=== PATIENT | female | born 1955 | race Caucasian/White ===

== ENCOUNTER 2016-10-10 18:17 | Inpatient (IN) | payer MEDICARE, MEDICAID ==
[2016-10-10] MEDS ORDERED: NS 0.9% 1000 ML* 1,000 ML IV ONE (19:02)
[2016-10-10] MEDS ORDERED: Pantoprazole IV* 40 MG IV ONE ×2 (19:02→21:00)
[2016-10-10 19:17] LABS: Hematocrit 18 % (35-47); Mean Corpuscular HGB Conc 31 g/dl (31-36); Mean Corpuscular Hemoglobin 20 pg (27-31); Mean Corpuscular Volume 65 fL (80-97); Mean Platelet Volume 9 um3 (7.4-10.4); Red Blood Count 2.79 10^6/ul (4.0-5.4); Red Cell Distribution Width 27 % (10.5-15); White Blood Count 5.2 10^3/ul (3.5-10.8)
[2016-10-10 19:25] LABS: Add Diff/Slide Review? Slide Review Added; Comments Flag Yes
[2016-10-10 19:26] LABS: Hemoglobin 5.6 g/dl (12.0-16.0)
[2016-10-10 19:27] LABS: ALT 11 U/L (7-52); AST 18 U/L (13-39); Albumin 3.5 g/dL (3.2-5.2); Alkaline Phosphatase 77 U/L (34-104); Anion Gap -5 mmol/L (2-11); BUN/Creatinine Ratio 21.6 (8-20); Blood Urea Nitrogen 19 mg/dL (6-24); C Reactive Protein 63.45 mg/L (< 5.00); CO2 Carbon Dioxide 27 mmol/L (22-32); Chloride 102 mmol/L (101-111); EGFR Non-African American 65.3 (>60); Globulin 2.6 g/dL (2-4); Glucose 254 mg/dL (70-100); Lipase 14 U/L (11.0-82.0); Potassium 4.4 mmol/L (3.5-5.0); Sodium 124 mmol/L (133-145); Total Protein 6.1 g/dL (6.4-8.9)
[2016-10-10 19:28] LABS: Troponin I 0.01 ng/mL (<0.04)
--- NOTE | 2016-10-10 19:37 | RAD ---
HISTORY: Abdominal pain COMPARISONS: January 28, 2009 VIEWS: Frontal views of the abdomen. FINDINGS: BOWEL: There is a nonobstructive bowel gas pattern. There is a very large amount of stool throughout the colon. CALCULI: There are no abnormal calculi. BONES AND SOFT TISSUES: There are no osseous abnormalities. OTHER FINDINGS: The lung bases are clear. There is no subphrenic gas. IMPRESSION: NONOBSTRUCTIVE BOWEL GAS PATTERN. VERY LARGE AMOUNT OF STOOL THROUGHOUT THE COLON.
[2016-10-10] MEDS ORDERED: Ondansetron INJ* 2 MG/ML VIAL IV PRN (19:50)
[2016-10-10] MEDS ORDERED: LORazepam INJ* 2 MG/ML 1 ML VIAL IV PRN (19:50)
[2016-10-10 19:58] LABS: Maturation Factor Retic 2.5
[2016-10-10 20:00] LABS: Hypochromasia 3+; Microcytosis 2+; Polychromasia 1+; Tear Drop Cells 1+
[2016-10-10] MEDS ORDERED: Pantoprazole IV* 40 MG IV SCH (20:00)
[2016-10-10] MEDS ORDERED: NS 0.9% 1000 ML* 1,000 ML IV SCH ×2 (20:00→20:30)
[2016-10-10 20:03] LABS: Comments Flag Yes; Corrected Retic Count 0.8 % (0.5-1.5); Immature Retic Fraction 0.51
[2016-10-10 20:14] LABS: Iron 29 ug/dL (50-212); Total Iron Binding Capacity 484 mcg/dL (250-450); Transferrin 346 mg/dL (203-362)
[2016-10-10] MEDS ORDERED: Albuterol 2.5 MG/3 ML NEB.SOL* (0.083%) INH PRN (20:18)
--- NOTE | 2016-10-10 20:20 | ED ---
Marina Mujica Claudia, scribed for Jacky Sosa MD on 10/10/16 at 1904 . Complex/Multi-Sys Presentation - HPI Summary HPI Summary: 61 year old female presents to the ED after receivingF some abnormal blood work at [facility] yesterday. Pt went to [facility] yesterday with c/c of weakness, fatigue, vomiting, nausea, fever, chills, dizziness, lightheadedness. Pt denies melena. Pt notes that they did some blood work and she got a call later that night from Dr. Wilkins whom stated she was "loosing blood" and was anemic. Pt notes that the Sx gradually began October. Dr. Wilkins recommended going to ED for blood transfusions. She notes that she was going to wait until she saw Dr. Ko but today she was unable to tolerate the Sx and called Dr. Wilkins whom recommended coming into the ED. Pt has been taking ibuprofen and naproxen more frequently for knee pain. - History Of Current Complaint Chief Complaint: EDBleedingDisorder Time Seen by Provider: 10/10/16 18:55 Hx Obtained From: Patient Onset/Duration: Gradual Onset - past 2 chiquis, Lasting Days - since 10/08/16 , Still Present Timing: Constant Associated Signs And Symptoms: Positive: Dizziness, Weakness, Nausea, Vomiting. Negative: Dysuria, Melena - Allergies/Home Medications Allergies/Adverse Reactions: Allergies Allergy/AdvReac Type Severity Reaction Status Date / Time Benzonatate [From Tessalon] Allergy Headache Verified 08/28/16 14:05 Cephalexin [From Keflex] Allergy VOMITING, Verified 08/28/16 14:05 DIARRHEA, HIVES, LIGHTHEADEDNESS Latex Allergy Rash Verified 08/28/16 14:05 Morphine Allergy VOMITING, Verified 08/28/16 14:05 LIGHTHEADEDNESS Penicillins [PCN] Allergy CHEST Verified 08/28/16 14:05 HEAVINESS, SLIGHT DIFF BREATHING, LIGHTHEADEDNESS, Codeine AdvReac See Comment Verified 08/28/16 14:06 ALL "MYCINS" Allergy CHEST Uncoded 08/28/16 14:05 HEAVINESS, SL. DIFF. BREATHING, LIGHTHEADEDNESS ALL CILLINS Allergy CHEST Uncoded 08/28/16 14:05 HEAVINESS, SL. DIFF. BREATHING, LIGHTHEADNESS MULTIPLE ANTIBIOPTIC Allergy CHEST Uncoded 08/28/16 14:05 REACTIONS HEAVINESS, SL. DIFF. BREATHING, LIGHTHEADEDNESS SULFA DRUGS Allergy VOMITING, Uncoded 08/28/16 14:05 DIARRHEA, HIVES, LIGHTHEADEDNESS PMH/Surg Hx/FS Hx/Imm Hx Previously Healthy: Yes Endocrine/Hematology History: Reports: Hx Diabetes - TYPE II- ON ORAL MEDICATION AND INSULIN Cardiovascular History: Reports: Hx Angina Denies: Hx Coronary Artery Disease, Hx Hypercholesterolemia, Hx Hypertension , Hx Myocardial Infarction, Hx Valvular Heart Disease Respiratory History: Denies: Hx Asthma, Hx Chronic Obstructive Pulmonary Disease (COPD) GI History: Reports: Hx Gastroesophageal Reflux Disease - ON MEDICATION FOR, Hx Hiatal Hernia, Hx Ulcer - reflux Sensory History: Reports: Hx Cataracts - BEGINNING STAGES, Hx Contacts or Glasses Denies: Hx Hearing Aid Opthamlomology History: Reports: Hx Cataracts - BEGINNING STAGES, Hx Contacts or Glasses - Surgical History Surgery Procedure, Year, and Place: NECK SURGERY- FOR HENIATED DISC[place] [place]. SURGERY FOR PROLASPED BLADDER AND RECTUM, TOTAL ABDOMINAL HYSTERECTOMY- LAPAROSCOPIC-JESSICA. TUBAL LIGATION Hx Anesthesia Reactions: Yes - NAUSEA Infectious Disease History: No Infectious Disease History: Reports: Hx of Known/Suspected MRSA Denies: History Other Infectious Disease, Traveled Outside the [place] in Last 30 Days - Family History Known Family History: Positive: Cardiac Disease Family History: [place] - Social History Occupation: Disabled Lives: Alone Alcohol Use: Rare Substance Use Type: Reports: None Smoking Status (MU): Former Smoker Type: Cigarettes Amount Used/How Often: 1 PPD X 25 +YEARS Have You Smoked in the Last Year: No Review of Systems Positive: Fever, Chills, Fatigue Eyes: Negative ENT: Negative Cardiovascular: Negative Respiratory: Negative Positive: Vomiting, Nausea Genitourinary: Negative Musculoskeletal: Negative Skin: Negative Neurological: Other - lightheaded/dizzy Psychological: Normal All Other Systems Reviewed And Are Negative: Yes Physical Exam - Summary Physical Exam Summary: VITAL SIGNS: Reviewed. GENERAL: Patient is a well developed and nourished female who is lying comfortable in the stretcher. Patient is not in any acute respiratory distress. HEAD AND FACE: Normocephalic and atraumatic. EYES: PERRLA, EOMI x 2, No injected conjunctiva. EARS: Hearing grossly intact. Ear canals and tympanic membranes are WNL. MOUTH: Oropharynx within normal limits. NECK: Supple, trachea is midline, no adenopathy, no JVD. CHEST: Symmetric, no tenderness at palpation LUNGS: Clear to auscultation bilaterally. No wheezing or crackles. CVS: RRR,, S1 and S2 present, no murmurs or gallops appreciated. ABDOMEN: Soft, epigastric tenderness. No signs of distention. Positive bowel sounds. No rebound no guarding, and no masses palpated. No abdominal bruit or pulsations. Rectal exam with normal sphincter tone and no gross blood. EXTREMITIES: FROM in all major joints, no edema, no cyanosis or clubbing. NEURO: Alert and oriented x 3. No acute neurological deficits. Speech is normal. SKIN: Dry and warm Triage Information Reviewed: Yes Vital Signs On Initial Exam: Initial Vitals Temp Pulse Resp BP Pulse Ox 99.1 F 86 16 131/42 98 10/10/16 18:24 10/10/16 18:24 10/10/16 18:24 10/10/16 18:24 10/10/16 18:24 Vital Signs Reviewed: Yes Diagnostics - Vital Signs Vital Signs Temp Pulse Resp BP Pulse Ox 10/10/16 18:24 99.1 F 86 16 131/42 98 - Laboratory Lab Results: Lab Results 10/10/16 10/10/16 10/10/16 Range/Units 19:00 19:00 19:00 WBC 5.2 (3.5-10.8) 10^3/ul RBC 2.79 L (4.0-5.4) 10^6/ul Hgb 5.6 L* (12.0-16.0) g/dl Hct 18 L (35-47) % MCV 65 L (80-97) fL MCH 20 L (27-31) pg MCHC 31 (31-36) g/dl RDW 27 H (10.5-15) % Plt Count 130 L (150-450) 10^3/ul MPV 9 (7.4-10.4) um3 Neut % (Auto) 76.3 (38-83) % Lymph % (Auto) 18.4 L (25-47) % [place] % (Auto) 3.0 (1-9) % Eos % (Auto) 0.9 (0-6) % Baso % (Auto) 1.4 (0-2) % Absolute Neuts (auto) 4.0 (1.5-7.7) 10^3/ul Absolute Lymphs (auto) 1.0 (1.0-4.8) 10^3/ul Absolute Monos (auto) 0.2 (0-0.8) 10^3/ul Absolute Eos (auto) 0 (0-0.6) 10^3/ul Absolute Basos (auto) 0.1 (0-0.2) 10^3/ul Absolute Nucleated RBC 0.04 10^3/ul Nucleated RBC % 0.8 Sodium 124 L (133-145) mmol/L Potassium 4.4 (3.5-5.0) mmol/L Chloride 102 (101-111) mmol/L Carbon Dioxide 27 (22-32) mmol/L Anion Gap -5 L (2-11) mmol/L BUN 19 (6-24) mg/dL Creatinine 0.88 (0.51-0.95) mg/dL Est GFR ( Amer) 84.0 (>60) Est GFR (Non-Af Amer) 65.3 (>60) BUN/Creatinine Ratio 21.6 H (8-20) Glucose 254 H (70-100) mg/dL Calcium 9.0 (8.6-10.3) mg/dL Total Bilirubin 0.40 (0.2-1.0) mg/dL AST 18 (13-39) U/L ALT 11 (7-52) U/L Alkaline Phosphatase 77 (34-104) U/L Troponin I 0.01 (<0.04) ng/mL C-Reactive Protein 63.45 H (< 5.00) mg/L Total Protein 6.1 L (6.4-8.9) g/dL Albumin 3.5 (3.2-5.2) g/dL Globulin 2.6 (2-4) g/dL Albumin/Globulin Ratio 1.3 (1-3) Lipase 14 (11.0-82.0) U/L Blood Type O Positive Antibody Screen Negative Crossmatch See Detail Result Diagrams: 10/10/16 19:00 10/10/16 19:00 Lab Statement: Any lab studies that have been ordered have been reviewed, and results considered in the medical decision making process. - Radiology ABDOMEN XRAY Xray Interpretation: No Acute Changes - NONOBSTRUCTIVE BOWEL GAS PATTERN. VERY LARGE AMOUNT OF STOOL THROUGHOUT THE COLON. Radiology Interpretation Completed By: Radiologist - EKG 19:08 Cardiac Rate: NL EKG Rhythm: Sinus Rhythm - 81 beats/min ST Segment: Normal - no ST elevation Complex Multi-Symp Course/Dx Assessment/Plan: 61 presents to ED after seeing by PCP due to decreased hemoglobin and hematocrit. The pt records for 1 week of weakness, dizziness, palpitations. She also reports taking more than usual ibuprofen and naproxen for knee pain. She denies any melena or rectal bleeding her last colonoscopy was 4 years ago. Test hemoglobin was 5.6 and hematocrit was 18. Sodium 124, glucose 254 Abd XR showed non obstructed bowel. However, very large amount of stool in the colon. The pt is hemodynamically stable with 131/42. However the pt was given IV fluids, protonics, and I ordered 2 units of packed RBC for transfusion. The pt continued to be hemodynamically stable. Pt has 2 IV accesses. The PE and findings were discussed with Dr. Nichols. Dr. Nichols accepts patient for admission to [facility] [place]. - Diagnoses Provider Diagnoses: GI bleed due to NSAIDs, Symptomatic anemia - Physician Notifications Discussed Care Of Patient With: Discussed care of patient with Dr. Nichols. Dr. Nichols accepts admission to [facility] [place]. 20:03 Time Discussed With Above Provider: 19:56 Discharge - Discharge Plan Condition: Stable Disposition: ADMITTED TO [facility] Referrals: Peyman Ko MD [Primary Care Provider] - The documentation as recorded by the Marina de la o Claudia accurately reflects the service I personally performed and the decisions made by , Jacky Sosa MD.
[2016-10-10] MEDS ORDERED: Dextrose 50% Syringe 50 ML* 25 GM/50 ML SYRINGE IV PUSH PRN (20:21)
[2016-10-10 20:35] LABS: Ferritin 15.3 ng/mL (11-307)
[2016-10-10 20:38] LABS: Folate > 20.00 ng/mL (>3.99)
[2016-10-10 20:39] LABS: Vitamin B12 420 pg/mL (180-914)
[2016-10-10 20:51] LABS: Urine Bacteria 1+ (Absent); Urine Bilirubin Negative (Negative); Urine Glucose Negative (Negative); Urine Nitrite Negative (Negative)
--- NOTE | 2016-10-10 20:59 | RAD ---
HISTORY: Fever COMPARISONS: September 12, 2015 VIEWS:1: Single frontal portable view of the chest at 8:45 PM FINDINGS: LINES AND TUBES: None. CARDIOMEDIASTINAL SILHOUETTE: The cardiomediastinal silhouette is normal for portable technique. PLEURA: The costophrenic angles are sharp. No pleural abnormalities are noted. LUNG PARENCHYMA: The lungs are clear. ABDOMEN: The upper abdomen is clear. There is no subphrenic gas. BONES AND SOFT TISSUES: No bone or soft tissue abnormalities are noted. IMPRESSION: NO ACTIVE CARDIOPULMONARY DISEASE.
[2016-10-10] MEDS ORDERED: Pantoprazole IV* 80 MG in NS 0.9% 250 ML* 250 ML IVPB SCH (21:00)
[2016-10-10] MEDS: Pantoprazole IV* 80 MG in NS 0.9% 250 ML* 250 ML IVPB SCH (22:40)
[2016-10-10] MEDS: Insulin GLARGINE(*) 1 UNITS UNIT SUBCUT SCH (22:41)
[2016-10-10] MEDS: Gabapentin CAP(*) 300 MG PO SCH (22:41)
[2016-10-10] MEDS: Acetaminophen TAB* 325 MG PO PRN (22:42)
--- NOTE | 2016-10-11 00:48 | HP ---
HISTORY AND PHYSICAL: DATE OF ADMISSION: 10/10/16 PRIMARY CARE PROVIDER: Peyman Ko MD ATTENDING PHYSICIAN WHILE IN THE HOSPITAL: Marcos Nichols MD * (report dictated by Lj Oh NP) CONSULTING COMPUTER TYPESETTER: Gulshan Crook MD CHIEF COMPLAINT: Abnormal blood work. HISTORY OF PRESENT ILLNESS: Mrs. Allen is a 61-year-old female patient. She has a history of neuropathy, osteomyelitis, diabetes, history of arthritis, GERD , and hiatal hernia. She comes in today stating that 3 days ago she was spiking fevers at home as high as 102, although this has not been documented here. She was feeling nauseous. She was vomiting. This happened on and Wednesday, she felt good. It happened again this morning. She had blood work obtained by her primary initially because she had not been feeling well. There had been no diarrhea. There has been episodes of vomiting and she states that she had been under the weather. No recent sick contacts. No URI symptoms. She underwent and had the blood work due to the fact that she was having these symptoms, was not feeling good and she came in to her primary. They kimberlee blood and they ultimately called her today stating that she had some abnormal lab signs, particularly her hemoglobin was profoundly low. She was told this yesterday and decided to come in today because she started feeling more tired and more weak. In her words, she was feeling lousy. She was noticing when she changed positions, she was feeling dizzy and lightheaded. Denied having any chest pain. She did admit to having some dyspnea on exertion. She denied having any syncope. She denied having any melena, but she is also complaining of this epigastric-type sharp pain. She states that her fever on got as high as 103. She was concerned she was going to wait to see her primary on Wednesday, but she knew that her primary will probably send her to the ER and that is why she decided to come into the ER tonight. She was evaluated by Dr. Sosa. Labs were repeated and it was noted that hemoglobin was 5. Hospitalist service was asked to evaluate on admission. PAST MEDICAL HISTORY: Significant for: 1. Neuropathy. 2. Diabetes. 3. Osteomyelitis. 4. GERD. 5. Hiatal hernia. PAST SURGICAL HISTORY: 1. She has had tubal ligation. 2. Cervical spine fusion. 3. She has had hand surgery. HOME MEDICATIONS: According to her recall include: 1. Nexium 40 mg daily. 2. B12 500 mcg p.o. daily. 3. Aspirin 81 mg daily. 4. Tylenol 500 mg p.o. b.i.d. as needed. 5. Glucophage 850 mg p.o. daily. 6. Levemir 42 units in the morning and 44 units at night. 7. Gabapentin 600 mg p.o. t.i.d. ALLERGIES: Her allergies to medication include BENZONATATE, KEFLEX, LATEX, MORPHINE, PENICILLIN, CODEINE, and SULFA. FAMILY HISTORY: Her mother had a history of coronary artery disease. Father's history has been noncontributory. SOCIAL HISTORY: She is a former smoker. She does not drink alcohol. She does have children. Surrogate decision maker is her friend, Odette. REVIEW OF SYSTEMS: There is a documented fever at home. She denied having any significant weight change. There is no double vision. She denies having any ear discharge. There is no rhinorrhea. There is no sore throat. No thyroid enlargement. She denies having any chest pain. There was no orthopnea. No dyspnea on exertion. There is epigastric discomfort. There was episode of nausea with vomiting. No dysuria. No frequency. She denied having any loss of consciousness. She did admit to having lightheaded with position change. She denied having any double vision. Review of 14 systems completed, all others negative. PHYSICAL EXAMINATION GENERAL: At this time, Ms. Allen is a 61-year-old female patient. She does not appear to be in any acute distress. She is awake and alert. She is oriented x3. VITAL SIGNS: Blood pressure 129/45, pulse 88, respirations 18, O2 sat 96%, and temperature 99.1. HEENT: Head is atraumatic and normocephalic. Eyes: EOMs are intact. Sclerae anicteric and not pale. NECK: Supple. Throat: Oral mucosa appears to be moist. No oropharyngeal erythema. LUNGS: Clear to auscultation bilaterally. No wheezes, rales, or rhonchi. HEART: Sounds S1, S2. Regular rate and rhythm. No murmurs, rubs, or gallops. ABDOMEN: Soft, it was flat. There was tenderness still elicited in the epigastric area. EXTREMITIES: Pulses are 2+ throughout. She is able to move all 4 extremities with 5/5 strength. NEUROLOGIC: The patient is awake, alert, and oriented x3. Tongue midline. Traffic Signal Supervisor Maintenance were equal. No gross focal deficits. SKIN: Grossly intact. DIAGNOSTIC STUDIES/LAB DATA: Labs today revealed WBC of 5.2, RBC of 2.79, hemoglobin was 5.6, hematocrit of 18, and platelet count of 130. Sodium was 124 , potassium 4.4, chloride of 102, bicarb 27, BUN 19, creatinine 0.88, glucose 254, and calcium 9.0. Iron was 29, TIBC of 484, iron sat 6, and ferritin is pending. She has a total bili of 0.4, AST 18, ALT 11, and alk phos 77. Troponin 0. CRP of 63. Lipase was 14. She had a Hemoccult which was negative. She had an abdominal x-ray today, which showed nonobstructive bowel gas pattern , very large amount of stool throughout the colon. She had an EKG obtained today as well, which showed a normal sinus rhythm, rate of 81, and no ST elevations or T wave inversions were noted. Old medical records reviewed. ASSESSMENT AND PLAN: Mrs. Allen is a 61-year-old female patient coming into the emergency department today with complaints of abnormal lab data. Initially , there is also complaints of fever and associated vomiting. This she had on and again this morning, but that she has exhibited neither of these in the ER. Upon evaluation, it was noted that her hemoglobin was 5.3. Hospitalist service was asked to evaluate in admission. She will be admitted under inpatient status for: 1. Anemia: Etiology is unclear. I do suspect though she does take naproxen on a daily basis. In addition to this also takes ibuprofen as needed and was on a baby aspirin. She has a hiatal hernia. She may have had a slow upper GI bleed, although she does have a negative Hemoccult at this point, but I do think that the GI input is important. Her iron studies are low. I think after scoping her, we could start her on iron. For the time being, I am going to give her 2 units of blood. We will go ahead and also check her B12 and folate. In addition to this, we may need to consider a colonoscopy if the upper endoscopy is negative and for the time being, we will put her on a PPI drip empirically if in case there is any gastritis or any small bleeding ulcers. I did touch base with Dr. Crook about this and he was in agreement. 2. Reports of fever: She has no white count here. I am going to go ahead and check her flu swab. Her abdomen is only tender in the epigastric area, but that she is nondistended and she is flat. Bowel sounds are present and she does not have diffuse tenderness, so I think at this point we will get a flu swab, get blood cultures, and get a UA. We will monitor for any fevers. It could be a viral illness. We will just continue to follow. 3. Neuropathy: Continue her gabapentin. 4. Diabetes: She will be on a lispro sliding scale and we will continue her Levemir in the form of Lantus at 40 units. 5. Gastroesophageal reflux disease: Continue PPI therapy. 6. Hiatal hernia: Again, she will be on PPI therapy. 7. DVT prophylaxis: SCDs in the setting of an acute bleed. 8. Fluid, electrolytes, and nutrition: Clear liquid diet and n.p.o. after midnight. TIME SPENT: Time spent on the admission was 60 minutes; greater than half the time was spent [id number] with the patient obtaining my history and physical, the other half time is spent going over the plan of care with the patient and implementing plan of care. I discussed the plan of care with my attending, Dr. Nichols. He is in agreement. LJ OH NP CC: Dr. Ko; Dr. Crook * [id number]/CPS #: [id number] [facility]ICAL CENTERBill
[2016-10-11] MEDS: traMADol TAB* 50 MG PO PRN ×2 (02:46→20:46)
[2016-10-11 05:47] LABS: Hematocrit 24 % (35-47); Hemoglobin 7.7 g/dl (12.0-16.0); Mean Corpuscular HGB Conc 32 g/dl (31-36); Mean Corpuscular Hemoglobin 23 pg (27-31); Mean Platelet Volume 9 um3 (7.4-10.4); Red Blood Count 3.41 10^6/ul (4.0-5.4); White Blood Count 4.6 10^3/ul (3.5-10.8)
[2016-10-11 06:00] LABS: Comments Flag Yes
[2016-10-11 06:01] LABS: Mean Corpuscular Volume 71 fL (80-97)
[2016-10-11 06:02] LABS: Red Cell Distribution Width 29 % (10.5-15)
[2016-10-11 06:03] LABS: BUN/Creatinine Ratio 16.9 (8-20); Calcium 8.6 mg/dL (8.6-10.3); EGFR Non-African American 76.2 (>60); Potassium 3.9 mmol/L (3.5-5.0)
[2016-10-11] MEDS: Gabapentin CAP(*) 300 MG PO SCH ×3 (08:13→20:44)
[2016-10-11] MEDS: Acetaminophen TAB* 325 MG PO PRN ×3 (08:13→19:53)
[2016-10-11] MEDS: Insulin LISPRO* 1 UNITS UNIT SUBCUT SCH ×3 (08:21→17:41)
[2016-10-11] MEDS: Pantoprazole IV* 80 MG in NS 0.9% 250 ML* 250 ML IVPB SCH (09:04)
--- NOTE | 2016-10-11 09:18 | PN ---
Subjective Date of Service: 10/11/16 Interval History: This is a 61 yo female with IDDM, peripheral neuropathy, GERD and a hiatal hernia who presented to the ER because she was told she had abnormal labs. Hgb was 5.5 g/dl at time of admission. Stool was heme negative. Patient reports only mild fatigue, but otherwise asymtomatic. She had been intermittently febrile at home without other focal symptoms which is what prompted the outpatient labs. Patient has been transfused 2U PRBCs overnight and is awaiting upper endoscopy. She reports some mild epigastric discomfort this am, but feels hungry. Denies diarrhea, n/v. Denies melena or hematachezia. No cough or SOB. Objective Active Medications: Acetaminophen (Tylenol Tab*) 650 mg PO Q6H PRN PRN Reason: FEVER/PAIN Last Admin: 10/11/16 08:13 Dose: 650 mg Albuterol (Ventolin 2.5 Mg/3 Ml Neb.Amisha*) 2.5 mg INH Q2H PRN PRN Reason: SOB/WHEEZING Dextrose (D50w Syringe 50 Ml*) 12.5 gm IV PUSH .FOR FS < 60 - SS PRN PRN Reason: FS < 60 Gabapentin (Neurontin Cap(*)) 600 mg PO TID [facility] Last Admin: 10/11/16 08:13 Dose: 600 mg Sodium Chloride (Ns 0.9% 1000 Ml*) 1,000 mls @ 125 mls/hr IV PER [facility] Sodium Chloride (Ns 0.9% 1000 Ml*) 1,000 mls @ 100 mls/hr IV PER [facility] Last Admin: 10/11/16 06:16 Dose: 100 mls/hr Pantoprazole Sodium 80 mg/ (Sodium Chloride) 250 mls @ 25 mls/hr IVPB Q10H [facility] Last Admin: 10/11/16 09:04 Dose: 25 mls/hr Insulin Glargine (Lantus(*)) 40 units SUBCUT Q24H [facility] Last Admin: 10/10/16 22:41 Dose: 40 units Insulin Human Lispro (Humalog*) 0 units SUBCUT AC BRITNI PRN Reason: Protocol Last Admin: 10/11/16 08:21 Dose: 2 units Lorazepam (Ativan Inj*) 0.5 mg IV BEDTIME PRN PRN Reason: SLEEP Last Admin: 10/11/16 00:53 Dose: 0.5 mg Ondansetron HCl (Zofran Inj*) 4 mg IV Q6H PRN PRN Reason: NAUSEA Tramadol HCl (Ultram*) 50 mg PO Q6H PRN PRN Reason: PAIN Last Admin: 10/11/16 02:46 Dose: 50 mg Vital Signs: Temp Pulse Resp BP Pulse Ox 98.6 F 75 16 128/49 98 10/11/16 07:37 10/11/16 07:37 10/11/16 08:13 10/11/16 07:37 10/11/16 04:25 Oxygen Devices in Use Now: None Appearance: Well appearing in NAD Neck: NL Appearance and Movements; NL JVP Respiratory: Symmetrical Chest Expansion and Respiratory Effort, Clear to Auscultation Cardiovascular: NL Sounds; No Murmurs; No JVD, RRR Abdominal: - - BS present, some epigastric TTP Extremities: No Edema Skin: No Rash or Ulcers Neurological: Alert and Oriented x 3 Result Diagrams: 10/11/16 05:20 10/11/16 05:20 Additional Lab and Data: . Microbiology and Other Data: Microbiology 10/10/16 21:05 Influenza Types A,B Antigen (KAM) - Final Nasal Specimen received for Influenza A/B Molecular testing Diagnostic Imaging: CXR - NAD XR abd - lg amount of stool, no obstruction Assess/Plan/Problems-Billing Assessment: This is a 61 yo female with a h/o IDDM, peripheral neuropathy, GERD and hiatal hernia who presented with anemia and complaints of intermittent fever. She was admitted with suspected GI bleed. - Patient Problems (1) GI bleed Comment: Stool is heme negative She is iron deficient, suspect slow GI bleed She received 2U PRBCs with appropriate response in hemoglobin Hemodynamically stable Pending upper endoscopy and GI consult (2) Febrile illness Comment: Patient has been afebrile overnight Cultures pending UA +LE and WBCs, but she is asymptomatic, will await culture results to treat or will start abx empirically if she is febrile again CXR neg and influenza neg No other acute pathology noted Possibly a viral illness (3) Thrombocytopenia Comment: Appears acute Possibly due to acute illness Will continue to monitor (4) Hyponatremia Comment: Resolved with IVF (5) IDDM (insulin dependent diabetes mellitus) Comment: She received half of her usual insulin gargine with NPO status this am Will resume typical insulin doses this evening if her diet is advanced (6) Peripheral neuropathy Status and Disposition: Patient requires continued inpatient care. Anticipate discharge in 1-2. Pending endoscopy
[2016-10-11] MEDS ORDERED: NS 0.9% 1000 ML* 1,000 ML IV SCH (10:15)
[2016-10-11 11:18] LABS: Comments Flag Yes; Hematocrit 25 % (35-47)
[2016-10-11] MEDS ORDERED: Midazolam* 1 MG/ML 10 ML VIAL (10 MG) ONE (11:48)
[2016-10-11] MEDS ORDERED: Meperidine SYRINGE* 50 MG/ML ONE (11:48)
[2016-10-11 17:13] LABS: Hematocrit 24 % (35-47); Hemoglobin 7.5 g/dl (12.0-16.0)
[2016-10-11 17:19] LABS: Comments Flag Yes
[2016-10-11] MEDS: Insulin GLARGINE(*) 1 UNITS UNIT SUBCUT SCH (20:46)
--- NOTE | 2016-10-11 20:59 | CONS ---
CONSULTATION REPORT: DATE OF CONSULT: 10/11/16 REQUESTING PHYSICIAN: Lj Oh NP INDICATION: Upper GI bleed. NARRATIVE: Mr. Allen is a pleasant 61-year-old female with a history of diabetes, neuropathy, osteomyelitis, GERD, and hiatal hernia who presents with fevers and was sent to the emergency room by her PCP. The patient had blood work through her PCPs office and was noted to be anemic and was referred to the emergency room for further evaluation. The patient does take naproxen, ibuprofen, and aspirin; all on a daily basis. She does have epigastric tenderness. No vomiting, but some nausea. She does have darker stools. She has never had GI bleeding in the past; however, she did have an EGD a year ago, which revealed gastritis. She did receive 2 units of blood overnight and her hemoglobin has come up. PAST MEDICAL HISTORY: Please see the HPI. PAST SURGICAL HISTORY: Tubal ligation, spine surgery, and hand surgery. MEDICATIONS: Include: 1. Nexium. 2. Aspirin. 3. Tylenol. 4. Glucophage. 5. Levemir. 6. Gabapentin. ALLERGIES: PENICILLIN, MORPHINE, CODEINE, SULFA, and KEFLEX. FAMILY HISTORY: Significant for coronary artery disease. She denies tobacco. She quit many years ago. REVIEW OF SYSTEMS: Twelve systems were reviewed, other than that mentioned in the HPI were unremarkable. PHYSICAL EXAM: General: A well-appearing female; in no apparent distress; lying flat in bed; alert, oriented, pleasant, and fluent. Vital signs: Temperature is 98.6, blood pressure is 128/49, pulse is 75, and respiratory rate of 16. HEENT: Mucous membranes are moist without lesions, ulcers, or exudate. Head is normocephalic, atraumatic. Neck: Supple. Trachea is midline. Lungs: Clear to auscultation bilaterally. No wheezes, rales, or rhonchi. Heart: Regular rate and rhythm. Abdomen: Positive bowel sounds soft. Tender in the epigastrium, nontender elsewhere. No rebound, no guarding , and no masses were appreciated. No hepatosplenomegaly. Skin: Warm and dry. DIAGNOSTIC STUDIES/LAB DATA: Labs of note, hemoglobin went from 5.6 to 7.7 with 2 units, white count is 4.6, and platelets of 121. Sodium 137, BUN fell from 19 to 13, and creatinine is 0.77. ASSESSMENT AND PLAN: This is a pleasant 61-year-old female with anemia who has a history of heavy nonsteroidal use. Likely, she has an upper GI bleed. Likely , she has peptic ulcer disease from her nonsteroidal anti-inflammatories. She is on a PPI. She has 2 large-bore IVs. Her NSAIDs have been stopped. She will continue with a PPI drip and I will make arrangements for an EGD later today. If negative, she will need to follow up with [facility] and have her outpatient [facility] doctor perform a colonoscopy. CC: Dr. Ko* [id number]/[facility] #: [id number] AURELIA
[2016-10-12] MEDS: Acetaminophen TAB* 325 MG PO PRN (05:32)
[2016-10-12 05:49] LABS: Hematocrit 24 % (35-47); Hemoglobin 7.7 g/dl (12.0-16.0); Mean Corpuscular HGB Conc 32 g/dl (31-36); Mean Corpuscular Hemoglobin 23 pg (27-31); Mean Platelet Volume 9 um3 (7.4-10.4); Red Blood Count 3.42 10^6/ul (4.0-5.4)
[2016-10-12 05:55] LABS: Comments Flag Yes
[2016-10-12 05:56] LABS: Mean Corpuscular Volume 70 fL (80-97); Red Cell Distribution Width 28 % (10.5-15)
[2016-10-12 05:57] LABS: Add Diff/Slide Review? Slide Review Added
[2016-10-12 06:23] LABS: Macrocytosis 1+
[2016-10-12 06:24] LABS: Hypochromasia 1+; Microcytosis 1+; Polychromasia 1+; Spherocytes 1+; Target Cells 1+
[2016-10-12 07:54] VITALS: BP 128/43
[2016-10-12] MEDS: Gabapentin CAP(*) 300 MG PO SCH (08:12)
[2016-10-12] MEDS: Insulin LISPRO* 1 UNITS UNIT SUBCUT SCH (08:13)
[2016-10-12] MEDS ORDERED: Pantoprazole IV* 40 MG IV SCH (09:00)
--- NOTE | 2016-10-12 10:52 | PRO ---
DATE OF PROCEDURE: 10/11/16 - ROOM #408 PROCEDURE: EGD. INDICATIONS: Hemorrhage of rectum and anus, iron deficiency anemia, upper GI bleed. REFERRING PHYSICIAN: Dr. Ko. MEDICATIONS GIVEN: 25 mg IV Demerol, 7 mg IV Versed. DESCRIPTION OF PROCEDURE: After the EGD procedure including the risks, benefits , and alternatives not limited to perforation, surgery, and/or were explained to the patient, written consent was then obtained. IV medication was given and a bite-block was placed between the teeth. An Olympus gastroscope was then inserted into the patient's mouth, advanced down the esophagus, into the stomach, into the distal duodenum. In the esophagus, at the GE junction, she did have a patulous GE junction consistent with a hiatal hernia. The scope was advanced through the GE junction. No erosive esophagitis was seen. The scope was advanced through the GE junction into the body of the stomach. Retroflex view was unremarkable. 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 No ulcers, no bleeding were seen. Biopsies were obtained for H. pylori. The scope was advanced through a widely patent pylorus, into the duodenal bulb, into the distal duodenum, both of which were unremarkable except for potential changes consistent with celiac disease, four biopsies were obtained. The scope was then withdrawn from the patient. She tolerated the procedure well and was returned to the hospital room in stable condition. IMPRESSION: 1. Complete upper endoscopy into the distal duodenum with biopsies. 2. Gastritis, nonbleeding, status post biopsy. 3. Changes potentially consistent with celiac disease, status post biopsy. 4. Gastric polyp, which her [place] coach professional athletes can address. 5. No obvious source for her anemia was seen. If the biopsies are unremarkable , I recommend that she have a repeat colonoscopy through her [place] coach professional athletes. If that is unremarkable, then a small bowel capsule endoscopy. CC: Dr. Ko* [id number]/[facility] #: [id number] [facility]
--- NOTE | 2016-10-13 02:59 | DS ---
DISCHARGE SUMMARY: DATE OF ADMISSION: 10/10/16 DATE OF DISCHARGE: 10/12/16 PRIMARY CARE PROVIDER: Dr. Ko. DISCHARGING PROVIDER: CHRISTINE Singleton. SUPERVISING PHYSICIAN: Yuni Kulkarni DO. * (dictated by CHRISTINE Singleton) PRIMARY DISCHARGE DIAGNOSES: 1. Iron deficiency anemia - suspected GI bleed versus celiac disease. EGD negative for evidence of acute bleeding, biopsies pending from small bowel. 2. Febrile illness - suspected to be viral in origin - cultures negative including urine and blood, chest x-ray negative for acute pathology. Influenza testing negative. 3. Hyponatremia - resolved. SECONDARY DISCHARGE DIAGNOSES: 1. Insulin dependent diabetes. 2. Peripheral neuropathy. HOSPITAL IMAGIN. Abdominal x-ray, 10/10/16, shows a nonobstructive bowel gas pattern and a large amount of stool throughout the colon. 2. Chest x-ray, 10/10/16, shows no acute cardiopulmonary disease. 3. EKG shows a normal sinus rhythm without ischemic changes. HOSPITAL COURSE: This is a 61-year-old female with insulin-dependent diabetes and peripheral neuropathy who was prompted to proceed to the emergency department by her primary care provider due to profound anemia discovered on outpatient labs. The patient had been sick with intermittent fever for a couple of days prior to her admission and primary care had ordered her labs. She was noted to be profoundly anemic and was asked to come to the emergency department for evaluation. The patient described some mild fatigue and weakness but no profound symptoms. Hemoglobin at the time of admission was 5.6 g/dL. The patient's stool was noted to be heme negative. She received 2 units of packed red blood cells and hemoglobin improved appropriately to 7.7 g/dL. The patient was hyponatremic at the time of admission with a sodium of 124 mL/L, which improved after rehydration with normal saline. The patient underwent workup for her febrile illness. Urinalysis was positive for leukocyte esterase and bacteria but culture was negative. Blood cultures were also negative as well as influenza testing. The patient remained afebrile throughout her hospital stay without any other focal findings. I suspected that this is a viral illness that has nearly resolved. The patient underwent EGD by second cook and baker, Dr. Crook, who stated that there was evidence of gastritis but no active bleeding or oozing. No large ulcerations or evidence of recent bleeding. He stated that the duodenum had an atrophied appearance and biopsies were taken with the suspicion of a celiac disease. Hemoglobin was monitored closely throughout her hospital stay, which remained stable and she was discharged with a hemoglobin of 7.7 g/dL. She had some feelings of mild fatigue and weakness but again remained afebrile and she had some mild epigastric discomfort but no other acute symptoms. DISPOSITION AND DISCHARGE PLAN: The patient is being discharged to home where she lives alone but has support from her grandson. She is instructed to discontinue any NSAID use and continue her home Nexium. Her duodenal biopsies are pending at the time of discharge. A celiac disease may be responsible for her iron deficiency anemia. If biopsies are negative for presence of celiac, then a colonoscopy would be the next step in terms of diagnostic workup for her anemia. The patient is associated with the [facility] and has had prior endoscopies with a second cook and baker there. The patient is instructed to follow up with her primary care provider later this week to review the results of biopsy and again if negative, arrangements for colonoscopy should be made. I also recommended that she repeat a CBC in approximately 2 to 3 days to evaluate the trajectory of her anemia. I suspect that this is a slow process based on how relatively few symptoms she has had as a result of it. CHRISTINE SINGLETON CC: Dr. Ko* [id number]/[facility] #: [id number] [facility]
== END 2016-10-12 10:35 | disposition home or self-care (01) | DRG 812 ==
LOC: ED 18:17 → MED 20:13
PROVIDERS: ADMIT Hospitalist; ATTEND Hospitalist
PROC: 30233N1 Transfusion of Nonautologous Red Blood Cells into Peripheral Vein, Percutaneous Approach (ICD-10-PCS; 2016-10-10)
PROC: 0DB68ZX Excision of Stomach, Via Natural or Artificial Opening Endoscopic, Diagnostic (ICD-10-PCS; principal; 2016-10-11)
DX: D50.9 Iron deficiency anemia, unspecified (principal); E11.42 Type 2 diabetes mellitus with diabetic polyneuropathy; D69.6 Thrombocytopenia, unspecified; E87.1 Hypo-osmolality and hyponatremia; K86.81 Exocrine pancreatic insufficiency; K92.2 Gastrointestinal hemorrhage, unspecified; B34.9 Viral infection, unspecified; K90.0 Celiac disease; K29.70 Gastritis, unspecified, without bleeding; K31.7 Polyp of stomach and duodenum; K21.9 Gastro-esophageal reflux disease without esophagitis; K44.9 Diaphragmatic hernia without obstruction or gangrene; Z79.82 Long term (current) use of aspirin; Z79.4 Long term (current) use of insulin; Z79.899 Other long term (current) drug therapy; Z88.6 Allergy status to analgesic agent; Z88.0 Allergy status to penicillin; Z88.8 Allergy status to other drugs, medicaments and biological substances; Z91.040 Latex allergy status; Z82.49 Family history of ischemic heart disease and other diseases of the circulatory system; Z87.891 Personal history of nicotine dependence
CPT/HCPCS: 36415; 71010; 74020; 80048; 80053; 81003; 81015; 82272; 82607; 82728; 82746; 82947; 83036; 83540; 83550; 83690; 83930; 83935; 84300; 84466; 84484; 85014; 85018; 85025; 85045; 86140; 86710; 86850; 86900; 86901; 86922; 87040; 87077; 87086; 87502; 87641; 88305; 93005; A9270-GY; J2060; J2175; J2250; P9016

== ENCOUNTER 2016-11-12 14:28 | Observation (INO) | payer MEDICARE, MEDICAID ==
[2016-11-12 14:42] LABS: White Blood Count 1.1 10^3/ul (3.5-10.8)
[2016-11-12 14:52] LABS: Hematocrit 17 % (35-47); Mean Corpuscular HGB Conc 33 g/dl (31-36); Mean Corpuscular Hemoglobin 23 pg (27-31); Mean Corpuscular Volume 70 fL (80-97); Mean Platelet Volume 7 um3 (7.4-10.4); Red Cell Distribution Width 27 % (10.5-15)
[2016-11-12 14:53] LABS: Comments Flag Yes
[2016-11-12 14:57] LABS: Add Diff/Slide Review? Slide Review Added; Hemoglobin 5.5 g/dl (12.0-16.0)
[2016-11-12 15:01] LABS: Albumin 3.5 g/dL (3.2-5.2); BUN/Creatinine Ratio 17.4 (8-20); Calcium 8.5 mg/dL (8.6-10.3); EGFR African American 86.3 (>60); EGFR Non-African American 67.1 (>60); Potassium 3.9 mmol/L (3.5-5.0); Total Bilirubin 0.3 mg/dL (0.2-1.0); Total Protein 6.5 g/dL (6.4-8.9)
[2016-11-12 15:07] LABS: Microcytosis 2+
[2016-11-12 15:08] LABS: Add Path Review? YES; Polychromasia 1+
[2016-11-12 15:43] LABS: Ferritin 90.5 ng/mL (11-307)
[2016-11-12] MEDS ORDERED: Dextrose 50% Syringe 50 ML* 25 GM/50 ML SYRINGE IV PUSH PRN (15:56)
[2016-11-12] MEDS ORDERED: Acetaminophen TAB* 325 MG PO SCH (16:04)
[2016-11-12] MEDS ORDERED: Acetaminophen TAB* 325 MG PO PRN (16:04)
[2016-11-12] MEDS ORDERED: diPHENhydraMINE PO* 25 MG PO SCH (16:04)
[2016-11-12] MEDS: Insulin LISPRO* 1 UNITS UNIT SUBCUT SCH ×2 (18:01→21:50)
[2016-11-12] MEDS: Nystatin SUSPENSION* 100000 UNITS/ML 5 ML UDC PO SCH ×2 (18:02→20:07)
[2016-11-12] MEDS ORDERED: Gabapentin CAP(*) 300 MG PO SCH (21:00)
[2016-11-12] MEDS: traMADol TAB* 50 MG PO PRN (22:07)
[2016-11-13] MEDS: traMADol TAB* 50 MG PO PRN ×2 (05:50→14:39)
[2016-11-13] MEDS: Omeprazole CAP* 20 MG PO SCH ×2 (05:51)
[2016-11-13 07:01] LABS: Hematocrit 22 % (35-47); Hemoglobin 7.4 g/dl (12.0-16.0); Mean Corpuscular HGB Conc 33 g/dl (31-36); Mean Corpuscular Hemoglobin 25 pg (27-31); Mean Corpuscular Volume 74 fL (80-97); Red Blood Count 2.98 10^6/ul (4.0-5.4); Red Cell Distribution Width 25 % (10.5-15); White Blood Count 1.4 10^3/ul (3.5-10.8)
[2016-11-13 07:12] LABS: Albumin 3.4 g/dL (3.2-5.2); BUN/Creatinine Ratio 15.7 (8-20); Calcium 9.1 mg/dL (8.6-10.3); EGFR African American 109.4 (>60); EGFR Non-African American 85.1 (>60); Globulin 3.1 g/dL (2-4); Potassium 4.2 mmol/L (3.5-5.0); Total Bilirubin 0.8 mg/dL (0.2-1.0); Total Protein 6.5 g/dL (6.4-8.9)
[2016-11-13 07:48] LABS: Add Diff/Slide Review? Slide Review Added; Comments Flag Yes
[2016-11-13] MEDS ORDERED: Insulin GLARGINE(*) 1 UNITS UNIT SUBCUT SCH (08:00)
[2016-11-13 08:13] LABS: Mean Platelet Volume 6 um3 (7.4-10.4)
[2016-11-13] MEDS ORDERED: Gabapentin CAP(*) 300 MG ONE (08:16)
[2016-11-13] MEDS: Nystatin SUSPENSION* 100000 UNITS/ML 5 ML UDC PO SCH ×2 (08:18→13:29)
[2016-11-13] MEDS: Gabapentin CAP(*) 300 MG PO SCH ×2 (08:18→13:29)
[2016-11-13] MEDS ORDERED: metFORMIN* 850 MG TAB PO SCH (08:30)
[2016-11-13] MEDS ORDERED: Cyanocobalamin TAB* 500 MCG PO SCH (09:00)
[2016-11-13] MEDS ORDERED: Multivitamins/Minerals TAB PO SCH (09:00)
[2016-11-13] MEDS ORDERED: Ferrous Sulfate TAB* 325 MG PO SCH (09:00)
[2016-11-13] MEDS: Insulin LISPRO* 1 UNITS UNIT SUBCUT SCH ×2 (09:14→12:39)
[2016-11-13] MEDS ORDERED: diPHENhydraMINE PO* 25 MG PO ONE (09:25)
[2016-11-13] MEDS ORDERED: Acetaminophen TAB* 325 MG PO ONE (09:25)
[2016-11-13] MEDS ORDERED: Lidocaine 2% PF * 5 ML VIAL ONE (09:30)
[2016-11-13] MEDS ORDERED: Lidocaine 2% MPF* 2 ML VIAL INJ ONE (10:00)
--- NOTE | 2016-11-13 11:10 | PROCNOTE ---
Hematology/Oncology Procedure Hematology/Oncology Procedure Note: Bone Marrow Biopsy: Informed consent obtained. Time out performed per protocol. Anesthesia 2% lidocaine, approx. 8 mLs administered with good effect. Bone marrow biopsy performed to left posterior superior iliac crest. Aspirate attempted x2 without success. No obvious complications. Minimal blood loss. Pt. tolerated well.
[2016-11-13 13:32] LABS: Kappa Free Light Chain 3.29 mg/dL; Kappa/Lambda Free Light Chain 1.21
[2016-11-13 14:17] LABS: Albumin 2.8 g/dL (3.4-4.7); Total Protein(PEP) 6.2 g/dL (6.3 - 7.9)
[2016-11-13 15:26] VITALS: BP 142/56
--- NOTE | 2016-11-13 20:56 | DS ---
DISCHARGE SUMMARY: DATE OF ADMISSION: 11/12/16 for observation. DATE OF DISCHARGE: 11/13/16 DISCHARGE DIAGNOSES: 1. Pancytopenia: Workup pending, status post 3 units packed red blood cells. 2. Diabetes, type 2: Discharged with increase in metformin, continue long- acting insulin. 3. Gastroesophageal reflux disease: Continue PPI. 4. Hypertension: No meds currently, continue to follow. DISCHARGE MEDICATIONS: 1. Nystatin suspension 5000 units p.o. four times a day. 2. Tramadol 50 mg p.o. q.6 hours p.r.n. pain, MDD 4 tabs. 3. Levemir FlexPen 38 units subcu a.m. 4. Gabapentin 600 mg p.o. t.i.d. 5. Vitamin B12 1000 mcg p.o. q. day. 6. Nexium 40 mg p.o. q. day. 7. Ferrous sulfate 325 mg p.o. q. day. 8. Multivitamin 2 tabs p.o. q. day. 9. Metformin 1000 mg p.o. b.i.d. HOSPITAL COURSE: Please see admission note for full H and P. However, briefly , Ms. Allen presented to our office yesterday morning for workup of her anemia and recent abnormal MRI of bilateral thighs with question of bone marrow displacement. On presentation, she complained of not feeling well with excessive fatigue and 30- pound weight loss. Ultimately, Ms. Allen was found to have pancytopenia on her CBC that a.m. and decision was made for admission to the hospital for observation. She received 2 units of blood overnight and had a bone marrow biopsy this a.m. Ms. Allen is feeling reasonably well at this time, she continues to have chills and night sweats which have been ongoing for nearly [id number]-half months. She is in no acute distress and has no fevers. As such, she will be discharged following another unit of blood today. We will plan for followup as an outpatient in the office on November 16, for lab work and potential transfusion as needed as well as follow up on results of bone marrow on November [address] Gaston in the a.m. Plan of care was reviewed at length with Ms. Allen, including neutropenic and bleeding precautions. She has been instructed to call our on- call service should she develop any bleeding or fevers. She has received instructions in regard to the care of her bone marrow biopsy site. Ms. Allen understands current workup in place regarding concern for primary bone marrow process and denies further questions at this time. TIME SPENT: Greater than 40 minutes was spent with greater than 50% face-to- face counseling. ARTEM KRAMER, RAEANN [id number]/[facility] #: [id number] AURELIA
[2016-11-20 18:46] LABS: BM Result Summary Insufficient
== END 2016-11-13 18:30 | disposition home or self-care (01) ==
LOC: CHOA 14:28 → MED 15:46 → INTOOBSV 15:46
PROVIDERS: ADMIT Internal Medicine Hematology & Oncology; ATTEND Internal Medicine Hematology & Oncology
DX: D61.818 Other pancytopenia (principal); D50.9 Iron deficiency anemia, unspecified; E11.8 Type 2 diabetes mellitus with unspecified complications; Z79.84 Long term (current) use of oral hypoglycemic drugs; K21.9 Gastro-esophageal reflux disease without esophagitis; I10 Essential (primary) hypertension; Z79.899 Other long term (current) drug therapy; Z88.0 Allergy status to penicillin; Z88.2 Allergy status to sulfonamides; Z88.5 Allergy status to narcotic agent; Z88.1 Allergy status to other antibiotic agents; Z88.8 Allergy status to other drugs, medicaments and biological substances; Z87.891 Personal history of nicotine dependence
CPT/HCPCS: 1036F; 36415; 36430; 38220; 38221; 80053; 81479; 82607; 82728; 83540; 83550; 83883; 84155; 84165; 85025; 85060; 85097; 86705; 86706; 86803; 86850; 86900; 86901; 86922; 87340; 88184; 88185; 88187; 88188; 88237; 88305; 88311; 88313; 99214; 99220; 99239; A9270-GY; G0378; G0463; G8427; P9040

== ENCOUNTER 2016-12-19 17:45 | Inpatient (IN) | payer MEDICARE, MEDICAID ==
[2016-12-19] MEDS: NS 0.9% 1000 ML* 2,000 ML IV ONE (18:34)
[2016-12-19 18:49] LABS: Hematocrit 22 % (35-47); Hemoglobin 7.4 g/dl (12.0-16.0); Mean Corpuscular HGB Conc 34 g/dl (31-36); Mean Corpuscular Hemoglobin 27 pg (27-31); Mean Corpuscular Volume 79 fL (80-97); Mean Platelet Volume 8 um3 (7.4-10.4); Red Blood Count 2.77 10^6/ul (4.0-5.4); Red Cell Distribution Width 19 % (10.5-15)
[2016-12-19 18:50] LABS: Comments Flag Yes
[2016-12-19 18:51] LABS: Add Diff/Slide Review? Manual Diff Added
[2016-12-19 18:58] LABS: Albumin 3.5 g/dL (3.2-5.2); BUN/Creatinine Ratio 27.6 (8-20); Calcium 8.9 mg/dL (8.6-10.3); EGFR African American 99.5 (>60); EGFR Non-African American 77.4 (>60); Globulin 3.2 g/dL (2-4); Potassium 4.1 mmol/L (3.5-5.0); Total Bilirubin 0.5 mg/dL (0.2-1.0); Total Protein 6.7 g/dL (6.4-8.9)
[2016-12-19 19:00] LABS: Troponin I 0.01 ng/mL (<0.04)
[2016-12-19 19:03] LABS: Magnesium 0.8 mg/dL (1.9-2.7)
[2016-12-19] MEDS ORDERED: Magnesium Sulfate 2 GM IV* 2 GM/50 ML BAG IVPB ONE ×2 (19:04→20:17)
[2016-12-19 19:35] LABS: Eosinophils % 1 % (0-6); Immature Granulocytes 11 % (0-9); Metamyelocytes % 5 % (0-2); Microcytosis 1+; Myelocytes % 3 % (0-1); Neutrophil % 32 % (38-83); Polychromasia 1+
[2016-12-19 19:36] LABS: White Blood Count 1.1 10^3/ul (3.5-10.8)
[2016-12-19 19:42] LABS: TSH (Thyroid Stimulating Horm) 0.66 mcIU/mL (0.34-5.60)
[2016-12-19] MEDS ORDERED: Gabapentin CAP(*) 300 MG PO ONE (19:42)
--- NOTE | 2016-12-19 19:52 | ED ---
Altaf Mujica Billy, scribed for Foster Hernandez MD on 12/19/16 at 1813 . Dizziness - HPI Summary HPI Summary: Patient is a 61 year-old female coming to [facility] presenting with dizziness and lightheadedness since yesterday afternoon. She also reports an unsteady gait, general weakness, pallor, chills, and headache. She also reports bilateral lower extremity pain, severity 5/10. Denies any fever, abdominal pain, chest pain, or shortness of breath. She states that she often has similar symptoms when she is due for a blood transfusion. Her last transfusion was 5 days ago, when she received 1 unit. Patient has a history of anemia. - History Of Current Complaint Chief Complaint: EDWeakness Stated Complaint: LIGHT HEADED Time Seen by Provider: 12/19/16 18:08 Hx Obtained From: Patient Onset/Duration: Gradually Timing: Constant Severity Initially: Moderate Severity Currently: Moderate Character: Lightheaded, Dizzy Aggravating Factor(s): Nothing Alleviating Factor(s): Nothing Associated Signs And Symptoms: Positive: Nausea, Unsteady Gait, Chills, Other: - weakness, pale, unsteady gait. Negative: Fever - Allergies/Home Medications Allergies/Adverse Reactions: Allergies Allergy/AdvReac Type Severity Reaction Status Date / Time Cephalexin [From Keflex] Allergy VOMITING, Verified 12/19/16 17:48 DIARRHEA, HIVES, LIGHTHEADEDNESS Diazepam [From Valium] Allergy Difficulty Verified 12/19/16 17:48 Breathing Latex Allergy Rash Verified 12/19/16 17:48 Penicillins [PCN] Allergy CHEST Verified 12/19/16 17:48 HEAVINESS, SLIGHT DIFF BREATHING, LIGHTHEADEDNESS, Benzonatate [From Tessalon] AdvReac Headache Verified 12/19/16 17:48 Codeine AdvReac See Comment Verified 12/19/16 17:48 Morphine AdvReac VOMITING, Verified 12/19/16 17:48 LIGHTHEADEDNESS ALL "MYCINS" Allergy CHEST Uncoded 12/19/16 17:48 HEAVINESS, SL. DIFF. BREATHING, LIGHTHEADEDNESS ALL CILLINS Allergy CHEST Uncoded 12/19/16 17:48 HEAVINESS, SL. DIFF. BREATHING, LIGHTHEADNESS MULTIPLE ANTIBIOPTIC Allergy CHEST Uncoded 12/19/16 17:48 REACTIONS HEAVINESS, SL. DIFF. BREATHING, LIGHTHEADEDNESS SULFA DRUGS Allergy VOMITING, Uncoded 12/19/16 17:48 DIARRHEA, HIVES, LIGHTHEADEDNESS PMH/Surg Hx/FS Hx/Imm Hx Endocrine/Hematology History: Reports: Hx Diabetes - TYPE II- ON ORAL MEDICATION AND INSULIN Cardiovascular History: Reports: Hx Angina Denies: Hx Coronary Artery Disease, Hx Hypercholesterolemia, Hx Hypertension , Hx Myocardial Infarction, Hx Pacemaker/ICD, Hx Valvular Heart Disease Respiratory History: Denies: Hx Asthma, Hx Chronic Obstructive Pulmonary Disease (COPD) GI History: Reports: Hx Gastroesophageal Reflux Disease, Hx Gastrointestinal Bleed, Hx Hiatal Hernia, Hx Ulcer - reflux History: Denies: Hx Renal Disease Sensory History: Reports: Hx Cataracts - BEGINNING STAGES, Hx Contacts or Glasses Denies: Hx Hearing Aid Opthamlomology History: Reports: Hx Cataracts - BEGINNING STAGES, Hx Contacts or Glasses Psychiatric History: Denies: Hx Panic Disorder - Surgical History Surgery Procedure, Year, and Place: NECK SURGERY- FOR HENIATED DISC-[facility] [place]. SURGERY FOR PROLASPED BLADDER AND RECTUM, TOTAL ABDOMINAL HYSTERECTOMY- LAPAROSCOPIC-JESSICA. TUBAL LIGATION. LEFT HAND LUMPS REMOVED 2014 Hx Anesthesia Reactions: Yes - NAUSEA Infectious Disease History: Yes Infectious Disease History: Reports: Hx of Known/Suspected MRSA Denies: History Other Infectious Disease, Traveled Outside the [place] in Last 30 Days - Family History Known Family History: Positive: Cardiac Disease Family History: cancer - Social History Alcohol Use: None Substance Use Type: Reports: None Smoking Status (MU): Former Smoker Type: Cigarettes Amount Used/How Often: 1 PPD X 25 +YEARS Have You Smoked in the Last Year: No Review of Systems Positive: Chills. Negative: Fever Negative: Chest Pain Negative: Shortness Of Breath Positive: Nausea. Negative: Abdominal Pain Negative: dysuria, frequency, urgency Positive: Myalgia Positive: Other - pale Neurological: Other - dizziness, lightheadedness, unsteady gait Positive: Headache, Weakness All Other Systems Reviewed And Are Negative: Yes Physical Exam - Summary Physical Exam Summary: The patient is well-nourished in no acute distress and in no acute pain. The skin is warm and dry. Patient is pale. Decreased skin turgor. HEENT: The head is normocephalic and atraumatic. The pupils are equal and reactive. The conjunctivae are pale, clear, and without drainage. Nares are patent and without drainage. Mouth reveals dry mucous membranes and the throat is without erythema and exudate. The external ears are intact. The ear canals are patent and without drainage. The tympanic membranes are intact. Neck is supple with full range of motion and non-tender. There are no carotid bruits. There is no neck vein distension. Respiratory: Chest is non-tender. Lungs are clear to auscultation and breath sounds are symmetrical and equal. Cardiovascular: Heart is regular rate and rhythm. There is a murmur appreciated in the second left intercostal space. There is no peripheral edema and pulses are symmetrical and equal. Abdomen: The abdomen is soft, obese, and non-tender. There are normal bowel sounds heard in all four quadrants and there is no organomegaly palpated. Musculoskeletal: There is no back pain noted. Extremities are non-tender with full range of motion. 3 seconds capillary refill. There is no peripheral edema or calf tenderness elicited. Neurological: Patient is alert and oriented to person, place and time. The patient has symmetrical motor strength in all four extremities. Cranial nerves are grossly intact. Deep tendon reflexes are symmetrical and equal in all four extremities. Psychiatric: The patient has an appropriate affect and does not exhibit any anxiety or depression. Triage Information Reviewed: Yes Vital Signs On Initial Exam: Initial Vitals Temp Pulse Resp BP Pulse Ox 97.3 F 95 18 123/37 100 12/19/16 17:48 12/19/16 17:48 12/19/16 17:48 12/19/16 17:48 12/19/16 17:48 Vital Signs Reviewed: Yes - Oracio Coma Scale Coma Scale Total: 15 Diagnostics - Vital Signs Vital Signs Temp Pulse Resp BP Pulse Ox 12/19/16 18:11 91 12/19/16 17:48 97.3 F 95 18 123/37 100 - Laboratory Lab Results: Lab Results 12/19/16 12/19/16 12/19/16 Range/Units 18:31 18:31 18:31 WBC 1.1 L (3.5-10.8) 10^3/ul RBC 2.77 L (4.0-5.4) 10^6/ul Hgb 7.4 L (12.0-16.0) g/dl Hct 22 L (35-47) % MCV 79 L (80-97) fL MCH 27 (27-31) pg MCHC 34 (31-36) g/dl RDW 19 H (10.5-15) % Plt Count 22 L (150-450) 10^3/ul MPV 8 (7.4-10.4) um3 Immature Gran % (Auto) 11 H (0-9) % Absolute Neuts (auto) 0.5 L* (1.5-7.7) 10^3/ul Absolute Lymphs (auto) 0.6 L (1.0-4.8) 10^3/ul Absolute Monos (auto) 0.07 (0-0.8) 10^3/ul Absolute Eos (auto) 0.01 (0-0.6) 10^3/ul Absolute Basos (auto) 0 (0-0.2) 10^3/ul Absolute Nucleated RBC 0.09 10^3/ul Neutrophils % 32 L (38-83) % Band Neutrophils % 3 (0-8) % Lymphocytes % 50 H (25-47) % Monocytes % 6 (0-13) % Eosinophils % 1 (0-6) % Metamyelocytes % 5 H (0-2) % Myelocytes % 3 H (0-1) % Nucleated RBCs/100 WBC 8 H (0-0) Normal RBC Morphology Not Reportable Polychromasia 1+ Microcytosis 1+ INR (Anticoag Therapy) (0.89-1.11) Sodium 132 L (133-145) mmol/L Potassium 4.1 (3.5-5.0) mmol/L Chloride 93 L (101-111) mmol/L Carbon Dioxide 28 (22-32) mmol/L Anion Gap 11 (2-11) mmol/L BUN 21 (6-24) mg/dL Creatinine 0.76 (0.51-0.95) mg/dL Est GFR ( Amer) 99.5 (>60) Est GFR (Non-Af Amer) 77.4 (>60) BUN/Creatinine Ratio 27.6 H (8-20) Glucose 170 H (70-100) mg/dL Lactic Acid 0.9 (0.5-2.0) mmol/L Calcium 8.9 (8.6-10.3) mg/dL Magnesium 0.8 L* (1.9-2.7) mg/dL Total Bilirubin 0.50 (0.2-1.0) mg/dL AST 14 (13-39) U/L ALT 5 L (7-52) U/L Alkaline Phosphatase 80 (34-104) U/L Troponin I 0.01 (<0.04) ng/mL Total Protein 6.7 (6.4-8.9) g/dL Albumin 3.5 (3.2-5.2) g/dL Globulin 3.2 (2-4) g/dL Albumin/Globulin Ratio 1.1 (1-3) TSH 0.66 (0.34-5.60) mcIU/mL Blood Type Antibody Screen 12/19/16 12/19/16 Range/Units 18:31 18:31 WBC (3.5-10.8) 10^3/ul RBC (4.0-5.4) 10^6/ul Hgb (12.0-16.0) g/dl Hct (35-47) % MCV (80-97) fL MCH (27-31) pg MCHC (31-36) g/dl RDW (10.5-15) % Plt Count (150-450) 10^3/ul MPV (7.4-10.4) um3 Immature Gran % (Auto) (0-9) % Absolute Neuts (auto) (1.5-7.7) 10^3/ul Absolute Lymphs (auto) (1.0-4.8) 10^3/ul Absolute Monos (auto) (0-0.8) 10^3/ul Absolute Eos (auto) (0-0.6) 10^3/ul Absolute Basos (auto) (0-0.2) 10^3/ul Absolute Nucleated RBC 10^3/ul Neutrophils % (38-83) % Band Neutrophils % (0-8) % Lymphocytes % (25-47) % Monocytes % (0-13) % Eosinophils % (0-6) % Metamyelocytes % (0-2) % Myelocytes % (0-1) % Nucleated RBCs/100 WBC (0-0) Normal RBC Morphology Polychromasia Microcytosis INR (Anticoag Therapy) 0.99 (0.89-1.11) Sodium (133-145) mmol/L Potassium (3.5-5.0) mmol/L Chloride (101-111) mmol/L Carbon Dioxide (22-32) mmol/L Anion Gap (2-11) mmol/L BUN (6-24) mg/dL Creatinine (0.51-0.95) mg/dL Est GFR ( Amer) (>60) Est GFR (Non-Af Amer) (>60) BUN/Creatinine Ratio (8-20) Glucose (70-100) mg/dL Lactic Acid (0.5-2.0) mmol/L Calcium (8.6-10.3) mg/dL Magnesium (1.9-2.7) mg/dL Total Bilirubin (0.2-1.0) mg/dL AST (13-39) U/L ALT (7-52) U/L Alkaline Phosphatase (34-104) U/L Troponin I (<0.04) ng/mL Total Protein (6.4-8.9) g/dL Albumin (3.2-5.2) g/dL Globulin (2-4) g/dL Albumin/Globulin Ratio (1-3) TSH (0.34-5.60) mcIU/mL Blood Type O Positive Antibody Screen Negative Result Diagrams: 12/19/16 18:31 12/19/16 18:31 Lab Statement: Any lab studies that have been ordered have been reviewed, and results considered in the medical decision making process. - EKG 1759 EKG Interpretation: NSR 88 bpm, normal axis, normal ST segment Dizzy Course/Dx - Course Assessment/Plan: 61 year-old female coming to [facility] presenting with dizziness and weakness today. She states that these symptoms often occur when she is due for a blood transfusion. In the ED course she was given IV fluids for hydration and magnesium sulfate for hypomagnesemia. Patient care discussed with Dr. Morales , who accepted the patient for admission. - Diagnoses Differential Diagnosis/HQI/PQRI: Hypovolemia, Metabolic Abnormality Provider Diagnoses: Pancytopenia, Hypomagnesemia, weakness - Provider Notifications Discussed Care Of Patient with: Dr. Morales (hospitalist) @ 1930: accepts admission. Discharge - Discharge Plan Condition: Stable Disposition: ADMITTED TO [facility] Referrals: Peyman Ko MD [Primary Care Provider] - The documentation as recorded by the Altaf de la o Billy accurately reflects the service I personally performed and the decisions made by me, Foster Hernandez MD.
[2016-12-19] MEDS ORDERED: Dextrose 50% Syringe 50 ML* 25 GM/50 ML SYRINGE IV PUSH PRN (20:20)
[2016-12-19 20:34] LABS: Urine Bilirubin Negative (Negative); Urine Glucose Negative (Negative); Urine Nitrite Negative (Negative)
[2016-12-19] MEDS: HYDROcodone/ACET. 7.5/325 LIQ* 15 ML UDC PO PRN (22:33)
[2016-12-19 23:01] LABS: Phosphorus 4.7 mg/dL (2.5-5.0)
--- NOTE | 2016-12-19 23:46 | HP ---
HOSPITAL MEDICINE HISTORY AND PHYSICAL: DATE OF ADMISSION: 12/19/16 PRIMARY CARE PHYSICIAN: Dr. Ko. ATTENDING PHYSICIAN: Dr. Seven Morales *(dictation provided by Tami Barraza NP). CHIEF COMPLAINT: Weakness and unsteady gait. HISTORY OF PRESENT ILLNESS: Ms. Allen is a 61-year-old female with a past medical history of recent diagnosis of myelofibrosis with pancytopenia requiring weekly blood transfusions as well as neuropathy, type 2 diabetes, which is insulin dependent and GERD, who presents today to the hospital with concern for weakness and unsteady gait. Ms. Allen states that she had been getting 2 units of blood on a weekly basis, but this week on Wednesday, she received 1 unit only. The patient states that usually she feels better after the blood transfusion, but did not feel any improvement after that 1 transfusion on Wednesday. Throughout the week, she has continued to feel weak. As of today, she felt lightheaded. She had an unsteady gait. Her neighbor and friend noticed that she was very pale. She has had no fevers, but she has had ongoing chills and night sweats, which are unchanged. She has had poor oral intake with no appetite, which is unchanged. She denies any chest pain, shortness of breath, cough, nausea or abdominal pain. She has been constipated since starting narcotics for pain related to her myelofibrosis. In the emergency room, Ms. Allen is afebrile. Her vitals are stable. She has persistent pancytopenia. Her hemoglobin was 6.7 on 12/14/16. Today, it is 7.4 , which is reflective of the blood transfusion. This is consistent with where she has been in recent weeks. PAST MEDICAL HISTORY: 1. Myelofibrosis with pancytopenia. 2. Hiatal hernia. 3. GERD. 4. Type 2 diabetes, insulin dependent. 5. Neuropathy. 6. History of tubal ligation. 7. Cervical spine fusion. 8. History of a hand surgery. MEDICATIONS: 1. Esomeprazole 40 mg p.o. daily. 2. Hydrocodone/acetaminophen 7.5/325 one as directed as needed for pain. 3. Lactobacillus 1 cap p.o. daily. 4. Multivitamin with mineral 2 chews p.o. daily. 5. Metformin 1000 mg p.o. b.i.d. 6. Cyanocobalamin 1000 mcg p.o. daily. 7. Ferrous sulfate 325 mg p.o. daily. 8. Gabapentin 600 mg p.o. t.i.d. 9. Levemir insulin 38 units subcutaneously q.a.m. ALLERGIES: To CEPHALEXIN, DIAZEPAM, LATEX, PENICILLIN, BENZONATATE, CODEINE, MORPHINE, all "MYCINS," all "CILLINS," and SULFA. FAMILY HISTORY: Her mother had a history of CABG. SOCIAL HISTORY: The patient is a former smoker. She quit almost a decade ago. She has no report of alcohol or drug use. She has children, but lives alone. She states that her healthcare proxy is her friend, Daisy Ortez. REVIEW OF SYSTEMS: The 14-point review of systems was completed with her and all those not mentioned above were negative. PHYSICAL EXAMINATION GENERAL: Ms. Allen is lying in the bed. She is in no acute distress. She is calm and cooperative with my examination. VITAL SIGNS: Temperature 97.3, heart rate 92, respiratory rate 17, O2 saturation 96% on room air, blood pressure 127/44. HEENT: Extraocular movements are intact. LUNGS: Clear to auscultation bilaterally with no accessory muscle use and good aeration. HEART: S1, S2. No murmurs, rubs or gallops. ABDOMEN: Soft and nontender with bowel sounds positive x4. EXTREMITIES: No cyanosis or edema. SKIN: The patient has numerous circular scars on her back, but she attributes to history of a rash about a couple of months ago. The patient's skin is also very pale and her conjunctivae are pale. NEUROLOGIC: She is alert and oriented x3. She moves all extremities equally. There is no facial asymmetry or focal weakness. DIAGNOSTIC STUDIES/LAB DATA: WBC 1.1, hemoglobin 7.4, hematocrit 22, platelet count 22. Metamyelocytes are 5, myelocytes are 3, bands 3, ANC 0.5, INR 0.99. Sodium 132, potassium 4.1, chloride 93, serum bicarbonate 28, BUN 21, creatinine 0.76, glucose 170. Phosphorus is pending. Magnesium is 0.8, troponin is 0.01, TSH is 0.66. EKG shows sinus rhythm with no evidence of ischemia. ASSESSMENT AND PLAN: Ms. Allen is a 61-year-old female, who presented to the hospital on 12/19/16. She has a history of myelofibrosis with pancytopenia and has now symptoms of ongoing weakness and gait instability. Our plans are for outpatient hospital for the followin. Weakness with gait instability: Ms. Allen is quite pale and did not feel the same benefit this week from her 1 unit of blood as she has in the past from 2 units. I suspect that she will need an additional unit of blood tonight and I am hopeful that that will help her symptoms. I do not see any other reason for her weakness today. She has no evidence of infection. She has no fever. 2. Type 2 diabetes: Plan to continue the patient's long acting insulin and she will have lispro sliding scale with meals. 3. Gastroesophageal reflux disease: Continue omeprazole and substitute for esomeprazole. 4. Neuropathy: Continue gabapentin. 5. Hypomagnesemia: Magnesium replacement is under way. 6. DVT prophylaxis with SCDs only in this patient with a platelet count of 22. 7. Code status is full code. 8. Disposition to medical floor. TIME SPENT: Approximately 60 minutes were spent in the admission of this patient, more than half the time spent with her at the bedside reviewing the events leading up to and during this hospitalization, performing the physical examination, and reviewing the plan of care. TAMI BARRAZA NP CC: Dr. Ko* [id number]/CPS #: [id number] AURELIA
[2016-12-20] MEDS: HYDROcodone/ACET. 7.5/325 LIQ* 15 ML UDC PO PRN ×5 (03:02→21:29)
[2016-12-20] MEDS: Omeprazole CAP* 20 MG PO SCH (06:01)
[2016-12-20 06:25] LABS: Hematocrit 26 % (35-47); Hemoglobin 8.9 g/dl (12.0-16.0); Mean Corpuscular HGB Conc 35 g/dl (31-36); Mean Corpuscular Hemoglobin 28 pg (27-31); Mean Corpuscular Volume 80 fL (80-97); Mean Platelet Volume 8 um3 (7.4-10.4); Red Blood Count 3.23 10^6/ul (4.0-5.4); Red Cell Distribution Width 19 % (10.5-15)
[2016-12-20 06:29] LABS: Add Diff/Slide Review? Slide Review Added; Comments Flag Yes; White Blood Count 2.4 10^3/ul (3.5-10.8)
[2016-12-20 06:35] LABS: BUN/Creatinine Ratio 18.3 (8-20); Calcium 9.3 mg/dL (8.6-10.3); EGFR African American 107.6 (>60); EGFR Non-African American 83.7 (>60); Magnesium 1.6 mg/dL (1.9-2.7); Potassium 4.5 mmol/L (3.5-5.0)
[2016-12-20] MEDS: Gabapentin CAP(*) 300 MG PO SCH ×3 (08:29→19:49)
[2016-12-20] MEDS: Cyanocobalamin TAB* 500 MCG PO SCH (08:29)
[2016-12-20] MEDS: Insulin GLARGINE(*) 1 UNITS UNIT SUBCUT SCH (08:30)
[2016-12-20] MEDS: Insulin LISPRO* 1 UNITS UNIT SUBCUT SCH ×3 (08:31→17:16)
[2016-12-20] MEDS: Ferrous Sulfate TAB* 325 MG PO SCH (08:34)
[2016-12-20] MEDS ORDERED: Insulin Detemir (NF) 100 UNIT/ML 10 ML VIAL SUBCUT SCH (09:00)
[2016-12-20] MEDS ORDERED: Magnesium Sulfate 2 GM IV* 2 GM/50 ML BAG IVPB ONE (10:55)
--- NOTE | 2016-12-20 10:56 | PN ---
Subjective Date of Service: 12/20/16 Interval History: Patient seen and examined at the bedside. She reports no improvement in her weakness and leg pain after receiving the transfusion. She still feels weak and feels that if she went home, she would be at risk to fall. Denies fever/chills, CP, SOB, abd pain. Reports some nausea but denies v/d. Family History: Unchanged from Admission Social History: Unchanged from Admission Past Medical History: Unchanged from Admission Objective Active Medications: Hydrocodone Bitart/Acetaminophen (Nortab 7.5/325 Liq*) 10 ml PO Q4H PRN PRN Reason: PAIN Last Admin: 12/20/16 08:27 Dose: 10 ml Cyanocobalamin (Vitamin B12 Tab*) 1,000 mcg PO DAILY [facility] Last Admin: 12/20/16 08:29 Dose: 1,000 mcg Dextrose (D50w Syringe 50 Ml*) 12.5 gm IV PUSH .FOR FS < 60 - SS PRN PRN Reason: FS < 60 Ferrous Sulfate (Ferrous Sulfate Tab*) 325 mg PO DAILY [facility] Last Admin: 12/20/16 08:34 Dose: 325 mg Gabapentin (Neurontin Cap(*)) 600 mg PO TID [facility] Last Admin: 12/20/16 08:29 Dose: 600 mg Magnesium Sulfate (Magnesium Sulfate 2 Gm Iv*) 2 gm in 50 mls @ 50 mls/hr IVPB ONCE ONE Stop: 12/20/16 11:54 Sodium Chloride (Ns 0.9% 1000 Ml*) 1,000 mls @ 100 mls/hr IV PER RATE [facility] Insulin Glargine (Lantus(*)) 38 units SUBCUT QAM [facility] Last Admin: 12/20/16 08:30 Dose: 38 units Insulin Human Lispro (Humalog*) 0 units SUBCUT AC [facility] PRN Reason: Protocol Last Admin: 12/20/16 08:31 Dose: 6 units Omeprazole (Prilosec Cap*) 20 mg PO DAILY@0600 [facility] Last Admin: 12/20/16 06:01 Dose: 20 mg Vital Signs 12/19/16 12/19/16 12/19/16 19:36 20:00 20:25 Temperature Pulse Rate 89 92 Respiratory 17 Rate Blood Pressure 127/44 131/52 (mmHg) O2 Sat by Pulse 98 96 Oximetry 12/19/16 12/19/1617 20:30 21:28 22:33 Temperature 98.7 F Pulse Rate 93 Respiratory 16 16 Rate Blood Pressure 144/61 138/52 (mmHg) O2 Sat by Pulse 100 Oximetry 12/19/16 12/20/16 12/20/16 23:23 00:33 02:02 Temperature 98.7 F Pulse Rate 93 Respiratory 16 16 16 Rate Blood Pressure 138/52 (mmHg) O2 Sat by Pulse 100 Oximetry 12/20/16 12/20/16 12/20/16 02:09 02:33 03:02 Temperature 97.4 F Pulse Rate 98 Respiratory 16 16 16 Rate Blood Pressure 151/68 (mmHg) O2 Sat by Pulse 92 Oximetry 12/20/16 12/20/16 12/20/16 03:46 04:33 05:02 Temperature 98.6 F Pulse Rate 95 Respiratory 16 16 16 Rate Blood Pressure 142/58 (mmHg) O2 Sat by Pulse 92 Oximetry 12/20/16 12/20/16 08:27 08:29 Temperature Pulse Rate Respiratory 16 14 Rate Blood Pressure (mmHg) O2 Sat by Pulse Oximetry Oxygen Devices in Use Now: None Appearance: Female patient, lying in bed, in NAD Eyes: PERRLA Ears/Nose/Mouth/Throat: Clear Oropharnyx, Mucous Membranes Moist Neck: NL Appearance and Movements; NL JVP Respiratory: Symmetrical Chest Expansion and Respiratory Effort, Clear to Auscultation Cardiovascular: NL Sounds; No Murmurs; No JVD, RRR Abdominal: NL Sounds; No Tenderness; No Distention Extremities: No Edema Skin: No Rash or Ulcers Neurological: Alert and Oriented x 3, NL Muscle Strength and Tone Lines/Tubes/Other Access: Clean, Dry and Intact Peripheral IV Nutrition: Taking PO's Result Diagrams: 12/20/16 06:11 12/20/16 06:11 Additional Lab and Data: Lab Results 12/19/16 12/19/16 12/19/16 Range/Units 18:31 18:31 18:31 WBC 1.1 L (3.5-10.8) 10^3/ul RBC 2.77 L (4.0-5.4) 10^6/ul Hgb 7.4 L (12.0-16.0) g/dl Hct 22 L (35-47) % MCV 79 L (80-97) fL MCH 27 (27-31) pg MCHC 34 (31-36) g/dl RDW 19 H (10.5-15) % Plt Count 22 L (150-450) 10^3/ul MPV 8 (7.4-10.4) um3 Immature Gran % (Auto) 11 H (0-9) % Absolute Neuts (auto) 0.5 L* (1.5-7.7) 10^3/ul Absolute Lymphs (auto) 0.6 L (1.0-4.8) 10^3/ul Absolute Monos (auto) 0.07 (0-0.8) 10^3/ul Absolute Eos (auto) 0.01 (0-0.6) 10^3/ul Absolute Basos (auto) 0 (0-0.2) 10^3/ul Absolute Nucleated RBC 0.09 10^3/ul Neutrophils % 32 L (38-83) % Band Neutrophils % 3 (0-8) % Lymphocytes % 50 H (25-47) % Monocytes % 6 (0-13) % Eosinophils % 1 (0-6) % Metamyelocytes % 5 H (0-2) % Myelocytes % 3 H (0-1) % Nucleated RBCs/100 WBC 8 H (0-0) Normal RBC Morphology Not Reportable Polychromasia 1+ Microcytosis 1+ INR (Anticoag Therapy) (0.89-1.11) Sodium 132 L (133-145) mmol/L Potassium 4.1 (3.5-5.0) mmol/L Chloride 93 L (101-111) mmol/L Carbon Dioxide 28 (22-32) mmol/L Anion Gap 11 (2-11) mmol/L BUN 21 (6-24) mg/dL Creatinine 0.76 (0.51-0.95) mg/dL Est GFR ( Amer) 99.5 (>60) Est GFR (Non-Af Amer) 77.4 (>60) BUN/Creatinine Ratio 27.6 H (8-20) Glucose 170 H (70-100) mg/dL Lactic Acid 0.9 (0.5-2.0) mmol/L Calcium 8.9 (8.6-10.3) mg/dL Magnesium 0.8 L* (1.9-2.7) mg/dL Total Bilirubin 0.50 (0.2-1.0) mg/dL AST 14 (13-39) U/L ALT 5 L (7-52) U/L Alkaline Phosphatase 80 (34-104) U/L Troponin I 0.01 (<0.04) ng/mL Total Protein 6.7 (6.4-8.9) g/dL Albumin 3.5 (3.2-5.2) g/dL Globulin 3.2 (2-4) g/dL Albumin/Globulin Ratio 1.1 (1-3) TSH 0.66 (0.34-5.60) mcIU/mL Blood Type Antibody Screen 12/19/16 12/19/16 Range/Units 18:31 18:31 WBC (3.5-10.8) 10^3/ul RBC (4.0-5.4) 10^6/ul Hgb (12.0-16.0) g/dl Hct (35-47) % MCV (80-97) fL MCH (27-31) pg MCHC (31-36) g/dl RDW (10.5-15) % Plt Count (150-450) 10^3/ul MPV (7.4-10.4) um3 Immature Gran % (Auto) (0-9) % Absolute Neuts (auto) (1.5-7.7) 10^3/ul Absolute Lymphs (auto) (1.0-4.8) 10^3/ul Absolute Monos (auto) (0-0.8) 10^3/ul Absolute Eos (auto) (0-0.6) 10^3/ul Absolute Basos (auto) (0-0.2) 10^3/ul Absolute Nucleated RBC 10^3/ul Neutrophils % (38-83) % Band Neutrophils % (0-8) % Lymphocytes % (25-47) % Monocytes % (0-13) % Eosinophils % (0-6) % Metamyelocytes % (0-2) % Myelocytes % (0-1) % Nucleated RBCs/100 WBC (0-0) Normal RBC Morphology Polychromasia Microcytosis INR (Anticoag Therapy) 0.99 (0.89-1.11) Sodium (133-145) mmol/L Potassium (3.5-5.0) mmol/L Chloride (101-111) mmol/L Carbon Dioxide (22-32) mmol/L Anion Gap (2-11) mmol/L BUN (6-24) mg/dL Creatinine (0.51-0.95) mg/dL Est GFR ( Amer) (>60) Est GFR (Non-Af Amer) (>60) BUN/Creatinine Ratio (8-20) Glucose (70-100) mg/dL Lactic Acid (0.5-2.0) mmol/L Calcium (8.6-10.3) mg/dL Magnesium (1.9-2.7) mg/dL Total Bilirubin (0.2-1.0) mg/dL AST (13-39) U/L ALT (7-52) U/L Alkaline Phosphatase (34-104) U/L Troponin I (<0.04) ng/mL Total Protein (6.4-8.9) g/dL Albumin (3.2-5.2) g/dL Globulin (2-4) g/dL Albumin/Globulin Ratio (1-3) TSH (0.34-5.60) mcIU/mL Blood Type O Positive Antibody Screen Negative Microbiology and Other Data: Microbiology 12/20/16 02:30 Nasal Screen MRSA (PCR)(KAM) - Final Nasal Mrsa Positive Assess/Plan/Problems-Billing Assessment: Ms. Allen is a 61 yo female with a PMH of myelofibrosis with pancytopenia, GERD , DM, neuropathy, and hiatal hernia who presented to the ED with concern for weakness, lightheadedness, and gait instability in the presence of panctyopenia. - Patient Problems (1) Weakness Code(s): R53.1 - WEAKNESS Comment: With reported gait instability. Thought initially to be secondary to pancytopenia, received PRBC transfusion overnight Reports little improvement in symptoms and still feels unsteady PT/OT consult May be secondary to viral illness, check flu swab, continue IVF (2) Pancytopenia Code(s): D61.818 - OTHER PANCYTOPENIA Comment: Pt has myelofibrosis and is due for workup in [place]. Will attempt to discharge patient in AM if improved in order to make appt tomorrow. Continue neutropenic precautions. HH stable and better than baseline over past few months. WBC and platelet count consistent with previous labs in past few weeks. (3) Hypomagnesemia Code(s): E83.42 - HYPOMAGNESEMIA Comment: Improved with magnesium repletion. Give another 2 gm Mg+ today. (4) GERD (gastroesophageal reflux disease) Code(s): K21.9 - GASTRO-ESOPHAGEAL REFLUX DISEASE WITHOUT ESOPHAGITIS Comment : Continue omeprazole. (5) IDDM (insulin dependent diabetes mellitus) Code(s): E11.9 - TYPE 2 DIABETES MELLITUS WITHOUT COMPLICATIONS; Z79.4 - CUSTODIAL (CURRENT) USE OF INSULIN Comment: BG 200s-300s Continue Lispro SS and home Lantus dose. Will add carb counting coverage. (6) Peripheral neuropathy Code(s): G62.9 - POLYNEUROPATHY, UNSPECIFIED Comment: Continue gabapentin. (7) DVT prophylaxis Code(s): NGK2258 - Comment: SCDs in the presence of thrombocytopenia Status and Disposition: OBV to inpatient admission. D/c to home when medically stable.
[2016-12-20] MEDS ORDERED: traMADol TAB* 50 MG PO PRN (12:07)
[2016-12-20] MEDS: Ondansetron INJ* 2 MG/ML VIAL IV PRN (12:15)
[2016-12-20] MEDS: NS 0.9% 1000 ML* 1,000 ML IV SCH ×2 (12:26→23:59)
[2016-12-20] MEDS ORDERED: Insulin LISPRO* 1 UNITS UNIT SUBCUT SCH (16:30)
[2016-12-20] MEDS: metFORMIN* 1,000 MG TAB PO SCH (17:16)
[2016-12-21] MEDS: NS 0.9% 1000 ML* 1,000 ML IV SCH (03:04)
[2016-12-21] MEDS: HYDROcodone/ACET. 7.5/325 LIQ* 15 ML UDC PO PRN ×3 (04:41→15:10)
[2016-12-21] MEDS: Omeprazole CAP* 20 MG PO SCH (04:42)
[2016-12-21 06:28] LABS: Hematocrit 25 % (35-47); Hemoglobin 8.5 g/dl (12.0-16.0); Mean Corpuscular HGB Conc 34 g/dl (31-36); Mean Corpuscular Hemoglobin 28 pg (27-31); Mean Corpuscular Volume 80 fL (80-97); Mean Platelet Volume 6 um3 (7.4-10.4); Red Blood Count 3.09 10^6/ul (4.0-5.4); Red Cell Distribution Width 20 % (10.5-15)
[2016-12-21 06:29] LABS: Comments Flag Yes
[2016-12-21 06:30] LABS: Add Diff/Slide Review? Slide Review Added; White Blood Count 1.9 10^3/ul (3.5-10.8)
[2016-12-21 06:50] LABS: BUN/Creatinine Ratio 17.9 (8-20); EGFR African American 115.1 (>60); EGFR Non-African American 89.5 (>60); Magnesium 1.2 mg/dL (1.9-2.7); Potassium 4.5 mmol/L (3.5-5.0)
[2016-12-21] MEDS ORDERED: Magnesium Sulf 4 GM/100 ML IV* 4,000 MG/100 ML BAG IVPB ONE (07:30)
--- NOTE | 2016-12-21 08:10 | PN ---
Subjective Date of Service: 12/21/16 Interval History: Patient seen and examined at bedside. She reports feeling better this morning and states she got up to walk with PT and did well. She still reports leg pain, which is chronic, but denies any fever/chills, flu/cold like symptoms, chest pain, SOB, abd pain, n/v. She feels as if she could go home today. I did offer to discharge the patient early this morning so she could make her 1230 appointment at [facility]; however, the patient states she has no ride and will not be able to make it. Patient encouraged to make this appointment; I did call [place] to cancel the appointment and they will call her to reschedule. Family History: Unchanged from Admission Social History: Unchanged from Admission Past Medical History: Unchanged from Admission Objective Active Medications: Hydrocodone Bitart/Acetaminophen (Nortab 7.5/325 Liq*) 10 ml PO Q4H PRN PRN Reason: PAIN Last Admin: 12/21/16 04:41 Dose: 10 ml Cyanocobalamin (Vitamin B12 Tab*) 1,000 mcg PO DAILY [facility] Last Admin: 12/20/16 08:29 Dose: 1,000 mcg Dextrose (D50w Syringe 50 Ml*) 12.5 gm IV PUSH .FOR FS < 60 - SS PRN PRN Reason: FS < 60 Ferrous Sulfate (Ferrous Sulfate Tab*) 325 mg PO DAILY [facility] Last Admin: 12/20/16 08:34 Dose: 325 mg Gabapentin (Neurontin Cap(*)) 600 mg PO TID [facility] Last Admin: 12/20/16 19:49 Dose: 600 mg Sodium Chloride (Ns 0.9% 1000 Ml*) 1,000 mls @ 100 mls/hr IV PER RATE [facility] Last Admin: 12/21/16 03:04 Dose: 100 mls/hr Magnesium Sulfate (Magnesium Sulf 4 Gm/100 Ml Iv*) 4,000 mg in 100 mls @ 33.333 mls/hr IVPB ONCE ONE Stop: 12/21/16 10:29 Insulin Glargine (Lantus(*)) 38 units SUBCUT QAM [facility] Last Admin: 12/20/16 08:30 Dose: 38 units Insulin Human Lispro (Humalog*) 0 units SUBCUT AC [facility] PRN Reason: Protocol Last Admin: 12/20/16 17:16 Dose: 8 units Metformin HCl (Glucophage*) 1,000 mg PO BID WITH MEALS [facility] Last Admin: 12/20/16 17:16 Dose: 1,000 mg Omeprazole (Prilosec Cap*) 20 mg PO DAILY@0600 [facility] Last Admin: 12/21/16 04:42 Dose: Not Given Ondansetron HCl (Zofran Inj*) 4 mg IV Q6H PRN PRN Reason: NAUSEA Last Admin: 12/20/16 12:15 Dose: 4 mg Tramadol HCl (Ultram*) 50 mg PO Q6H PRN PRN Reason: PAIN Vital Signs 12/20/16 12/20/16 12/20/16 16:17 16:25 17:12 Temperature 97.4 F Pulse Rate 87 Respiratory 14 14 Rate Blood Pressure (mmHg) O2 Sat by Pulse 95 Oximetry 12/20/16 12/20/16 12/20/16 19:49 20:00 20:09 Temperature 98.2 F Pulse Rate 84 Respiratory 16 18 20 Rate Blood Pressure 130/50 140/56 (mmHg) O2 Sat by Pulse 96 Oximetry 12/20/16 12/20/16 12/20/16 21:21 21:29 21:49 Temperature Pulse Rate 82 Respiratory 18 16 Rate Blood Pressure 145/61 (mmHg) O2 Sat by Pulse 97 Oximetry 12/20/16 12/20/16 12/21/16 23:25 23:49 04:28 Temperature 98.6 F 98.1 F Pulse Rate 85 78 Respiratory 16 16 16 Rate Blood Pressure 131/58 138/62 (mmHg) O2 Sat by Pulse 97 96 Oximetry 12/21/16 12/21/16 04:41 06:34 Temperature Pulse Rate Respiratory 18 18 Rate Blood Pressure (mmHg) O2 Sat by Pulse Oximetry Oxygen Devices in Use Now: None Appearance: Female patient, lying in bed, in NAD Eyes: PERRLA Ears/Nose/Mouth/Throat: Clear Oropharnyx, Mucous Membranes Moist Neck: NL Appearance and Movements; NL JVP Respiratory: Symmetrical Chest Expansion and Respiratory Effort, Clear to Auscultation Cardiovascular: NL Sounds; No Murmurs; No JVD, RRR Abdominal: NL Sounds; No Tenderness; No Distention Extremities: No Edema Skin: No Rash or Ulcers Neurological: Alert and Oriented x 3 Lines/Tubes/Other Access: Clean, Dry and Intact Peripheral IV Nutrition: Taking PO's Result Diagrams: 12/21/16 06:07 12/21/16 06:07 Additional Lab and Data: Lab Results 12/19/16 12/19/16 12/19/16 Range/Units 18:31 18:31 18:31 WBC 1.1 L (3.5-10.8) 10^3/ul RBC 2.77 L (4.0-5.4) 10^6/ul Hgb 7.4 L (12.0-16.0) g/dl Hct 22 L (35-47) % MCV 79 L (80-97) fL MCH 27 (27-31) pg MCHC 34 (31-36) g/dl RDW 19 H (10.5-15) % Plt Count 22 L (150-450) 10^3/ul MPV 8 (7.4-10.4) um3 Immature Gran % (Auto) 11 H (0-9) % Absolute Neuts (auto) 0.5 L* (1.5-7.7) 10^3/ul Absolute Lymphs (auto) 0.6 L (1.0-4.8) 10^3/ul Absolute Monos (auto) 0.07 (0-0.8) 10^3/ul Absolute Eos (auto) 0.01 (0-0.6) 10^3/ul Absolute Basos (auto) 0 (0-0.2) 10^3/ul Absolute Nucleated RBC 0.09 10^3/ul Neutrophils % 32 L (38-83) % Band Neutrophils % 3 (0-8) % Lymphocytes % 50 H (25-47) % Monocytes % 6 (0-13) % Eosinophils % 1 (0-6) % Metamyelocytes % 5 H (0-2) % Myelocytes % 3 H (0-1) % Nucleated RBCs/100 WBC 8 H (0-0) Normal RBC Morphology Not Reportable Polychromasia 1+ Microcytosis 1+ INR (Anticoag Therapy) (0.89-1.11) Sodium 132 L (133-145) mmol/L Potassium 4.1 (3.5-5.0) mmol/L Chloride 93 L (101-111) mmol/L Carbon Dioxide 28 (22-32) mmol/L Anion Gap 11 (2-11) mmol/L BUN 21 (6-24) mg/dL Creatinine 0.76 (0.51-0.95) mg/dL Est GFR ( Amer) 99.5 (>60) Est GFR (Non-Af Amer) 77.4 (>60) BUN/Creatinine Ratio 27.6 H (8-20) Glucose 170 H (70-100) mg/dL Lactic Acid 0.9 (0.5-2.0) mmol/L Calcium 8.9 (8.6-10.3) mg/dL Magnesium 0.8 L* (1.9-2.7) mg/dL Total Bilirubin 0.50 (0.2-1.0) mg/dL AST 14 (13-39) U/L ALT 5 L (7-52) U/L Alkaline Phosphatase 80 (34-104) U/L Troponin I 0.01 (<0.04) ng/mL Total Protein 6.7 (6.4-8.9) g/dL Albumin 3.5 (3.2-5.2) g/dL Globulin 3.2 (2-4) g/dL Albumin/Globulin Ratio 1.1 (1-3) TSH 0.66 (0.34-5.60) mcIU/mL Blood Type Antibody Screen 12/19/16 12/19/16 Range/Units 18:31 18:31 WBC (3.5-10.8) 10^3/ul RBC (4.0-5.4) 10^6/ul Hgb (12.0-16.0) g/dl Hct (35-47) % MCV (80-97) fL MCH (27-31) pg MCHC (31-36) g/dl RDW (10.5-15) % Plt Count (150-450) 10^3/ul MPV (7.4-10.4) um3 Immature Gran % (Auto) (0-9) % Absolute Neuts (auto) (1.5-7.7) 10^3/ul Absolute Lymphs (auto) (1.0-4.8) 10^3/ul Absolute Monos (auto) (0-0.8) 10^3/ul Absolute Eos (auto) (0-0.6) 10^3/ul Absolute Basos (auto) (0-0.2) 10^3/ul Absolute Nucleated RBC 10^3/ul Neutrophils % (38-83) % Band Neutrophils % (0-8) % Lymphocytes % (25-47) % Monocytes % (0-13) % Eosinophils % (0-6) % Metamyelocytes % (0-2) % Myelocytes % (0-1) % Nucleated RBCs/100 WBC (0-0) Normal RBC Morphology Polychromasia Microcytosis INR (Anticoag Therapy) 0.99 (0.89-1.11) Sodium (133-145) mmol/L Potassium (3.5-5.0) mmol/L Chloride (101-111) mmol/L Carbon Dioxide (22-32) mmol/L Anion Gap (2-11) mmol/L BUN (6-24) mg/dL Creatinine (0.51-0.95) mg/dL Est GFR ( Amer) (>60) Est GFR (Non-Af Amer) (>60) BUN/Creatinine Ratio (8-20) Glucose (70-100) mg/dL Lactic Acid (0.5-2.0) mmol/L Calcium (8.6-10.3) mg/dL Magnesium (1.9-2.7) mg/dL Total Bilirubin (0.2-1.0) mg/dL AST (13-39) U/L ALT (7-52) U/L Alkaline Phosphatase (34-104) U/L Troponin I (<0.04) ng/mL Total Protein (6.4-8.9) g/dL Albumin (3.2-5.2) g/dL Globulin (2-4) g/dL Albumin/Globulin Ratio (1-3) TSH (0.34-5.60) mcIU/mL Blood Type O Positive Antibody Screen Negative Microbiology and Other Data: Microbiology 12/20/16 02:30 Nasal Screen MRSA (PCR)([facility]) - Final Nasal Mrsa Positive Assess/Plan/Problems-Billing Assessment: Ms. Allen is a 61 yo female with a PMH of myelofibrosis with pancytopenia, GERD , DM, neuropathy, and hiatal hernia who presented to the ED with concern for weakness, lightheadedness, and gait instability in the presence of panctyopenia. - Patient Problems (1) Weakness Code(s): R53.1 - WEAKNESS Comment: Improved today, reportedly did well with PT. Thought initially to be secondary to pancytopenia and hypomagnesemia, received PRBC transfusion and electrolyte replacement PT/OT consult Flu swab negative Continue supportive care. (2) Pancytopenia Code(s): D61.818 - OTHER PANCYTOPENIA Comment: Pt has myelofibrosis and is due for workup in [place]. Patient unable to make appointment today; appt cancelled and [facility] will call pt to reschedule. Continue neutropenic precautions. HH stable and better than baseline over past few months. WBC and platelet count consistent with previous labs in past few weeks. (3) Hypomagnesemia Code(s): E83.42 - HYPOMAGNESEMIA Comment: Mg 1.2 today, will replete. Start PO magnesium oxide. (4) GERD (gastroesophageal reflux disease) Code(s): K21.9 - GASTRO-ESOPHAGEAL REFLUX DISEASE WITHOUT ESOPHAGITIS Comment : Continue omeprazole. (5) IDDM (insulin dependent diabetes mellitus) Code(s): E11.9 - TYPE 2 DIABETES MELLITUS WITHOUT COMPLICATIONS; Z79.4 - DETENTION (CURRENT) USE OF INSULIN Comment: BG 200s-300s Continue Lispro SS and home Lantus dose. Restart metformin. clinical unit educator consult and [facility] referral upon discharge. (6) Peripheral neuropathy Code(s): G62.9 - POLYNEUROPATHY, UNSPECIFIED Comment: Continue gabapentin. (7) DVT prophylaxis Code(s): AAA7620 - Comment: SCDs in the presence of thrombocytopenia Status and Disposition: OBV to inpatient admission. D/c to home when medically stable.
[2016-12-21] MEDS: Insulin LISPRO* 1 UNITS UNIT SUBCUT SCH ×2 (08:44→12:48)
[2016-12-21] MEDS: Insulin GLARGINE(*) 1 UNITS UNIT SUBCUT SCH (08:45)
[2016-12-21] MEDS: Cyanocobalamin TAB* 500 MCG PO SCH (08:45)
[2016-12-21] MEDS: metFORMIN* 1,000 MG TAB PO SCH (08:46)
[2016-12-21] MEDS: Ferrous Sulfate TAB* 325 MG PO SCH (08:46)
[2016-12-21] MEDS: Gabapentin CAP(*) 300 MG PO SCH ×2 (08:46→12:44)
[2016-12-21 11:29] VITALS: BP 146/66
[2016-12-21] MEDS: Ondansetron INJ* 2 MG/ML VIAL IV PRN (12:49)
--- NOTE | 2016-12-24 09:55 | DS ---
DISCHARGE SUMMARY: DATE OF ADMISSION: 12/19/16 DATE OF DISCHARGE: 12/21/16 PROVIDER: John Martinez NP PRIMARY CARE PROVIDER: Dr. Ko. ATTENDING PHYSICIAN: Dr. Yaa Moran *(as dictated by John Martinez NP). PRIMARY DISCHARGE DIAGNOSES: 1. Weakness, likely secondary to anemia and hypomagnesemia. 2. Pancytopenia. SECONDARY DISCHARGE DIAGNOSES: 1. Myelofibrosis. 2. Pancytopenia. 3. Hiatal hernia. 4. Gastroesophageal reflux disease. 5. Type 2 diabetes, insulin dependent. 6. Neuropathy. 7. Cervical spine fusion. MEDICATIONS AT DISCHARGE: 1. Multivitamin two chews daily. 2. Gabapentin 600 mg t.i.d. 3. Ferrous sulfate 325 mg daily. 4. Esomeprazole 40 mg daily. 5. Vitamin B12 1000 mcg daily. 6. Metformin 1000 mg b.i.d. 7. Probiotic one capsule daily. 8. Levemir FlexPen 38 units q.a.m. 9. Tornado 7.5/325 one tab q.4h. p.r.n. 10. Zofran 4 mg q.6h. p.r.n. 11. Magnesium oxide 40 mg daily - this is a new medication. 12. Zofran 4 mg q.6h. p.r.n. - this is a new medication. HOSPITAL COURSE OF STAY: For full details, please refer to the H and P provided by Tami Barraza NP to the medical record. In summary, Ms. Allen is a 61-year-old female who presented to the emergency room with concern for weakness and unsteady gait. She reports that she has been getting 2 units of blood on a weekly basis, but the past Wednesday prior to admission she only received 1 unit. She reported little improvement after receiving her blood transfusion and has continued to feel weak and unsteady. She denies any fevers , but reports ongoing chills and night sweats. On admission, her hemoglobin was noted to be 6.7 on December 14, and on the when she was admitted it was 7.4 which appears consistent with previous weeks. The patient was admitted and transfused 1 unit of blood with the hope that would help her symptoms of weakness and lightheadedness. However, the following day, the patient reported that she still felt unsafe and that her gait was too unsteady to return home by herself. She states that she lives alone and is afraid of falling. We did order a physical therapy consult and continued to support her with IV fluids. The following day, the patient said she felt better and was able to walk with physical therapy. Of note, she did have an appointment at [place] with Dr. Valdivia for a bone marrow biopsy and consult. I did offer to have the patient discharged on both Wednesday and early Wednesday morning in order to get her to her treatment. However, she stated that she would be unable to make it because she did not have a ride. I was unable to find a ride to get her to her appointment on time. Per her request, we did call and cancel the appointment, and [facility] will call the patient to reschedule. In regards to her weakness, it appears to be secondary to her pancytopenia and low magnesium. I did start her on p.o. magnesium and she was given instructions to follow up this week as previously scheduled at [facility] for her lab draws. There may have been a viral component to the patient's illness. However , she did not have any nausea, vomiting beyond what she reports as her usual issues with nausea and she has been tolerating p.o. intake. Her flu swab was also negative. In terms of her diabetes, her A1C was noted to be 7.8 and her blood sugars were elevated here, and I referred the patient to the [facility] for staff educator consult and they will contact her after discharge to schedule this. Upon discharge, the patient was hemodynamically stable, afebrile. Her labs appear to be within her baseline and she is due for followup at [facility] later this week. CONCERNS AT DISCHARGE: Ms. Allen will be discharged to home on 12/21/16 with planned followup with her PCP on 12/22/16. Home Health Services have been set up for the patient in order to get the patient connected with home health aide for help with ADLs. CONDITION AT DISCHARGE: She will be discharged to home on 12/21/[address] Page on 12/25/16. The patient will receive a phone call from [facility] to reschedule Dr. Valdivia. She is to follow up with [facility] as previously scheduled. DIET: Consistent-carbohydrate diet. ACTIVITY: As tolerated. CONDITION: Stable. DISPOSITION: To home with home health services. TIME SPENT: Time spent on this discharge was approximately 45 minutes. Again, this is only a brief summary of the patient's hospital course of stay. For full details, please refer to the full medical record. If you have any further questions or need further assistance, please fee free to contact me at [phone]. JOHN MARTINEZ NP CC: Dr. Ko.* [id number]/[facility] #: [id number] AURELIA
== END 2016-12-21 16:45 | disposition home or self-care (01) | DRG 809 ==
LOC: ED 17:45 → MED 19:32 → OBSVTOIN 12-20 15:42
PROVIDERS: ADMIT Internal Medicine; ATTEND Internal Medicine
PROC: 30233N1 Transfusion of Nonautologous Red Blood Cells into Peripheral Vein, Percutaneous Approach (ICD-10-PCS; principal; 2016-12-19)
DX: D61.818 Other pancytopenia (principal); D75.81 Myelofibrosis; E11.42 Type 2 diabetes mellitus with diabetic polyneuropathy; E83.42 Hypomagnesemia; K21.9 Gastro-esophageal reflux disease without esophagitis; R26.81 Unsteadiness on feet; Z88.1 Allergy status to other antibiotic agents; Z88.5 Allergy status to narcotic agent; Z88.2 Allergy status to sulfonamides; Z91.040 Latex allergy status; Z87.891 Personal history of nicotine dependence; Z79.4 Long term (current) use of insulin
CPT/HCPCS: 36415; 80048; 80053; 81003; 83036; 83605; 83735; 84100; 84443; 84484; 85025; 85610; 86850; 86900; 86901; 86922; 87502; 87641; 93005; A9270-GY; J2405; J3475; P9016

== ENCOUNTER 2017-01-03 09:13 | Observation (INO) | payer MEDICARE, MEDICAID ==
[2017-01-03] MEDS ORDERED: HYDROmorphone* 1 MG/ML 1 ML SYR IV ONE ×2 (09:40→10:50)
[2017-01-03] MEDS ORDERED: Ondansetron INJ* 2 MG/ML VIAL IV ONE ×2 (09:40→10:50)
[2017-01-03 09:57] LABS: Hematocrit 24 % (35-47); Hemoglobin 8.2 g/dl (12.0-16.0); Mean Corpuscular HGB Conc 33 g/dl (31-36); Mean Corpuscular Hemoglobin 28 pg (27-31); Mean Corpuscular Volume 83 fL (80-97); Mean Platelet Volume 8 um3 (7.4-10.4); Red Blood Count 2.96 10^6/ul (4.0-5.4); Red Cell Distribution Width 19 % (10.5-15); White Blood Count 2.1 10^3/ul (3.5-10.8)
[2017-01-03 09:58] LABS: Add Diff/Slide Review? Slide Review Added; Comments Flag Yes
[2017-01-03 10:07] LABS: Albumin 3.5 g/dL (3.2-5.2); BUN/Creatinine Ratio 20.3 (8-20); C Reactive Protein 105.72 mg/L (< 5.00); Calcium 9.3 mg/dL (8.6-10.3); EGFR African American 121.3 (>60); EGFR Non-African American 94.3 (>60); Globulin 3.5 g/dL (2-4); Magnesium 1.1 mg/dL (1.9-2.7); Potassium 4.5 mmol/L (3.5-5.0); Total Bilirubin 0.8 mg/dL (0.2-1.0)
[2017-01-03 10:34] LABS: Immature Granulocytes 17 % (0-9); Metamyelocytes % 1 % (0-2); Myelocytes % 5 % (0-1); Neutrophil % 46 % (38-83); Promyelocytes % 2 %; Reactive Lymph % 1 % (0-6)
[2017-01-03 10:35] LABS: Hypochromasia 1+; Polychromasia 1+; Tear Drop Cells 1+
[2017-01-03] MEDS ORDERED: NS 0.9% 1000 ML* 1,000 ML IV ONE (11:20)
[2017-01-03] MEDS: PROCHLORPERAZINE INJ 5 MG/ML 2 ML VIAL IV PRN (12:59)
[2017-01-03] MEDS ORDERED: HYDROcodone/ACETAMIN 5-325 MG* 1 TAB PO ONE (13:49)
[2017-01-03] MEDS ORDERED: oxyCODONE SR TAB(*) 10 MG TAB.SR PO ONE (14:56)
[2017-01-03] MEDS ORDERED: Magnesium Sulf 4 GM/100 ML IV* 4,000 MG/100 ML BAG IVPB ONE (14:58)
[2017-01-03] MEDS ORDERED: Dextrose 50% Syringe 50 ML* 25 GM/50 ML SYRINGE IV PUSH PRN (14:59)
[2017-01-03] MEDS: NS 0.9% 1000 ML* 1,000 ML IV SCH (15:47)
[2017-01-03] MEDS ORDERED: Calcium Carbonate CHEW TAB* 500 MG (TUMS) PO PRN (17:22)
[2017-01-03] MEDS ORDERED: Calcium Carbonate CHEW TAB* 500 MG (TUMS) ONE (17:29)
[2017-01-03] MEDS: Insulin LISPRO* 1 UNITS UNIT SUBCUT SCH (17:30)
[2017-01-03] MEDS ORDERED: Insulin GLARGINE(*) 1 UNITS UNIT SUBCUT SCH (21:00)
[2017-01-03] MEDS: Al Hydrox/Mg Hydrox/Simet LIQ* 30 ML UDC PO PRN (21:26)
[2017-01-03] MEDS: Insulin GLARGINE(*) 1 UNITS UNIT SUBCUT SCH (21:27)
[2017-01-03] MEDS: oxyCODONE SR TAB(*) 10 MG TAB.SR PO SCH (21:27)
[2017-01-03] MEDS: Gabapentin CAP(*) 300 MG PO SCH (22:30)
[2017-01-03] MEDS: Ondansetron INJ* 2 MG/ML VIAL IV PRN (23:20)
[2017-01-03] MEDS: Heparin VIAL(*) 5000 UNITS/ML VIAL (FIVE THOUSAND) SUBCUT SCH (23:20)
[2017-01-04] MEDS: PROCHLORPERAZINE INJ 5 MG/ML 2 ML VIAL IV PRN (00:38)
--- NOTE | 2017-01-04 01:44 | HP ---
HOSPITAL MEDICINE HISTORY AND PHYSICAL: DATE OF ADMISSION: 01/03/17 ONCOLOGIST: Dr. Gaston. ATTENDING PHYSICIAN: Dr. Gonzalez Souza* (dictation provided by Tami Barraza NP ) CHIEF COMPLAINT: Uncontrolled pain and nausea. HISTORY OF PRESENT ILLNESS: Ms. Allen is a 61-year-old female with past medical history of myelofibrosis and diabetes, which is insulin dependent, who presents today to the hospital with concern for uncontrolled pain and nausea. Ms. Allen has had ongoing issues with pain since before her diagnosis of myelofibrosis. She states that the pain has become much worse at home and that it is unrelenting. She has been taking her home hydrocodone, but states that it is not helping. She has also had significant nausea. She had been on ondansetron at home. She states that she had had the medication refilled, but cannot locate where she put it now. She reports being very weak and lightheaded and not being able to tolerate oral intake. She denies fevers, chills, cough, chest pain, abdominal pain. Ms. Allen has a diagnosis of myelofibrosis since November of this year. She has recently followed up with providers at the [facility] regarding her diagnosis and had another bone marrow biopsy last week, and she is waiting to hear back from the [facility] regarding further diagnostics and treatment. In the emergency room, Ms. Allen had multiple doses of pain medications, but despite this, she still remained quite uncomfortable and also with intermittent nausea. PAST MEDICAL HISTORY: 1. Myelofibrosis. 2. Type 2 diabetes, insulin dependent. 3. Pancytopenia. 4. Hiatal hernia. 5. GERD. 6. Neuropathy. 7. Cervical spine fusion. MEDICATIONS: Medications outpatient are: 1. Esomeprazole 40 mg p.o. daily. 2. Hydrocodone/acetaminophen 7.5/325 mg liquid p.o. q. 4 hours p.r.n. 3. Lactobacillus 1 cap p.o. daily. 4. Multivitamin with mineral 2 chews p.o. daily. 5. Ondansetron 4 mg p.o. q. 6 hours p.r.n. 6. Metformin 1000 mg p.o. b.i.d. 7. Cyanocobalamin 1000 mcg p.o. daily. 8. Ferrous sulfate 325 mg p.o. daily. 9. Gabapentin 600 mg p.o. t.i.d. 10. Levemir insulin 38 units subcutaneously q.a.m. 11. Magnesium oxide 400 mg p.o. daily. ALLERGIES: CEPHALEXIN, DIAZEPAM, LATEX, PENICILLIN, BENZONATATE, CODEINE, MORPHINE which causes vomiting and lightheadedness; and SULFA DRUGS. FAMILY HISTORY: She reports that her mother had a history of CABG. SOCIAL HISTORY: No prior alcohol, tobacco, or drug use. For now she states that her friend, Daisy Ortez, would be her healthcare proxy. REVIEW OF SYSTEMS: A 14-point review of systems was completed with Ms. Allen and all those not mentioned above were negative. PHYSICAL EXAMINATION GENERAL: Ms. Allen is lying in the bed. She is a pale female in no acute distress. VITAL SIGNS: Temperature 98.7, heart rate 98, respiratory rate 20, O2 saturation 96% on room air, blood pressure 131/51. HEENT: Extraocular movements are intact. LUNGS: Clear to auscultation bilaterally with no accessory muscle use and good aeration. HEART: S1, S2. No murmurs, rubs, or gallops. ABDOMEN: Soft and nontender with bowel sounds positive x4. EXTREMITIES: No cyanosis or edema. SKIN: Intact. NEUROLOGIC: She is alert and oriented x3. She moves all extremities equally. There is no facial asymmetry or focal weakness. DIAGNOSTIC STUDIES/LAB DATA: WBC 2.1, hemoglobin 8.2, hematocrit 24, platelet count 33. Sodium 130, potassium 4.5, chloride 93, serum bicarbonate 22, BUN 13 , creatinine 0.64, glucose 330, magnesium 1.1, CRP 105.72. ASSESSMENT AND PLAN: Ms. Allen is a 61-year-old female with past medical history of myelofibrosis, being followed by Oncology as well as insulin- dependent diabetes, who presents to the hospital today with uncontrolled pain and nausea. Our plans are for observation in the hospital for the following. 1. Uncontrolled pain. Ms. Allen is only on hydrocodone at home and I think she would benefit from a long acting agent. She states that she tried fentanyl up to 50 mcg via patch, but that it did not work and she is no longer using that. I suggested to her that we try oxycodone SR, which we will start now and titrate up as needed. She also had oxycodone IR available as needed. She denies any change to the character of her pain. She just states it is more severe than usual. 2. Nausea. Plan to continue Zofran p.r.n. The patient states that has worked well for her in the past. 3. Diabetes insulin dependent. Plan to continue her home dose of Levemir. We will switch to Lantus as Levemir is not formulary. The patient will have blood glucoses q.a.c. and a lispro sliding scale in addition for any elevated blood glucose levels. 4. Gastroesophageal reflux disease. The patient will have omeprazole and substitute for esomeprazole. 5. Myelofibrosis, the patient is following with Oncology and with the team at [facility] regarding her pancytopenia and myelofibrosis. Oncology has been updated. The patient is being admitted to the hospital today. 6. DVT prophylaxis with heparin subcu. 7. Disposition to medical floor. 8. Code status is full code. TIME SPENT: Approximately 60 minutes was spent on the admission of this patient , more than half the time spent with the patient at the bedside reviewing the events leading up to this hospitalization, performing the physical examination, and reviewing the plan of care. TAMI BARRAZA NP CC: Dr. Gaston* [id number]/[facility] #: [id number] AURELIA
[2017-01-04] MEDS ORDERED: HYDROmorphone* 1 MG/ML 1 ML SYR ONE (02:17)
[2017-01-04] MEDS ORDERED: HYDROmorphone* 1 MG/ML 1 ML SYR IV ONE (03:00)
[2017-01-04] MEDS: oxyCODONE TAB* 5 MG TAB PO PRN ×3 (03:54→12:14)
[2017-01-04] MEDS: NS 0.9% 1000 ML* 1,000 ML IV SCH ×2 (03:55→11:33)
[2017-01-04] MEDS: Heparin VIAL(*) 5000 UNITS/ML VIAL (FIVE THOUSAND) SUBCUT SCH ×2 (06:07→14:45)
[2017-01-04] MEDS ORDERED: Omeprazole CAP* 20 MG PO SCH (07:30)
[2017-01-04] MEDS ORDERED: Insulin Detemir (NF) 100 UNIT/ML 10 ML VIAL SUBCUT SCH (09:00)
[2017-01-04] MEDS ORDERED: Ferrous Sulfate TAB* 325 MG PO SCH (09:00)
[2017-01-04] MEDS ORDERED: Cyanocobalamin TAB* 500 MCG PO SCH (09:00)
[2017-01-04] MEDS ORDERED: Magnesium Oxide TAB* 400 MG PO SCH (09:00)
[2017-01-04] MEDS: oxyCODONE SR TAB(*) 10 MG TAB.SR PO SCH ×2 (09:03→11:15)
[2017-01-04] MEDS: Insulin GLARGINE(*) 1 UNITS UNIT SUBCUT SCH (09:09)
[2017-01-04] MEDS: Insulin LISPRO* 1 UNITS UNIT SUBCUT SCH ×3 (09:10→17:13)
[2017-01-04] MEDS: Gabapentin CAP(*) 300 MG PO SCH ×2 (09:12→14:43)
[2017-01-04] MEDS ORDERED: Magnesium Sulf 4 GM/100 ML IV* 4,000 MG/100 ML BAG IVPB ONE (11:10)
[2017-01-04] MEDS: Al Hydrox/Mg Hydrox/Simet LIQ* 30 ML UDC PO PRN (11:38)
[2017-01-04] MEDS ORDERED: diPHENhydraMINE PO* 25 MG PO ONE (12:00)
[2017-01-04] MEDS ORDERED: Acetaminophen TAB* 325 MG PO ONE (12:00)
[2017-01-04 12:31] VITALS: BP 124/45
[2017-01-04] MEDS: Ondansetron INJ* 2 MG/ML VIAL IV PRN (14:23)
--- NOTE | 2017-01-05 09:06 | DS ---
DISCHARGE SUMMARY: DATE OF ADMISSION: 01/03/17 DATE OF DISCHARGE: 01/04/17 PRINCIPAL DIAGNOSIS: Uncontrolled pain with nausea. OTHER DIAGNOSIS: Include history of severe myelofibrosis, awaiting an AML transplant with Dr. Valdivia in [place]. DISCHARGE MEDICATIONS: Will include all of her previously prescribed home medications. Two changes will include discontinuation of Vicodin as her home pain medication and the addition of OxyContin 10 mg p.o. q. 12 hours and oxycodone 5 mg p.o. q. 6 hours p.r.n. breakthrough pain, and one last change in her discharge medications from her previous home is the addition of Prilosec 20 mg p.o. daily, all of which were sent to her home pharmacy for filling. Briefly, her medications include the aforementioned: 1. Omeprazole and two oxycodone. 2. Maalox Plus as needed at home. 3. Calcium carbonate 500 mg every 4 hours as needed. 4. Cyanocobalamin 1000 mcg p.o. daily. 5. Iron 325 mg daily. 6. Magnesium oxide 400 mg p.o. daily. 7. Zofran 4 mg p.r.n. 8. Compazine 10 mg p.o. q. 6 hours p.r.n. nausea. 9. Lactobacillus one cap daily. 10. Multivitamin, two chewed daily. HOSPITAL COURSE: Briefly, the patient was admitted to the hospital with pain and continued nausea. She had just recently seen Dr. Valdivia in [place] approximately 4 days ago for which she was experiencing similar type pain and similar type nausea. Briefly, she was given IV magnesium sulfate during her hospital stay to replete her hypomagnesemia and started on oxycodone and OxyContin for her pain. She had tolerated them well. She incidentally did get one unit of packed red blood cells with premeds and tolerated that well and was ready for discharge thereafter. CHRISTINE TATE [id number]/[facility] #: [id number] MTDD
== END 2017-01-04 18:50 | disposition home or self-care (01) ==
LOC: ED 09:13 → MED 14:21
PROVIDERS: ADMIT Internal Medicine; ATTEND Internal Medicine Hematology & Oncology
DX: R52 Pain, unspecified (principal); R11.0 Nausea; D75.81 Myelofibrosis; E11.9 Type 2 diabetes mellitus without complications; Z79.4 Long term (current) use of insulin; D61.818 Other pancytopenia; K44.9 Diaphragmatic hernia without obstruction or gangrene; K21.9 Gastro-esophageal reflux disease without esophagitis; G62.9 Polyneuropathy, unspecified; Z79.899 Other long term (current) drug therapy; Z88.1 Allergy status to other antibiotic agents; Z88.5 Allergy status to narcotic agent; Z88.8 Allergy status to other drugs, medicaments and biological substances
CPT/HCPCS: 36415; 80053; 83605; 83735; 85025; 86140; 86850; 86900; 86901; 86922; 94760; 96361; 96365; 96366; 96372; 96375; 96376; 99238; 99284; A9270-GY; G0378; J0780; J1170; J1644; J2405; P9040

== ENCOUNTER 2017-01-10 20:42 | Emergency (ER) | payer MEDICARE, MEDICAID ==
[2017-01-11 00:01] LABS: Comments Flag Yes; Hematocrit 23 % (35-47); Hemoglobin 7.8 g/dl (12.0-16.0); Mean Corpuscular HGB Conc 34 g/dl (31-36); Mean Corpuscular Hemoglobin 28 pg (27-31); Mean Corpuscular Volume 82 fL (80-97); Mean Platelet Volume 8 um3 (7.4-10.4); Red Cell Distribution Width 17 % (10.5-15)
[2017-01-11 00:02] LABS: White Blood Count 1.8 10^3/ul (3.5-10.8)
[2017-01-11 00:03] LABS: Add Diff/Slide Review? Slide Review Added
[2017-01-11 00:10] LABS: Albumin 3.3 g/dL (3.2-5.2); BUN/Creatinine Ratio 23.5 (8-20); C Reactive Protein 143.62 mg/L (< 5.00); Calcium 9.3 mg/dL (8.6-10.3); EGFR African American 113.1 (>60); Globulin 3.2 g/dL (2-4); Potassium 4.3 mmol/L (3.5-5.0); Total Bilirubin 0.8 mg/dL (0.2-1.0); Total Protein 6.5 g/dL (6.4-8.9)
[2017-01-11 00:27] LABS: Macrocytosis 1+; Microcytosis 2+; Polychromasia 1+; Tear Drop Cells 1+; Toxic Granulation 1+
[2017-01-11] MEDS ORDERED: NS 0.9% 1000 ML* 1,000 ML IV ONE (01:19)
[2017-01-11] MEDS ORDERED: oxyCODONE SR TAB(*) 40 MG TAB.SR PO ONE (01:32)
[2017-01-11 01:33] LABS: Urine Bacteria Absent (Absent); Urine Bilirubin Negative (Negative); Urine Glucose 3+(>=500 mg/dL) (Negative); Urine Nitrite Negative (Negative)
[2017-01-11 01:49] LABS: Magnesium 1.2 mg/dL (1.9-2.7)
[2017-01-11] MEDS ORDERED: Iodixanol* (CONTRAST) 320 MG/ML 100 ML SDV IV ONE (02:43)
[2017-01-11] MEDS ORDERED: Ciprofloxacin TAB* 750 MG PO ONE (06:20)
[2017-01-11] MEDS ORDERED: Ciprofloxacin 400MG IVPREMIX(* 400 MG/200 ML BAG IVPB ONE ×2 (06:23→06:39)
[2017-01-11] MEDS ORDERED: Magnesium Sulf 4 GM/100 ML IV* 4,000 MG/100 ML BAG IVPB ONE (07:18)
[2017-01-11] MEDS ORDERED: diPHENhydraMINE IV* 50 MG/ML 1 ml VIAL (BENADRYL) IV ONE (07:42)
--- NOTE | 2017-01-11 08:14 | RAD ---
CLINICAL HISTORY: Decreased bowel movements, abdominal pain COMPARISON: October 31, 2011 TECHNIQUE: Multiple contiguous axial CT scans were obtained of the abdomen and pelvis after the administration of intravenous contrast. Coronal and sagittal multiplanar reformations are submitted for review. Oral contrast was administered. Delayed images were obtained through the abdomen and pelvis. FINDINGS: LUNG BASES: The lung bases are clear. LIVER: The liver is normal in shape, size, contour, and attenuation. BILE DUCTS: There is no intrahepatic or extrahepatic biliary dilatation. GALLBLADDER: The gallbladder is normal, without pericholecystic inflammatory change. PANCREAS: The pancreas is normal, without mass or ductal dilatation. SPLEEN: The spleen is mildly enlarged measuring up to 14 cm in long axis. UPPER GI TRACT: Evaluation of the gastrointestinal tract is limited by incomplete gastric distention. There is a small paraesophageal hiatal hernia. SMALL BOWEL AND MESENTERY: The small bowel is normal in contour, course, and caliber. There is no obstruction or dilatation. COLON: There is large amount of stool within the colon. There is a rectocele. ADRENALS: Normal bilaterally. KIDNEYS: The kidneys are normal in shape, size, contour, and axis. There is no hydronephrosis or nephrolithiasis. BLADDER: The bladder is smooth in contour. A cystocele is noted. PELVIC ORGANS: The pelvic organs are not visualized. There is pelvic floor weakness with a cystocele and rectocele. AORTA: The aorta is normal. IVC: Unremarkable LYMPH NODES: There is no lymphadenopathy by size criteria. ABDOMINAL WALL: There is a small fat-containing left inguinal hernia. BONES AND SOFT TISSUES: Degenerative changes are noted OTHER: None IMPRESSION: 1. MILD SPLENOMEGALY. 2. 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
[2017-01-11 12:34] VITALS: BP 130/34
--- NOTE | 2017-01-11 19:47 | ED ---
Altaf Mujica Billy, scribed for Champ Lee MD on 01/11/17 at 0115 . Complex/Multi-Sys Presentation - HPI Summary HPI Summary: Patient is a 61 year-old female coming to [facility] for evaluation of nausea, vomiting, constipation, and generalized weakness for the last several days. She also reports feeling lightheaded and diaphoretic. Nothing makes her symptoms better or worse. Denies CP or SOB. She was admitted with similar symptoms last week. - History Of Current Complaint Chief Complaint: EDNauseaVomitDiarrh Time Seen by Provider: 01/10/17 23:02 Hx Obtained From: Patient Onset/Duration: Gradual Onset, Lasting Days, Still Present Timing: Constant Severity Currently: Moderate Severity Initially: Moderate Aggravating Factor(s): none Alleviating Factor(s): none Associated Signs And Symptoms: Positive: Weakness, Nausea, Vomiting, Diaphoresis , Other - constipation, lightheaded - Allergies/Home Medications Allergies/Adverse Reactions: Allergies Allergy/AdvReac Type Severity Reaction Status Date / Time Cephalexin [From Keflex] Allergy VOMITING, Verified 01/07/17 12:00 DIARRHEA, HIVES, LIGHTHEADEDNESS Diazepam [From Valium] Allergy Difficulty Verified 01/07/17 12:00 Breathing Latex Allergy Rash Verified 01/07/17 12:00 Penicillins [PCN] Allergy CHEST Verified 01/07/17 12:00 HEAVINESS, SLIGHT DIFF BREATHING, LIGHTHEADEDNESS, Benzonatate [From Tessalon] AdvReac Headache Verified 01/07/17 12:00 Codeine AdvReac See Comment Verified 01/07/17 12:00 Morphine AdvReac VOMITING, Verified 01/07/17 12:00 LIGHTHEADEDNESS ALL "MYCINS" Allergy CHEST Uncoded 01/07/17 12:00 HEAVINESS, SL. DIFF. BREATHING, LIGHTHEADEDNESS ALL CILLINS Allergy CHEST Uncoded 01/07/17 12:00 HEAVINESS, SL. DIFF. BREATHING, LIGHTHEADNESS MULTIPLE ANTIBIOPTIC Allergy CHEST Uncoded 01/07/17 12:00 REACTIONS HEAVINESS, SL. DIFF. BREATHING, LIGHTHEADEDNESS SULFA DRUGS Allergy VOMITING, Uncoded 01/07/17 12:00 DIARRHEA, HIVES, LIGHTHEADEDNESS PMH/Surg Hx/FS Hx/Imm Hx Endocrine/Hematology History: Reports: Hx Diabetes Cardiovascular History: Reports: Hx Angina Denies: Hx Coronary Artery Disease, Hx Hypercholesterolemia, Hx Hypertension , Hx Myocardial Infarction, Hx Pacemaker/ICD, Hx Valvular Heart Disease Respiratory History: Denies: Hx Asthma, Hx Chronic Obstructive Pulmonary Disease (COPD) GI History: Reports: Hx Gastroesophageal Reflux Disease, Hx Gastrointestinal Bleed, Hx Hiatal Hernia, Hx Ulcer - reflux History: Denies: Hx Renal Disease Musculoskeletal History: Reports: Other Musculoskeletal History - meylofibrosis Sensory History: Reports: Hx Cataracts - BEGINNING STAGES, Hx Contacts or Glasses Denies: Hx Hearing Aid Opthamlomology History: Reports: Hx Cataracts - BEGINNING STAGES, Hx Contacts or Glasses Psychiatric History: Reports: Other Psychiatric Issues/Disorders - claustrophobia Denies: Hx Panic Disorder - Cancer History Cancer Type, Location 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 SURGERY FOR PROLASPED BLADDER AND RECTUM, TOTAL ABDOMINAL HYSTERECTOMY- LAPAROSCOPIC-[facility]. TUBAL LIGATION. LEFT HAND LUMPS REMOVED 2014 Hx Anesthesia Reactions: Yes - NAUSEA Infectious Disease History: No Infectious Disease History: Reports: Hx of Known/Suspected MRSA - 12/20/16, nares Denies: History Other Infectious Disease, Traveled Outside the [place] in Last 30 Days - Family History Known Family History: Positive: Cardiac Disease Family History: cancer - Social History Alcohol Use: None Alcohol Amount: quit 2008 Substance Use Type: Reports: None Smoking Status (MU): Former Smoker Type: Cigarettes Amount Used/How Often: 1 PPD X 25 +YEARS Have You Smoked in the Last Year: No Review of Systems Positive: Skin Diaphoresis. Negative: Fever, Chills Negative: Erythema Negative: Sore Throat Positive: Chest Pain Negative: Shortness Of Breath, Cough Positive: Vomiting, Nausea Negative: Myalgia, Edema Negative: Rash Neurological: Other - lightheaded Positive: Weakness All Other Systems Reviewed And Are Negative: Yes Physical Exam - Summary Physical Exam Summary: Constitutional: Well-developed, Well-nourished, Alert. (-) Distressed Skin: Warm, Dry HENT: Normocephalic; Atraumatic Eyes: Conjunctiva normal Neck: Musculoskeletal ROM normal neck. (-) JVD, (-) Stridor, (-) Tracheal deviation Cardio: Rhythm regular, rate normal, Heart sounds normal; Intact distal pulses; The pedal pulses are 2+ and symmetric. Radial pulses are 2+ and symmetric. (-) Murmur Pulmonary/Chest wall: Effort normal. (-) Respiratory distress, (-) Wheezes, (-) Rales Abd: Soft. Mild diffuse abdominal tenderness. (-) Distension, (-) Guarding, (- ) Rebound Musculoskeletal: (-) Edema Lymph: (-) Cervical adenopathy Neuro: Alert, Oriented x3 Psych: Mood and affect Normal Triage Information Reviewed: Yes Vital Signs On Initial Exam: Initial Vitals Temp Pulse Resp BP Pulse Ox 97.9 F 91 20 126/53 100 01/10/17 20:45 01/10/17 20:45 01/10/17 20:45 01/10/17 20:45 01/10/17 20:45 Vital Signs Reviewed: Yes - [place] Coma Scale Coma Scale Total: 15 Diagnostics - Vital Signs Vital Signs Temp Pulse Resp BP Pulse Ox 01/10/17 23:34 85 95 01/10/17 23:27 98.9 F 86 17 122/46 96 01/10/17 22:14 98.7 F 85 16 134/46 99 01/10/17 20:45 97.9 F 91 20 126/53 100 - Laboratory Lab Results: Lab Results 01/10/17 01/10/17 01/10/17 Range/Units 23:42 23:42 23:42 WBC 1.8 L (3.5-10.8) 10^3/ul RBC 2.80 L (4.0-5.4) 10^6/ul Hgb 7.8 L (12.0-16.0) g/dl Hct 23 L (35-47) % MCV 82 (80-97) fL MCH 28 (27-31) pg MCHC 34 (31-36) g/dl RDW 17 H (10.5-15) % Plt Count 33 L (150-450) 10^3/ul MPV 8 (7.4-10.4) um3 Neut % (Auto) 47.8 (38-83) % Lymph % (Auto) 27.7 (25-47) % [place] % (Auto) 22.8 H (1-9) % Eos % (Auto) 1.0 (0-6) % Baso % (Auto) 0.7 (0-2) % Absolute Neuts (auto) 0.9 L* (1.5-7.7) 10^3/ul Absolute Lymphs (auto) 0.5 L (1.0-4.8) 10^3/ul Absolute Monos (auto) 0.4 (0-0.8) 10^3/ul Absolute Eos (auto) 0 (0-0.6) 10^3/ul Absolute Basos (auto) 0 (0-0.2) 10^3/ul Absolute Nucleated RBC 0.12 10^3/ul Nucleated RBC % 6.7 Toxic Granulation 1+ Normal RBC Morphology Not Reportable Polychromasia 1+ Microcytosis 2+ Macrocytosis 1+ Tear Drop Cells 1+ Elliptocytes 1+ Sodium 125 L (133-145) mmol/L Potassium 4.3 (3.5-5.0) mmol/L Chloride 87 L (101-111) mmol/L Carbon Dioxide 30 (22-32) mmol/L Anion Gap 8 (2-11) mmol/L BUN 16 (6-24) mg/dL Creatinine 0.68 (0.51-0.95) mg/dL Est GFR ( Amer) 113.1 (>60) Est GFR (Non-Af Amer) 88.0 (>60) BUN/Creatinine Ratio 23.5 H (8-20) Glucose 377 H (70-100) mg/dL Lactic Acid 0.8 (0.5-2.0) mmol/L Calcium 9.3 (8.6-10.3) mg/dL Total Bilirubin 0.80 (0.2-1.0) mg/dL AST 8 L (13-39) U/L ALT 4 L (7-52) U/L Alkaline Phosphatase 81 (34-104) U/L C-Reactive Protein 143.62 H (< 5.00) mg/L Total Protein 6.5 (6.4-8.9) g/dL Albumin 3.3 (3.2-5.2) g/dL Globulin 3.2 (2-4) g/dL Albumin/Globulin Ratio 1.0 (1-3) Lipase 15 (11.0-82.0) U/L Result Diagrams: 01/10/17 23:42 01/10/17 23:42 Lab Statement: Any lab studies that have been ordered have been reviewed, and results considered in the medical decision making process. - CT abd/pel w ct CT Interpretation: No Acute Changes CT Interpretation Completed By: Radiologist - See EMR for radiologist's report. Re-Evaluation - Re-Evaluation First Eval Re-Evaluation Time: 06:39 Comment: She feels incredibly dizzy with ambulation. Complex Multi-Symp Course/Dx Assessment/Plan: 61 year-old female coming to the ED for evaluation of nausea, vomiting, constipation, dizziness, diaphoresis, and weakness. She also requested us to check her magnesium levels. CT abd/pel was reviewed, as read by radiologist. In the ED course, pt was given ciprofloxacin, oxycotin for pain, and IV fluids for hydration. Patient care discussed with Dr. Gaston who accepted patient for admission. - Diagnoses Provider Diagnoses: Neutropenia, UTI (urinary tract infection) - Physician Notifications Discussed Care Of Patient With: Dr. Gaston (heme-onc) @ 0630: add magnesium; if patient receives magnesium in the ED, she does not need to follow up as outpatient. Neutropenia is not a new finding for this patient, and discharge is still possible at this time. Dr. Gaston @ 0640: accepts admission. Discharge - Discharge Plan Condition: Stable Disposition: ADMITTED TO [facility] Referrals: Peyman Ko MD [Primary Care Provider] - The documentation as recorded by the Altaf de la o Billy accurately reflects the service I personally performed and the decisions made by me, Champ Lee MD.
--- NOTE | 2017-01-12 22:56 | CONSULT ---
Consult Consult: Alejandro was turned over to me at change of shift. Dr. Gaston came hand saw her and the patient did not want to stay in the hospital. She was given antibiotics and IV magnesium here and D/C's in stable condition with a diagnosis of UTI and hypomagnesemia
== END 2017-01-11 12:29 | disposition short-term general hospital (02) ==
LOC: ED 20:42
DX: R11.2 Nausea with vomiting, unspecified (principal); K59.00 Constipation, unspecified; D70.9 Neutropenia, unspecified; R53.1 Weakness; R61 Generalized hyperhidrosis; R42 Dizziness and giddiness; Z87.891 Personal history of nicotine dependence; N39.0 Urinary tract infection, site not specified
CPT/HCPCS: 36415; 74177; 80053; 81003; 81015; 83605; 83690; 83735; 85025; 86140; 87086; 96374; 99284; A9270-GY; J0744; J1200; Q9967

== ENCOUNTER 2017-01-13 11:44 | Observation (INO) | payer MEDICARE, MEDICAID ==
[2017-01-13 12:44] LABS: Hematocrit 20 % (35-47); Hemoglobin 6.9 g/dl (12.0-16.0); Mean Corpuscular HGB Conc 34 g/dl (31-36); Mean Corpuscular Hemoglobin 28 pg (27-31); Mean Corpuscular Volume 82 fL (80-97); Mean Platelet Volume 8 um3 (7.4-10.4); Red Blood Count 2.46 10^6/ul (4.0-5.4); Red Cell Distribution Width 18 % (10.5-15)
[2017-01-13 12:45] LABS: Add Diff/Slide Review? Slide Review Added; Comments Flag Yes; White Blood Count 2.1 10^3/ul (3.5-10.8)
[2017-01-13 12:55] LABS: Albumin 3.1 g/dL (3.2-5.2); C Reactive Protein 159.39 mg/L (< 5.00); Calcium 8.8 mg/dL (8.6-10.3); EGFR African American 105.9 (>60); EGFR Non-African American 82.3 (>60); Magnesium 1.1 mg/dL (1.9-2.7); Phosphorus 4.1 mg/dL (2.5-5.0); Potassium 4.4 mmol/L (3.5-5.0); Total Bilirubin 0.7 mg/dL (0.2-1.0); Total Protein 6.1 g/dL (6.4-8.9)
[2017-01-13] MEDS: NS 0.9% 1000 ML* 2,000 ML IV ONE ×2 (13:01→13:25)
[2017-01-13 13:36] LABS: Venous Bicarbonate HCO3 25.3 mmol/L (24-28)
[2017-01-13] MEDS ORDERED: Ondansetron INJ* 2 MG/ML VIAL IV ONE (14:11)
--- NOTE | 2017-01-13 14:17 | RAD ---
Indication: Weakness, near syncope. Comparison: January 11, [address] October 10, 2016 chest radiograph. Technique: Upright AP 1355 hours Report: Clear lungs and pleural spaces. Mild cardiomegaly. Unremarkable central pulmonary vasculature and mediastinal contours. IMPRESSION: Unchanged mild cardiomegaly. No evidence for acute intrathoracic disease.
[2017-01-13] MEDS ORDERED: Insulin REGULAR(*) 1 UNITS UNIT IV PUSH ONE (14:19)
[2017-01-13] MEDS ORDERED: NS 0.9% 1000 ML* 1,000 ML IV ONE (14:20)
[2017-01-13] MEDS ORDERED: Magnesium Sulfate 2 GM IV* 2 GM/50 ML BAG IVPB ONE ×2 (14:23→15:25)
[2017-01-13 14:57] LABS: Hematocrit 18 % (35-47)
[2017-01-13 15:01] LABS: Comments Flag Yes
[2017-01-13 15:05] LABS: Hemoglobin 6.2 g/dl (12.0-16.0)
[2017-01-13] MEDS ORDERED: Insulin GLARGINE(*) 1 UNITS UNIT SUBCUT ONE (15:16)
[2017-01-13] MEDS ORDERED: Ondansetron TAB* 4 MG PO PRN (15:17)
[2017-01-13] MEDS ORDERED: Dextrose 50% Syringe 50 ML* 25 GM/50 ML SYRINGE IV PUSH PRN (15:20)
[2017-01-13] MEDS ORDERED: Polyethylene Glycol 3350* 17 GM PACKET PO PRN (15:39)
[2017-01-13] MEDS ORDERED: Insulin LISPRO* 1 UNITS UNIT SUBCUT SCH (16:30)
[2017-01-13] MEDS: Gabapentin CAP(*) 300 MG PO SCH ×2 (16:39→20:37)
[2017-01-13] MEDS: oxyCODONE TAB* 5 MG TAB PO PRN ×2 (18:37→23:48)
--- NOTE | 2017-01-13 19:06 | ED ---
Ximena Mujica Matthew, scribed for Jacky Sosa MD on 01/13/17 at 1331 . HPI Diabetic - HPI Summary HPI Summary: A 61 y/o female presents to the ED from Dr. Gaston's office for elevated BG and low sodium. The patient was having routine blood work while at Dr. Gaston' s office. Associated symptoms include bilateral leg pain, thirst, decreased appetite, and increased urinary frequency. The patient denies chest pain, cough , fever, and chills. She states she has mild SOB with exertion. She does no smoke or drink. - History Of Current Complaint Chief Complaint: EDDiabeticProb Time Seen by Provider: 01/13/17 12:04 Hx Obtained From: Patient Onset/Duration: Still Present Timing: Constant Severity Initially: Moderate Severity Currently: Moderate Character: Alert Aggravating: Nothing - Allergies/Home Medications Allergies/Adverse Reactions: Allergies Allergy/AdvReac Type Severity Reaction Status Date / Time Cephalexin [From Keflex] Allergy VOMITING, Verified 01/07/17 12:00 DIARRHEA, HIVES, LIGHTHEADEDNESS Diazepam [From Valium] Allergy Difficulty Verified 01/07/17 12:00 Breathing Latex Allergy Rash Verified 01/07/17 12:00 Penicillins [PCN] Allergy CHEST Verified 01/07/17 12:00 HEAVINESS, SLIGHT DIFF BREATHING, LIGHTHEADEDNESS, Benzonatate [From Tessalon] AdvReac Headache Verified 01/07/17 12:00 Codeine AdvReac See Comment Verified 01/07/17 12:00 Morphine AdvReac VOMITING, Verified 01/07/17 12:00 LIGHTHEADEDNESS ALL "MYCINS" Allergy CHEST Uncoded 01/07/17 12:00 HEAVINESS, SL. DIFF. BREATHING, LIGHTHEADEDNESS ALL CILLINS Allergy CHEST Uncoded 01/07/17 12:00 HEAVINESS, SL. DIFF. BREATHING, LIGHTHEADNESS MULTIPLE ANTIBIOPTIC Allergy CHEST Uncoded 01/07/17 12:00 REACTIONS HEAVINESS, SL. DIFF. BREATHING, LIGHTHEADEDNESS SULFA DRUGS Allergy VOMITING, Uncoded 01/07/17 12:00 DIARRHEA, HIVES, LIGHTHEADEDNESS PMH/Surg Hx/FS Hx/Imm Hx Endocrine/Hematology History: Reports: Hx Diabetes Cardiovascular History: Reports: Hx Angina Denies: Hx Coronary Artery Disease, Hx Hypercholesterolemia, Hx Hypertension , Hx Myocardial Infarction, Hx Pacemaker/ICD, Hx Valvular Heart Disease Respiratory History: Denies: Hx Asthma, Hx Chronic Obstructive Pulmonary Disease (COPD) GI History: Reports: Hx Gastroesophageal Reflux Disease, Hx Gastrointestinal Bleed, Hx Hiatal Hernia, Hx Ulcer - reflux History: Denies: Hx Renal Disease Musculoskeletal History: Reports: Other Musculoskeletal History - meylofibrosis Sensory History: Reports: Hx Cataracts - BEGINNING STAGES, Hx Contacts or Glasses Denies: Hx Hearing Aid Opthamlomology History: Reports: Hx Cataracts - BEGINNING STAGES, Hx Contacts or Glasses Psychiatric History: Reports: Other Psychiatric Issues/Disorders - claustrophobia Denies: Hx Panic Disorder - Cancer History Cancer Type, Location 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 SURGERY FOR PROLASPED BLADDER AND RECTUM, TOTAL ABDOMINAL HYSTERECTOMY- LAPAROSCOPIC-[facility]. TUBAL LIGATION. 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, nares Denies: History Other Infectious Disease, Traveled Outside the [place] in Last 30 Days - Family History Known Family History: Positive: Cardiac Disease Family History: cancer - Social History Alcohol Use: None Alcohol Amount: quit 2008 Substance Use Type: Reports: None Smoking Status (MU): Former Smoker Type: Cigarettes Amount Used/How Often: 1 PPD X 25 +YEARS Have You Smoked in the Last Year: No Review of Systems Constitutional: Other - elevated BG levels, low sodium; decreased appetite; increase in thirst Negative: Fever, Chills Eyes: Negative ENT: Negative Cardiovascular: Negative Negative: Chest Pain Respiratory: Negative Negative: Cough Gastrointestinal: Negative Positive: frequency - increased Positive: Myalgia - bilateral leg pain Skin: Negative Neurological: Negative Psychological: Normal All Other Systems Reviewed And Are Negative: Yes Physical Exam - Summary Physical Exam Summary: VITAL SIGNS: Reviewed. GENERAL: Patient is a well developed and nourished female who is lying comfortable in the stretcher. Patient is not in any acute respiratory distress. HEAD AND FACE: No signs of trauma. No ecchymosis, hematomas or skull depressions. No sinus tenderness. EYES: PERRLA, EOMI x 2, No injected conjunctiva, no nystagmus. EARS: Hearing grossly intact. Ear canals and tympanic membranes are within normal limits. MOUTH: Oropharynx within normal limits. NECK: Supple, trachea is midline, no adenopathy, no JVD, no carotid bruit, no c- spine tenderness, neck with full ROM. CHEST: Symmetric, no tenderness at palpation LUNGS: Clear to auscultation bilaterally. No wheezing or crackles. CVS: Regular rate and rhythm, S1 and S2 present, no murmurs or gallops appreciated. ABDOMEN: Soft, non-tender. No signs of distention. No rebound no guarding, and no masses palpated. Bowel sounds are normal. EXTREMITIES: FROM in all major joints, no edema, no cyanosis or clubbing. NEURO: Alert and oriented x 3. No acute neurological deficits. Speech is normal and follows commands. SKIN: Dry and warm Triage Information Reviewed: Yes Vital Signs On Initial Exam: Initial Vitals Temp Pulse Resp BP Pulse Ox 98.5 F 84 18 135/55 98 01/13/17 12:04 01/13/17 12:04 01/13/17 12:04 01/13/17 12:04 01/13/17 12:04 Vital Signs Reviewed: Yes - Gem Coma Scale Coma Scale Total: 15 Diagnostics - Vital Signs Vital Signs Temp Pulse Resp BP Pulse Ox 01/13/17 12:13 85 20 98 01/13/17 12:12 135/55 01/13/17 12:04 98.5 F 84 18 135/55 98 - Laboratory Lab Results: Lab Results 01/13/17 01/13/17 01/13/17 Range/Units 12:20 12:20 12:20 WBC 2.1 L (3.5-10.8) 10^3/ul RBC 2.46 L (4.0-5.4) 10^6/ul Hgb 6.9 L (12.0-16.0) g/dl Hct 20 L (35-47) % MCV 82 (80-97) fL MCH 28 (27-31) pg MCHC 34 (31-36) g/dl RDW 18 H (10.5-15) % Plt Count 36 L (150-450) 10^3/ul MPV 8 (7.4-10.4) um3 Neut % (Auto) 58.5 (38-83) % Lymph % (Auto) 20.6 L (25-47) % [place] % (Auto) 19.1 H (1-9) % Eos % (Auto) 0.9 (0-6) % Baso % (Auto) 0.9 (0-2) % Absolute Neuts (auto) 1.3 L (1.5-7.7) 10^3/ul Absolute Lymphs (auto) 0.4 L (1.0-4.8) 10^3/ul Absolute Monos (auto) 0.4 (0-0.8) 10^3/ul Absolute Eos (auto) 0 (0-0.6) 10^3/ul Absolute Basos (auto) 0 (0-0.2) 10^3/ul Absolute Nucleated RBC 0.06 10^3/ul Nucleated RBC % 3.0 VBG pH (7.33-7.43) VBG pCO2 (41-51) mmHg VBG pO2 (35-45) mmHg VBG HCO3 (24-28) mmol/L VBG O2 Saturation (70-80) % VBG Base Excess (0-4) Sodium 118 L* (133-145) mmol/L Potassium 4.4 (3.5-5.0) mmol/L Chloride 83 L (101-111) mmol/L Carbon Dioxide 22 (22-32) mmol/L Anion Gap 13 H (2-11) mmol/L BUN 18 (6-24) mg/dL Creatinine 0.72 (0.51-0.95) mg/dL Est GFR ( Amer) 105.9 (>60) Est GFR (Non-Af Amer) 82.3 (>60) BUN/Creatinine Ratio 25.0 H (8-20) Glucose 556 H* (70-100) mg/dL Lactic Acid 0.9 (0.5-2.0) mmol/L Calcium 8.8 (8.6-10.3) mg/dL Phosphorus 4.1 (2.5-5.0) mg/dL Magnesium 1.1 L (1.9-2.7) mg/dL Total Bilirubin 0.70 (0.2-1.0) mg/dL AST 7 L (13-39) U/L ALT 4 L (7-52) U/L Alkaline Phosphatase 77 (34-104) U/L Total Creatine Kinase 11 (10-223) U/L C-Reactive Protein 159.39 H (< 5.00) mg/L Total Protein 6.1 L (6.4-8.9) g/dL Albumin 3.1 L (3.2-5.2) g/dL Globulin 3.0 (2-4) g/dL Albumin/Globulin Ratio 1.0 (1-3) Lipase 19 (11.0-82.0) U/L 01/13/17 Range/Units 13:22 WBC (3.5-10.8) 10^3/ul RBC (4.0-5.4) 10^6/ul Hgb (12.0-16.0) g/dl Hct (35-47) % MCV (80-97) fL MCH (27-31) pg MCHC (31-36) g/dl RDW (10.5-15) % Plt Count (150-450) 10^3/ul MPV (7.4-10.4) um3 Neut % (Auto) (38-83) % Lymph % (Auto) (25-47) % [place] % (Auto) (1-9) % Eos % (Auto) (0-6) % Baso % (Auto) (0-2) % Absolute Neuts (auto) (1.5-7.7) 10^3/ul Absolute Lymphs (auto) (1.0-4.8) 10^3/ul Absolute Monos (auto) (0-0.8) 10^3/ul Absolute Eos (auto) (0-0.6) 10^3/ul Absolute Basos (auto) (0-0.2) 10^3/ul Absolute Nucleated RBC 10^3/ul Nucleated RBC % VBG pH 7.38 (7.33-7.43) VBG pCO2 45 (41-51) mmHg VBG pO2 29 L (35-45) mmHg VBG HCO3 25.3 (24-28) mmol/L VBG O2 Saturation 52.6 L (70-80) % VBG Base Excess 1.3 (0-4) Sodium (133-145) mmol/L Potassium (3.5-5.0) mmol/L Chloride (101-111) mmol/L Carbon Dioxide (22-32) mmol/L Anion Gap (2-11) mmol/L BUN (6-24) mg/dL Creatinine (0.51-0.95) mg/dL Est GFR ( Amer) (>60) Est GFR (Non-Af Amer) (>60) BUN/Creatinine Ratio (8-20) Glucose (70-100) mg/dL Lactic Acid (0.5-2.0) mmol/L Calcium (8.6-10.3) mg/dL Phosphorus (2.5-5.0) mg/dL Magnesium (1.9-2.7) mg/dL Total Bilirubin (0.2-1.0) mg/dL AST (13-39) U/L ALT (7-52) U/L Alkaline Phosphatase (34-104) U/L Total Creatine Kinase (10-223) U/L C-Reactive Protein (< 5.00) mg/L Total Protein (6.4-8.9) g/dL Albumin (3.2-5.2) g/dL Globulin (2-4) g/dL Albumin/Globulin Ratio (1-3) Lipase (11.0-82.0) U/L Result Diagrams: 01/13/17 14:45 01/13/17 12:20 Lab Statement: Any lab studies that have been ordered have been reviewed, and results considered in the medical decision making process. - Radiology CXR Xray Interpretation: No Acute Changes - IMPRESSION: Unchanged mild cardiomegaly. No evidence for acute intrathoracic disease. Radiology Interpretation Completed By: Radiologist - EKG 12:52 Cardiac Rate: NL - 83 bpm EKG Rhythm: Sinus Rhythm EKG Interpretation: No ST elevation Diabetic Course/Dx - Course Assessment/Plan: A 61 y/o female presents to the ED from Dr. Gaston's office for elevated BG and low sodium. The patient was having routine blood work while at Dr. Gaston's office. Associated symptoms include bilateral leg pain, thirst , decreased appetite, and increased urinary frequency. The patient denies chest pain, cough, fever, and chills. She states she has mild SOB with exertion. She does no smoke or drink. Test results shows WBC of 2.1, RBC of 2.46, Hgb of 6.9, Hct of 20, pH of 7.3, sodium of 1.8, CO2 of 22, anion gap of 13, glucose 556, and c-reactive protein of 159. CXR shows unchanged mild cardiomegaly and no evidence of acute intrathoracic disease. EKG shows NSR with no ST elevations. In the ED course the patient was hydrated with 3L of IV fluids and given insulin. The patient is feeling better. Discussed the H&H results with the patient and asked her if she has any Hx of recital bleeding or black stools. The patient responded that she does not have any signs of rectal bleeding. She does not remember when she had the last Colonoscopy. At this point, I discussed the case with Dr. Souza who will admit the patient into his services. I offered the patient a rectal exam, but they decline since they believe the patients low H&H is from her myelofibrosis. Therefore she is not producing any blood. Dr. Souza will consult with hematology to see if the patients will benefit from a transfusion. At this point, the patient is hemodynamically stable and A&Ox3. The blood transfusion will be dependent on Dr. Souza and Hematology consult. - Diagnoses Differential Dx: Diabetic Ketoacidosis, Hyperglycemia, Hyperosmolar State Provider Diagnoses: HYPERGLYCEMIA, Hyponatremia, Symptomatic anemia - Physician Notifications Discussed Care of Patient With: Dr. Souza (Hospitalist) at 14:31 -- Notified of patient's history and will admit the patient into his services. Discharge - Discharge Plan Condition: Stable Disposition: ADMITTED TO [facility] The documentation as recorded by the Ximena de la o Matthew accurately reflects the service I personally performed and the decisions made by me, Jacky Sosa MD.
[2017-01-13 19:40] LABS: Hematocrit 19 % (35-47); Hemoglobin 6.6 g/dl (12.0-16.0)
[2017-01-13 19:41] LABS: Comments Flag Yes
[2017-01-13] MEDS: Omeprazole CAP* 20 MG PO SCH ×2 (20:36→23:25)
[2017-01-13] MEDS: Magnesium Oxide TAB* 400 MG PO SCH (20:38)
--- NOTE | 2017-01-13 20:51 | HP ---
HOSPITAL MEDICINE HISTORY AND PHYSICAL: DATE OF ADMISSION: 01/13/17 PRIMARY CARE PHYSICIAN: Dr. Ko. ATTENDING PHYSICIAN: Dr. Marcos Souza *(dictation provided by Tami Barraza NP). CHIEF COMPLAINT: Lightheadedness and gait instability. HISTORY OF PRESENT ILLNESS: Ms. Joyce Allen is a 61-year-old female with the past medical history of myelofibrosis and insulin-dependent type 2 diabetes, who presents today to the hospital reporting feeling unwell for several days, culminating in problems with nausea, chronic pain, lightheadedness, and gait instability. Ms. Allen states that she has not been doing well over the past few days. She has not gotten out of the bed essentially at all. She reports not taking her medications including her high doses of long-acting insulin. She reports eating very little. She noted today that she was "stumbling around " and feeling very poorly and decided to come again to the emergency room for evaluation. She denies any fevers or chills. She has no chest pain or shortness of breath. She has had nausea. She has had a small amount of loose stools, although overall she has been constipated. She reports ongoing chronic pain and noncompliance with the long-acting pain medication OxyContin as she has felt like it had not been helping her. She denies any dark tarry stools. In the emergency room, Ms. Allen was found to be hyperglycemic with a glucose of 556. Related to this, she has low sodium at 118, though when it is corrected for the hyperglycemia, it is actually 125. She does have a small anion gap at 13 with this hyperglycemia. She also has a higher CRP than we have seen in the past at 159.39. Her white blood cell count is 2.1 and her hemoglobin is 6.9; repeat check shows it is 6.2 but I am suspicious that this is related to her IV fluid administration in the emergency department. Her hemoglobin earlier in the day was 7.5 at 11 o' clock. Her white blood cell count and platelet count are low but within previous ranges. PAST MEDICAL HISTORY: 1. Myelofibrosis. 2. Insulin-dependent type 2 diabetes. 3. GERD. 4. Hiatal hernia. 5. Neuropathy. 6. History of cervical spine fusion. OUTPATIENT MEDICATIONS: 1. Esomeprazole 40 mg p.o. daily. 2. Hydrocodone/acetaminophen 7.5/325 one p.o. q.4 hours p.r.n. 3. Levemir insulin 32 units in the a.m. and between 46 and 64 units at p.m. 4. Lactobacillus 1 capsule p.o. daily. 5. Multivitamin with mineral 2 chewable p.o. daily. 6. Metformin 1000 mg p.o. b.i.d. 7. Oxycodone SR 10 mg p.o. b.i.d. 8. Cyanocobalamin 1000 mcg p.o. daily. 9. Ferrous sulfate 325 mg p.o. daily. 10. Gabapentin 600 mg p.o. t.i.d. 11. Magnesium oxide 400 mg p.o. daily. 12. Ondansetron 4 mg p.o. q.6 hours p.r.n. 13. Oxycodone 5 mg p.o. q.6 hours p.r.n. ALLERGIES: CEPHALEXIN, DIAZEPAM, LATEX, PENICILLINS, BENZONATATE, CODEINE, MORPHINE which is reported to cause vomiting and lightheadedness, SULFA DRUGS. FAMILY HISTORY: She reports the mother had a history of a CABG. SOCIAL HISTORY: No report of alcohol, tobacco, or drug use. She lives alone. She states at this point that her friend, Daisy Ortez, is her healthcare proxy. REVIEW OF SYSTEMS: A 14-point review of systems was completed with Ms. Allen and all those not mentioned above were negative. PHYSICAL EXAMINATION GENERAL: Ms. Allen is lying in the bed. She is in no acute distress. VITAL SIGNS: Temperature 98.5, heart rate 85, respiratory rate 14, O2 saturation is 100% on room air, blood pressure 134/57. HEART: S1 and S2. No murmur, rub, or gallop. Regular. LUNGS: Clear to auscultation bilaterally with no accessory muscle use and good aeration. ABDOMEN: Soft, nontender with bowel sounds positive x4. EXTREMITIES: No cyanosis or edema. SKIN: Intact. NEUROLOGIC: She is alert and oriented x3. She moves all extremities equally. There is no facial asymmetry or focal weakness. Extraocular movements are intact. LABORATORY DATA/DIAGNOSTIC STUDIES: WBC 2.1, hemoglobin 6.9, hematocrit 20, and platelet count 36. VBG shows pH of 7.38, pCO2 of 45, pO2 of 29, bicarb 25.3. Sodium 118, potassium 4.4, chloride 83, serum bicarbonate 22, anion gap 13 , BUN 18, creatinine 0.72, glucose 556, magnesium 1.1, CRP 159.39, lactic acid 0.9. Chest x-ray shows unchanged mild cardiomegaly. No evidence for acute intrathoracic disease. ASSESSMENT: Ms. Joyce Allen is a 61-year-old female with past medical history of insulin-dependent diabetes and myelofibrosis with pancytopenia who presents today to the hospital with concern for chronic pain, uncontrolled nausea, and lightheadedness. In the emergency room, she has been found to be hyperglycemic with an associated hyponatremia. She does report noncompliance with her medications. PLAN: Our plan is as follows for observation in the hospital. 1. Hyperglycemia. I think this is strictly secondary to her missing doses of Lantus secondary to feeling unwell with the likely component of depression given her recent diagnosis of myelofibrosis. Plans are to resume her home Lantus, to check blood glucoses q.a.c. with Lispro sliding scale. At this point , she is not in diabetic ketoacidosis or hyperosmolar hyperglycemic state based on her VBG and very mild anion gap. 2. Myelofibrosis. The patient continues to have pancytopenia. Her hemoglobin has fallen in the emergency room, but I think this is secondary to 3 L of IV fluid being administered. She has no report of dark tarry stools. Plan to recheck her labs at 1800. She will have no further IV fluids based on the absence of tachycardia, hypotension, or lactic acidosis. If her Hgb remains less than 7 at a repeat check at 1800, will transfuse one unit of PRBCs. 3. Chronic pain. Patient admits to not being compliant with the long acting oxycodone as she felt it did not help. I would like to continue to try to obtain better pain control by increasing her long acting oxycodone and will trial a 20mg oxycontin tonight. I will not write for additional long acting agent tomorrow, but will await a review of how she tolerated the increased amount tonight. 4. Hypomagnesemia. Despite replacement with multiple grams of magnesium each week, the patient's magnesium has remained essentially unchanged. I have reviewed this with Dr. Gaston today and the etiology for this is not clear. Plan to replete another 4 g today and to recheck in the a.m. 5. Gastroesophageal reflux disease. The patient will have omeprazole and substitute for esomeprazole. 6. Neuropathy. Continue gabapentin. 7. DVT prophylaxis. SCDs in the setting of significant thrombocytopenia. 8. Disposition to the medical floor. The patient has been showing evidence of failure to care for herself at home independently without greater support. I have reviewed this at length with Ms. Allen and based on her numerous hospitalizations and presentations to the emergency room, now presenting with hyperglycemia in the setting of not taking her medications at home, that she would benefit from extra services. I have discussed this at length with social workers, bilingual case manager, and support from the [facility] including director social and Vonda Linton from the nurse navigator group, who all will be working to try to arrange a safer discharge with the patient with additional services as available and as accepted by Ms. Allen, who has in the past refused help. 9. Code status is full code. TIME SPENT: Approximately 75 minutes was spent on admission of this patient; more than half time spent with the patient at the bedside reviewing the events leading up to this hospitalization, performing the physical examination, and reviewing the plan of care. TAMI BARRAZA NP CC: Dr. Gaston; Dr. Ko* [id number]/CPS #: [id number] [facility]
[2017-01-13] MEDS ORDERED: Insulin GLARGINE(*) 1 UNITS UNIT SUBCUT SCH (21:00)
[2017-01-13] MEDS ORDERED: Senna TAB PO SCH (21:00)
[2017-01-13] MEDS ORDERED: oxyCODONE SR TAB(*) 20 MG TAB.SR PO ONE (21:00)
[2017-01-13] MEDS: Insulin LISPRO* 1 UNITS UNIT SUBCUT SCH (21:47)
[2017-01-14 04:41] LABS: Urine Bacteria Absent (Absent); Urine Bilirubin Negative (Negative); Urine Glucose 3+(>=500 mg/dL) (Negative); Urine Nitrite Negative (Negative)
[2017-01-14 06:17] LABS: Hematocrit 22 % (35-47); Hemoglobin 7.4 g/dl (12.0-16.0); Mean Corpuscular HGB Conc 34 g/dl (31-36); Mean Corpuscular Hemoglobin 29 pg (27-31); Mean Corpuscular Volume 83 fL (80-97); Mean Platelet Volume 9 um3 (7.4-10.4); Red Blood Count 2.61 10^6/ul (4.0-5.4); Red Cell Distribution Width 17 % (10.5-15)
[2017-01-14 06:19] LABS: Add Diff/Slide Review? Manual Diff Added; Comments Flag Yes
[2017-01-14 06:32] LABS: Calcium 9.3 mg/dL (8.6-10.3); EGFR African American 135.9 (>60); EGFR Non-African American 105.7 (>60); Magnesium 1.5 mg/dL (1.9-2.7); Potassium 3.7 mmol/L (3.5-5.0)
[2017-01-14 06:54] LABS: Eosinophils % 1 % (0-6); Immature Granulocytes 9 % (0-9); Metamyelocytes % 2 % (0-2); Myelocytes % 4 % (0-1); Neutrophil % 28 % (38-83)
[2017-01-14 06:56] LABS: Add Path Review? YES; Basophilic Stippling 1+; Polychromasia 1+; Tear Drop Cells 1+
[2017-01-14 07:05] LABS: White Blood Count 2.2 10^3/ul (3.5-10.8)
[2017-01-14] MEDS ORDERED: Dextrose 50% Syringe 50 ML* 25 GM/50 ML SYRINGE IV PUSH PRN (07:40)
--- NOTE | 2017-01-14 07:53 | DCNOTE ---
Subjective Date of Service: 01/14/17 Interval History: Feels a little shaky/wobbly. She has seen Alexandrea, clinical unit educator at [place] in the past, has an appt in February. She hasn't checked her FS glucose for the last 2 days at home, skipped many doses of Levimir. Objective Active Medications: Cyanocobalamin (Vitamin B12 Tab*) 1,000 mcg PO DAILY [facility] Dextrose (D50w Syringe 50 Ml*) 12.5 gm IV PUSH .FOR FS < 60 - SS PRN PRN Reason: FS < 60 Dextrose (D50w Syringe 50 Ml*) 12.5 gm IV PUSH .FOR FS < 60 - SS PRN PRN Reason: FS < 60 Docusate Sodium (Colace Cap*) 100 mg PO DAILY [facility] Ferrous Sulfate (Ferrous Sulfate Tab*) 325 mg PO DAILY [facility] Gabapentin (Neurontin Cap(*)) 600 mg PO TID [facility] Last Admin: 01/13/17 20:37 Dose: 600 mg Insulin Glargine (Lantus(*)) 30 units SUBCUT 0800 [facility] Insulin Human Lispro (Humalog*) 0 units SUBCUT ACHS [facility] PRN Reason: Protocol Last Admin: 01/13/17 21:47 Dose: 5 units Insulin Human Lispro (Humalog*) 8 units SUBCUT AC [facility] Magnesium Oxide (Magox 400 Tab*) 800 mg PO BID [facility] Last Admin: 01/13/17 20:38 Dose: 800 mg Omeprazole (Prilosec Cap*) 20 mg PO BID [facility] Last Admin: 01/13/17 23:25 Dose: 20 mg Ondansetron HCl (Zofran Tab*) 4 mg PO Q6H PRN PRN Reason: NAUSEA Oxycodone HCl (Roxycodone Tab*) 5 mg PO Q6H PRN PRN Reason: breakthrough pain Last Admin: 01/13/17 23:48 Dose: 5 mg Polyethylene Glycol/Electrolytes (Miralax*) 17 gm PO DAILY PRN PRN Reason: CONSTIPATION Senna (Senokot Tab*) 1 tab PO BEDTIME [facility] Last Admin: 01/13/17 20:38 Dose: 1 tab Vital Signs 01/13/17 01/13/17 01/13/17 16:00 16:55 17:35 Temperature 98.8 F 98.3 F Pulse Rate 89 87 88 Respiratory 21 16 18 Rate Blood Pressure 138/56 137/45 (mmHg) O2 Sat by Pulse 94 99 Oximetry 01/13/17 01/13/17 01/13/17 18:37 20:36 20:37 Temperature Pulse Rate Respiratory 16 17 17 Rate Blood Pressure (mmHg) O2 Sat by Pulse Oximetry 01/13/17 01/13/17 01/13/17 21:31 21:55 22:36 Temperature 98.6 F 98.6 F Pulse Rate 92 86 Respiratory 16 17 16 Rate Blood Pressure 127/46 125/55 (mmHg) O2 Sat by Pulse 89 99 Oximetry 01/13/17 01/13/17 01/14/17 22:37 23:48 00:34 Temperature 97.8 F Pulse Rate 79 Respiratory 16 17 16 Rate Blood Pressure 126/51 (mmHg) O2 Sat by Pulse 100 Oximetry 01/14/17 01/14/17 01:48 04:30 Temperature 97.5 F Pulse Rate 80 Respiratory 15 17 Rate Blood Pressure 138/51 (mmHg) O2 Sat by Pulse 96 Oximetry Oxygen Devices in Use Now: None Appearance: Alert, supine in bed. In fair spirits. Looks comfortable. Eyes: No Scleral Icterus Neck: NL Appearance and Movements; NL JVP, No Thyroid Enlargement, Masses Respiratory: Symmetrical Chest Expansion and Respiratory Effort, Clear to Auscultation, Clear to Percussion Cardiovascular: NL Sounds; No Murmurs; No JVD, RRR, No Edema, - Extremities: No Edema, No Clubbing, Cyanosis, - Skin: No Rash or Ulcers, No Nodules or Sclerosis, - Neurological: Alert and Oriented x 3, NL Sensation Result Diagrams: 01/14/17 05:24 01/14/17 05:24 Additional Lab and Data: Lab Results 01/13/17 01/13/17 01/13/17 Range/Units 12:20 12:20 12:20 WBC 2.1 L (3.5-10.8) 10^3/ul RBC 2.46 L (4.0-5.4) 10^6/ul Hgb 6.9 L (12.0-16.0) g/dl Hct 20 L (35-47) % MCV 82 (80-97) fL MCH 28 (27-31) pg MCHC 34 (31-36) g/dl RDW 18 H (10.5-15) % Plt Count 36 L (150-450) 10^3/ul MPV 8 (7.4-10.4) um3 Neut % (Auto) 58.5 (38-83) % Lymph % (Auto) 20.6 L (25-47) % Pine % (Auto) 19.1 H (1-9) % Eos % (Auto) 0.9 (0-6) % Baso % (Auto) 0.9 (0-2) % Absolute Neuts (auto) 1.3 L (1.5-7.7) 10^3/ul Absolute Lymphs (auto) 0.4 L (1.0-4.8) 10^3/ul Absolute Monos (auto) 0.4 (0-0.8) 10^3/ul Absolute Eos (auto) 0 (0-0.6) 10^3/ul Absolute Basos (auto) 0 (0-0.2) 10^3/ul Absolute Nucleated RBC 0.06 10^3/ul Nucleated RBC % 3.0 VBG pH (7.33-7.43) VBG pCO2 (41-51) mmHg VBG pO2 (35-45) mmHg VBG HCO3 (24-28) mmol/L VBG O2 Saturation (70-80) % VBG Base Excess (0-4) Sodium 118 L* (133-145) mmol/L Potassium 4.4 (3.5-5.0) mmol/L Chloride 83 L (101-111) mmol/L Carbon Dioxide 22 (22-32) mmol/L Anion Gap 13 H (2-11) mmol/L BUN 18 (6-24) mg/dL Creatinine 0.72 (0.51-0.95) mg/dL Est GFR ( Amer) 105.9 (>60) Est GFR (Non-Af Amer) 82.3 (>60) BUN/Creatinine Ratio 25.0 H (8-20) Glucose 556 H* (70-100) mg/dL Lactic Acid 0.9 (0.5-2.0) mmol/L Calcium 8.8 (8.6-10.3) mg/dL Phosphorus 4.1 (2.5-5.0) mg/dL Magnesium 1.1 L (1.9-2.7) mg/dL Total Bilirubin 0.70 (0.2-1.0) mg/dL AST 7 L (13-39) U/L ALT 4 L (7-52) U/L Alkaline Phosphatase 77 (34-104) U/L Total Creatine Kinase 11 (10-223) U/L C-Reactive Protein 159.39 H (< 5.00) mg/L Total Protein 6.1 L (6.4-8.9) g/dL Albumin 3.1 L (3.2-5.2) g/dL Globulin 3.0 (2-4) g/dL Albumin/Globulin Ratio 1.0 (1-3) Lipase 19 (11.0-82.0) U/L 01/13/17 Range/Units 13:22 WBC (3.5-10.8) 10^3/ul RBC (4.0-5.4) 10^6/ul Hgb (12.0-16.0) g/dl Hct (35-47) % MCV (80-97) fL MCH (27-31) pg MCHC (31-36) g/dl RDW (10.5-15) % Plt Count (150-450) 10^3/ul MPV (7.4-10.4) um3 Neut % (Auto) (38-83) % Lymph % (Auto) (25-47) % Pine % (Auto) (1-9) % Eos % (Auto) (0-6) % Baso % (Auto) (0-2) % Absolute Neuts (auto) (1.5-7.7) 10^3/ul Absolute Lymphs (auto) (1.0-4.8) 10^3/ul Absolute Monos (auto) (0-0.8) 10^3/ul Absolute Eos (auto) (0-0.6) 10^3/ul Absolute Basos (auto) (0-0.2) 10^3/ul Absolute Nucleated RBC 10^3/ul Nucleated RBC % VBG pH 7.38 (7.33-7.43) VBG pCO2 45 (41-51) mmHg VBG pO2 29 L (35-45) mmHg VBG HCO3 25.3 (24-28) mmol/L VBG O2 Saturation 52.6 L (70-80) % VBG Base Excess 1.3 (0-4) Sodium (133-145) mmol/L Potassium (3.5-5.0) mmol/L Chloride (101-111) mmol/L Carbon Dioxide (22-32) mmol/L Anion Gap (2-11) mmol/L BUN (6-24) mg/dL Creatinine (0.51-0.95) mg/dL Est GFR ( Amer) (>60) Est GFR (Non-Af Amer) (>60) BUN/Creatinine Ratio (8-20) Glucose (70-100) mg/dL Lactic Acid (0.5-2.0) mmol/L Calcium (8.6-10.3) mg/dL Phosphorus (2.5-5.0) mg/dL Magnesium (1.9-2.7) mg/dL Total Bilirubin (0.2-1.0) mg/dL AST (13-39) U/L ALT (7-52) U/L Alkaline Phosphatase (34-104) U/L Total Creatine Kinase (10-223) U/L C-Reactive Protein (< 5.00) mg/L Total Protein (6.4-8.9) g/dL Albumin (3.2-5.2) g/dL Globulin (2-4) g/dL Albumin/Globulin Ratio (1-3) Lipase (11.0-82.0) U/L Assess/Plan/Problems-Billing Assessment: - Patient Problems (1) IDDM (insulin dependent diabetes mellitus) Current Visit: No Status: Chronic Code(s): E11.9 - TYPE 2 DIABETES MELLITUS WITHOUT COMPLICATIONS; Z79.4 - ALF (CURRENT) USE OF INSULIN SNOMED Code( s): 56794747 Comment: Patient agrees to ac short-acting and once a day long acting insulin. Restart metformin 5 PM 01/14. Fup with her family educator upon discharge. (2) MF (myelofibrosis) Current Visit: No Status: Acute Code(s): D75.81 - MYELOFIBROSIS SNOMED Code(s): 05225521 Comment: C/O night sweats. Sees a card grader in [place]. Pt advised to discuss this with the card grader. (3) Hyponatremia Current Visit: No Status: Acute Code(s): E87.1 - HYPO-OSMOLALITY AND HYPONATREMIA SNOMED Code(s): 08459664 Comment: After correction of hyperglycemia, her hyponatremia is mild (131 on 01/14). (4) Weakness Current Visit: No Status: Acute Code(s): R53.1 - WEAKNESS SNOMED Code(s): 75586899 Comment: PT states patient is at her baseline. (5) Hypomagnesemia Current Visit: No Status: Acute Code(s): E83.42 - HYPOMAGNESEMIA SNOMED Code(s): 415933395 Comment: Chronic. Continue PO magnesium oxide. Status and Disposition: Discharge now. Fup Dr. Ko.
[2017-01-14 07:57] VITALS: BP 134/49
[2017-01-14] MEDS: Insulin LISPRO* 1 UNITS UNIT SUBCUT SCH ×2 (07:58→12:58)
[2017-01-14] MEDS ORDERED: Insulin GLARGINE(*) 1 UNITS UNIT SUBCUT SCH ×2 (08:00)
[2017-01-14] MEDS ORDERED: Magnesium Oxide TAB* 400 MG PO SCH (09:00)
[2017-01-14] MEDS ORDERED: Docusate CAP* 100 MG PO SCH (09:00)
[2017-01-14] MEDS ORDERED: Ferrous Sulfate TAB* 325 MG PO SCH (09:00)
[2017-01-14] MEDS ORDERED: Cyanocobalamin TAB* 500 MCG PO SCH (09:00)
[2017-01-14] MEDS: Omeprazole CAP* 20 MG PO SCH (09:49)
[2017-01-14] MEDS: Gabapentin CAP(*) 300 MG PO SCH ×2 (09:49→12:59)
[2017-01-14] MEDS: Magnesium Oxide TAB* 400 MG PO SCH (09:55)
[2017-01-14] MEDS ORDERED: Insulin LISPRO* 1 UNITS UNIT SUBCUT SCH (11:30)
[2017-01-14] MEDS: oxyCODONE TAB* 5 MG TAB PO PRN (13:04)
[2017-01-14] MEDS ORDERED: metFORMIN* 1,000 MG TAB PO SCH (17:00)
--- NOTE | 2017-01-15 08:45 | DS ---
DISCHARGE SUMMARY: DATE OF ADMISSION: DATE OF DISCHARGE: 01/14/17. HISTORY: This 61-year-old woman reports lightheadedness, nausea, chronic pain, gait instability. She was referred by Dr. Gaston when routine lab results showed diabetes under poor control with minimally elevated anion gap. Her sodium also was 118, but this in the face of a glucose of 556. The patient was given several doses of subcutaneous insulin. She did well in the hospital. In fact, her blood sugar fell to 58 the following morning, but it was up to 250 before lunch. She was discharged after lunch the second hospital day. I spoke to the patient at length about her need to take care of her diabetes much more carefully. I have prescribed short-acting insulin to go with her long -acting insulin. She will take Levemir 36 units every day in the morning, and Humalog 8 units with each meal. She will check her blood sugar at least three times a day. She will continue on metformin as before. I note she was seen by the physical therapist. She felt she was at her baseline. We will give her visiting nurse services at home. FINAL DIAGNOSES: 1. Diabetes out of control. 2. Myelofibrosis. 3. Gastroesophageal reflux disease. 4. History of neuropathy. DISCHARGE MEDICATIONS: 1. Magnesium oxide 800 mg b.i.d. 2. Polyethylene glycol 17 g daily. 3. Lispro by KwikPen 8 units a.c. 4. Vitamin B12 1000 mcg daily. 5. Esomeprazole 40 mg daily. 6. Metformin 1000 mg b.i.d. 7. Lactobacillus one daily. 8. Ondansetron 4 mg every 6 hours p.r.n. 9. Oxycodone SR 10 mg b.i.d. 10. Oxycodone 5 mg every 6 hours p.r.n. 11. Multivitamin with minerals two daily. 12. Ferrous sulfate 325 mg daily. 13. Gabapentin 600 mg t.i.d. CC: Dr. Ko, Dr. Gaston* [id number]/[facility] #: [id number] [facility]
== END 2017-01-14 16:30 | disposition home or self-care (01) ==
LOC: ED 11:44 → MED 15:03
PROVIDERS: ADMIT Internal Medicine; ATTEND Internal Medicine
DX: E11.9 Type 2 diabetes mellitus without complications (principal); Z79.4 Long term (current) use of insulin; Z79.84 Long term (current) use of oral hypoglycemic drugs; D75.81 Myelofibrosis; K21.9 Gastro-esophageal reflux disease without esophagitis; G89.29 Other chronic pain; E83.42 Hypomagnesemia; G62.9 Polyneuropathy, unspecified; I51.7 Cardiomegaly; Z79.899 Other long term (current) drug therapy; Z88.1 Allergy status to other antibiotic agents; Z88.0 Allergy status to penicillin; Z88.5 Allergy status to narcotic agent; Z88.2 Allergy status to sulfonamides; Z88.8 Allergy status to other drugs, medicaments and biological substances; Z87.891 Personal history of nicotine dependence
CPT/HCPCS: 36415; 71010; 80048; 80053; 81003; 81015; 82550; 82803; 83605; 83690; 83735; 84100; 84300; 85014; 85018; 85025; 85060; 86140; 86850; 86900; 86901; 86922; 87040; 87086; 93005; 96361; 96365; 96375; 99284; A9270-GY; G0378; G8978-GP-CI; G8979-GP-CI; G8980-GP-CI; J2405; P9040

== ENCOUNTER 2017-01-29 12:25 | Inpatient (IN) | payer MEDICARE, MEDICAID ==
[2017-01-29] MEDS ORDERED: Ondansetron INJ* 2 MG/ML VIAL IV ONE (13:48)
[2017-01-29] MEDS ORDERED: HYDROmorphone* 1 MG/ML 1 ML SYR IV ONE (13:48)
[2017-01-29 14:58] LABS: Hematocrit 21 % (35-47); Hemoglobin 7.3 g/dl (12.0-16.0); Mean Corpuscular HGB Conc 34 g/dl (31-36); Mean Corpuscular Hemoglobin 28 pg (27-31); Mean Corpuscular Volume 82 fL (80-97); Mean Platelet Volume 8 um3 (7.4-10.4); Red Blood Count 2.58 10^6/ul (4.0-5.4); Red Cell Distribution Width 17 % (10.5-15)
[2017-01-29 15:05] LABS: Comments Flag Yes
[2017-01-29 15:07] LABS: Add Diff/Slide Review? Slide Review Added
[2017-01-29 15:14] LABS: Albumin 3.1 g/dL (3.2-5.2); BUN/Creatinine Ratio 24.1 (8-20); C Reactive Protein 225.98 mg/L (< 5.00); EGFR African American 135.9 (>60); EGFR Non-African American 105.7 (>60); Potassium 4.1 mmol/L (3.5-5.0); Total Bilirubin 0.7 mg/dL (0.2-1.0); Total Protein 6.1 g/dL (6.4-8.9)
[2017-01-29 15:42] LABS: Eosinophils % 2 % (0-6); Immature Granulocytes 24 % (0-9); Metamyelocytes % 3 % (0-2); Myelocytes % 3 % (0-1); Neutrophil % 38 % (38-83); Promyelocytes % 1 %
[2017-01-29 15:43] LABS: Hypochromasia 2+; Microcytosis 1+; Polychromasia 1+; Tear Drop Cells 2+
[2017-01-29 15:54] LABS: White Blood Count 2.1 10^3/ul (3.5-10.8)
[2017-01-29 17:13] LABS: Magnesium 1.2 mg/dL (1.9-2.7)
--- NOTE | 2017-01-29 17:16 | ADMNOTE ---
Review of Systems - Measurements Intake and Output: Intake and Output Last 24 Hours 01/27/17 01/28/17 01/29/17 01/30/17 06:59 06:59 06:59 06:59 Weight 145 lb Other: Date of Last Bowel 01/26 Movement Objective Vital Signs 01/29/17 01/29/17 01/29/17 12:32 12:39 12:40 Temperature 98.6 F Pulse Rate 81 80 Respiratory 20 Rate Blood Pressure 142/58 140/57 (mmHg) O2 Sat by Pulse 95 91 Oximetry 01/29/17 01/29/17 01/29/17 13:00 13:30 14:00 Temperature Pulse Rate 80 80 82 Respiratory Rate Blood Pressure 137/55 141/67 124/41 (mmHg) O2 Sat by Pulse 93 94 92 Oximetry 01/29/17 14:45 Temperature Pulse Rate Respiratory 18 Rate Blood Pressure (mmHg) O2 Sat by Pulse Oximetry Result Diagrams: 01/29/17 14:40 01/29/17 14:40 Assess/Plan/Problems-Billing Assessment:
[2017-01-29] MEDS ORDERED: HYDROmorphone* 1 MG/ML 1 ML SYR IV SLOW PU PRN (17:41)
[2017-01-29] MEDS ORDERED: HYDROcodone/ACETAMIN 5-325 MG* 1 TAB PO PRN (17:41)
[2017-01-29] MEDS ORDERED: Dextrose 50% Syringe 50 ML* 25 GM/50 ML SYRINGE IV PUSH PRN (17:49)
--- NOTE | 2017-01-29 18:51 | RAD ---
INDICATION: Nausea, vomiting, diarrhea evaluate for severe constipation. COMPARISON: Comparison is made with a prior x-ray abdominal series from October 10, 2016. TECHNIQUE: Supine and decubitus views of the abdomen were obtained. FINDINGS: The small bowel and colon appear nondistended. There is a moderate to large amount of retained stool which is less prominent than on the prior study. No free intraperitoneal air is seen. No abnormal calcifications are seen. IMPRESSION: MODERATE TO LARGE AMOUNT OF RETAINED STOOL.
[2017-01-29] MEDS: Ondansetron INJ* 2 MG/ML VIAL IV PRN (19:52)
[2017-01-29] MEDS: Gabapentin CAP(*) 300 MG PO SCH (20:10)
[2017-01-29] MEDS: Magnesium Oxide TAB* 400 MG PO SCH (20:14)
[2017-01-29] MEDS: oxyCODONE SR TAB(*) 10 MG TAB.SR PO SCH (20:15)
[2017-01-29] MEDS ORDERED: Insulin GLARGINE(*) 1 UNITS UNIT SUBCUT ONE (20:26)
[2017-01-29] MEDS ORDERED: Sodium Phosphate ADULT ENEMA* 118 ml bottle PR ONE (20:27)
--- NOTE | 2017-01-29 21:20 | ED ---
Mendoza Mujica Aidan, scribed for Lobito Zepeda MD on 01/29/17 at 1431 . Complex/Multi-Sys Presentation - HPI Summary HPI Summary: 61 y/o female presents to the ED with a complaint of acute, constant, moderate constipation for the past 3 days, moderate episodes of vomiting for the past 2 days, a moderate fever that began yesterday, and diffuse chills and body aches that began yesterday. She claims that her bowls are pressing against her rectum. Prune juice, stool softeners, and laxatives have not alleviated her constipation. Other associated symptoms include feeling unsteady on her feet and nausea. Hx of pre-leukemia; she had a biopsy done 1 month ago. Hx of diabetes. - History Of Current Complaint Chief Complaint: EDNauseaVomitDiarrh Time Seen by Provider: 01/29/17 13:25 Hx Obtained From: Patient Onset/Duration: Sudden Onset, Lasting Days, Still Present Timing: Constant Severity Currently: Moderate Severity Initially: Moderate Location: Pain At: - diffuse body aches, some rectal pain Character: Pressure - at rectum Aggravating Factor(s): unknown Alleviating Factor(s): unknown, however, laxatives did not alleviate constipation Associated Signs And Symptoms: Positive: Nausea, Vomiting, Fever, Other - constipation, feeling unsteady on feet, chills, diffuse body aches, rectal pressure. Negative: Diarrhea - Allergies/Home Medications Allergies/Adverse Reactions: Allergies Allergy/AdvReac Type Severity Reaction Status Date / Time Cephalexin [From Keflex] Allergy VOMITING, Verified 01/21/17 13:47 DIARRHEA, HIVES, LIGHTHEADEDNESS Diazepam [From Valium] Allergy Difficulty Verified 01/21/17 13:47 Breathing Latex Allergy Rash Verified 01/21/17 13:47 Penicillins [PCN] Allergy CHEST Verified 01/21/17 13:47 HEAVINESS, SLIGHT DIFF BREATHING, LIGHTHEADEDNESS, Benzonatate [From Tessalon] AdvReac Headache Verified 01/21/17 13:47 Codeine AdvReac See Comment Verified 01/21/17 13:47 Morphine AdvReac VOMITING, Verified 01/21/17 13:47 LIGHTHEADEDNESS ALL "MYCINS" Allergy CHEST Uncoded 01/21/17 13:47 HEAVINESS, SL. DIFF. BREATHING, LIGHTHEADEDNESS ALL CILLINS Allergy CHEST Uncoded 01/21/17 13:47 HEAVINESS, SL. DIFF. BREATHING, LIGHTHEADNESS MULTIPLE ANTIBIOPTIC Allergy CHEST Uncoded 01/21/17 13:47 REACTIONS HEAVINESS, SL. DIFF. BREATHING, LIGHTHEADEDNESS SULFA DRUGS Allergy VOMITING, Uncoded 01/21/17 13:47 DIARRHEA, HIVES, LIGHTHEADEDNESS Home Medications: Home Medications Insulin Lispro [Humalog Kwikpen] 8 unit SUBCUT AC 01/29/17 [History Confirmed ] PMH/Surg Hx/FS Hx/Imm Hx Endocrine/Hematology History: Reports: Hx Diabetes Cardiovascular History: Reports: Hx Angina Denies: Hx Coronary Artery Disease, Hx Hypercholesterolemia, Hx Hypertension , Hx Myocardial Infarction, Hx Pacemaker/ICD, Hx Valvular Heart Disease Respiratory History: Denies: Hx Asthma, Hx Chronic Obstructive Pulmonary Disease (COPD) GI History: Reports: Hx Gastroesophageal Reflux Disease, Hx Gastrointestinal Bleed, Hx Hiatal Hernia, Hx Ulcer - reflux History: Reports: Hx Kidney Stones - teenager Denies: Hx Renal Disease Musculoskeletal History: Reports: Other Musculoskeletal History - meylofibrosis Sensory History: Reports: Hx Cataracts - BEGINNING STAGES, Hx Contacts or Glasses Denies: Hx Hearing Aid Opthamlomology History: Reports: Hx Cataracts - BEGINNING STAGES, Hx Contacts or Glasses Psychiatric History: Reports: Hx Anxiety, Hx Depression, Other Psychiatric Issues/Disorders - claustrophobia Denies: Hx Panic Disorder - Cancer History Cancer Type, Location and Year: meylofibrosis - Surgical History Surgery Procedure, Year, and Place: NECK SURGERY- FOR HENIATED DISC-[facility] – [place]. SURGERY FOR PROLASPED BLADDER AND RECTUM, TOTAL ABDOMINAL HYSTERECTOMY- LAPAROSCOPIC-[facility]. TUBAL LIGATION. 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naman Denies: History Other Infectious Disease, Traveled Outside the [place] in Last 30 Days - Family History Known Family History: Positive: Cardiac Disease Family History: cancer - Social History Occupation: Disabled Lives: Alone Alcohol Use: None Alcohol Amount: quit 2008 Substance Use Type: Reports: None Smoking Status (MU): Former Smoker Type: Cigarettes Amount Used/How Often: 1 PPD X 25 +YEARS Have You Smoked in the Last Year: No Review of Systems Constitutional: Other - feeling unsteady on her feet Positive: Fever, Chills. Negative: Fatigue, Skin Diaphoresis Eyes: Negative ENT: Negative Cardiovascular: Negative Respiratory: Negative Positive: Vomiting, Nausea, Other - constipation. Negative: Abdominal Pain, Diarrhea Genitourinary: Negative Positive: Arthralgia - diffuse body aches. Negative: Myalgia, Decreased ROM, Edema Skin: Negative Neurological: Negative Psychological: Normal All Other Systems Reviewed And Are Negative: Yes Physical Exam Triage Information Reviewed: Yes Vital Signs On Initial Exam: Initial Vitals Temp Pulse Resp BP Pulse Ox 98.6 F 81 20 142/58 95 01/29/17 12:32 01/29/17 12:32 01/29/17 12:32 01/29/17 12:32 01/29/17 12:32 Vital Signs Reviewed: Yes Appearance: Positive: No Pain Distress. Negative: Well-Appearing Skin: Positive: Warm, Skin Color Reflects Adequate Perfusion, Dry Head/Face: Positive: Normal Head/Face Inspection Eyes: Positive: Normal ENT: Positive: Normal ENT inspection Neck: Positive: Supple, Nontender Respiratory/Lung Sounds: Positive: Clear to Auscultation, Breath Sounds Present Cardiovascular: Positive: RRR Abdomen Description: Positive: Nontender, Soft Bowel Sounds: Positive: Present, Other - rectal examhard stool felt at tip of finger Musculoskeletal: Positive: Normal Neurological: Positive: Normal Psychiatric: Positive: Affect/Mood Appropriate Diagnostics - Vital Signs Vital Signs Temp Pulse Resp BP Pulse Ox 01/29/17 12:40 80 91 01/29/17 12:39 140/57 01/29/17 12:32 98.6 F 81 20 142/58 95 - Laboratory Lab Results: Lab Results 01/29/17 01/29/17 Range/Units 14:40 14:40 WBC 2.1 L (3.5-10.8) 10^3/ul RBC 2.58 L (4.0-5.4) 10^6/ul Hgb 7.3 L (12.0-16.0) g/dl Hct 21 L (35-47) % MCV 82 (80-97) fL MCH 28 (27-31) pg MCHC 34 (31-36) g/dl RDW 17 H (10.5-15) % Plt Count 36 L (150-450) 10^3/ul MPV 8 (7.4-10.4) um3 Immature Gran % (Auto) 24 H (0-9) % Neut % (Auto) 60.9 (38-83) % Lymph % (Auto) 19.3 L (25-47) % Nuckolls % (Auto) 18.0 H (1-9) % Eos % (Auto) 0.9 (0-6) % Baso % (Auto) 0.9 (0-2) % Absolute Neuts (auto) 1.3 L (1.5-7.7) 10^3/ul Absolute Lymphs (auto) 0.4 L (1.0-4.8) 10^3/ul Absolute Monos (auto) 0.4 (0-0.8) 10^3/ul Absolute Eos (auto) 0 (0-0.6) 10^3/ul Absolute Basos (auto) 0 (0-0.2) 10^3/ul Absolute Nucleated RBC 0.09 10^3/ul Neutrophils % 38 (38-83) % Band Neutrophils % 17 H (0-8) % Lymphocytes % 26 (25-47) % Monocytes % 10 (0-13) % Eosinophils % 2 (0-6) % Metamyelocytes % 3 H (0-2) % Myelocytes % 3 H (0-1) % Promyelocytes % 1 % Nucleated RBC % Not Reportable Nucleated RBCs/100 WBC 4 H (0-0) Normal RBC Morphology Not Reportable Polychromasia 1+ Hypochromasia 2+ Microcytosis 1+ Tear Drop Cells 2+ Sodium 124 L (133-145) mmol/L Potassium 4.1 (3.5-5.0) mmol/L Chloride 89 L (101-111) mmol/L Carbon Dioxide 29 (22-32) mmol/L Anion Gap 6 (2-11) mmol/L BUN 14 (6-24) mg/dL Creatinine 0.58 (0.51-0.95) mg/dL Est GFR ( Amer) 135.9 (>60) Est GFR (Non-Af Amer) 105.7 (>60) BUN/Creatinine Ratio 24.1 H (8-20) Glucose 357 H (70-100) mg/dL Calcium 9.0 (8.6-10.3) mg/dL Magnesium 1.2 L (1.9-2.7) mg/dL Total Bilirubin 0.70 (0.2-1.0) mg/dL AST 9 L (13-39) U/L ALT 5 L (7-52) U/L Alkaline Phosphatase 77 (34-104) U/L C-Reactive Protein 225.98 H (< 5.00) mg/L Total Protein 6.1 L (6.4-8.9) g/dL Albumin 3.1 L (3.2-5.2) g/dL Globulin 3.0 (2-4) g/dL Albumin/Globulin Ratio 1.0 (1-3) Result Diagrams: 01/29/17 14:40 01/29/17 14:40 Lab Statement: Any lab studies that have been ordered have been reviewed, and results considered in the medical decision making process. Complex Multi-Symp Course/Dx Course Of Treatment: 61 y/o female presents with constipation that has not been alleviated with laxatives. On rectal examination, hard stool was felt at the tip of the finger. She also complains of nausea, episodes of vomiting, fever, chills, and diffuse body aches. - Diagnoses Provider Diagnoses: Vomiting, Constipation Discharge - Discharge Plan Condition: Stable Disposition: ADMITTED TO [facility] The documentation as recorded by the Mendoza de la o Aidan accurately reflects the service I personally performed and the decisions made by , Lobito Zepeda MD.
--- NOTE | 2017-01-29 21:31 | HP ---
HOSPITAL MEDICINE HISTORY AND PHYSICAL: DATE OF ADMISSION: 01/29/17 PRIMARY CARE PHYSICIAN: Dr. Ko. ATTENDING PHYSICIAN: Dr. Marcos Souza* (dictation provided by Tami Barraza NP). CHIEF COMPLAINT: Nausea, vomiting, diarrhea. HISTORY OF PRESENT ILLNESS: Ms. Allen is a 61-year-old female with a past medical history of myelofibrosis with pancytopenia as well as type 2 diabetes which is insulin dependent who presents to the hospital today with concern for nausea, vomiting, and diarrhea. Ms. Allen has had multiple admissions to the hospital this year with this being about her 7th admission. The patient was recently diagnosed with myelofibrosis and has been following with the Oncology team as well as the team at [facility] regarding ongoing diagnostic workup and treatment. Ms. Allen has ongoing issues with severe pain both in her legs and more generalized. She also has issues with profound nausea, vomiting, and at times diarrhea. She has become dehydrated and weak. She started to feel more acutely unwell yesterday at about 5:30 a.m. when she developed diarrhea. She has had diarrhea throughout the day. She has also had some nausea and vomiting. She has not been checking her blood sugar. She does have VNS services, but she asked them not to come today because she was " feeling too unwell to open the door." She denies any fevers. She has had no chills. She has had poor oral intake. She has no chest pain or shortness of breath. Her abdomen is diffusely tender. She is concerned that she has constipation because she feels that "it's right there, but I just can't go." In the emergency room, Ms. Allen lab values were unchanged from previous reflecting her ongoing pancytopenia and myelofibrosis. Her chemistry showed a sodium of 124, glucose is elevated at 357. Her CRP is elevated to 225.98. PAST MEDICAL HISTORY: 1. Myelofibrosis. 2. Pancytopenia. 3. Insulin-dependent type 2 diabetes. 4. GERD. 5. Hiatal hernia. 6. Neuropathy. 7. History of cervical spine fusion. MEDICATIONS: 1. Esomeprazole 40 mg p.o. daily. 2. Levemir insulin 32 units subcutaneously q.a.m. 3. Lispro insulin 8 units subcutaneous with meals p.r.n. 4. Lactobacillus 1 cap p.o. daily. 5. Multivitamin with mineral 2 chewables p.o. daily. 6. Ondansetron 4 mg p.o. q.6 hours p.r.n. 7. Metformin 1000 mg p.o. b.i.d. 8. Cyanocobalamin 1000 mcg p.o. daily. 9. Ferrous sulfate 325 mg p.o. daily. 10. Gabapentin 600 mg p.o. t.i.d. 11. Magnesium oxide 800 mg p.o. b.i.d. 12. Polyethylene glycol 17 g p.o. daily. 13. Oxycodone SR 10 mg p.o. b.i.d. 14. Oxycodone 5 mg p.o. q.6 hours p.r.n. ALLERGIES: To CEPHALEXIN, DIAZEPAM, LATEX, PENICILLIN, BENZONATATE, CODEINE, MORPHINE, SULFA DRUGS. FAMILY HISTORY: She reports her mother had a history of a CABG. SOCIAL HISTORY: No report of alcohol, tobacco, or drug use. The patient lives alone. She states that her son, Junior, would be the healthcare proxy. REVIEW OF SYSTEMS: A 14-point review of systems was completed with Ms. Allen and all those not mentioned above were negative. PHYSICAL EXAMINATION GENERAL: Ms. Allen is sitting in the bed. She is in no acute distress. VITAL SIGNS: Temperature 98.6, heart rate 82, respiratory rate 18, O2 saturation 92% on room air, blood pressure 124/41. LUNGS: Clear to auscultation bilaterally with no accessory muscle use and good aeration. HEART: S1, S2. No murmur, rub, or gallop and regular. ABDOMEN: Diffusely tender, but soft. Bowel sounds are positive. EXTREMITIES: No cyanosis or edema. NEUROLOGIC: She is alert. She is oriented x3. She moves all extremities equally. There is no facial asymmetry or focal weakness. Extraocular movements are intact. SKIN: Intact. LABORATORY DATA AND DIAGNOSTIC STUDIES: Sodium 124, potassium 4.1, chloride 89 , serum bicarbonate 29, BUN 14, creatinine 0.58, glucose 357, magnesium 1.2, which is consistent with previous. C-reactive protein is 225.98, which is actually the highest we have seen for her. WBC 2.1, hemoglobin 7.3, hematocrit 21, platelet count 36, band neutrophils 17 which is again was highest seen for her. ASSESSMENT: Ms. Allen is a 61-year-old female with a past medical history of myelofibrosis, pancytopenia who presents today to the hospital with concern for nausea, vomiting, but primarily diarrhea. Our plans are for observation in the hospital for the followin. Nausea, vomiting, diarrhea: I suspect perhaps the patient has gastroenteritis based on her elevated CRP and bandemia. She is certainly at high risk for infection given her pancytopenia. She herself is concerned that she is constipated. Plan to check an abdominal x-ray to evaluate for constipation. The patient will have Zofran p.r.n. She will have IV fluids and will be monitoring closely for any development of fever. 2. Myelofibrosis: The patient's counts appear to be at baseline. The patient is following up in [place] next . 3. Type 2 diabetes: The patient is quite hyperglycemic today. She states she has did not take her long-acting insulin because she has not been eating or feeling well. Plan to resume her long-acting insulin and provide lispro sliding scale with meals and a consistent carbohydrate diet. 4. Chronic pain: Continue home medications and add Dilaudid p.r.n. 5. DVT prophylaxis with SCDs only in the setting of pancytopenia. 6. Code status is full code. TIME SPENT: Approximately 60 minutes were spent on the admission of this patient, more than half time spent with the patient at the bedside performing the physical examination and reviewing my plan of care. TAMI BARRAZA NP CC: Dr. Ko * [id number]/[facility] #: [id number] AURELIA
[2017-01-29] MEDS: HYDROmorphone* 1 MG/ML 1 ML SYR IV SLOW PU PRN (22:31)
[2017-01-30] MEDS: HYDROmorphone* 1 MG/ML 1 ML SYR IV SLOW PU PRN ×4 (03:31→18:19)
[2017-01-30] MEDS ORDERED: Magnesium Sulfate 2 GM IV* 2 GM/50 ML BAG IVPB ONE (07:52)
[2017-01-30] MEDS ORDERED: Insulin GLARGINE(*) 1 UNITS UNIT SUBCUT SCH (09:00)
[2017-01-30] MEDS: Docusate CAP* 100 MG PO PRN (09:19)
[2017-01-30] MEDS: Gabapentin CAP(*) 300 MG PO SCH ×3 (09:19→20:29)
[2017-01-30] MEDS: oxyCODONE SR TAB(*) 10 MG TAB.SR PO SCH ×2 (09:20→21:49)
[2017-01-30] MEDS: Magnesium Oxide TAB* 400 MG PO SCH ×2 (09:20→20:30)
[2017-01-30] MEDS: Cyanocobalamin TAB* 500 MCG PO SCH (09:20)
[2017-01-30] MEDS: Insulin GLARGINE(*) 1 UNITS UNIT SUBCUT SCH (09:21)
[2017-01-30] MEDS: Ferrous Sulfate TAB* 325 MG PO SCH (09:21)
[2017-01-30] MEDS: Insulin LISPRO* 1 UNITS UNIT SUBCUT SCH ×3 (09:23→17:17)
[2017-01-30] MEDS: Polyethylene Glycol 3350* 17 GM PACKET PO SCH (09:34)
[2017-01-30 09:38] LABS: Urine Bacteria Absent (Absent); Urine Bilirubin Negative (Negative); Urine Glucose 3+(>=500 mg/dL) (Negative); Urine Nitrite Negative (Negative)
--- NOTE | 2017-01-30 10:01 | PN ---
Subjective Date of Service: 01/30/17 Interval History: Pt c/o b/l lower LE's pain and nausea. constipation resolved. Lost 40 lbs of weight in 6 months. Objective Active Medications: Cyanocobalamin (Vitamin B12 Tab*) 1,000 mcg PO DAILY [facility] Last Admin: 01/30/17 09:20 Dose: 1,000 mcg Dextrose (D50w Syringe 50 Ml*) 12.5 gm IV PUSH .FOR FS < 60 - SS PRN PRN Reason: FS < 60 Docusate Sodium (Colace Cap*) 100 mg PO BID PRN PRN Reason: CONSTIPATION Last Admin: 01/30/17 09:19 Dose: 100 mg Ferrous Sulfate (Ferrous Sulfate Tab*) 325 mg PO DAILY [facility] Last Admin: 01/30/17 09:21 Dose: 325 mg Gabapentin (Neurontin Cap(*)) 600 mg PO TID [facility] Last Admin: 01/30/17 09:19 Dose: 600 mg Hydromorphone HCl (Dilaudid Iv*) 1 mg IV SLOW PU Q4H PRN PRN Reason: PAIN Last Admin: 01/30/17 07:24 Dose: 1 mg Lactated Ringer's (Lactated Ringers 1000 Ml Bag*) 1,000 mls @ 150 mls/hr IV PER RATE [facility] Last Admin: 01/30/17 03:01 Dose: 150 mls/hr Insulin Glargine (Lantus(*)) 40 units SUBCUT 0900 [facility] Last Admin: 01/30/17 09:21 Dose: 40 units Insulin Human Lispro (Humalog*) 0 units SUBCUT AC [facility] PRN Reason: Protocol Last Admin: 01/30/17 09:23 Dose: 8 units Magnesium Oxide (Magox 400 Tab*) 800 mg PO BID [facility] Last Admin: 01/30/17 09:20 Dose: 800 mg Ondansetron HCl (Zofran Inj*) 4 mg IV Q6H PRN PRN Reason: NAUSEA Last Admin: 01/29/17 19:52 Dose: 4 mg Oxycodone HCl (Oxycontin(*)) 10 mg PO BID [facility] Last Admin: 01/30/17 09:20 Dose: 10 mg Oxycodone HCl (Roxycodone Tab*) 5 mg PO Q6H PRN PRN Reason: breakthrough pain Polyethylene Glycol/Electrolytes (Miralax*) 17 gm PO DAILY [facility] Last Admin: 01/30/17 09:34 Dose: 17 gm Vital Signs 01/29/17 01/29/17 01/29/17 17:05 17:30 18:00 Temperature Pulse Rate 88 81 85 Respiratory Rate Blood Pressure 123/39 125/46 (mmHg) O2 Sat by Pulse 91 95 85 Oximetry 01/29/17 01/29/17 01/29/17 19:30 20:10 20:15 Temperature 97.6 F Pulse Rate 83 Respiratory 16 16 16 Rate Blood Pressure 132/45 (mmHg) O2 Sat by Pulse 95 Oximetry 01/29/17 01/29/17 01/29/17 22:15 22:31 23:31 Temperature Pulse Rate Respiratory 18 18 16 Rate Blood Pressure (mmHg) O2 Sat by Pulse Oximetry 01/30/17 01/30/17 01/30/17 00:02 03:31 03:47 Temperature 98.6 F 98.1 F Pulse Rate 84 82 Respiratory 16 16 20 Rate Blood Pressure 120/54 133/52 (mmHg) O2 Sat by Pulse 94 93 Oximetry 01/30/17 01/30/17 01/30/17 04:31 07:16 07:24 Temperature Pulse Rate Respiratory 16 16 16 Rate Blood Pressure (mmHg) O2 Sat by Pulse Oximetry 01/30/17 01/30/17 09:19 09:20 Temperature Pulse Rate Respiratory 18 18 Rate Blood Pressure (mmHg) O2 Sat by Pulse Oximetry Oxygen Devices in Use Now: None Appearance: 61 yo F in nAD, aAOx3 Eyes: No Scleral Icterus, PERRLA Ears/Nose/Mouth/Throat: NL Teeth, Lips, Gums, Mucous Membranes Moist Neck: NL Appearance and Movements; NL JVP, Trachea Midline Respiratory: Symmetrical Chest Expansion and Respiratory Effort, Clear to Auscultation Cardiovascular: NL Sounds; No Murmurs; No JVD, RRR Abdominal: - - mild diffuse tenderness, no rebound, no guarding, BS+ Lymphatic: No Cervical Adenopathy Extremities: No Edema, No Clubbing, Cyanosis Skin: No Rash or Ulcers, No Nodules or Sclerosis Neurological: Alert and Oriented x 3, NL Muscle Strength and Tone Result Diagrams: 01/29/17 14:40 01/30/17 10:56 Additional Lab and Data: Lab Results 01/29/17 01/29/17 Range/Units 14:40 14:40 WBC 2.1 L (3.5-10.8) 10^3/ul RBC 2.58 L (4.0-5.4) 10^6/ul Hgb 7.3 L (12.0-16.0) g/dl Hct 21 L (35-47) % MCV 82 (80-97) fL MCH 28 (27-31) pg MCHC 34 (31-36) g/dl RDW 17 H (10.5-15) % Plt Count 36 L (150-450) 10^3/ul MPV 8 (7.4-10.4) um3 Immature Gran % (Auto) 24 H (0-9) % Neut % (Auto) 60.9 (38-83) % Lymph % (Auto) 19.3 L (25-47) % [place] % (Auto) 18.0 H (1-9) % Eos % (Auto) 0.9 (0-6) % Baso % (Auto) 0.9 (0-2) % Absolute Neuts (auto) 1.3 L (1.5-7.7) 10^3/ul Absolute Lymphs (auto) 0.4 L (1.0-4.8) 10^3/ul Absolute Monos (auto) 0.4 (0-0.8) 10^3/ul Absolute Eos (auto) 0 (0-0.6) 10^3/ul Absolute Basos (auto) 0 (0-0.2) 10^3/ul Absolute Nucleated RBC 0.09 10^3/ul Neutrophils % 38 (38-83) % Band Neutrophils % 17 H (0-8) % Lymphocytes % 26 (25-47) % Monocytes % 10 (0-13) % Eosinophils % 2 (0-6) % Metamyelocytes % 3 H (0-2) % Myelocytes % 3 H (0-1) % Promyelocytes % 1 % Nucleated RBC % Not Reportable Nucleated RBCs/100 WBC 4 H (0-0) Normal RBC Morphology Not Reportable Polychromasia 1+ Hypochromasia 2+ Microcytosis 1+ Tear Drop Cells 2+ Sodium 124 L (133-145) mmol/L Potassium 4.1 (3.5-5.0) mmol/L Chloride 89 L (101-111) mmol/L Carbon Dioxide 29 (22-32) mmol/L Anion Gap 6 (2-11) mmol/L BUN 14 (6-24) mg/dL Creatinine 0.58 (0.51-0.95) mg/dL Est GFR ( Amer) 135.9 (>60) Est GFR (Non-Af Amer) 105.7 (>60) BUN/Creatinine Ratio 24.1 H (8-20) Glucose 357 H (70-100) mg/dL Calcium 9.0 (8.6-10.3) mg/dL Magnesium 1.2 L (1.9-2.7) mg/dL Total Bilirubin 0.70 (0.2-1.0) mg/dL AST 9 L (13-39) U/L ALT 5 L (7-52) U/L Alkaline Phosphatase 77 (34-104) U/L C-Reactive Protein 225.98 H (< 5.00) mg/L Total Protein 6.1 L (6.4-8.9) g/dL Albumin 3.1 L (3.2-5.2) g/dL Globulin 3.0 (2-4) g/dL Albumin/Globulin Ratio 1.0 (1-3) Microbiology and Other Data: Microbiology 01/29/17 20:15 Nasal Screen MRSA (PCR)(KAM) - Final Nasal Mrsa Positive Assess/Plan/Problems-Billing Assessment: Ms. Allen is a 61 yo female with a PMH of myelofibrosis with pancytopenia, GERD, DM, neuropathy, and hiatal hernia who presented to the ED with concern for leg pain, nausea and abd pain. - Patient Problems (1) Abdominal pain Comment: still present with N/V Constipation resolved after enemas in ED Will get CT abd pelvis cont Laxatives Start Carafate and scopolamine patch (2) Hyponatremia Comment: may be due to a combination hyperglycemia, and dehydration cont IVF (3) Pancytopenia Comment: Pt has myelofibrosis , workup in [place], plan for bone marrow transplant WBC and platelet count consistent with previous labs in past few weeks. (4) IDDM (insulin dependent diabetes mellitus) Comment: uncontrolled. Increase Lantus to 40 U today Cont ISS (5) Hypomagnesemia Comment: Chronic. Severe Continue PO magnesium oxide. will tx with IV. Cont Telem (6) DVT prophylaxis Comment: SCDs in the presence of thrombocytopenia Status and Disposition: OBV will be changed to inpatient. Pt still needs IVF and continues to have symptoms
[2017-01-30 11:16] LABS: Calcium 8.8 mg/dL (8.6-10.3); EGFR African American 125.9 (>60); EGFR Non-African American 97.9 (>60); Magnesium 1.8 mg/dL (1.9-2.7); Potassium 3.8 mmol/L (3.5-5.0)
[2017-01-30] MEDS ORDERED: Iodixanol* (CONTRAST) 320 MG/ML 100 ML SDV IV ONE (11:49)
--- NOTE | 2017-01-30 12:37 | RAD ---
INDICATION: Gastroenteritis. Post hysterectomy and surgery for prolapsed bladder and rectum. COMPARISON: January 11, 2017 CT. October 31, 2011 CT. TECHNIQUE: Multidetector CT images were obtained from the lung bases to the ischial tuberosities with 80 mL Visipaque 320 IV and oral contrast. Multiplanar reformation. REPORT: Minimal bibasilar subsegmental atelectasis. Unremarkable liver, gallbladder, pancreas. Mildly enlarged 13.9 cm cephalocaudal spleen. Small hiatal hernia. Unchanged large diverticulum without inflammatory change at the second portion of the duodenum. Negative for CT abnormality of the small bowel. The appendix is not definitively visualized. Negative for RIGHT lower quadrant inflammatory change. Moderate stool throughout the colon. Circumferential mural thickening at the mid to distal rectum and anus with perienteric inflammatory change at the ischial rectal and ischial anal fossa. No loculated abscess collection evident. Suggestion of rectal and vaginal prolapse without change. Trace free fluid at the pelvis. Negative for free air or significant hernias. Normal adrenal glands. Unremarkable kidneys with symmetric nephrograms and pyelograms. Unremarkable ureters and urinary bladder. Negative for lymphadenopathy. Mild atherosclerotic plaque without aneurysm of the abdominal aorta. Physiologic distention of the IVC. New compared with the 2012 CT there are multiple small sclerotic foci in the axial skeleton most prominent at the pelvis reference axial images 56-65. Reactive endplate sclerosis at L5-S1 secondary to degenerative spondylosis. RIGHT anterior abdominal wall dermal and subcutaneous edema without loculated fluid collection. IMPRESSION: 1. Nonspecific circumferential mural thickening of the distal rectum through anus with surrounding perienteric inflammatory change without loculated abscess collection or visualized fistula. 2. Suggestion of rectal and vaginal prolapse without change. 3. Small sclerotic foci within the axial skeleton new compared with the 2012 exam are indeterminate. Early osteoblastic metastasis or not excluded. Consider bone scan for further assessment.
[2017-01-30] MEDS: Ondansetron INJ* 2 MG/ML VIAL IV PRN (12:46)
[2017-01-30] MEDS: Sucralfate TAB* 1 GM PO SCH ×2 (13:03→20:29)
[2017-01-30] MEDS: Scopolamine 1.5 mg* PATCH TRANSDERM SCH (14:30)
[2017-01-31] MEDS: HYDROmorphone* 1 MG/ML 1 ML SYR IV SLOW PU PRN ×4 (01:15→20:10)
[2017-01-31 08:11] LABS: BUN/Creatinine Ratio 13.6 (8-20); Calcium 8.6 mg/dL (8.6-10.3); EGFR African American 133.3 (>60); EGFR Non-African American 103.6 (>60); Magnesium 1.3 mg/dL (1.9-2.7); Phosphorus 3.4 mg/dL (2.5-5.0)
[2017-01-31] MEDS: Ferrous Sulfate TAB* 325 MG PO SCH (08:12)
[2017-01-31] MEDS: Gabapentin CAP(*) 300 MG PO SCH ×3 (08:13→20:10)
[2017-01-31] MEDS: oxyCODONE SR TAB(*) 10 MG TAB.SR PO SCH ×2 (08:14→20:11)
[2017-01-31] MEDS: Cyanocobalamin TAB* 500 MCG PO SCH (08:15)
[2017-01-31] MEDS: Magnesium Oxide TAB* 400 MG PO SCH ×4 (08:15→20:11)
[2017-01-31] MEDS: Sucralfate TAB* 1 GM PO SCH ×3 (08:15→20:11)
[2017-01-31] MEDS: Polyethylene Glycol 3350* 17 GM PACKET PO SCH (08:16)
[2017-01-31] MEDS: Insulin LISPRO* 1 UNITS UNIT SUBCUT SCH ×3 (08:16→17:34)
[2017-01-31] MEDS: Insulin GLARGINE(*) 1 UNITS UNIT SUBCUT SCH (08:16)
[2017-01-31 08:23] LABS: Hematocrit 20 % (35-47); Hemoglobin 6.6 g/dl (12.0-16.0); Mean Corpuscular HGB Conc 34 g/dl (31-36); Mean Corpuscular Hemoglobin 28 pg (27-31); Mean Corpuscular Volume 83 fL (80-97); Mean Platelet Volume 8 um3 (7.4-10.4); Red Blood Count 2.37 10^6/ul (4.0-5.4); Red Cell Distribution Width 17 % (10.5-15); White Blood Count 2.3 10^3/ul (3.5-10.8)
[2017-01-31 08:27] LABS: Add Diff/Slide Review? Manual Diff Added; Comments Flag Yes
[2017-01-31 09:33] LABS: Immature Granulocytes 14 % (0-9); Metamyelocytes % 3 % (0-2); Myelocytes % 3 % (0-1); Neutrophil % 39 % (38-83)
[2017-01-31 09:34] LABS: Hypochromasia 2+; Polychromasia 1+
[2017-01-31 09:35] LABS: Tear Drop Cells 2+
[2017-01-31 09:36] LABS: Add Path Review? YES
--- NOTE | 2017-01-31 15:17 | PN ---
Subjective Date of Service: 01/31/17 Interval History: Pt feels that scopolamine patch may have helped a little bit, but still doesn't feel that much better. still c/l b/l leg pain and nausea. Ate her breakfast and did not vomit. Objective Active Medications: Cyanocobalamin (Vitamin B12 Tab*) 1,000 mcg PO DAILY [facility] Last Admin: 01/31/17 08:15 Dose: 1,000 mcg Dextrose (D50w Syringe 50 Ml*) 12.5 gm IV PUSH .FOR FS < 60 - SS PRN PRN Reason: FS < 60 Docusate Sodium (Colace Cap*) 100 mg PO BID PRN PRN Reason: CONSTIPATION Last Admin: 01/30/17 09:19 Dose: 100 mg Ferrous Sulfate (Ferrous Sulfate Tab*) 325 mg PO DAILY [facility] Last Admin: 01/31/17 08:12 Dose: 325 mg Gabapentin (Neurontin Cap(*)) 600 mg PO TID [facility] Last Admin: 01/31/17 13:15 Dose: 600 mg Hydromorphone HCl (Dilaudid Iv*) 1 mg IV SLOW PU Q4H PRN PRN Reason: PAIN Last Admin: 01/31/17 13:15 Dose: 1 mg Insulin Glargine (Lantus(*)) 40 units SUBCUT 0900 [facility] Last Admin: 01/31/17 08:16 Dose: 40 units Insulin Human Lispro (Humalog*) 0 units SUBCUT AC [facility] PRN Reason: Protocol Last Admin: 01/31/17 12:16 Dose: 2 units Magnesium Oxide (Magox 400 Tab*) 800 mg PO TID [facility] Last Admin: 01/31/17 13:16 Dose: 800 mg Ondansetron HCl (Zofran Inj*) 4 mg IV Q6H PRN PRN Reason: NAUSEA Last Admin: 01/30/17 12:46 Dose: 4 mg Oxycodone HCl (Oxycontin(*)) 10 mg PO BID [facility] Last Admin: 01/31/17 08:14 Dose: 10 mg Oxycodone HCl (Roxycodone Tab*) 5 mg PO Q6H PRN PRN Reason: breakthrough pain Polyethylene Glycol/Electrolytes (Miralax*) 17 gm PO DAILY [facility] Last Admin: 01/31/17 08:16 Dose: 17 gm Scopolamine (Transderm-Scop 1.5 Mg Patch*) 1 patch TRANSDERM Q72H [facility] Last Admin: 01/30/17 14:30 Dose: 1 patch Sucralfate (Carafate*) 1 gm PO TID [facility] Last Admin: 01/31/17 12:15 Dose: 1 gm Vital Signs 01/30/17 01/30/17 01/30/17 16:00 18:19 19:19 Temperature 98.6 F Pulse Rate 79 Respiratory 17 16 16 Rate Blood Pressure 126/56 (mmHg) O2 Sat by Pulse 98 Oximetry 01/30/17 01/30/17 01/30/17 20:00 20:29 21:49 Temperature Pulse Rate Respiratory 16 16 17 Rate Blood Pressure (mmHg) O2 Sat by Pulse Oximetry 01/30/17 01/30/17 01/30/17 22:29 23:48 23:49 Temperature 97.6 F Pulse Rate 75 Respiratory 16 16 16 Rate Blood Pressure 123/51 (mmHg) O2 Sat by Pulse 92 Oximetry 01/31/17 01/31/17 01/31/17 01:15 02:15 07:04 Temperature Pulse Rate Respiratory 17 17 16 Rate Blood Pressure (mmHg) O2 Sat by Pulse Oximetry 01/31/17 01/31/17 01/31/17 07:05 07:33 08:13 Temperature 99.1 F Pulse Rate 80 Respiratory 16 16 Rate Blood Pressure 110/45 (mmHg) O2 Sat by Pulse 80 Oximetry 01/31/17 01/31/17 01/31/17 08:14 09:30 10:30 Temperature Pulse Rate Respiratory 16 16 16 Rate Blood Pressure (mmHg) O2 Sat by Pulse Oximetry 01/31/17 13:15 Temperature Pulse Rate Respiratory 16 Rate Blood Pressure (mmHg) O2 Sat by Pulse Oximetry Oxygen Devices in Use Now: None Appearance: 61 yo F in nAd, aAOx3 Eyes: No Scleral Icterus, PERRLA Ears/Nose/Mouth/Throat: NL Teeth, Lips, Gums, Mucous Membranes Moist Neck: NL Appearance and Movements; NL JVP, Trachea Midline Respiratory: Symmetrical Chest Expansion and Respiratory Effort, Clear to Auscultation Cardiovascular: NL Sounds; No Murmurs; No JVD, RRR Abdominal: - - mild diffuse abd tenderness, no rebound, no guarding Lymphatic: No Cervical Adenopathy Extremities: No Edema, No Clubbing, Cyanosis Skin: No Rash or Ulcers, No Nodules or Sclerosis Neurological: Alert and Oriented x 3, NL Muscle Strength and Tone Result Diagrams: 01/31/17 07:43 01/31/17 07:43 Additional Lab and Data: Lab Results 01/29/17 01/29/17 Range/Units 14:40 14:40 WBC 2.1 L (3.5-10.8) 10^3/ul RBC 2.58 L (4.0-5.4) 10^6/ul Hgb 7.3 L (12.0-16.0) g/dl Hct 21 L (35-47) % MCV 82 (80-97) fL MCH 28 (27-31) pg MCHC 34 (31-36) g/dl RDW 17 H (10.5-15) % Plt Count 36 L (150-450) 10^3/ul MPV 8 (7.4-10.4) um3 Immature Gran % (Auto) 24 H (0-9) % Neut % (Auto) 60.9 (38-83) % Lymph % (Auto) 19.3 L (25-47) % [place] % (Auto) 18.0 H (1-9) % Eos % (Auto) 0.9 (0-6) % Baso % (Auto) 0.9 (0-2) % Absolute Neuts (auto) 1.3 L (1.5-7.7) 10^3/ul Absolute Lymphs (auto) 0.4 L (1.0-4.8) 10^3/ul Absolute Monos (auto) 0.4 (0-0.8) 10^3/ul Absolute Eos (auto) 0 (0-0.6) 10^3/ul Absolute Basos (auto) 0 (0-0.2) 10^3/ul Absolute Nucleated RBC 0.09 10^3/ul Neutrophils % 38 (38-83) % Band Neutrophils % 17 H (0-8) % Lymphocytes % 26 (25-47) % Monocytes % 10 (0-13) % Eosinophils % 2 (0-6) % Metamyelocytes % 3 H (0-2) % Myelocytes % 3 H (0-1) % Promyelocytes % 1 % Nucleated RBC % Not Reportable Nucleated RBCs/100 WBC 4 H (0-0) Normal RBC Morphology Not Reportable Polychromasia 1+ Hypochromasia 2+ Microcytosis 1+ Tear Drop Cells 2+ Sodium 124 L (133-145) mmol/L Potassium 4.1 (3.5-5.0) mmol/L Chloride 89 L (101-111) mmol/L Carbon Dioxide 29 (22-32) mmol/L Anion Gap 6 (2-11) mmol/L BUN 14 (6-24) mg/dL Creatinine 0.58 (0.51-0.95) mg/dL Est GFR ( Amer) 135.9 (>60) Est GFR (Non-Af Amer) 105.7 (>60) BUN/Creatinine Ratio 24.1 H (8-20) Glucose 357 H (70-100) mg/dL Calcium 9.0 (8.6-10.3) mg/dL Magnesium 1.2 L (1.9-2.7) mg/dL Total Bilirubin 0.70 (0.2-1.0) mg/dL AST 9 L (13-39) U/L ALT 5 L (7-52) U/L Alkaline Phosphatase 77 (34-104) U/L C-Reactive Protein 225.98 H (< 5.00) mg/L Total Protein 6.1 L (6.4-8.9) g/dL Albumin 3.1 L (3.2-5.2) g/dL Globulin 3.0 (2-4) g/dL Albumin/Globulin Ratio 1.0 (1-3) Microbiology and Other Data: Microbiology 01/29/17 20:15 Nasal Screen MRSA (PCR)([facility]) - Final Nasal Mrsa Positive Assess/Plan/Problems-Billing Assessment: Ms. Allen is a 61 yo female with a PMH of myelofibrosis with pancytopenia, GERD, DM, neuropathy, and hiatal hernia who presented to the ED with concern for leg pain, nausea and abd pain. - Patient Problems (1) Abdominal pain Comment: still present with nausea, not vomitting. able to tolerate PO diet. Constipation resolved after enemas in ED CT abd pelvis: thickening of distal rectum amd rectal prolapse cont Laxatives Start Carafate and scopolamine patch (2) Hyponatremia Comment: may be due to a combination hyperglycemia, and dehydration resolving. Stop IVF. Tolerating PO (3) Pancytopenia Comment: Pt has myelofibrosis , workup in [place], plan for bone marrow transplant WBC and platelet count consistent with previous labs in past few weeks. appreciate Dr. Delgado's consult (4) IDDM (insulin dependent diabetes mellitus) Comment: Cont increased Lantus to 40 U Cont ISS (5) Hypomagnesemia Comment: Chronic. Severe Continue PO magnesium oxide. will tx with IV. Cont Telem (6) DVT prophylaxis Comment: SCDs in the presence of thrombocytopenia Status and Disposition: inpatient.
[2017-01-31] MEDS: Ondansetron INJ* 2 MG/ML VIAL IV PRN (20:10)
[2017-01-31] MEDS: oxyCODONE TAB* 5 MG TAB PO PRN (22:27)
[2017-02-01] MEDS: HYDROmorphone* 1 MG/ML 1 ML SYR IV SLOW PU PRN ×4 (00:34→21:20)
[2017-02-01] MEDS: Omeprazole CAP* 20 MG PO SCH (05:41)
[2017-02-01 06:35] LABS: Add Diff/Slide Review? Slide Review Added; Comments Flag Yes; Hematocrit 24 % (35-47); Hemoglobin 8.2 g/dl (12.0-16.0); Mean Corpuscular HGB Conc 34 g/dl (31-36); Mean Corpuscular Hemoglobin 28 pg (27-31); Mean Corpuscular Volume 82 fL (80-97); Mean Platelet Volume 8 um3 (7.4-10.4); Red Blood Count 2.98 10^6/ul (4.0-5.4); Red Cell Distribution Width 17 % (10.5-15)
[2017-02-01 06:55] LABS: White Blood Count 2.5 10^3/ul (3.5-10.8)
[2017-02-01 07:14] LABS: BUN/Creatinine Ratio 16.2 (8-20); EGFR African American 102.6 (>60); EGFR Non-African American 79.8 (>60); Magnesium 1.5 mg/dL (1.9-2.7); Potassium 4.5 mmol/L (3.5-5.0)
[2017-02-01] MEDS: Insulin LISPRO* 1 UNITS UNIT SUBCUT SCH ×3 (08:20→17:22)
[2017-02-01] MEDS: Polyethylene Glycol 3350* 17 GM PACKET PO SCH (08:20)
[2017-02-01] MEDS: Insulin GLARGINE(*) 1 UNITS UNIT SUBCUT SCH (08:21)
[2017-02-01] MEDS: Gabapentin CAP(*) 300 MG PO SCH ×3 (08:22→21:18)
[2017-02-01] MEDS: Cyanocobalamin TAB* 500 MCG PO SCH (08:22)
[2017-02-01] MEDS: oxyCODONE SR TAB(*) 10 MG TAB.SR PO SCH ×2 (08:23→21:19)
[2017-02-01] MEDS: Magnesium Oxide TAB* 400 MG PO SCH ×3 (08:23→21:19)
[2017-02-01] MEDS: Ferrous Sulfate TAB* 325 MG PO SCH (08:23)
[2017-02-01] MEDS ORDERED: Magnesium Sulf 4 GM/100 ML IV* 4,000 MG/100 ML BAG IVPB ONE (09:00)
[2017-02-01] MEDS: oxyCODONE TAB* 5 MG TAB PO PRN (09:29)
--- NOTE | 2017-02-01 10:21 | PN ---
Progress Note - Progress Note SOAP: Subjective: []Still not feeling well. Dual complaints of diffuse pain, 8/10 and above baseline. Dizziness, weak and nausea. She is eating well over the last day. Cannot stand up or walk without being dizzy. No fevers. Balance issues came up suddenly prior to admission. Cyanocobalamin (Vitamin B12 Tab*) 1,000 mcg PO DAILY [facility] Last Admin: 02/01/17 08:22 Dose: 1,000 mcg Dextrose (D50w Syringe 50 Ml*) 12.5 gm IV PUSH .FOR FS < 60 - SS PRN PRN Reason: FS < 60 Docusate Sodium (Colace Cap*) 100 mg PO BID PRN PRN Reason: CONSTIPATION Last Admin: 01/30/17 09:19 Dose: 100 mg Gabapentin (Neurontin Cap(*)) 600 mg PO TID [facility] Last Admin: 02/01/17 08:22 Dose: 600 mg Hydromorphone HCl (Dilaudid Iv*) 1 mg IV SLOW PU Q4H PRN PRN Reason: PAIN Last Admin: 02/01/17 06:40 Dose: 1 mg Magnesium Sulfate (Magnesium Sulf 4 Gm/100 Ml Iv*) 4,000 mg in 100 mls @ 33.333 mls/hr IVPB ONCE ONE Stop: 02/01/17 11:59 Last Admin: 02/01/17 09:31 Dose: 33.333 mls/hr Insulin Glargine (Lantus(*)) 40 units SUBCUT 0900 [facility] Last Admin: 02/01/17 08:21 Dose: 40 units Insulin Human Lispro (Humalog*) 0 units SUBCUT AC [facility] PRN Reason: Protocol Last Admin: 02/01/17 08:20 Dose: 4 units Magnesium Oxide (Magox 400 Tab*) 800 mg PO TID [facility] Last Admin: 02/01/17 08:23 Dose: 800 mg Omeprazole (Prilosec Cap*) 20 mg PO DAILY@0600 [facility] Last Admin: 02/01/17 05:41 Dose: 20 mg Ondansetron HCl (Zofran Inj*) 4 mg IV Q6H PRN PRN Reason: NAUSEA Last Admin: 01/31/17 20:10 Dose: 4 mg Oxycodone HCl (Oxycontin(*)) 10 mg PO BID [facility] Last Admin: 02/01/17 08:23 Dose: 10 mg Oxycodone HCl (Roxycodone Tab*) 5 mg PO Q6H PRN PRN Reason: breakthrough pain Last Admin: 02/01/17 09:29 Dose: 5 mg Polyethylene Glycol/Electrolytes (Miralax*) 17 gm PO DAILY [facility] Last Admin: 02/01/17 08:20 Dose: 17 gm Scopolamine (Transderm-Scop 1.5 Mg Patch*) 1 patch TRANSDERM Q72H [facility] Last Admin: 01/30/17 14:30 Dose: 1 patch Sucralfate (Carafate*) 1 gm PO TID [facility] Last Admin: 01/31/17 20:11 Dose: 1 gm Objective: [] Vital Signs Temp Pulse Resp BP Pulse Ox 98.6 F 83 18 125/57 90 02/01/17 07:43 02/01/17 07:43 02/01/17 09:29 02/01/17 07:43 02/01/17 07:43 HEENT- Mucosa moist, pale. CTA RRR S1S2 +BS, palpable spleen Ext - No edema Neuro- poor balance, + Romberg, strength 3-4/5 throughout. Assessment: [] 61 year old mylofibrosis. Pain and poor balance. Plan: []1. Balance and nausea. Check MRI brain, question of CVA or bleed. Continue Scopolamine and Zofran. PT 2. Pancytopenia. Counts stable today, will follow 3. Pain. Will continue IV pain medication today, transition to oral tomorrow. 4. Will be on oncology service
[2017-02-01] MEDS: Sucralfate TAB* 1 GM PO SCH ×3 (10:50→21:19)
[2017-02-01] MEDS: Ondansetron INJ* 2 MG/ML VIAL IV PRN (10:56)
--- NOTE | 2017-02-01 15:04 | RAD ---
HISTORY: Imbalance, nausea, myelofibrosis COMPARISONS: MRI of the cervical spine dated March 28, 2009 TECHNIQUE: The following sequences were obtained of the head: Sagittal T1-weighted images, axial T2-weighted images, axial FLAIR images, axial susceptibility weighted images, axial T1-weighted images. Additionally, axial diffusion-weighted images were obtained with calculated apparent diffusion coefficients. FINDINGS: HEMORRHAGE/INFARCT: There is no hemorrhage or acute infarct. MASSES/SHIFT: There is no mass or shift. EXTRA-AXIAL SPACES/MENINGES: There are no extra-axial fluid collections. SULCI AND VENTRICLES: The sulci and ventricles are normal in size and position for the patient's stated age. CEREBRUM: There are multiple scattered small foci of elevated T2/FLAIR signal within the periventricular and subcortical white matter. BRAINSTEM: There are no focal parenchymal abnormalities. CEREBELLUM: There are no focal parenchymal abnormalities. The cerebellar tonsils are normal in size and position. SELLA: The sella is normal. PINEAL: The pineal region is clear. CP ANGLE/TEMPORAL BONES: The labyrinthine structures are grossly normal. VESSELS: Normal flow-voids are noted within the visualized vertebral vasculature. DIFFUSION ABNORMALITIES: There are no diffusion abnormalities. PARANASAL SINUSES/MASTOIDS: The paranasal sinuses are clear. ORBITS: The orbits are unremarkable. BONES AND SOFT TISSUE: There is diffuse marrow low T1 and low T2 signal with extension of the clivus OTHER: None IMPRESSION: 1. THERE ARE MULTIPLE FOCI OF ELEVATED T2/FLAIR SIGNAL WITHIN THE PERIVENTRICULAR AND SUBCORTICAL WHITE MATTER. WHILE THESE FINDINGS ARE NONSPECIFIC, THEY CAN BE SEEN IN ASSOCIATION WITH MIGRAINE HEADACHE, THE SEQUELA OF PREVIOUS INFECTION OR INFLAMMATION, AND CHRONIC SMALL VESSEL ISCHEMIA. DEMYELINATING DISEASE IS ALSO WITHIN THE DIFFERENTIAL, BUT IS CONSIDERED LESS LIKELY IN THE ABSENCE OF THE APPROPRIATE CLINICAL PRESENTATION. 2. THERE IS REPLACEMENT OF THE NORMAL FATTY MARROW SIGNAL WITH EXTENSION THE CLIVUS, CONSISTENT WITH THE HISTORY OF MYELOFIBROSIS. 3. THERE IS NO RESTRICTED DIFFUSION TO SUGGEST ACUTE INFARCT.
[2017-02-02] MEDS: HYDROmorphone* 1 MG/ML 1 ML SYR IV SLOW PU PRN ×2 (02:48→21:27)
[2017-02-02] MEDS: Omeprazole CAP* 20 MG PO SCH (05:04)
[2017-02-02] MEDS: Ondansetron INJ* 2 MG/ML VIAL IV PRN ×2 (05:08→11:11)
[2017-02-02 05:43] LABS: Hematocrit 28 % (35-47); Hemoglobin 9.2 g/dl (12.0-16.0); Mean Corpuscular HGB Conc 33 g/dl (31-36); Mean Corpuscular Hemoglobin 28 pg (27-31); Mean Corpuscular Volume 83 fL (80-97); Mean Platelet Volume 8 um3 (7.4-10.4); Red Blood Count 3.33 10^6/ul (4.0-5.4); Red Cell Distribution Width 17 % (10.5-15)
[2017-02-02 05:44] LABS: Add Diff/Slide Review? Manual Diff Added; Comments Flag Yes; White Blood Count 2.7 10^3/ul (3.5-10.8)
[2017-02-02 05:58] LABS: Albumin 3.1 g/dL (3.2-5.2); BUN/Creatinine Ratio 16.2 (8-20); Calcium 9.3 mg/dL (8.6-10.3); EGFR African American 113.1 (>60); Globulin 3.1 g/dL (2-4); Magnesium 1.6 mg/dL (1.9-2.7); Potassium 4.4 mmol/L (3.5-5.0); Total Bilirubin 0.6 mg/dL (0.2-1.0); Total Protein 6.2 g/dL (6.4-8.9)
[2017-02-02 06:10] LABS: Eosinophils % 1 % (0-6); Hypochromasia 1+; Immature Granulocytes 14 % (0-9); Metamyelocytes % 2 % (0-2); Myelocytes % 3 % (0-1); Neutrophil % 36 % (38-83); Reactive Lymph % 2 % (0-6)
[2017-02-02 06:11] LABS: Add Path Review? YES; Polychromasia 1+; Tear Drop Cells 1+
[2017-02-02] MEDS: Insulin GLARGINE(*) 1 UNITS UNIT SUBCUT SCH (08:34)
[2017-02-02] MEDS: Insulin LISPRO* 1 UNITS UNIT SUBCUT SCH ×3 (08:34→17:29)
[2017-02-02] MEDS: Gabapentin CAP(*) 300 MG PO SCH ×3 (08:36→21:12)
[2017-02-02] MEDS: Cyanocobalamin TAB* 500 MCG PO SCH (08:36)
[2017-02-02] MEDS: Magnesium Oxide TAB* 400 MG PO SCH ×3 (08:36→21:12)
[2017-02-02] MEDS: Sucralfate TAB* 1 GM PO SCH ×3 (08:37→21:27)
[2017-02-02] MEDS: oxyCODONE SR TAB(*) 10 MG TAB.SR PO SCH ×2 (08:37→21:13)
[2017-02-02] MEDS: Polyethylene Glycol 3350* 17 GM PACKET PO SCH (08:37)
[2017-02-02] MEDS ORDERED: Magnesium Sulf 4 GM/100 ML IV* 4,000 MG/100 ML BAG IVPB ONE (10:00)
[2017-02-02] MEDS: oxyCODONE TAB* 5 MG TAB PO PRN (10:52)
[2017-02-02] MEDS: NS 0.9% 1000 ML* 1,000 ML IV SCH (10:53)
--- NOTE | 2017-02-02 10:53 | RAD ---
Indication: Fever. 2 views of the chest are reviewed including the previous exam dated January 13, 2017. There is cardiomegaly noted. Increased density in the right lung base and left lung base is noted consistent with bibasilar pneumonia. No pneumothorax is noted. IMPRESSION: Cardiomegaly with bibasilar airspace disease and atelectasis or pneumonia.
[2017-02-02] MEDS: Acetaminophen TAB* 325 MG PO PRN ×2 (13:13→21:12)
[2017-02-02] MEDS: Scopolamine 1.5 mg* PATCH TRANSDERM SCH (15:52)
[2017-02-03] MEDS: NS 0.9% 1000 ML* 1,000 ML IV SCH ×2 (04:20→21:51)
[2017-02-03] MEDS: Ondansetron INJ* 2 MG/ML VIAL IV PRN ×2 (04:21→12:23)
[2017-02-03] MEDS: HYDROmorphone* 1 MG/ML 1 ML SYR IV SLOW PU PRN ×4 (04:21→21:51)
[2017-02-03] MEDS: Sucralfate TAB* 1 GM PO SCH ×3 (04:25→20:14)
[2017-02-03] MEDS: Omeprazole CAP* 20 MG PO SCH ×2 (04:28→16:30)
[2017-02-03] MEDS: Insulin LISPRO* 1 UNITS UNIT SUBCUT SCH ×4 (08:09→16:52)
[2017-02-03] MEDS: Gabapentin CAP(*) 300 MG PO SCH ×3 (08:27→20:12)
[2017-02-03] MEDS: Magnesium Oxide TAB* 400 MG PO SCH ×3 (08:28→20:13)
[2017-02-03] MEDS: Cyanocobalamin TAB* 500 MCG PO SCH (08:28)
[2017-02-03] MEDS: oxyCODONE SR TAB(*) 10 MG TAB.SR PO SCH ×2 (08:28→20:13)
[2017-02-03] MEDS: Insulin GLARGINE(*) 1 UNITS UNIT SUBCUT SCH (08:29)
[2017-02-03] MEDS: Polyethylene Glycol 3350* 17 GM PACKET PO SCH (08:30)
[2017-02-03] MEDS: oxyCODONE TAB* 5 MG TAB PO PRN (10:42)
[2017-02-03] MEDS: Acetaminophen TAB* 325 MG PO PRN (12:23)
[2017-02-04] MEDS: HYDROmorphone* 1 MG/ML 1 ML SYR IV SLOW PU PRN ×4 (02:17→23:29)
[2017-02-04] MEDS: Acetaminophen TAB* 325 MG PO PRN ×2 (04:55→20:16)
[2017-02-04] MEDS: Omeprazole CAP* 20 MG PO SCH (04:58)
[2017-02-04] MEDS: Sucralfate TAB* 1 GM PO SCH ×3 (04:58→20:26)
[2017-02-04 05:09] LABS: Add Diff/Slide Review? Manual Diff Added; Comments Flag Yes; Hematocrit 24 % (35-47); Hemoglobin 7.9 g/dl (12.0-16.0); Mean Corpuscular HGB Conc 33 g/dl (31-36); Mean Corpuscular Hemoglobin 28 pg (27-31); Mean Corpuscular Volume 83 fL (80-97); Mean Platelet Volume 8 um3 (7.4-10.4); Red Blood Count 2.87 10^6/ul (4.0-5.4); Red Cell Distribution Width 17 % (10.5-15); White Blood Count 2.7 10^3/ul (3.5-10.8)
[2017-02-04 05:22] LABS: BUN/Creatinine Ratio 11.7 (8-20); Calcium 8.7 mg/dL (8.6-10.3); EGFR African American 130.7 (>60); EGFR Non-African American 101.6 (>60); Immature Granulocytes 34 % (0-9); Magnesium 1.6 mg/dL (1.9-2.7); Metamyelocytes % 2 % (0-2); Myelocytes % 2 % (0-1); Neutrophil % 27 % (38-83); Potassium 3.9 mmol/L (3.5-5.0); Reactive Lymph % 5 % (0-6)
[2017-02-04 05:23] LABS: Add Path Review? YES; Hypochromasia 1+; Macrocytosis 1+; Microcytosis 1+
[2017-02-04] MEDS: Insulin LISPRO* 1 UNITS UNIT SUBCUT SCH ×3 (08:05→17:56)
[2017-02-04] MEDS: Gabapentin CAP(*) 300 MG PO SCH ×3 (08:14→20:16)
[2017-02-04] MEDS: oxyCODONE SR TAB(*) 10 MG TAB.SR PO SCH (08:16)
[2017-02-04] MEDS: Cyanocobalamin TAB* 500 MCG PO SCH (08:16)
[2017-02-04] MEDS: Magnesium Oxide TAB* 400 MG PO SCH (08:16)
[2017-02-04] MEDS: Polyethylene Glycol 3350* 17 GM PACKET PO SCH (08:17)
[2017-02-04] MEDS: Insulin GLARGINE(*) 1 UNITS UNIT SUBCUT SCH (08:17)
[2017-02-04] MEDS ORDERED: Magnesium Sulf 4 GM/100 ML IV* 4,000 MG/100 ML BAG IVPB ONE (08:43)
--- NOTE | 2017-02-04 08:50 | PN ---
Progress Note - Progress Note SOAP: Subjective: overall feeling much better today. abd pain better. last BM wednesday. did receive an enema in ER Wednesday night. no cough. Objective: Vital Signs Temp Pulse Resp BP Pulse Ox 97.9 F 70 24 114/39 96 02/04/17 07:42 02/04/17 07:42 02/04/17 08:16 02/04/17 07:42 02/04/17 07:42 sitting up in nad perr eomi op dry cta bl s1 s2 nl soft nt +bs no le edema A+O x 3, nonfocal neurological exam Laboratory Results - last 24 hr 02/03/17 02/03/17 02/04/17 11:33 16:32 04:49 WBC 2.7 L RBC 2.87 L Hgb 7.9 L Hct 24 L MCV 83 MCH 28 MCHC 33 RDW 17 H Plt Count 30 L MPV 8 Immature Gran % (Auto) 34 H Absolute Neuts (auto) 1.5 Absolute Lymphs (auto) 0.8 L Absolute Monos (auto) 0.4 Absolute Eos (auto) 0 Absolute Basos (auto) 0 Absolute Nucleated RBC 0.09 Neutrophils % 27 L Band Neutrophils % 30 H Lymphocytes % 30 Reactive Lymphs % 5 Monocytes % 4 Metamyelocytes % 2 Myelocytes % 2 H Nucleated RBCs/100 WBC 4 H Normal RBC Morphology Not Reportable Hypochromasia 1+ Microcytosis 1+ Macrocytosis 1+ Sodium Potassium Chloride Carbon Dioxide Anion Gap BUN Creatinine Est GFR ( Amer) Est GFR (Non-Af Amer) BUN/Creatinine Ratio Glucose POC Glucose (mg/dL) 179 H 119 H Calcium Magnesium 02/04/17 02/04/17 04:49 07:45 WBC RBC Hgb Hct MCV MCH MCHC RDW Plt Count MPV Immature Gran % (Auto) Absolute Neuts (auto) Absolute Lymphs (auto) Absolute Monos (auto) Absolute Eos (auto) Absolute Basos (auto) Absolute Nucleated RBC Neutrophils % Band Neutrophils % Lymphocytes % Reactive Lymphs % Monocytes % Metamyelocytes % Myelocytes % Nucleated RBCs/100 WBC Normal RBC Morphology Hypochromasia Microcytosis Macrocytosis Sodium 131 L Potassium 3.9 Chloride 97 L Carbon Dioxide 30 Anion Gap 4 BUN 7 Creatinine 0.60 Est GFR ( Amer) 130.7 Est GFR (Non-Af Amer) 101.6 BUN/Creatinine Ratio 11.7 Glucose 116 H POC Glucose (mg/dL) 104 Calcium 8.7 Magnesium 1.6 L Acetaminophen (Tylenol Tab*) 650 mg PO Q6H PRN PRN Reason: PAIN/FEVER Last Admin: 02/04/17 04:55 Dose: 650 mg Cyanocobalamin (Vitamin B12 Tab*) 1,000 mcg PO DAILY [facility] Last Admin: 02/04/17 08:16 Dose: 1,000 mcg Dextrose (D50w Syringe 50 Ml*) 12.5 gm IV PUSH .FOR FS < 60 - SS PRN PRN Reason: FS < 60 Docusate Sodium (Colace Cap*) 100 mg PO BID PRN PRN Reason: CONSTIPATION Last Admin: 01/30/17 09:19 Dose: 100 mg Gabapentin (Neurontin Cap(*)) 600 mg PO TID [facility] Last Admin: 02/04/17 08:14 Dose: 600 mg Hydromorphone HCl (Dilaudid Iv*) 1 mg IV SLOW PU Q4H PRN PRN Reason: PAIN Last Admin: 02/04/17 02:17 Dose: 1 mg Meropenem 2 gm/ Sodium (Chloride) 140 mls @ 280 mls/hr IVPB Q12H [facility] Last Admin: 02/03/17 21:51 Dose: 280 mls/hr Sodium Chloride (Ns 0.9% 1000 Ml*) 1,000 mls @ 75 mls/hr IV PER RATE [facility] Last Admin: 02/03/17 21:51 Dose: 75 mls/hr Magnesium Sulfate (Magnesium Sulf 4 Gm/100 Ml Iv*) 4,000 mg in 100 mls @ 33.333 mls/hr IVPB ONCE ONE Stop: 02/04/17 11:42 Insulin Glargine (Lantus(*)) 40 units SUBCUT 0900 [facility] Last Admin: 02/04/17 08:17 Dose: 40 units Insulin Human Lispro (Humalog*) 0 units SUBCUT AC [facility] PRN Reason: Protocol Last Admin: 02/04/17 08:05 Dose: Not Given Magnesium Citrate (Citrate Of Magnesia*) 30 ml PO BID [facility] Omeprazole (Prilosec Cap*) 20 mg PO DAILY@0600 [facility] Last Admin: 02/04/17 04:58 Dose: 20 mg Ondansetron HCl (Zofran Inj*) 4 mg IV Q6H PRN PRN Reason: NAUSEA Last Admin: 02/03/17 12:23 Dose: 4 mg Oxycodone HCl (Oxycontin(*)) 10 mg PO BID [facility] Last Admin: 02/04/17 08:16 Dose: 10 mg Oxycodone HCl (Roxycodone Tab*) 5 mg PO Q6H PRN PRN Reason: breakthrough pain Last Admin: 02/03/17 10:42 Dose: 5 mg Polyethylene Glycol/Electrolytes (Miralax*) 17 gm PO DAILY [facility] Last Admin: 02/04/17 08:17 Dose: 17 gm Scopolamine (Transderm-Scop 1.5 Mg Patch*) 1 patch TRANSDERM Q72H [facility] Last Admin: 02/02/17 15:52 Dose: 1 patch Sucralfate (Carafate*) 1 gm PO 0600,1100,2100 [facility] Last Admin: 02/04/17 04:58 Dose: 1 gm Assessment: 61 yo F w end stage myelofibrosis awaiting alloSCT admitted with weakness and abdominal pain and found to have pneumonia. Clinically is markedly improving on antibiotics. Dr. Delgado did discuss with Dr. Valdivia transplant options. There are no matches in the pool and so the plan will be to move forward with her son as her donor. We will try to mobilize getting her there as an outpatient next week to start planning for transplant. Plan: PNA: continue meropenam for now, will likely discharge on PO levaquin tomorrow (PCN, Sulfa and cephalosporin allergies) pancytopenia: myelofibrosis related, stable today with immunosuppression and thrombocytopenia encouraged to avoid enemas hypomagnesemia: unclear why wasting so much will try switching to mag citrate and will continue IV repletion pain: bony pain related to myelofibrosis increase oxycontin to 20 mg bid full code
[2017-02-04] MEDS: Magnesium CITRATE* 300 ML BTL PO SCH ×2 (10:03→20:26)
[2017-02-04] MEDS: oxyCODONE SR TAB(*) 20 MG TAB.SR PO SCH ×2 (10:10→20:52)
[2017-02-04] MEDS: oxyCODONE TAB* 5 MG TAB PO PRN ×2 (10:14→16:09)
[2017-02-04] MEDS: NS 0.9% 1000 ML* 1,000 ML IV SCH (17:56)
[2017-02-04] MEDS: Ondansetron INJ* 2 MG/ML VIAL IV PRN (17:56)
[2017-02-04] MEDS: Docusate CAP* 100 MG PO PRN (20:26)
[2017-02-05] MEDS: Sucralfate TAB* 1 GM PO SCH ×2 (05:50→11:32)
[2017-02-05] MEDS: Omeprazole CAP* 20 MG PO SCH (05:50)
[2017-02-05] MEDS: HYDROmorphone* 1 MG/ML 1 ML SYR IV SLOW PU PRN (05:53)
[2017-02-05] MEDS: Insulin LISPRO* 1 UNITS UNIT SUBCUT SCH ×2 (07:48→12:49)
[2017-02-05] MEDS ORDERED: Ondansetron ODT TAB* 4 MG SL PRN (09:47)
[2017-02-05] MEDS ORDERED: oxyCODONE TAB* 5 MG TAB PO PRN (09:47)
[2017-02-05] MEDS: Cyanocobalamin TAB* 500 MCG PO SCH (10:04)
[2017-02-05] MEDS: Insulin GLARGINE(*) 1 UNITS UNIT SUBCUT SCH (10:04)
[2017-02-05] MEDS: Magnesium CITRATE* 300 ML BTL PO SCH (10:05)
[2017-02-05] MEDS: Polyethylene Glycol 3350* 17 GM PACKET PO SCH (10:05)
[2017-02-05] MEDS: oxyCODONE SR TAB(*) 20 MG TAB.SR PO SCH (10:05)
[2017-02-05] MEDS: Gabapentin CAP(*) 300 MG PO SCH ×2 (10:08→13:41)
[2017-02-05 10:27] LABS: Hematocrit 25 % (35-47); Hemoglobin 8.1 g/dl (12.0-16.0); Mean Corpuscular HGB Conc 33 g/dl (31-36); Mean Corpuscular Hemoglobin 27 pg (27-31); Mean Corpuscular Volume 83 fL (80-97); Mean Platelet Volume 7 um3 (7.4-10.4); Red Cell Distribution Width 17 % (10.5-15); White Blood Count 2.3 10^3/ul (3.5-10.8)
[2017-02-05 10:32] LABS: Add Diff/Slide Review? Manual Diff Added; Comments Flag Yes
[2017-02-05 10:43] LABS: BUN/Creatinine Ratio 13.6 (8-20); Calcium 8.6 mg/dL (8.6-10.3); EGFR African American 133.3 (>60); EGFR Non-African American 103.6 (>60); Magnesium 1.7 mg/dL (1.9-2.7)
[2017-02-05] MEDS ORDERED: Magnesium CITRATE* 300 ML BTL PO ONE (11:28)
[2017-02-05 11:47] LABS: Add Path Review? YES; Eosinophils % 5 % (0-6); Immature Granulocytes 13 % (0-9); Metamyelocytes % 4 % (0-2); Microcytosis 1+; Myelocytes % 2 % (0-1); Neutrophil % 48 % (38-83); Promyelocytes % 2 %
[2017-02-05 12:13] VITALS: BP 126/53
[2017-02-05] MEDS: Acetaminophen TAB* 325 MG PO PRN (12:48)
--- NOTE | 2017-02-05 14:26 | DS ---
CC: Dr. Valdivia and Dr. Ko. DISCHARGE SUMMARY: DATE OF ADMISSION: 01/29/17 DATE OF DISCHARGE: 02/05/17 DISCHARGE DIAGNOSES: 1. Bibasilar pneumonia: Improving on antibiotics. We will plan for discontinue on p.o. Levaquin. 2. Myelofibrosis: Transplant workup in [place] with Dr. Valdivia in progress, plan for followup next week. 3. Type 2 diabetes: Continue insulin. 4. Pancytopenia: Stable related to myelofibrosis. 5. Gastroesophageal reflux disease: Continue proton pump inhibitor and Carafate. 6. Hypomagnesemia: Unclear if related to absorption, preparations changed. DISCHARGE MEDICATIONS: 1. Acetaminophen 650 mg p.o. q.6 hours p.r.n. fever, contact our office prior to using for fever. 2. Colace 100 mg p.o. b.i.d. 3. Levaquin 750 mg p.o. daily x10 days. 4. Magnesium citrate 30 mL p.o. b.i.d. 5. Scopolamine 1.5 mg patch transdermally q. 72 hours. 6. Carafate 1 g p.o. t.i.d. 7. Oxycodone SR tabs 40 mg p.o. b.i.d. *increase dose.* 8. Vitamin B12 1000 mcg p.o. daily. 9. Nexium 40 mg p.o. daily. 10. Metformin 1000 mg p.o. b.i.d. 11. Lactobacillus one cap daily. 12. Ondansetron 4 mg p.o. q.6 hours p.r.n. nausea. 13. Multivitamins daily. 14. Ferrous sulphate 325 mg p.o. daily. 15. Gabapentin 600 mg p.o. t.i.d. 16. Lispro 8 units subcu a.c. 17. Levemir FlexTouch 40 units subcu daily *increase dose.* 18. MiraLAX 17 g p.o. daily p.r.n. constipation. 19. Oxycodone 5 to 10 mg p.o. q.4 hours p.r.n. pain. HOSPITAL COURSE: Please see admission note for full H and P. However, briefly Ms. Allen is well k nown to our service due to her unfortunate diagnosis of myelofibrosis with current workup for bone m arrow transplant in progress with Dr. Valdivia of [place]. She has been hospitalized multiple gracie es over the last year and followed by our office closely for electrolyte abnormalities. Ms. Allen presented to the ER on 01/29, with concern for dehydration and complaints of nausea, vomiting, and d iarrhea progressive over the day. At that time, she was also concerned about significant con stipation and she received an enema in the ER. She was admitted for observation and evaluation of h er abdominal symptoms. The following day while her constipation resolved, she continued to have naus ea and vomiting, and a CT of the abdomen and pelvis was obtained, ultimately nondiagnostic. [place] mine patch was started with some relief provided. On 02/01/17, she developed some balance changes a nd with continued nausea, question of [employer] dysfunction led to an MRI of the brain, which was ultimate ly negative. On the morning of 02/02, she developed confusion and vital sign changes concerning for sepsis, and a chest x-ray revealed bibasilar pneumonia. Cultures thus far negative. She was start ed on meropenem and has since improved dramatically with no further temperatures. Yesterday on 01/18, Ms. Allen was feeling remarkably better; however, plan was made to continue meropenem for a t otal of 3 days and then discharge home. Today, Ms. Allen continues to feel well stating good under standing of plan for discharge home with oral antibiotics; however, her son did discuss concerns reg arding confusion in the evening. On review of the chart, Ms. Allen did have a temperature of 100 l ast night; however, without associated hypotension and at the same time she received Dilaudid. Ther efore concern at this point is for narcotic-induced confusion, with differential also including age- related changes and hospital-induced delirium. This was discussed with the family and the patient at length, decision was made that she was stable for discharge home with close monitoring. Her sons will be staying with her overnight. Ms. Allen will be discharged on p.o. Levaquin for another 10 days, and will follow up in our office for labs and hydration on Wednesday, 02/08. She will see Dr. Krysta brown in [place] on 02/12 at 2 p.m. for continued bone marrow transplant workup. Extensive review of the plan of care took place with the patient and her sons who state good understanding. TIME SPENT: Greater than 40 minutes spent with greater than 50% [id number] counseling. ARTEM KRAMER, RAEANN [id number]/CPS #: [id number]
== END 2017-02-05 14:45 | disposition home or self-care (01) | DRG 391 ==
LOC: ED 12:25 → MEDTELE 17:04 → OBSVTOIN 01-30 09:52 → MED 02-04 14:41
PROVIDERS: ADMIT Internal Medicine; ATTEND Internal Medicine Hematology & Oncology
PROC: 30233N1 Transfusion of Nonautologous Red Blood Cells into Peripheral Vein, Percutaneous Approach (ICD-10-PCS; principal; 2017-01-31)
DX: R11.2 Nausea with vomiting, unspecified (principal); J69.0 Pneumonitis due to inhalation of food and vomit; D75.81 Myelofibrosis; D61.818 Other pancytopenia; E87.1 Hypo-osmolality and hyponatremia; E11.65 Type 2 diabetes mellitus with hyperglycemia; K21.9 Gastro-esophageal reflux disease without esophagitis; E83.42 Hypomagnesemia; E11.40 Type 2 diabetes mellitus with diabetic neuropathy, unspecified; K59.00 Constipation, unspecified; E86.0 Dehydration; K44.9 Diaphragmatic hernia without obstruction or gangrene; Z79.84 Long term (current) use of oral hypoglycemic drugs; Z79.4 Long term (current) use of insulin; Z79.891 Long term (current) use of opiate analgesic; Z79.899 Other long term (current) drug therapy; Z88.5 Allergy status to narcotic agent; Z88.0 Allergy status to penicillin; Z88.8 Allergy status to other drugs, medicaments and biological substances; Z91.040 Latex allergy status; Z82.49 Family history of ischemic heart disease and other diseases of the circulatory system; Z88.2 Allergy status to sulfonamides
CPT/HCPCS: 36415; 70551; 71020; 74020; 74177; 80048; 80053; 81003; 81015; 83605; 83735; 84100; 85025; 85060; 86140; 86850; 86900; 86901; 86922; 87040; 87077; 87086; 87150; 87186; 87205; 87641; 96365; 96366; 99232; A9270-GY; G0378; J1170; J2405; J3475; P9016; P9040; Q9967

== ENCOUNTER → 2017-02-09 11:38 | Emergency (ER) | payer MEDICARE, MEDICAID ==
[~2017-02-09 11:38] MED LIST: Iodixanol* (CONTRAST) 320 MG/ML 100 ML SDV IV ONE; Magnesium Sulfate 2 GM IV* 2 GM/50 ML BAG IVPB ONE; NS 0.9% 1000 ML* 1,000 ML IV SCH
[2017-02-09 12:15] LABS: Hematocrit 24 % (35-47); Mean Corpuscular HGB Conc 33 g/dl (31-36); Mean Corpuscular Hemoglobin 28 pg (27-31); Mean Corpuscular Volume 83 fL (80-97); Mean Platelet Volume 8 um3 (7.4-10.4); Red Blood Count 2.93 10^6/ul (4.0-5.4); Red Cell Distribution Width 17 % (10.5-15); White Blood Count 2.5 10^3/ul (3.5-10.8)
[2017-02-09 12:18] LABS: Add Diff/Slide Review? Slide Review Added; Comments Flag Yes
[2017-02-09 12:31] LABS: C Reactive Protein 83.63 mg/L (< 5.00); EGFR African American 119.2 (>60); EGFR Non-African American 92.7 (>60); Magnesium 1.5 mg/dL (1.9-2.7); Potassium 4.5 mmol/L (3.5-5.0); Total Bilirubin 0.6 mg/dL (0.2-1.0)
--- NOTE | 2017-02-09 12:32 | RAD ---
HISTORY: Chest pain COMPARISONS: February 02, 2017 VIEWS:1: Single frontal portable view of the chest at 12:00 PM FINDINGS: LINES AND TUBES: None. CARDIOMEDIASTINAL SILHOUETTE: The cardiomediastinal silhouette is normal for portable technique. PLEURA: The costophrenic angles are sharp. No pleural abnormalities are noted. LUNG PARENCHYMA: The lungs are clear. ABDOMEN: The upper abdomen is clear. There is no subphrenic gas. BONES AND SOFT TISSUES: No bone or soft tissue abnormalities are noted. IMPRESSION: NO ACTIVE CARDIOPULMONARY DISEASE.
[2017-02-09 12:33] LABS: Troponin I 0.01 ng/mL (<0.04)
[2017-02-09 13:12] LABS: TSH (Thyroid Stimulating Horm) 0.56 mcIU/mL (0.34-5.60)
[2017-02-09 13:52] LABS: Eosinophils % 1 % (0-6); Immature Granulocytes 17 % (0-9); Metamyelocytes % 6 % (0-2); Microcytosis 2+; Neutrophil % 52 % (38-83); Reactive Lymph % 1 % (0-6); Tear Drop Cells 1+
--- NOTE | 2017-02-09 16:55 | RAD ---
INDICATION: Positive d-dimer. Shortness of breath. Diabetic. COMPARISON: December 05, 2009 TECHNIQUE: Multidetector CT images were obtained from the lung apices to the upper abdomen with 67 mL Visipaque 320 IV contrast. Pulmonary angiogram protocol. Multiplanar reformation including with maximum intensity projection. REPORT: Mild dependent atelectasis at the lung bases. No suspicious focal pulmonary lesions. Negative for pleural effusions. Unchanged enlargement of the LEFT thyroid lobe measuring up to 3.9 cm AP by 3.1 cm transverse with caudal extension to the superior mediastinum and associated mild rightward deviation of the trachea. Negative for thoracic lymphadenopathy. Cardiomegaly. Negative for pericardial effusion. Normal diameter thoracic aorta. Negative for aortic dissection. No filling defects are identified from the main to the subsegmental pulmonary arteries to indicate presence of a pulmonary embolism. Images through the upper abdomen are remarkable for splenomegaly with the spleen measuring up to 14.8 cm AP by 6.6 cm transverse compared with 8.6 x 5.3 cm on the 2010 exam. Negative for suspicious thoracic osseous lesions. IMPRESSION: 1. Negative for pulmonary embolism. 2. Cardiomegaly. 3. Mild bibasilar dependent subsegmental atelectasis. 4. 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 5. Splenomegaly new compared with the 2010 exam.
[2017-02-09 17:01] LABS: Urine Bacteria Absent (Absent); Urine Bilirubin Negative (Negative); Urine Glucose 2+(150 mg/dL) (Negative); Urine Nitrite Negative (Negative)
[2017-02-09 17:26] VITALS: BP 129/32
--- NOTE | 2017-02-09 17:51 | ED ---
Filippo Mujica Auryana, scribed for Xavier Mayberry MD on 02/09/17 at 1622 . HPI Cardiac - HPI Summary HPI Summary: 61 year old female presents with chest tightness and SOB starting at about 09: 30 this morning. She reports some improvement with chest tightness but states that she is still mildly SOB. She also has lightheadedness and nausea. Reported BP was 159/70. Patient was recently discharged from [facility] 02/05/17 Dx: bacterial PNA and given levaquin (reports that she has chest tightness with ABX). Son reports that she has an episode of tremors related to sugar levels on Wednesday. PMHx is significant for myelofibrosis (pre-leukemia)-upcoming appointment with bone marrow specialist. - History of Current Complaint Chief Complaint: EDChestPainROMI Stated Complaint: CHEST PAIN Time Seen by Provider: 02/09/17 15:51 Hx Obtained From: Patient Onset/Duration: Started Hours Ago - this morning at 09:30, Still Present Time of Onset: 09:30 Timing: Constant - reports chest tightness improved - still has SOB Initial Severity: Mild Current Severity: Mild Chest Pain Location: Diffuse Chest Pain Radiates: No Character: Tightness Aggravating Factor(s): Medications - ABX - aggravate/cause chest tightness Associated Signs and Symptoms: Positive: Chest Pain - chest tightness, Shortness of Breath, Lightheadedness, Nausea - Additional Pertinent History Primary Care Physician: [id number] - Allergy/Home Medications Allergies/Adverse Reactions: Allergies Allergy/AdvReac Type Severity Reaction Status Date / Time Cephalexin [From Keflex] Allergy VOMITING, Verified 02/09/17 11:48 DIARRHEA, HIVES, LIGHTHEADEDNESS Diazepam [From Valium] Allergy Difficulty Verified 02/09/17 11:48 Breathing Hydromorphone [From Dilaudid] Allergy Altered Verified 02/09/17 11:48 Mental Status Latex Allergy Rash Verified 02/09/17 11:48 Penicillins [PCN] Allergy CHEST Verified 02/09/17 11:48 HEAVINESS, SLIGHT DIFF BREATHING, LIGHTHEADEDNESS, Benzonatate [From Tessalon] AdvReac Headache Verified 02/09/17 11:48 Codeine AdvReac See Comment Verified 02/09/17 11:48 Morphine AdvReac VOMITING, Verified 02/09/17 11:48 LIGHTHEADEDNESS ALL "MYCINS" Allergy CHEST Uncoded 02/09/17 11:48 HEAVINESS, SL. DIFF. BREATHING, LIGHTHEADEDNESS ALL CILLINS Allergy CHEST Uncoded 02/09/17 11:48 HEAVINESS, SL. DIFF. BREATHING, LIGHTHEADNESS MULTIPLE ANTIBIOPTIC Allergy CHEST Uncoded 02/09/17 11:48 REACTIONS HEAVINESS, SL. DIFF. BREATHING, LIGHTHEADEDNESS SULFA DRUGS Allergy VOMITING, Uncoded 02/09/17 11:48 DIARRHEA, HIVES, LIGHTHEADEDNESS PMH/Surg Hx/FS Hx/Imm Hx Endocrine/Hematology History: Reports: Hx Diabetes Cardiovascular History: Reports: Hx Angina Denies: Hx Coronary Artery Disease, Hx Hypercholesterolemia, Hx Hypertension , Hx Myocardial Infarction, Hx Pacemaker/ICD, Hx Valvular Heart Disease Respiratory History: Denies: Hx Asthma, Hx Chronic Obstructive Pulmonary Disease (COPD) GI History: Reports: Hx Gastroesophageal Reflux Disease, Hx Gastrointestinal Bleed, Hx Hiatal Hernia, Hx Ulcer - reflux History: Reports: Hx Kidney Stones - teenager Denies: Hx Renal Disease Musculoskeletal History: Reports: Other Musculoskeletal History - meylofibrosis Sensory History: Reports: Hx Cataracts - BEGINNING STAGES, Hx Contacts or Glasses Denies: Hx Hearing Aid Opthamlomology History: Reports: Hx Cataracts - BEGINNING STAGES, Hx Contacts or Glasses Psychiatric History: Reports: Hx Anxiety, Hx Depression, Hx Panic Disorder, Other Psychiatric Issues/Disorders - claustrophobia - Cancer History Cancer Type, Location and Year: meylofibrosis Hx Chemotherapy: No - Surgical History Surgery Procedure, Year, and Place: NECK SURGERY- FOR HENIATED DISC-[facility]. SURGERY FOR PROLASPED BLADDER AND RECTUM, TOTAL ABDOMINAL HYSTERECTOMY- LAPAROSCOPIC-[facility]. TUBAL LIGATION. LEFT HAND LUMPS REMOVED 2014. dental work Hx Anesthesia Reactions: Yes - NAUSEA - Immunization History Date of Tetanus Vaccine: none Date of Influenza Vaccine: none Infectious Disease History: Yes Infectious Disease History: Reports: Hx of Known/Suspected MRSA - 12/20/16, nares Denies: History Other Infectious Disease, Traveled Outside the [place] in Last 30 Days - Family History Known Family History: Positive: None, Cardiac Disease Family History: cancer - Social History Occupation: Disabled Lives: Alone Alcohol Use: None Alcohol Amount: quit 2008 Substance Use Type: Reports: None Smoking Status (MU): Former Smoker Type: Cigarettes Amount Used/How Often: 1 PPD X 25 +YEARS Have You Smoked in the Last Year: No Review of Systems Positive: Other - lightheadedness. Negative: Fever Eyes: Negative ENT: Negative Positive: Other - chest tightness Positive: Shortness Of Breath Positive: Nausea Genitourinary: Negative Musculoskeletal: Negative Skin: Negative Neurological: Negative Psychological: Normal All Other Systems Reviewed And Are Negative: Yes Physical Exam Triage Information Reviewed: Yes Vital Signs On Initial Exam: Initial Vitals Temp Pulse Resp BP Pulse Ox 96.3 F 75 14 137/41 100 02/09/17 11:43 02/09/17 11:43 02/09/17 11:43 02/09/17 11:43 02/09/17 11:43 Vital Signs Reviewed: Yes Appearance: Positive: No Pain Distress, Ill-Appearing - mildly Skin: Positive: Warm, Skin Color Reflects Adequate Perfusion, Dry Head/Face: Positive: Normal Head/Face Inspection Eyes: Positive: EOMI, JACKELYN ENT: Positive: Hearing grossly normal, TMs normal, Other - dry oral mucosa Neck: Positive: Supple, Nontender Respiratory/Lung Sounds: Positive: Clear to Auscultation, Breath Sounds Present Cardiovascular: Positive: RRR Abdomen Description: Positive: Nontender, Soft Bowel Sounds: Positive: Present Musculoskeletal: Positive: Normal, Strength/ROM Intact Neurological: Positive: Normal, Sensory/Motor Intact, Alert, Oriented to Person Place, Time Psychiatric: Positive: Affect/Mood Appropriate - Oracio Coma Scale Coma Scale Total: 15 Diagnostics - Vital Signs Vital Signs Temp Pulse Resp BP Pulse Ox 02/09/17 15:31 75 15 142/54 100 02/09/17 15:00 74 16 122/47 99 02/09/17 14:30 77 12 139/59 100 02/09/17 14:00 75 14 126/59 97 02/09/17 13:30 76 15 125/53 97 02/09/17 13:00 71 15 132/39 99 02/09/17 12:30 75 15 125/39 99 02/09/17 12:00 75 14 135/46 98 02/09/17 11:52 74 19 100 02/09/17 11:50 136/90 02/09/17 11:45 96.7 F 75 16 137/41 100 02/09/17 11:43 96.3 F 75 14 137/41 100 - Laboratory Lab Results: Lab Results 02/09/17 02/09/17 02/09/17 Range/Units 12:00 12:00 12:00 WBC 2.5 L (3.5-10.8) 10^3/ul RBC 2.93 L (4.0-5.4) 10^6/ul Hgb 8.0 L (12.0-16.0) g/dl Hct 24 L (35-47) % MCV 83 (80-97) fL MCH 28 (27-31) pg MCHC 33 (31-36) g/dl RDW 17 H (10.5-15) % Plt Count 42 L D (150-450) 10^3/ul MPV 8 (7.4-10.4) um3 Immature Gran % (Auto) 17 H (0-9) % Neut % (Auto) 64.3 (38-83) % Lymph % (Auto) 21.0 L (25-47) % [place] % (Auto) 13.2 H (1-9) % Eos % (Auto) 0.7 (0-6) % Baso % (Auto) 0.8 (0-2) % Absolute Neuts (auto) 1.6 (1.5-7.7) 10^3/ul Absolute Lymphs (auto) 0.5 L (1.0-4.8) 10^3/ul Absolute Monos (auto) 0.3 (0-0.8) 10^3/ul Absolute Eos (auto) 0 (0-0.6) 10^3/ul Absolute Basos (auto) 0 (0-0.2) 10^3/ul Absolute Nucleated RBC 0.10 10^3/ul Neutrophils % 52 (38-83) % Band Neutrophils % 11 H (0-8) % Lymphocytes % 19 L (25-47) % Reactive Lymphs % 1 (0-6) % Monocytes % 10 (0-13) % Eosinophils % 1 (0-6) % Metamyelocytes % 6 H (0-2) % Nucleated RBC % 3.9 Nucleated RBCs/100 WBC 3 H (0-0) Normal RBC Morphology Not Reportable Microcytosis 2+ Tear Drop Cells 1+ INR (Anticoag Therapy) 0.95 (0.89-1.11) APTT 30.5 (26.0-36.3) seconds D-Dimer, Quantitative 353 H (Less Than 230) ng/mL Sodium 128 L (133-145) mmol/L Potassium 4.5 (3.5-5.0) mmol/L Chloride 93 L (101-111) mmol/L Carbon Dioxide 28 (22-32) mmol/L Anion Gap 7 (2-11) mmol/L BUN 13 (6-24) mg/dL Creatinine 0.65 (0.51-0.95) mg/dL Est GFR ( Amer) 119.2 (>60) Est GFR (Non-Af Amer) 92.7 (>60) BUN/Creatinine Ratio 20.0 (8-20) Glucose 278 H (70-100) mg/dL Lactic Acid (0.5-2.0) mmol/L Calcium 9.0 (8.6-10.3) mg/dL Magnesium 1.5 L (1.9-2.7) mg/dL Total Bilirubin 0.60 (0.2-1.0) mg/dL AST 9 L (13-39) U/L ALT 4 L (7-52) U/L Alkaline Phosphatase 79 (34-104) U/L Total Creatine Kinase 10 (10-223) U/L CK-MB (CK-2) 1.1 (0.6-6.3) ng/mL Troponin I 0.01 (<0.04) ng/mL C-Reactive Protein 83.63 H (< 5.00) mg/L B-Natriuretic Peptide ( - 100) pg/mL Total Protein 6.0 L (6.4-8.9) g/dL Albumin 3.0 L (3.2-5.2) g/dL Globulin 3.0 (2-4) g/dL Albumin/Globulin Ratio 1.0 (1-3) Lipase 14 (11.0-82.0) U/L TSH 0.56 (0.34-5.60) mcIU/mL 02/09/17 02/09/17 Range/Units 12:00 12:00 WBC (3.5-10.8) 10^3/ul RBC (4.0-5.4) 10^6/ul Hgb (12.0-16.0) g/dl Hct (35-47) % MCV (80-97) fL MCH (27-31) pg MCHC (31-36) g/dl RDW (10.5-15) % Plt Count (150-450) 10^3/ul MPV (7.4-10.4) um3 Immature Gran % (Auto) (0-9) % Neut % (Auto) (38-83) % Lymph % (Auto) (25-47) % [place] % (Auto) (1-9) % Eos % (Auto) (0-6) % Baso % (Auto) (0-2) % Absolute Neuts (auto) (1.5-7.7) 10^3/ul Absolute Lymphs (auto) (1.0-4.8) 10^3/ul Absolute Monos (auto) (0-0.8) 10^3/ul Absolute Eos (auto) (0-0.6) 10^3/ul Absolute Basos (auto) (0-0.2) 10^3/ul Absolute Nucleated RBC 10^3/ul Neutrophils % (38-83) % Band Neutrophils % (0-8) % Lymphocytes % (25-47) % Reactive Lymphs % (0-6) % Monocytes % (0-13) % Eosinophils % (0-6) % Metamyelocytes % (0-2) % Nucleated RBC % Nucleated RBCs/100 WBC (0-0) Normal RBC Morphology Microcytosis Tear Drop Cells INR (Anticoag Therapy) (0.89-1.11) APTT (26.0-36.3) seconds D-Dimer, Quantitative (Less Than 230) ng/mL Sodium (133-145) mmol/L Potassium (3.5-5.0) mmol/L Chloride (101-111) mmol/L Carbon Dioxide (22-32) mmol/L Anion Gap (2-11) mmol/L BUN (6-24) mg/dL Creatinine (0.51-0.95) mg/dL Est GFR ( Amer) (>60) Est GFR (Non-Af Amer) (>60) BUN/Creatinine Ratio (8-20) Glucose (70-100) mg/dL Lactic Acid 0.6 (0.5-2.0) mmol/L Calcium (8.6-10.3) mg/dL Magnesium (1.9-2.7) mg/dL Total Bilirubin (0.2-1.0) mg/dL AST (13-39) U/L ALT (7-52) U/L Alkaline Phosphatase (34-104) U/L Total Creatine Kinase (10-223) U/L CK-MB (CK-2) (0.6-6.3) ng/mL Troponin I (<0.04) ng/mL C-Reactive Protein (< 5.00) mg/L B-Natriuretic Peptide 206 H ( - 100) pg/mL Total Protein (6.4-8.9) g/dL Albumin (3.2-5.2) g/dL Globulin (2-4) g/dL Albumin/Globulin Ratio (1-3) Lipase (11.0-82.0) U/L TSH (0.34-5.60) mcIU/mL Result Diagrams: 02/09/17 12:00 02/09/17 12:00 Lab Statement: Any lab studies that have been ordered have been reviewed, and results considered in the medical decision making process. - Radiology CXR Xray Interpretation: No Acute Changes Radiology Interpretation Completed By: Radiologist - CT CTA CHEST CT Interpretation: Positive (See Comments) - IMPRESSION: 1. Negative for pulmonary embolism. 2. Cardiomegaly. 3. Mild bibasilar dependent subsegmental atelectasis. 4. 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 5. Splenomegaly new compared with the [address] Interpretation Completed By: Radiologist - EKG 11:40 Ectopy: None EKG Interpretation: nsr @74bpm;flipped T -V2,V3; no ectopy EKG Comparison: No Significant Change - from 01/13/17 Re-Evaluation - Re-Evaluation First Eval Re-Evaluation Time: 17:07 - DISCUSS LABS, IMAGING, AND DR. DELGADO'S RECOMMENDATIONS Disposition - Course Course Of Treatment: NO CRITICAL CARE TIME Assessment/Plan: WELL IN ED. DISCUSSED RESULTS WITH PATIENT/FAMILY/DR DELGADO. DISCHARGE HOME STABLE. - Diagnoses Provider Diagnoses: Chest pain, Dyspnea - Physician Notifications Discussed Care Of Patient With: Dr. Delgado Time Discussed With Above Provider: 16:54 - RECOMMENDS REPEAT TROPININ - IF NEGATIVE, DISCHARGE HOME Discharge - Discharge Plan Condition: Stable Disposition: HOME Patient Education Materials: Dyspnea (ED), Chest Pain (ED) Referrals: Peyman Ko MD [Primary Care Provider] - Additional Instructions: FOLLOW UP WITH YOUR DOCTOR. RETURN TO THE EMERGENCY DEPARTMENT FOR ANY WORSENING OF YOUR CONDITION; CHEST PAIN, SHORTNESS OF BREATH, YOU FEEL ILL OR QUESTIONS OR CONCERNS. The documentation as recorded by the Filippo de la o Auryana accurately reflects the service I personally performed and the decisions made by me, Xavier Mayberry MD.
== END | disposition home or self-care (01) ==
LOC: ED 11:38
DX: R07.9 Chest pain, unspecified (principal); R06.00 Dyspnea, unspecified; R06.02 Shortness of breath; R11.0 Nausea; R42 Dizziness and giddiness; Z87.891 Personal history of nicotine dependence
CPT/HCPCS: 36415; 71010; 71275; 80053; 81003; 81015; 82550; 82553; 83605; 83690; 83735; 83880; 84443; 84484; 85025; 85379; 85610; 85730; 86140; 93005; 99284; Q9967

== ENCOUNTER 2017-02-22 12:00 | Inpatient (IN) | payer MEDICARE, MEDICAID ==
[2017-02-22] MEDS ORDERED: Polyethylene Glycol 3350* 17 GM PACKET PO PRN (16:26)
[2017-02-22] MEDS ORDERED: Scopolamine 1.5 mg* PATCH TRANSDERM SCH (17:00)
[2017-02-22] MEDS ORDERED: Magnesium Sulf 4 GM/100 ML IV* 4,000 MG/100 ML BAG IVPB ONE (18:00)
[2017-02-22] MEDS: Insulin LISPRO* 1 UNITS UNIT SUBCUT SCH ×2 (18:17→23:11)
[2017-02-22] MEDS: oxyCODONE TAB* 5 MG TAB PO SCH ×2 (18:17→23:10)
[2017-02-22] MEDS: Acetaminophen TAB* 325 MG PO PRN (18:42)
[2017-02-22] MEDS ORDERED: Insulin GLARGINE(*) 1 UNITS UNIT SUBCUT SCH (21:00)
[2017-02-22] MEDS: metFORMIN* 1,000 MG TAB PO SCH (23:07)
[2017-02-22] MEDS: Gabapentin CAP(*) 300 MG PO SCH (23:08)
[2017-02-22] MEDS: Docusate CAP* 100 MG PO SCH (23:09)
[2017-02-22] MEDS: oxyCODONE SR TAB(*) 40 MG TAB.SR PO SCH (23:09)
[2017-02-22] MEDS: Magnesium CITRATE* 300 ML BTL PO SCH (23:13)
[2017-02-22] MEDS: NS 0.9% 1000 ML* 1,000 ML IV SCH (23:15)
[2017-02-23] MEDS ORDERED: Calcium Carbonate CHEW TAB* 500 MG (TUMS) ONE (03:10)
[2017-02-23] MEDS: oxyCODONE TAB* 5 MG TAB PO SCH ×6 (03:19→23:00)
[2017-02-23] MEDS ORDERED: Calcium Carbonate CHEW TAB* 500 MG (TUMS) PO PRN (03:21)
[2017-02-23 06:31] LABS: Hematocrit 20 % (35-47); Mean Corpuscular HGB Conc 34 g/dl (31-36); Mean Corpuscular Hemoglobin 28 pg (27-31); Mean Corpuscular Volume 83 fL (80-97); Mean Platelet Volume 7 um3 (7.4-10.4); Red Blood Count 2.46 10^6/ul (4.0-5.4); Red Cell Distribution Width 17 % (10.5-15)
[2017-02-23 06:32] LABS: Comments Flag Yes; White Blood Count 1.6 10^3/ul (3.5-10.8)
[2017-02-23 06:33] LABS: Add Diff/Slide Review? Slide Review Added; Hemoglobin 6.8 g/dl (12.0-16.0)
[2017-02-23 06:41] LABS: Albumin 2.7 g/dL (3.2-5.2); BUN/Creatinine Ratio 14.5 (8-20); Calcium 8.6 mg/dL (8.6-10.3); EGFR African American 125.9 (>60); EGFR Non-African American 97.9 (>60); Globulin 2.7 g/dL (2-4); Magnesium 2.2 mg/dL (1.9-2.7); Potassium 4.4 mmol/L (3.5-5.0); Total Bilirubin 0.4 mg/dL (0.2-1.0); Total Protein 5.4 g/dL (6.4-8.9)
[2017-02-23] MEDS ORDERED: Dextrose 50% Syringe 50 ML* 25 GM/50 ML SYRINGE IV PUSH PRN (08:39)
[2017-02-23] MEDS: Omeprazole CAP* 20 MG PO SCH (09:05)
[2017-02-23] MEDS: metFORMIN* 1,000 MG TAB PO SCH ×2 (09:06→23:10)
[2017-02-23] MEDS: Cyanocobalamin TAB* 500 MCG PO SCH (09:06)
[2017-02-23] MEDS: Multivitamins/Minerals TAB PO SCH (09:06)
[2017-02-23] MEDS: Docusate CAP* 100 MG PO SCH ×2 (09:06→22:21)
[2017-02-23] MEDS: Ferrous Sulfate TAB* 325 MG PO SCH (09:06)
[2017-02-23] MEDS: oxyCODONE SR TAB(*) 40 MG TAB.SR PO SCH ×2 (09:06→23:00)
[2017-02-23] MEDS: Gabapentin CAP(*) 300 MG PO SCH ×3 (09:07→22:21)
[2017-02-23] MEDS: Insulin LISPRO* 1 UNITS UNIT SUBCUT SCH ×8 (09:07→23:11)
[2017-02-23] MEDS: Magnesium CITRATE* 300 ML BTL PO SCH ×2 (09:16→22:21)
[2017-02-23] MEDS: Insulin GLARGINE(*) 1 UNITS UNIT SUBCUT SCH ×2 (09:17→23:12)
[2017-02-23] MEDS: Ondansetron TAB* 4 MG PO PRN (11:01)
[2017-02-23] MEDS: Acetaminophen TAB* 325 MG PO PRN ×2 (11:58→18:14)
[2017-02-23 12:04] LABS: TSH (Thyroid Stimulating Horm) 1.27 mcIU/mL (0.34-5.60)
[2017-02-23 12:09] LABS: Free T3 3.3 pg/mL (2.5-3.9); Free T4 1.38 ng/dL (0.61-1.12)
[2017-02-23 12:13] LABS: Total T3 0.87 ng/mL (0.87-1.78)
[2017-02-23 12:35] LABS: Urine Creatinine 45.6 mg/dL
[2017-02-23 12:37] LABS: UR Microalbumin (mg/L) 24.7 mg/L; Urine Microalbumin/Creatinine 54.1 ug/mg (<31)
[2017-02-23] MEDS: NS 0.9% 1000 ML* 1,000 ML IV SCH (18:11)
--- NOTE | 2017-02-23 18:28 | CONS ---
CC: Dr. Peyman Ko; Dr. Nicko Ayala; Anabella Brink NP CONSULTATION REPORT: DATE OF CONSULT: REASON FOR CONSULTATION: Type 2 diabetes mellitus with poor glycemic control. HISTORY OF PRESENT ILLNESS: Joyce Allen is a 61-year-old white female. Her presentation is documented in Dr. Guillermina Gaston's admitting history and physical. She has a history of myelofibrosis. She was seen at [facility] on February 19 for a port placement. She had been drinking a lot of Gatorade. She notes that her pattern has been her good control of her blood sugars in the morning, but high the rest of the day, but recently it has been continuously high. She presented with pancytopenia and an MRI showing an infiltrative process. She has had 25-pound weight loss. She has severe myelofibrosis and is waiting an allogeneic bone marrow transplant and is receiving transfusion support. DIABETES HISTORY: She has had type 2 diabetes mellitus since 2001, she was placed on insulin at that time. She states it has always been hard to control in the morning, the range habitually admits being between 65 and 110 mg/dL, but higher as the day progresses. She does not carbohydrate count, she has been using predominantly Levemir insulin 34 units q.a.m. and 48 to 58 units q.p.m., does occasionally give herself Humalog insulin depending on a sliding scale. RISK FACTORS: Quit tobacco in 2008, started at the age of 13 one pack per day. Does not drink alcohol, no history of pancreatitis. She has had no recent steroid course. She denies hypercholesterolemia and hypertension. She has a history of obesity. MEDICATIONS: Her medications from chart; 1. Ondansetron 4 mg q.6 hours p.r.n. 2. Docusate 100 mg twice daily. 3. Cyanocobalamin 1000 mcg daily. 4. Acetaminophen 650 mg q.4 hours p.r.n. 5. Gabapentin 600 mg t.i.d. 6. Ferrous sulphate 325 mg daily. 7. Esomeprazole that is Nexium 40 mg daily. 8. Lispro insulin, she uses a scale. 9. Levemir insulin 34 units q.a.m., 48 to 58 q.p.m. 10. Magnesium citrate 30 mL b.i.d. as needed. 11. Lactobacillus 1 cap daily. 12. Multivitamin 2 tablets a day. 13. Scopolamine patch 1 daily. 14. PEG/MiraLAX 17 g daily p.r.n. for constipation. 15. Oxycodone 40 mg twice daily. 16. Metformin 1000 mg twice daily. 17. Sucralfate 1 g up to 4 times a day as needed. 18. Oxycodone 5 mg every 4 hours as needed. DRUG ALLERGIES: CEPHALEXIN, DIAZEPAM, HYDROMORPHONE, LATEX, PENICILLINS, BENZONATATE, CODEINE, MORPHINE, ALL MYCINS, ALL CILLINS, SULFA DRUGS FAMILY HISTORY: Both parents had type 2 diabetes mellitus, maternal grandmother and maternal aunt also, coronary artery disease in maternal grandmother. No family history of autoimmune disease. She has cancer in two cousins. No other endocrinopathy. DEVELOPMENTAL HISTORY: She does not know if her mother had gestational diabetes. She does not know her weight. She was bottlefed. Elementary school, she was average weight. Menarche at 11. At 18, she was 230 pounds, maximum weight was 240 pounds. She is 2, para 2, first child is 5 pounds 3 ounces, second 5 pounds 11 ounces. She had gestational diabetes with each of them. Menopause was in her late 40s. COMPLICATIONS OF DIABETES: Microvascular disease: She has been to an plate mill hand and she states she has no retinopathy, glaucoma or cataracts and no macular disease. She denies a history of kidney disease from diabetes and states that she does have some numbness in her feet, but no ulcers, calluses , or infections. Macrovascular disease: She states she had a stress test one week ago at [facility], which was negative. She has never had an angiogram, no myocardial infarctions. She has had no strokes and denies peripheral vascular disease. She has had no fatty liver disease or cirrhosis. She is unable to tell me her previous A1c results. REVIEW OF SYSTEMS: She is weak. She has not had major weight loss. She now weighs 136 pounds. She has a history of a goiter. PHYSICAL EXAM: Vital Signs: Temperature 98.3, pulse 76, respirations 16, oxygen saturation 92%, blood pressure 107/35. She is pale. No jaundice, clubbing, or adenopathy. Cardiovascular System: Her pulse was regular, normal character and volume. Venous pressure not elevated. Heart sounds were normal. No added sounds or murmurs. No pedal edema. Pedal pulses present. No carotid bruits. Chest: Clear. Abdomen: Soft. No masses, tenderness, or organomegaly. She had no femoral bruits. Nervous System: Conjugate eye movements. Foot Examination: No ulcers, calluses, or infections. She has good pedal pulses. She has pinprick sensation. INVESTIGATIONS: Chemistry: White count 1.6, hemoglobin 6.8, hematocrit 20, platelets 38. Chemistry: Sodium 127, potassium 4.4, chloride 94, bicarbonate 29, BUN 9, creatinine 0.62, EGFR 97.9, glucose 225, calcium 8.6, magnesium 2.2, bilirubin 0.4, AST 5, ALT 3, ALP 81, total protein 5.4, and albumin 2.7. Other imaging on 02/09/17, chest/thorax CTA negative for pulmonary embolism. She has left goiter with extension into the superior mediastinum. On 01/30/17, abdominal and pelvic CT scan, nonspecific circumferential mural thickening of distal rectum. Negative for adenopathy. ASSESSMENT AND PLAN: 1. Type 2 diabetes mellitus out of control. This patient has had the diagnosis of diabetes since 2001. She has a poor grasp of her diet, has been drinking Gatorade. She does not know about basal bolus method for controlling her diabetes. I think that she requires intensive diabetes education. I will have her seen by the registered dietitians to teach her carbohydrate counting. I will start her initially on lispro insulin 2 units for every 10 g of carbohydrates and 2 units for every 50 mg/dL greater than 150 mg/dL. I think that measurements of A1c might be inaccurate from transfusions and from her red cell destruction owing to her myelofibrosis and also her album is low making fructosamine less useful for manager terminal control; however, it is clear that she has had poor glycemic control. I think this will improve with corrected bolus basal regimen. Complications of diabetes, she had a recent stress test and hence does not appear to have coronary artery disease. She has no carotid bruits. Pedal pulses are good. She has some symptoms of peripheral neuropathy though she has protected sensation in her feet. I could not examine her fundi. She says her eye exams are up-to-date. I will check her kidneys for microalbumin to creatinine ratio. I will maintain her metformin therapy at present, as her kidney function looks good. I will consider other medications if we are unable to improve her glycemic control with the measures noted above. In due course, it will be important for her to exercise. 2. Myelofibrosis. This is a severe diagnosis and may limit her prognosis. I defer management of this to her oncological team. 3. Goiter. I will check her thyroid function test given that she has had weight loss. [id number]/[facility] #: [id number] AURELIA
[2017-02-24] MEDS: oxyCODONE TAB* 5 MG TAB PO SCH ×6 (02:00→21:50)
[2017-02-24] MEDS: Ondansetron TAB* 4 MG PO PRN ×2 (03:19→10:06)
[2017-02-24 04:20] LABS: Add Diff/Slide Review? Slide Review Added; Comments Flag Yes; Hematocrit 26 % (35-47); Hemoglobin 8.5 g/dl (12.0-16.0); Mean Corpuscular HGB Conc 33 g/dl (31-36); Mean Corpuscular Hemoglobin 28 pg (27-31); Mean Corpuscular Volume 83 fL (80-97); Mean Platelet Volume 7 um3 (7.4-10.4); Red Blood Count 3.09 10^6/ul (4.0-5.4); Red Cell Distribution Width 16 % (10.5-15); White Blood Count 1.2 10^3/ul (3.5-10.8)
[2017-02-24] MEDS: Acetaminophen TAB* 325 MG PO PRN ×3 (04:26→23:21)
[2017-02-24 04:34] LABS: BUN/Creatinine Ratio 16.7 (8-20); Calcium 8.8 mg/dL (8.6-10.3); EGFR African American 147.6 (>60); EGFR Non-African American 114.8 (>60); Magnesium 1.1 mg/dL (1.9-2.7); Potassium 4.4 mmol/L (3.5-5.0)
[2017-02-24] MEDS ORDERED: Ondansetron INJ* 2 MG/ML VIAL ONE (05:07)
[2017-02-24] MEDS ORDERED: Magnesium Sulf 4 GM/100 ML IV* 4,000 MG/100 ML BAG IVPB ONE (07:01)
--- NOTE | 2017-02-24 07:44 | RAD ---
INDICATION: Fall. Intracranial injury. Myelofibrosis. COMPARISON: CT brain June 09, 2008 TECHNIQUE: Noncontrast axial source images were acquired from the skull base to the vertex. FINDINGS: Ventricles/sulci: The ventricles and cisterns are normal in size and configuration for age. Brain parenchyma: There is no focal parenchymal finding, evidence of intracranial mass, or intracranial mass effect. Intracranial hemorrhage:None. Extra-axial spaces: There are no abnormal extra axial fluid collections or evidence of extra-axial mass. Calvarium: There is no calvarial fracture or other calvarial abnormality. Scalp: There is no evidence of scalp or extracalvarial soft tissue abnormality. Paranasal sinuses/mastoid: The paranasal sinuses and mastoid air cells are clear. Other: None. IMPRESSION: NEGATIVE EXAMINATION
--- NOTE | 2017-02-24 08:17 | PN ---
Subjective - Subjective Reason for Note: Progress Note History: I discussed the events of yesterday with the patient (her fall, the altered mental status with anagesics, her nausea). Her glucose levels are improving Active Problems: Active Problems Type 2 diabetes mellitus, uncontrolled (Acute) E11.65 Current Medications: Current Medications Acetaminophen (Tylenol Tab*) 650 mg PO Q4H PRN PRN Reason: headache or pain Last Admin: 02/24/17 04:26 Dose: 650 mg Cyanocobalamin (Vitamin B12 Tab*) 1,000 mcg PO DAILY [facility] Last Admin: 02/23/17 09:06 Dose: 1,000 mcg Dextrose (D50w Syringe 50 Ml*) 12.5 gm IV PUSH .FOR FS < 60 - SS PRN PRN Reason: FS < 60 Docusate Sodium (Colace Cap*) 100 mg PO BID [facility] Last Admin: 02/23/17 22:21 Dose: 100 mg Ferrous Sulfate (Ferrous Sulfate Tab*) 325 mg PO DAILY [facility] Last Admin: 02/23/17 09:06 Dose: 325 mg Gabapentin (Neurontin Cap(*)) 600 mg PO TID [facility] Last Admin: 02/23/17 22:21 Dose: 600 mg Heparin Sodium (Porcine) (Heparin Flush Port (Ivad)) 5 ml FLUSH DAILY [facility] PRN Reason: Protocol Last Admin: 02/23/17 09:13 Dose: Not Given Sodium Chloride (Ns 0.9% 1000 Ml*) 1,000 mls @ 75 mls/hr IV PER RATE [facility] Last Admin: 02/23/17 18:11 Dose: 75 mls/hr Magnesium Sulfate (Magnesium Sulf 4 Gm/100 Ml Iv*) 4,000 mg in 100 mls @ 33.333 mls/hr IVPB ONCE ONE Stop: 02/24/17 10:00 Magnesium Citrate (Citrate Of Magnesia*) 60 ml PO BID [facility] Metformin HCl (Glucophage*) 1,000 mg PO BID [facility] Last Admin: 02/23/17 23:10 Dose: 1,000 mg Multivitamins/Minerals (Theragran/Minerals Tab*) 1 tab PO DAILY [facility] Last Admin: 02/23/17 09:06 Dose: 1 tab Omeprazole (Prilosec Cap*) 20 mg PO DAILY [facility] PRN Reason: Protocol Last Admin: 02/23/17 09:05 Dose: 20 mg Ondansetron HCl (Zofran Tab*) 4 mg PO Q6H PRN PRN Reason: NAUSEA Last Admin: 02/24/17 03:19 Dose: 4 mg Ondansetron HCl (Zofran Inj*) 8 mg IV Q6H PRN PRN Reason: NAUSEA Oxycodone HCl (Oxycontin(*)) 40 mg PO BID [facility] Last Admin: 02/23/17 23:00 Dose: Not Given Oxycodone HCl (Roxycodone Tab*) 10 mg PO Q4HR [facility] Last Admin: 02/24/17 05:17 Dose: 10 mg Polyethylene Glycol/Electrolytes (Miralax*) 17 gm PO DAILY PRN PRN Reason: CONSTIPATION Scopolamine (Transderm-Scop 1.5 Mg Patch*) 1 patch TRANSDERM Q72H [facility] Last Admin: 02/22/17 18:17 Dose: 1 patch Home Medications: Home Medications Medication Instructions Recorded Confirmed Type Cyanocobalamin TAB* [Vitamin B12 1,000 mcg PO DAILY 10/07/15 02/22/17 History TAB*] Esomeprazole(NF) [Nexium(NF)] 40 mg PO DAILY 08/28/16 02/22/17 History metFORMIN* [Glucophage 1000 MG TAB 1,000 mg PO BID #60 tab 11/13/16 02/22/17 Rx *] Lactobacillus [Probiotic] 1 cap PO DAILY 12/14/16 02/22/17 History Ondansetron TAB* [Zofran 4 MG Tab*] 4 mg PO Q6H PRN #20 tab 12/21/16 02/22/17 Rx Ferrous Sulfate TAB* 325 mg PO DAILY 01/11/17 02/22/17 History Gabapentin CAP(*) [Neurontin 300 600 mg PO TID 01/11/17 02/22/17 History CAP(*)] Multiple Vitamins W/ Minerals 2 chw PO DAILY 01/11/17 02/22/17 History [Multivitamin Gummies Wome] Insulin Lispro [Humalog Kwikpen] 4 unit SUBCUT AC 01/29/17 02/22/17 History Acetaminophen TAB* [Tylenol TAB*] 650 mg PO Q6H PRN #0 tab 02/05/17 02/22/17 Rx Docusate CAP* [Colace Cap*] 100 mg PO BID #0 cap 02/05/17 02/22/17 Rx Magnesium CITRATE* [Citrate of 30 ml PO BID btl 02/05/17 02/22/17 Rx Magnesia*] Polyethylene Glycol 3350* 17 gm PO DAILY PRN #0 packet 02/05/17 02/22/17 Rx [Miralax*] Scopolamine 1.5 mg* PATCH* 1 patch TRANSDERM Q72H #10 patch 02/05/17 02/22/17 Rx [Transderm-Scop 1.5 mg Patch*] oxyCODONE SR TAB(*) [Oxycontin 40 40 mg PO BID #60 tab.sr MDD 80 mg 02/05/17 Rx mg (*)] oxyCODONE TAB* [Roxycodone TAB 5 5 - 10 mg PO Q4HR #0 tab MDD 60 mg 02/05/17 Rx mg*] Insulin Detemir [Levemir Flextouch] 34 unit SUBCUT QAM 02/22/17 02/22/17 History Sucralfate TAB* [Carafate*] 1 gm PO 0600,1100,2100 PRN 02/22/17 02/22/17 History Allergies: Allergies Allergy/AdvReac Type Severity Reaction Status Date / Time Cephalexin [From Keflex] Allergy VOMITING, Verified 02/09/17 11:48 DIARRHEA, HIVES, LIGHTHEADEDNESS Diazepam [From Valium] Allergy Difficulty Verified 02/09/17 11:48 Breathing Hydromorphone [From Dilaudid] Allergy Altered Verified 02/09/17 11:48 Mental Status Latex Allergy Rash Verified 02/09/17 11:48 Penicillins [PCN] Allergy CHEST Verified 02/09/17 11:48 HEAVINESS, SLIGHT DIFF BREATHING, LIGHTHEADEDNESS, Benzonatate [From Tessalon] AdvReac Headache Verified 02/09/17 11:48 Codeine AdvReac See Comment Verified 02/09/17 11:48 Morphine AdvReac VOMITING, Verified 02/09/17 11:48 LIGHTHEADEDNESS ALL "MYCINS" Allergy CHEST Uncoded 02/09/17 11:48 HEAVINESS, SL. DIFF. BREATHING, LIGHTHEADEDNESS ALL CILLINS Allergy CHEST Uncoded 02/09/17 11:48 HEAVINESS, SL. DIFF. BREATHING, LIGHTHEADNESS MULTIPLE ANTIBIOPTIC Allergy CHEST Uncoded 02/09/17 11:48 REACTIONS HEAVINESS, SL. DIFF. BREATHING, LIGHTHEADEDNESS SULFA DRUGS Allergy VOMITING, Uncoded 02/09/17 11:48 DIARRHEA, HIVES, LIGHTHEADEDNESS Objective - Vital Signs Vital Signs: Vital Signs 02/23/17 02/23/17 02/23/17 09:06 09:07 13:06 Temperature Pulse Rate Respiratory 20 20 20 Rate Blood Pressure (mmHg) O2 Sat by Pulse Oximetry 02/23/17 02/23/17 02/23/17 15:49 17:15 17:16 Temperature 98.9 F Pulse Rate 74 Respiratory 20 18 18 Rate Blood Pressure 120/49 (mmHg) O2 Sat by Pulse 91 Oximetry 02/23/17 02/23/17 02/23/17 19:40 20:20 22:21 Temperature 99.7 F Pulse Rate 74 Respiratory 16 16 16 Rate Blood Pressure 112/41 (mmHg) O2 Sat by Pulse 90 Oximetry 02/23/17 02/23/17 02/24/17 23:00 23:33 00:21 Temperature 100.2 F Pulse Rate 89 Respiratory 16 16 16 Rate Blood Pressure 132/54 (mmHg) O2 Sat by Pulse 87 Oximetry 02/24/17 02/24/17 02/24/17 02:00 03:01 03:15 Temperature 98.6 F 101.3 F Pulse Rate 95 88 Respiratory 16 24 Rate Blood Pressure 146/67 141/65 (mmHg) O2 Sat by Pulse 93 100 Oximetry 02/24/17 02/24/17 02/24/17 03:25 03:49 04:16 Temperature 98.3 F 99.0 F 99.8 F Pulse Rate 87 84 83 Respiratory 16 17 17 Rate Blood Pressure 139/54 133/62 134/51 (mmHg) O2 Sat by Pulse 100 100 99 Oximetry 02/24/17 02/24/17 02/24/17 04:41 05:17 05:31 Temperature 98.9 F 97.6 F Pulse Rate 85 81 Respiratory 16 20 16 Rate Blood Pressure 150/56 136/51 (mmHg) O2 Sat by Pulse 100 97 Oximetry - Intake and Output Intake and Output: Intake & Output 02/21/17 02/22/17 02/23/17 02/24/17 11:59 11:59 11:59 11:59 Intake Total 1430 1878 Output Total 1350 Balance 1430 528 Weight 136 lb Intake: IV Fluids 110 578 NS (0.9%) 578 Oral 1030 1300 Packed Cells 290 Output: Urine 1350 Other: Estimated Void Medium Large # Bowel Movements 0 0 # Voids 3 1 ADLs: Meal Record Start: 02/22/17 17: 39 Freq: DAILY@0900,1400,1800 Status: Active Created 02/22/17 17:39 System (Rec: 02/22/17 17:39 System [id number]) Document 02/23/17 09:00 [id number] (Rec: 02/23/17 10:07 [id number] MED-C09) Document 02/23/17 14:00 [id number] (Rec: 02/23/17 14:16 [id number] MED-C11) Document 02/23/17 18:00 [id number] (Rec: 02/23/17 20:58 [id number] MED-C09) Intake and Output Start: 02/22/17 17: 39 Freq: DAILY@0600,1400,2200 Status: Active Created 02/22/17 17:39 System (Rec: 02/22/17 17:39 System MED-L07) Document 02/22/17 22:00 [id number] (Rec: 02/22/17 23:26 [id number] MED-C11) Document 02/23/17 02:11 [id number] (Rec: 02/23/17 02:12 [id number] MED-L07) Document 02/23/17 05:31 [id number] (Rec: 02/23/17 05:31 [id number] MED-C42) Document 02/23/17 14:00 [id number] (Rec: 02/23/17 14:16 [id number] MED-C11) Document 02/23/17 22:00 [id number] (Rec: 02/23/17 22:28 [id number] MED-C09) Document 02/24/17 05:06 [id number] (Rec: 02/24/17 05:06 [id number] MED-C42) Document 02/24/17 08:01 [id number] (Rec: 02/24/17 08:02 [id number] MED-C11) Results - Results Lab Results: Laboratory Results - last 24 hr 02/22/17 02/23/17 02/23/17 13:00 06:10 06:10 WBC RBC Hgb Hct MCV MCH MCHC RDW Plt Count MPV Neut % (Auto) Lymph % (Auto) [place] % (Auto) Eos % (Auto) Baso % (Auto) Absolute Neuts (auto) Absolute Lymphs (auto) Absolute Monos (auto) Absolute Eos (auto) Absolute Basos (auto) Absolute Nucleated RBC Nucleated RBC % Hem Pathologist Commnt Sodium Potassium Chloride Carbon Dioxide Anion Gap BUN Creatinine Est GFR ( Amer) Est GFR (Non-Af Amer) BUN/Creatinine Ratio Glucose POC Glucose (mg/dL) Hemoglobin A1c 7.1 H Calcium Magnesium TSH Free T4 Free T3 Total T3 Ur Random Microalbumin Ur Creatinine mg/dL Microalb/Creat Ratio Blood Type O Positive Antibody Screen Negative Crossmatch See Detail 02/23/17 02/23/17 02/23/17 11:05 11:30 11:52 WBC RBC Hgb Hct MCV MCH MCHC RDW Plt Count MPV Neut % (Auto) Lymph % (Auto) [place] % (Auto) Eos % (Auto) Baso % (Auto) Absolute Neuts (auto) Absolute Lymphs (auto) Absolute Monos (auto) Absolute Eos (auto) Absolute Basos (auto) Absolute Nucleated RBC Nucleated RBC % Hem Pathologist Commnt Sodium Potassium Chloride Carbon Dioxide Anion Gap BUN Creatinine Est GFR ( Amer) Est GFR (Non-Af Amer) BUN/Creatinine Ratio Glucose POC Glucose (mg/dL) 165 H Hemoglobin A1c Calcium Magnesium TSH 1.27 Free T4 1.38 H Free T3 3.30 Total T3 0.87 Ur Random Microalbumin 24.7 Ur Creatinine mg/dL 45.60 Microalb/Creat Ratio 54.1 H Blood Type Antibody Screen Crossmatch 02/23/17 02/23/17 02/24/17 16:58 22:19 03:23 WBC RBC Hgb Hct MCV MCH MCHC RDW Plt Count MPV Neut % (Auto) Lymph % (Auto) [place] % (Auto) Eos % (Auto) Baso % (Auto) Absolute Neuts (auto) Absolute Lymphs (auto) Absolute Monos (auto) Absolute Eos (auto) Absolute Basos (auto) Absolute Nucleated RBC Nucleated RBC % Hem Pathologist Commnt Sodium Potassium Chloride Carbon Dioxide Anion Gap BUN Creatinine Est GFR ( Amer) Est GFR (Non-Af Amer) BUN/Creatinine Ratio Glucose POC Glucose (mg/dL) 120 H 104 178 H Hemoglobin A1c Calcium Magnesium TSH Free T4 Free T3 Total T3 Ur Random Microalbumin Ur Creatinine mg/dL Microalb/Creat Ratio Blood Type Antibody Screen Crossmatch 02/24/17 02/24/17 04:00 04:00 WBC 1.2 L RBC 3.09 L Hgb 8.5 L Hct 26 L MCV 83 MCH 28 MCHC 33 RDW 16 H Plt Count 33 L MPV 7 L Neut % (Auto) 54.6 Lymph % (Auto) 26.9 [place] % (Auto) 15.8 H Eos % (Auto) 1.6 Baso % (Auto) 1.1 Absolute Neuts (auto) 0.7 L Absolute Lymphs (auto) 0.3 L Absolute Monos (auto) 0.2 Absolute Eos (auto) 0 Absolute Basos (auto) 0 Absolute Nucleated RBC 0.04 Nucleated RBC % 3.1 Hem Pathologist Commnt Sodium 125 L Potassium 4.4 Chloride 92 L Carbon Dioxide 28 Anion Gap 5 BUN 9 Creatinine 0.54 Est GFR ( Amer) 147.6 Est GFR (Non-Af Amer) 114.8 BUN/Creatinine Ratio 16.7 Glucose 198 H POC Glucose (mg/dL) Hemoglobin A1c Calcium 8.8 Magnesium 1.1 L TSH Free T4 Free T3 Total T3 Ur Random Microalbumin Ur Creatinine mg/dL Microalb/Creat Ratio Blood Type Antibody Screen Crossmatch Assessment - Problem List Assessment: Patient Problems Type 2 diabetes mellitus, uncontrolled (Acute) Abdominal pain (Acute) DVT prophylaxis (Acute) Febrile illness (Acute) GI bleed (Acute) Hypomagnesemia (Acute) Hyponatremia (Acute) MF (myelofibrosis) (Acute) Thrombocytopenia (Acute) Weakness (Acute) GERD (gastroesophageal reflux disease) (Chronic) IDDM (insulin dependent diabetes mellitus) (Chronic) Pancytopenia (Chronic) Peripheral neuropathy (Chronic) Plan: Diabetes education: I discussed basal/bolus regimen. I introduced carb counting and how she can get quality supervisor for this by checking post prandial glucose levels. She is having further diabetes education today with Elif Noble, TER[employer]AYER, CDE
[2017-02-24] MEDS: Omeprazole CAP* 20 MG PO SCH ×3 (08:41→17:08)
[2017-02-24] MEDS: Multivitamins/Minerals TAB PO SCH (08:41)
[2017-02-24] MEDS: Gabapentin CAP(*) 300 MG PO SCH ×3 (08:42→21:50)
[2017-02-24] MEDS: oxyCODONE SR TAB(*) 40 MG TAB.SR PO SCH ×2 (08:44→21:50)
[2017-02-24] MEDS: Docusate CAP* 100 MG PO SCH ×2 (08:44→21:50)
[2017-02-24] MEDS: Ferrous Sulfate TAB* 325 MG PO SCH (08:47)
[2017-02-24] MEDS: Cyanocobalamin TAB* 500 MCG PO SCH (08:47)
[2017-02-24] MEDS: metFORMIN* 1,000 MG TAB PO SCH ×2 (09:08→21:50)
[2017-02-24] MEDS: Magnesium CITRATE* 300 ML BTL PO SCH ×2 (09:08→21:51)
--- NOTE | 2017-02-24 10:22 | CONSULT ---
Subjective Reason for Visit: Diabetes Education Admission Date: 02/23/17 History Of Present Illness: 61 year old woman admitted for weakness as documented by her admitting history and physical. She is being treated for mylofibrosis with port placement at [facility] on February 19. She has a 15 year history of type 2 diabetes that has been in poor control recently with basal insulin. She was seen during this admission by Dr Mcgill who recommended that she start a basal-bolus insulin protocol to better manage her glucose levels. His recommendation for basal dosing and insulin/carbohydrate ratio is detailed in his note. She has not done any carbohydrate counting in the past and is interested in learning how to better control her type 2 diabetes. Patient History Surgical History: Yes Surgery Procedure, Year, and Place: NECK SURGERY- FOR HENIATED DISC-[facility] [place]. SURGERY FOR PROLASPED BLADDER AND RECTUM, TOTAL ABDOMINAL HYSTERECTOMY- LAPAROSCOPIC-[facility]. TUBAL LIGATION. LEFT HAND LUMPS REMOVED 2014. dental work Lives With: Self Hx Tobacco Use: Yes Smoking/Tobacco use: Quit - 2008 Objective Allergies Allergy/AdvReac Type Severity Reaction Status Date / Time Azithromycin Allergy See Comment Verified 02/25/17 09:50 Cephalexin [From Keflex] Allergy VOMITING, Verified 02/09/17 11:48 DIARRHEA, HIVES, LIGHTHEADEDNESS Diazepam [From Valium] Allergy Difficulty Verified 02/09/17 11:48 Breathing Hydromorphone [From Dilaudid] Allergy Altered Verified 02/09/17 11:48 Mental Status Latex Allergy Rash Verified 02/09/17 11:48 Penicillins [PCN] Allergy CHEST Verified 02/09/17 11:48 HEAVINESS, SLIGHT DIFF BREATHING, LIGHTHEADEDNESS, Sulfa Antibiotics Allergy See Comment Verified 02/25/17 09:50 Benzonatate [From Tessalon] AdvReac Headache Verified 02/09/17 11:48 Codeine AdvReac See Comment Verified 02/09/17 11:48 Morphine AdvReac VOMITING, Verified 02/09/17 11:48 LIGHTHEADEDNESS ALL "MYCINS" Allergy CHEST Uncoded 02/09/17 11:48 HEAVINESS, SL. DIFF. BREATHING, LIGHTHEADEDNESS ALL CILLINS Allergy CHEST Uncoded 02/09/17 11:48 HEAVINESS, SL. DIFF. BREATHING, LIGHTHEADNESS MULTIPLE ANTIBIOPTIC Allergy CHEST Uncoded 02/09/17 11:48 REACTIONS HEAVINESS, SL. DIFF. BREATHING, LIGHTHEADEDNESS SULFA DRUGS Allergy VOMITING, Uncoded 02/09/17 11:48 DIARRHEA, HIVES, LIGHTHEADEDNESS Home Medications Medication Instructions Recorded Confirmed Type Cyanocobalamin TAB* [Vitamin B12 1,000 mcg PO DAILY 10/07/15 02/22/17 History TAB*] Esomeprazole(NF) [Nexium(NF)] 40 mg PO DAILY 08/28/16 02/22/17 History metFORMIN* [Glucophage 1000 MG TAB 1,000 mg PO BID #60 tab 11/13/16 02/22/17 Rx *] Lactobacillus [Probiotic] 1 cap PO DAILY 12/14/16 02/22/17 History Ondansetron TAB* [Zofran 4 MG Tab*] 4 mg PO Q6H PRN #20 tab 12/21/16 02/22/17 Rx Ferrous Sulfate TAB* 325 mg PO DAILY 01/11/17 02/22/17 History Gabapentin CAP(*) [Neurontin 300 600 mg PO TID 01/11/17 02/22/17 History CAP(*)] Multiple Vitamins W/ Minerals 2 chw PO DAILY 01/11/17 02/22/17 History [Multivitamin Gummies Wome] Insulin Lispro [Humalog Kwikpen] 4 unit SUBCUT AC 01/29/17 02/22/17 History Acetaminophen TAB* [Tylenol TAB*] 650 mg PO Q6H PRN #0 tab 02/05/17 02/22/17 Rx Docusate CAP* [Colace Cap*] 100 mg PO BID #0 cap 02/05/17 02/22/17 Rx Magnesium CITRATE* [Citrate of 30 ml PO BID btl 02/05/17 02/22/17 Rx Magnesia*] Polyethylene Glycol 3350* 17 gm PO DAILY PRN #0 packet 02/05/17 02/22/17 Rx [Miralax*] Scopolamine 1.5 mg* PATCH* 1 patch TRANSDERM Q72H #10 patch 02/05/17 02/22/17 Rx [Transderm-Scop 1.5 mg Patch*] oxyCODONE SR TAB(*) [Oxycontin 40 40 mg PO BID #60 tab.sr MDD 80 mg 02/05/17 Rx mg (*)] oxyCODONE TAB* [Roxycodone TAB 5 5 - 10 mg PO Q4HR #0 tab MDD 60 mg 02/05/17 Rx mg*] Insulin Detemir [Levemir Flextouch] 34 unit SUBCUT QAM 02/22/17 02/22/17 History Sucralfate TAB* [Carafate*] 1 gm PO 0600,1100,2100 PRN 02/22/17 02/22/17 History Hospital Medications: Current Medications Acetaminophen (Tylenol Tab*) 650 mg PO Q4H PRN PRN Reason: headache or pain Last Admin: 02/24/17 04:26 Dose: 650 mg Cyanocobalamin (Vitamin B12 Tab*) 1,000 mcg PO DAILY [facility] Last Admin: 02/24/17 08:47 Dose: 1,000 mcg Dextrose (D50w Syringe 50 Ml*) 12.5 gm IV PUSH .FOR FS < 60 - SS PRN PRN Reason: FS < 60 Docusate Sodium (Colace Cap*) 100 mg PO BID [facility] Last Admin: 02/24/17 08:44 Dose: 100 mg Ferrous Sulfate (Ferrous Sulfate Tab*) 325 mg PO DAILY [facility] Last Admin: 02/24/17 08:47 Dose: 325 mg Gabapentin (Neurontin Cap(*)) 300 mg PO TID [facility] Heparin Sodium (Porcine) (Heparin Flush Port (Ivad)) 5 ml FLUSH DAILY [facility] PRN Reason: Protocol Last Admin: 02/24/17 08:51 Dose: Not Given Sodium Chloride (Ns 0.9% 1000 Ml*) 1,000 mls @ 75 mls/hr IV PER RATE [facility] Last Admin: 02/23/17 18:11 Dose: 75 mls/hr Magnesium Citrate (Citrate Of Magnesia*) 60 ml PO BID [facility] Last Admin: 02/24/17 09:08 Dose: 60 ml Metformin HCl (Glucophage*) 1,000 mg PO BID [facility] Last Admin: 02/24/17 09:08 Dose: 1,000 mg Multivitamins/Minerals (Theragran/Minerals Tab*) 1 tab PO DAILY [facility] Last Admin: 02/24/17 08:41 Dose: 1 tab Omeprazole (Prilosec Cap*) 20 mg PO DAILY [facility] PRN Reason: Protocol Last Admin: 02/23/17 09:05 Dose: 20 mg Ondansetron HCl (Zofran Tab*) 4 mg PO Q6H PRN PRN Reason: NAUSEA Last Admin: 02/24/17 10:06 Dose: 4 mg Ondansetron HCl (Zofran Inj*) 8 mg IV Q6H PRN PRN Reason: NAUSEA Oxycodone HCl (Oxycontin(*)) 40 mg PO BID [facility] Last Admin: 02/24/17 08:44 Dose: 40 mg Oxycodone HCl (Roxycodone Tab*) 10 mg PO Q4HR [facility] Last Admin: 02/24/17 09:51 Dose: 10 mg Polyethylene Glycol/Electrolytes (Miralax*) 17 gm PO DAILY [facility] Scopolamine (Transderm-Scop 1.5 Mg Patch*) 1 patch TRANSDERM Q72H [facility] Last Admin: 02/22/17 18:17 Dose: 1 patch Lab Data: Sodium 125 mmol/L (133-145) L 02/24/17 04:00 Potassium 4.4 mmol/L (3.5-5.0) 02/24/17 04:00 BUN 9 mg/dL (6-24) 02/24/17 04:00 Creatinine 0.54 mg/dL (0.51-0.95) 02/24/17 04:00 Hemoglobin A1c 7.1 % (Less than 6.0) H 02/23/17 06:10 Calcium 8.8 mg/dL (8.6-10.3) 02/24/17 04:00 Magnesium 1.1 mg/dL (1.9-2.7) L 02/24/17 04:00 AST 5 U/L (13-39) L 02/23/17 06:10 ALT 3 U/L (7-52) L 02/23/17 06:10 Vital Signs: Vital Signs 02/24/17 02/24/17 02/24/17 03:01 03:15 03:25 Temperature 98.6 F 101.3 F 98.3 F Pulse Rate 95 88 87 Respiratory 24 16 Rate Blood Pressure 146/67 141/65 139/54 (mmHg) O2 Sat by Pulse 93 100 100 Oximetry 02/24/17 02/24/17 02/24/17 03:49 04:16 04:41 Temperature 99.0 F 99.8 F 98.9 F Pulse Rate 84 83 85 Respiratory 17 17 16 Rate Blood Pressure 133/62 134/51 150/56 (mmHg) O2 Sat by Pulse 100 99 100 Oximetry 02/24/17 02/24/17 02/24/17 05:17 05:31 07:17 Temperature 97.6 F Pulse Rate 81 Respiratory 20 16 16 Rate Blood Pressure 136/51 (mmHg) O2 Sat by Pulse 97 Oximetry 02/24/17 02/24/17 02/24/17 07:18 08:00 08:42 Temperature 98.2 F Pulse Rate 82 Respiratory 16 16 16 Rate Blood Pressure 129/57 (mmHg) O2 Sat by Pulse 96 Oximetry 02/24/17 02/24/17 08:44 09:51 Temperature Pulse Rate Respiratory 16 16 Rate Blood Pressure (mmHg) O2 Sat by Pulse Oximetry Height: 5 ft 3 in Weight: 136 lb Body Mass Index (BMI): 24.0 Physical Exam General Appearance: Positive: Alert, Oriented x3, Thin Plan Of Care Patient's Next Step: Patient is hoping to be dicscharged home soon and would like follow up for diabetes education. She was given some basic instructions about basal-bolus dosing and was able to articulate correct insulin dose based on test scenarios. She can follow up at [facility] or at Dr Mcgill's office for further outpatient teaching. Referral To: [facility] Prior Diabetic Education: No Education Provided: Basal Bolus, Insulin To Carb Ratio and Carb Counting Goals Goals: A total of 20 minutes was spent on counseling and education at the patient's bedside.
[2017-02-24] MEDS: Ondansetron INJ* 2 MG/ML VIAL IV PRN (12:05)
[2017-02-24] MEDS ORDERED: Dextrose 50% Syringe 50 ML* 25 GM/50 ML SYRINGE IV PUSH PRN (18:11)
[2017-02-24] MEDS: NS 0.9% 1000 ML* 1,000 ML IV SCH (20:19)
[2017-02-24] MEDS: Insulin LISPRO* 1 UNITS UNIT SUBCUT SCH (21:51)
[2017-02-25] MEDS: oxyCODONE TAB* 5 MG TAB PO SCH ×2 (01:40→04:55)
[2017-02-25] MEDS: Acetaminophen TAB* 325 MG PO PRN ×2 (03:50→15:32)
[2017-02-25] MEDS ORDERED: Dextrose 50% Syringe 50 ML* 25 GM/50 ML SYRINGE IV PUSH PRN ×2 (08:52→08:53)
[2017-02-25] MEDS: Insulin LISPRO* 1 UNITS UNIT SUBCUT SCH ×6 (08:55→20:29)
[2017-02-25] MEDS: Ondansetron INJ* 2 MG/ML VIAL IV PRN (08:57)
[2017-02-25 09:06] LABS: Add Diff/Slide Review? Manual Diff Added; Comments Flag Yes; Hematocrit 24 % (35-47); Hemoglobin 7.9 g/dl (12.0-16.0); Mean Corpuscular HGB Conc 33 g/dl (31-36); Mean Corpuscular Hemoglobin 28 pg (27-31); Mean Corpuscular Volume 83 fL (80-97); Mean Platelet Volume 7 um3 (7.4-10.4); Red Blood Count 2.85 10^6/ul (4.0-5.4); Red Cell Distribution Width 16 % (10.5-15)
[2017-02-25 09:25] LABS: Albumin 2.7 g/dL (3.2-5.2); Calcium 8.6 mg/dL (8.6-10.3); EGFR Non-African American 76.2 (>60); Globulin 2.7 g/dL (2-4); Potassium 4.4 mmol/L (3.5-5.0); Total Bilirubin 0.5 mg/dL (0.2-1.0); Total Protein 5.4 g/dL (6.4-8.9)
[2017-02-25] MEDS ORDERED: HYDROcodone/ACETAMIN 5-325 MG* 1 TAB PO PRN (09:30)
--- NOTE | 2017-02-25 09:31 | PN ---
Progress Note - Progress Note Note: I reviewed the insulin orders. These were stopped by Dr. Ayala. We have restarted her insulin. She has nausea, so we have stopped her metformin. I discussed this with the patient and son. I have discussed with Dr. Gaston.
[2017-02-25 09:55] LABS: Add Path Review? YES; Immature Granulocytes 15 % (0-9); Metamyelocytes % 2 % (0-2); Myelocytes % 5 % (0-1); Neutrophil % 34 % (38-83); Polychromasia 1+; Reactive Lymph % 6 % (0-6)
[2017-02-25 09:56] LABS: Tear Drop Cells 1+
[2017-02-25] MEDS: Metoclopramide IV* 5 MG/ML 2 ML VIAL IV SLOW PU PRN ×2 (09:58→17:48)
[2017-02-25] MEDS: Insulin GLARGINE(*) 1 UNITS UNIT SUBCUT SCH ×2 (10:04→20:30)
[2017-02-25] MEDS: NS 0.9% 1000 ML* 1,000 ML IV SCH (10:21)
[2017-02-25] MEDS ORDERED: LORazepam INJ* 2 MG/ML 1 ML VIAL IV PUSH PRN (13:25)
[2017-02-25] MEDS: Ondansetron TAB* 4 MG PO PRN (14:57)
[2017-02-25] MEDS: Gabapentin CAP(*) 300 MG PO SCH ×3 (15:31→20:30)
[2017-02-25] MEDS: Docusate CAP* 100 MG PO SCH ×2 (16:09→20:31)
[2017-02-25] MEDS: Cyanocobalamin TAB* 500 MCG PO SCH (16:09)
[2017-02-25] MEDS: oxyCODONE SR TAB(*) 40 MG TAB.SR PO SCH (16:10)
[2017-02-25] MEDS: Omeprazole CAP* 20 MG PO SCH (16:10)
[2017-02-25] MEDS: Magnesium CITRATE* 300 ML BTL PO SCH ×2 (16:10→20:33)
[2017-02-25] MEDS: Multivitamins/Minerals TAB PO SCH (16:10)
[2017-02-25] MEDS: Polyethylene Glycol 3350* 17 GM PACKET PO SCH (16:10)
[2017-02-25] MEDS ORDERED: fentaNYL PATCH 25 MCG/HR TRANSDERM SCH (17:00)
[2017-02-25] MEDS: fentaNYL Patch Check Q Shift 1 NOTE SCH (18:55)
[2017-02-26] MEDS: Acetaminop/Codeine 30 MG TAB* 1 TAB (300 MG/30 MG) PO PRN ×4 (01:04→22:12)
[2017-02-26] MEDS: Ondansetron INJ* 2 MG/ML VIAL IV PRN (03:34)
[2017-02-26] MEDS: fentaNYL Patch Check Q Shift 1 NOTE SCH ×2 (07:05→18:49)
[2017-02-26] MEDS: Acetaminophen TAB* 325 MG PO PRN ×2 (07:30→18:16)
[2017-02-26 08:07] LABS: Hematocrit 23 % (35-47); Hemoglobin 7.8 g/dl (12.0-16.0); Mean Corpuscular HGB Conc 34 g/dl (31-36); Mean Corpuscular Hemoglobin 29 pg (27-31); Mean Corpuscular Volume 83 fL (80-97); Mean Platelet Volume 8 um3 (7.4-10.4); Red Blood Count 2.72 10^6/ul (4.0-5.4); Red Cell Distribution Width 17 % (10.5-15); White Blood Count 2.6 10^3/ul (3.5-10.8)
[2017-02-26 08:09] LABS: Comments Flag Yes
[2017-02-26 08:13] LABS: Add Diff/Slide Review? Manual Diff Added
[2017-02-26] MEDS: Insulin GLARGINE(*) 1 UNITS UNIT SUBCUT SCH ×2 (08:14→21:54)
[2017-02-26 08:17] LABS: BUN/Creatinine Ratio 13.8 (8-20); Calcium 8.3 mg/dL (8.6-10.3); EGFR African American 135.9 (>60); EGFR Non-African American 105.7 (>60); Magnesium 1.2 mg/dL (1.9-2.7)
--- NOTE | 2017-02-26 08:36 | PN ---
Progress Note - Progress Note Note: Glucose records: Selected Entries 02/25/17 21:00 Glucose Result 191 Being Addressed /Treated (74- 106 mg/dL) Laboratory Tests 02/26/17 02/26/17 07:36 07:50 Glucose 141 H POC Glucose (mg/dL) 157 H I spoke with the patient. She has difficulty learning carb counting. I suggest the following for home: Measure glucose before each meal and before bed Levemir: 20 units twice daily (Q12) - KEEP THIS CONSTANT Novolog insulin: Small meal 2 units Medium meal 4 units Large meal 6 units PLUS CORRECTION: 2 units for every 50 mg/dl > 150 mg/dl 0 - 150 0 units 151 - 200 2 units 201 - 250 4 units 251 - 300 6 units 301 - 350 8 units Follow with my office for T2D as an outpatient I discussed this stategy with nursing
[2017-02-26 08:50] LABS: Eosinophils % 1 % (0-6); Immature Granulocytes 18 % (0-9); Metamyelocytes % 3 % (0-2); Myelocytes % 4 % (0-1); Neutrophil % 32 % (38-83); Promyelocytes % 3 %; Reactive Lymph % 2 % (0-6)
[2017-02-26 08:51] LABS: Polychromasia 1+; Tear Drop Cells 1+
[2017-02-26] MEDS: Magnesium CITRATE* 300 ML BTL PO SCH ×2 (09:37→21:53)
[2017-02-26] MEDS: Polyethylene Glycol 3350* 17 GM PACKET PO SCH (09:37)
[2017-02-26] MEDS ORDERED: Ondansetron TAB* 4 MG PO PRN ×2 (09:38→09:41)
[2017-02-26] MEDS: Gabapentin CAP(*) 300 MG PO SCH ×3 (09:39→21:52)
[2017-02-26] MEDS ORDERED: Metoclopramide TAB* 10 MG PO PRN (09:40)
[2017-02-26] MEDS: Omeprazole CAP* 20 MG PO SCH (09:40)
[2017-02-26] MEDS: Cyanocobalamin TAB* 500 MCG PO SCH (09:40)
[2017-02-26] MEDS: Docusate CAP* 100 MG PO SCH ×2 (09:40→21:53)
[2017-02-26] MEDS: Multivitamins/Minerals TAB PO SCH (09:40)
[2017-02-26] MEDS: Insulin LISPRO* 1 UNITS UNIT SUBCUT SCH ×7 (09:41→23:48)
[2017-02-26] MEDS ORDERED: LORazepam TAB(*) 0.5 MG PO PRN (09:41)
[2017-02-26] MEDS: Al Hydrox/Mg Hydrox/Simet LIQ* 30 ML UDC PO PRN (12:50)
[2017-02-27] MEDS: Acetaminop/Codeine 30 MG TAB* 1 TAB (300 MG/30 MG) PO PRN (03:39)
[2017-02-27] MEDS: NS 0.9% 1000 ML* 1,000 ML IV SCH ×2 (05:50→20:11)
[2017-02-27] MEDS ORDERED: Ondansetron INJ* 2 MG/ML VIAL ONE (06:34)
[2017-02-27] MEDS ORDERED: Ondansetron INJ* 2 MG/ML VIAL IV PRN ×2 (06:56→09:58)
[2017-02-27] MEDS: fentaNYL Patch Check Q Shift 1 NOTE SCH ×2 (07:19→19:06)
[2017-02-27 07:42] LABS: Hematocrit 25 % (35-47); Hemoglobin 8.4 g/dl (12.0-16.0); Mean Corpuscular HGB Conc 33 g/dl (31-36); Mean Corpuscular Hemoglobin 28 pg (27-31); Mean Corpuscular Volume 84 fL (80-97); Mean Platelet Volume 7 um3 (7.4-10.4); Red Blood Count 2.99 10^6/ul (4.0-5.4); Red Cell Distribution Width 17 % (10.5-15)
[2017-02-27 07:48] LABS: Add Diff/Slide Review? Manual Diff Added; Comments Flag Yes
[2017-02-27 08:54] LABS: White Blood Count 2.6 10^3/ul (3.5-10.8)
[2017-02-27 09:01] LABS: Eosinophils % 2 % (0-6); Immature Granulocytes 20 % (0-9); Metamyelocytes % 6 % (0-2); Myelocytes % 5 % (0-1); Neutrophil % 49 % (38-83)
[2017-02-27 09:02] LABS: Basophilic Stippling 1+; Microcytosis 1+; Polychromasia 1+
[2017-02-27 09:03] LABS: Tear Drop Cells 1+
[2017-02-27] MEDS: Insulin LISPRO* 1 UNITS UNIT SUBCUT SCH ×7 (09:37→22:58)
[2017-02-27] MEDS: Insulin GLARGINE(*) 1 UNITS UNIT SUBCUT SCH ×2 (09:56→22:15)
[2017-02-27] MEDS ORDERED: LORazepam INJ* 2 MG/ML 1 ML VIAL IV PUSH PRN (09:59)
[2017-02-27] MEDS ORDERED: fentaNYL PATCH 25 MCG/HR TRANSDERM SCH (10:00)
[2017-02-27] MEDS ORDERED: Morphine INJ* 2 MG/ML 1 ML SYRINGE IV PRN (10:00)
[2017-02-27] MEDS ORDERED: fentaNYL PATCH 12 MCG/HR TRANSDERM SCH (10:00)
[2017-02-27] MEDS ORDERED: Metoclopramide IV* 5 MG/ML 2 ML VIAL IV PRN (10:00)
[2017-02-27] MEDS ORDERED: Magnesium Sulf 4 GM/100 ML IV* 4,000 MG/100 ML BAG IVPB ONE (10:05)
--- NOTE | 2017-02-27 10:09 | PN ---
Progress Note - Progress Note SOAP: Subjective: []Doing very poorly. Did not tolerate change to oral medication. Has had continued nausea, not able to eat anything. Pain is worse. Feels very poorly. No fevers. Is moving bowls. Not getting out of bed. Acetaminophen (Tylenol Tab*) 650 mg PO Q4H PRN PRN Reason: headache or pain Last Admin: 02/26/17 18:16 Dose: 650 mg Acetaminophen/Codeine Phosphate (Tylenol/Codeine 30 Mg Tab*) 1 tab PO Q6H PRN PRN Reason: PAIN Last Admin: 02/27/17 03:39 Dose: 1 tab Al Hydrox/Mg Hydrox/Simethicone (Maalox Plus*) 30 ml PO Q3H PRN PRN Reason: HEARTBURN Last Admin: 02/26/17 12:50 Dose: 30 ml Cyanocobalamin (Vitamin B12 Tab*) 1,000 mcg PO DAILY [facility] Last Admin: 02/26/17 09:40 Dose: 1,000 mcg Dextrose (D50w Syringe 50 Ml*) 12.5 gm IV PUSH .FOR FS < 60 - SS PRN PRN Reason: FS < 60 Docusate Sodium (Colace Cap*) 100 mg PO BID [facility] Last Admin: 02/26/17 21:53 Dose: 100 mg Fentanyl (Duragesic Patch 12 Mcg/Hr *) 12 mcg TRANSDERM Q72H BRITNI Fentanyl (Duragesic Patch 25 Mcg/Hr*) 25 mcg TRANSDERM Q72H [facility] Gabapentin (Neurontin Cap(*)) 300 mg PO TID [facility] Last Admin: 02/26/17 21:52 Dose: 300 mg Heparin Sodium (Porcine) (Heparin Flush Port (Ivad)) 5 ml FLUSH DAILY [facility] PRN Reason: Protocol Last Admin: 02/26/17 10:24 Dose: Not Given Sodium Chloride (Ns 0.9% 1000 Ml*) 1,000 mls @ 75 mls/hr IV PER RATE [facility] Last Admin: 02/27/17 05:50 Dose: 75 mls/hr Insulin Glargine (Lantus(*)) 20 units SUBCUT Q12H [facility] Last Admin: 02/27/17 09:56 Dose: 20 units Insulin Human Lispro (Humalog*) 0 units SUBCUT AC [facility] PRN Reason: Protocol Last Admin: 02/27/17 09:37 Dose: Not Given Insulin Human Lispro (Humalog*) 0 units SUBCUT ACHS BRITNI PRN Reason: Protocol Last Admin: 02/27/17 09:56 Dose: 2 units Lorazepam (Ativan Inj*) 0.5 mg IV PUSH Q6H PRN PRN Reason: NAUSEA - REFRACTORY Magnesium Citrate (Citrate Of Magnesia*) 60 ml PO BID [facility] Last Admin: 02/26/17 21:53 Dose: 60 ml Metoclopramide HCl (Reglan Iv*) 10 mg IV Q8H PRN PRN Reason: NAUSEA/VOMITING Morphine Sulfate (Morphine Inj (Syringe)*) 2 mg IV Q4H PRN PRN Reason: PAIN - MILD Multivitamins/Minerals (Theragran/Minerals Tab*) 1 tab PO DAILY [facility] Last Admin: 02/26/17 09:40 Dose: 1 tab Omeprazole (Prilosec Cap*) 20 mg PO DAILY [facility] PRN Reason: Protocol Last Admin: 02/26/17 09:40 Dose: 20 mg Ondansetron HCl (Zofran Inj*) 8 mg IV Q8H PRN PRN Reason: NAUSEA Polyethylene Glycol/Electrolytes (Miralax*) 17 gm PO DAILY [facility] Last Admin: 02/26/17 09:37 Dose: 17 gm Objective: [] Vital Signs Temp Pulse Resp BP Pulse Ox 97.9 F 73 16 148/58 95 02/27/17 07:36 02/27/17 07:36 02/27/17 07:36 02/27/17 07:36 02/27/17 07:36 HEENT - Pale, no oral lesions. CTA RRR S1S2 Some diffuse abd tenderness. obese and no palpable spleen. Ext w/o edema. Laboratory Results - last 24 hr 02/26/17 02/26/17 02/27/17 16:26 21:25 07:29 WBC RBC Hgb Hct MCV MCH MCHC RDW Plt Count MPV Immature Gran % (Auto) Absolute Neuts (auto) Absolute Lymphs (auto) Absolute Monos (auto) Absolute Eos (auto) Absolute Basos (auto) Absolute Nucleated RBC Neutrophils % Band Neutrophils % Lymphocytes % Monocytes % Eosinophils % Metamyelocytes % Myelocytes % Nucleated RBCs/100 WBC Normal RBC Morphology Polychromasia Basophilic Stippling Microcytosis Tear Drop Cells POC Glucose (mg/dL) 112 H 100 160 H 02/27/17 07:30 WBC 2.6 L RBC 2.99 L Hgb 8.4 L Hct 25 L MCV 84 MCH 28 MCHC 33 RDW 17 H Plt Count 39 L MPV 7 L Immature Gran % (Auto) 20 H Absolute Neuts (auto) 1.8 Absolute Lymphs (auto) 0.5 L Absolute Monos (auto) 0.2 Absolute Eos (auto) 0.1 Absolute Basos (auto) 0 Absolute Nucleated RBC 0.30 Neutrophils % 49 Band Neutrophils % 9 H Lymphocytes % 21 L Monocytes % 8 Eosinophils % 2 Metamyelocytes % 6 H Myelocytes % 5 H Nucleated RBCs/100 WBC 10 H Normal RBC Morphology Not Reportable Polychromasia 1+ Basophilic Stippling 1+ Microcytosis 1+ Tear Drop Cells 1+ POC Glucose (mg/dL) Assessment: []61 year with MDS c/b DM on insulin and refractory abdominal pain and nausea. Feels very poorly today after transition of oral medication for nausea and pain. Plan: []1. Pain. Will increase Fentanly to 37 mcg daily and added IV morphine prn at 2 mg if needed. Either may increase nausea. 2. Nausea. May have gastroparesis and poor absorption. Will go back to IV Reglan , Ativan and Zofran. Follow, eat once feels better. 3. MDS. Stable, no transfusions today. 4. DM. On insulin per SS and based on calorie count. Continue. 5. FEN. Mg low. Hold Mg Citrate as may be contributing to nausea. Mg IV 4 gm and re-check tomorrow.
[2017-02-27] MEDS: Omeprazole CAP* 20 MG PO SCH (10:24)
[2017-02-27] MEDS: Polyethylene Glycol 3350* 17 GM PACKET PO SCH ×2 (10:24→19:45)
[2017-02-27] MEDS: Docusate CAP* 100 MG PO SCH ×2 (10:24→22:14)
[2017-02-27] MEDS: Gabapentin CAP(*) 300 MG PO SCH ×3 (10:24→22:13)
[2017-02-27] MEDS: Magnesium CITRATE* 300 ML BTL PO SCH (12:16)
[2017-02-27] MEDS: Multivitamins/Minerals TAB PO SCH (12:16)
[2017-02-27] MEDS: Cyanocobalamin TAB* 500 MCG PO SCH (12:16)
[2017-02-27] MEDS: Acetaminophen TAB* 325 MG PO PRN ×2 (16:00→23:52)
[2017-02-28] MEDS: Acetaminophen TAB* 325 MG PO PRN ×4 (06:01→23:12)
[2017-02-28 06:33] LABS: Hematocrit 25 % (35-47); Hemoglobin 8.3 g/dl (12.0-16.0); Mean Corpuscular HGB Conc 33 g/dl (31-36); Mean Corpuscular Hemoglobin 28 pg (27-31); Mean Corpuscular Volume 84 fL (80-97); Mean Platelet Volume 8 um3 (7.4-10.4); Red Blood Count 2.99 10^6/ul (4.0-5.4); Red Cell Distribution Width 17 % (10.5-15)
[2017-02-28 06:36] LABS: Comments Flag Yes
[2017-02-28 06:37] LABS: Add Diff/Slide Review? Manual Diff Added; White Blood Count 3.4 10^3/ul (3.5-10.8)
[2017-02-28] MEDS: fentaNYL Patch Check Q Shift 1 NOTE SCH ×2 (06:44→20:47)
[2017-02-28 06:45] LABS: Albumin 2.8 g/dL (3.2-5.2); BUN/Creatinine Ratio 14.5 (8-20); Calcium 8.5 mg/dL (8.6-10.3); EGFR African American 144.5 (>60); EGFR Non-African American 112.4 (>60); Globulin 2.8 g/dL (2-4); Magnesium 1.5 mg/dL (1.9-2.7); Potassium 3.9 mmol/L (3.5-5.0); Total Bilirubin 0.4 mg/dL (0.2-1.0); Total Protein 5.6 g/dL (6.4-8.9)
[2017-02-28 06:53] LABS: Eosinophils % 3 % (0-6); Hypochromasia 1+; Immature Granulocytes 17 % (0-9); Metamyelocytes % 1 % (0-2); Myelocytes % 1 % (0-1); Neutrophil % 35 % (38-83); Polychromasia 1+
[2017-02-28 06:54] LABS: Add Path Review? YES
[2017-02-28] MEDS: Insulin LISPRO* 1 UNITS UNIT SUBCUT SCH ×7 (07:30→20:57)
[2017-02-28] MEDS: Gabapentin CAP(*) 300 MG PO SCH ×3 (07:58→20:48)
[2017-02-28] MEDS: Docusate CAP* 100 MG PO SCH ×2 (07:59→20:48)
[2017-02-28] MEDS: Polyethylene Glycol 3350* 17 GM PACKET PO SCH (07:59)
[2017-02-28] MEDS: Insulin GLARGINE(*) 1 UNITS UNIT SUBCUT SCH ×2 (08:00→21:09)
[2017-02-28] MEDS: NS 0.9% 1000 ML* 1,000 ML IV SCH (09:44)
[2017-02-28] MEDS: Omeprazole CAP* 20 MG PO SCH (09:45)
[2017-02-28] MEDS: Al Hydrox/Mg Hydrox/Simet LIQ* 30 ML UDC PO PRN ×2 (12:01→15:03)
[2017-02-28] MEDS ORDERED: Prochlorperazine SUPP* 25 MG SUPP PR PRN (12:19)
[2017-02-28] MEDS ORDERED: Ondansetron ODT TAB* 4 MG SL PRN (12:20)
[2017-02-28] MEDS ORDERED: Magnesium Sulfate 2 GM IV* 2 GM/50 ML BAG IVPB ONE (12:24)
[2017-02-28] MEDS ORDERED: Magnesium Sulfate 2 GM IV* 2 GM/50 ML BAG ONE (12:27)
[2017-02-28] MEDS ORDERED: Bisacodyl EC TAB* 5 MG PO PRN (12:28)
--- NOTE | 2017-02-28 12:28 | PN ---
Progress Note - Progress Note SOAP: Subjective: []Much better. No pain and no nausea today. Has not moved bowls and wants medication. She is eating today. Pain is much better and not taking any Codine. Acetaminophen (Tylenol Tab*) 650 mg PO Q4H PRN PRN Reason: headache or pain Last Admin: 02/28/17 06:01 Dose: 650 mg Al Hydrox/Mg Hydrox/Simethicone (Maalox Plus*) 30 ml PO Q3H PRN PRN Reason: HEARTBURN Last Admin: 02/28/17 12:01 Dose: 30 ml Dextrose (D50w Syringe 50 Ml*) 12.5 gm IV PUSH .FOR FS < 60 - SS PRN PRN Reason: FS < 60 Docusate Sodium (Colace Cap*) 100 mg PO BID [facility] Last Admin: 02/28/17 07:59 Dose: 100 mg Fentanyl (Duragesic Patch 12 Mcg/Hr *) 12 mcg TRANSDERM Q72H [facility] Last Admin: 02/27/17 11:00 Dose: 12 mcg Fentanyl (Duragesic Patch 25 Mcg/Hr*) 25 mcg TRANSDERM Q72H [facility] Last Admin: 02/27/17 10:58 Dose: 25 mcg Gabapentin (Neurontin Cap(*)) 300 mg PO TID [facility] Last Admin: 02/28/17 07:58 Dose: 300 mg Heparin Sodium (Porcine) (Heparin Flush Port (Ivad)) 5 ml FLUSH DAILY [facility] PRN Reason: Protocol Last Admin: 02/28/17 07:31 Dose: Not Given Magnesium Sulfate (Magnesium Sulfate 2 Gm Iv*) 2 gm in 50 mls @ 50 mls/hr IVPB ONCE ONE Stop: 02/28/17 13:23 Insulin Glargine (Lantus(*)) 20 units SUBCUT Q12H [facility] Last Admin: 02/28/17 08:00 Dose: 20 units Insulin Human Lispro (Humalog*) 0 units SUBCUT AC [facility] PRN Reason: Protocol Last Admin: 02/28/17 08:46 Dose: 12 unit Insulin Human Lispro (Humalog*) 0 units SUBCUT ACHS [facility] PRN Reason: Protocol Last Admin: 02/28/17 07:30 Dose: Not Given Omeprazole (Prilosec Cap*) 20 mg PO DAILY [facility] PRN Reason: Protocol Last Admin: 02/28/17 09:45 Dose: 20 mg Ondansetron HCl (Zofran Odt Tab*) 8 mg SL Q8H PRN PRN Reason: NAUSEA/VOMITING Pharmacy Profile Note (Fentanyl Patch Check Q Shift) 1 note N/A 0700,1900 [facility] Last Admin: 02/28/17 06:44 Dose: 1 note Polyethylene Glycol/Electrolytes (Miralax*) 17 gm PO DAILY [facility] Last Admin: 02/28/17 07:59 Dose: 17 gm Prochlorperazine (Compazine Supp*) 25 mg MD Q12H PRN PRN Reason: NAUSEA Objective: [] Vital Signs Temp Pulse Resp BP Pulse Ox 98.0 F 72 18 144/58 96 02/28/17 07:24 02/28/17 07:24 02/28/17 09:58 02/28/17 07:24 02/28/17 08:00 HEENT - mucosa moist, no lesions CTA RRR S1S2 +BS, mild dist, obese, did not feel spleen. Assessment: []61 year with MDS c/b DM on insulin and refractory abdominal pain and nausea. Marked improvement today from yesterday. Has not been on IV medications. Plan: []1. Pain. Will keep Fentanly to 37 mcg daily. No codine or morphine. Will give Tylenol PRN. 2. Nausea. Doing better and has not used IV medications. Go to Zofran SL 8q8 and can use Compazine SP as salvage. She is constipated, try Biscodyl 10 mg 3. MDS. Stable, no transfusions today. 4. DM. On insulin per SS and based on calorie count. Continue. 5. FEN. Mg remains low, IV Mg today 6. D/C tomorrow am if continues to feel well.
[2017-03-01] MEDS: Acetaminophen TAB* 325 MG PO PRN ×2 (03:22→07:25)
[2017-03-01] MEDS: fentaNYL Patch Check Q Shift 1 NOTE SCH (07:10)
[2017-03-01 07:29] LABS: Hematocrit 26 % (35-47); Hemoglobin 8.6 g/dl (12.0-16.0); Mean Corpuscular HGB Conc 34 g/dl (31-36); Mean Corpuscular Hemoglobin 28 pg (27-31); Mean Corpuscular Volume 84 fL (80-97); Mean Platelet Volume 8 um3 (7.4-10.4); Red Blood Count 3.06 10^6/ul (4.0-5.4); Red Cell Distribution Width 17 % (10.5-15); White Blood Count 3.6 10^3/ul (3.5-10.8)
[2017-03-01] MEDS: Insulin LISPRO* 1 UNITS UNIT SUBCUT SCH ×4 (07:30→12:19)
[2017-03-01 07:31] LABS: Add Diff/Slide Review? Manual Diff Added; Comments Flag Yes
[2017-03-01 07:40] LABS: Albumin 2.8 g/dL (3.2-5.2); BUN/Creatinine Ratio 12.3 (8-20); Calcium 8.8 mg/dL (8.6-10.3); EGFR African American 138.7 (>60); EGFR Non-African American 107.8 (>60); Globulin 2.8 g/dL (2-4); Magnesium 1.6 mg/dL (1.9-2.7); Potassium 3.9 mmol/L (3.5-5.0); Total Bilirubin 0.4 mg/dL (0.2-1.0); Total Protein 5.6 g/dL (6.4-8.9)
[2017-03-01 08:04] LABS: Eosinophils % 2 % (0-6); Immature Granulocytes 26 % (0-9); Metamyelocytes % 3 % (0-2); Myelocytes % 7 % (0-1); Neutrophil % 33 % (38-83)
[2017-03-01 08:05] LABS: Hypochromasia 1+
[2017-03-01 08:06] LABS: Add Path Review? YES; Polychromasia 1+; Tear Drop Cells 1+
[2017-03-01] MEDS: Gabapentin CAP(*) 300 MG PO SCH ×2 (09:27→15:33)
[2017-03-01] MEDS: Docusate CAP* 100 MG PO SCH (09:28)
[2017-03-01] MEDS: Insulin GLARGINE(*) 1 UNITS UNIT SUBCUT SCH (09:28)
[2017-03-01] MEDS: Omeprazole CAP* 20 MG PO SCH (09:29)
[2017-03-01] MEDS: Polyethylene Glycol 3350* 17 GM PACKET PO SCH (09:29)
[2017-03-01 11:18] VITALS: BP 137/54
[2017-03-01] MEDS ORDERED: oxyCODONE TAB* 5 MG TAB PO ONE (12:00)
--- NOTE | 2017-03-02 02:43 | DS ---
CC: Dr. Gaston DISCHARGE SUMMARY: DATE OF ADMISSION: 02/22/17 DATE OF DISCHARGE: 02/28/17 DISCHARGE DIAGNOSES: 1. Refractory nausea and vomiting. 2. Abdominal pain. 3. Myelodysplastic syndrome. 4. Pancytopenia. 5. Diabetes. HOSPITAL COURSE: She came in with increasing fatigue, increased fingersticks at home and increase n ausea and vomiting. She had been vomiting and was passing gas. Essentially came in with management of medications. She had an Endocrinology consult and changed her insulin administration to Lantus 2 0 units twice a day and then carb counting and sliding scale for her short acting lispro. Pain appe ared to be well managed. She stopped her OxyContin and oxycodone because of the nausea and placed o n fentanyl. She feels OxyContin and oxycodone is better and wants to be discharged on that. She wa s having severe abdominal pain and nausea 48 hours ago, but then improved yesterday and today. She has had no IV medicines with either nausea or pain for 36 hours. Plan will be to discharge home and follow up in [place] for bone marrow transplant, she has an appointment on Wednesday. MEDICATIONS ON DISCHARGE: 1. Colace 100 mg daily. 2. Gabapentin 600 mg t.i.d. 3. Nexium 20 mg daily. 4. MiraLAX 17 g daily p.r.n. 5. Tylenol 650 mg q.6 hours p.r.n. 6. Vitamin B12 1000 mcg daily. 7. Lispro insulin for calorie count and sliding scale as discussed with Dr. Mcgill. 8. Lactobacillus vitamin. 9. Multivitamin. 10. Zofran 4 mg q.6 p.r.n. 11. Scopolamine patch 1.5 g q.72 hours. 12. OxyContin 40 mg p.o. b.i.d. 13. Oxycodone 5 to 10 mg q.4 hours p.r.n. 14. Lantus insulin 20 units q.12. She will hold her iron, magnesium, and metformin on discharge. FOLLOWUP: Followup will be next week in clinic with us and on Wednesday with Dr. Valdivia. [id number]/[facility] [place] #: [id number]
== END 2017-03-01 14:30 | disposition home or self-care (01) | DRG 809 ==
LOC: MED 12:00 → PREINTOOBSV 16:27 → MED 17:37 → OBSVTOIN 02-23 12:00
PROVIDERS: ADMIT Internal Medicine Hematology & Oncology; ATTEND Internal Medicine Hematology & Oncology
PROC: 30233N1 Transfusion of Nonautologous Red Blood Cells into Peripheral Vein, Percutaneous Approach (ICD-10-PCS; principal; 2017-02-22)
DX: D61.818 Other pancytopenia (principal); E87.1 Hypo-osmolality and hyponatremia; E11.42 Type 2 diabetes mellitus with diabetic polyneuropathy; E11.65 Type 2 diabetes mellitus with hyperglycemia; D46.9 Myelodysplastic syndrome, unspecified; K21.9 Gastro-esophageal reflux disease without esophagitis; I10 Essential (primary) hypertension; E78.5 Hyperlipidemia, unspecified; E83.42 Hypomagnesemia; W18.30XA Fall on same level, unspecified, initial encounter; Y92.230 Patient room in hospital as the place of occurrence of the external cause; Z87.891 Personal history of nicotine dependence; Z79.4 Long term (current) use of insulin; Z79.1 Long term (current) use of non-steroidal anti-inflammatories (NSAID); Z79.891 Long term (current) use of opiate analgesic; Z79.899 Other long term (current) drug therapy; Z88.0 Allergy status to penicillin; Z88.2 Allergy status to sulfonamides; Z88.8 Allergy status to other drugs, medicaments and biological substances; Z88.1 Allergy status to other antibiotic agents; Z88.5 Allergy status to narcotic agent; Z91.040 Latex allergy status; Z79.84 Long term (current) use of oral hypoglycemic drugs; Z83.3 Family history of diabetes mellitus; Z82.49 Family history of ischemic heart disease and other diseases of the circulatory system; Z80.9 Family history of malignant neoplasm, unspecified
CPT/HCPCS: 36415; 70450; 80048; 80053; 82043; 82570; 83036; 83735; 84439; 84443; 84479; 84481; 85025; 85060; 86850; 86900; 86901; 86922; 87641; 99219; 99232; 99233; 99239; A9270-GY; G0378; J1642; J2060; J2270; J2405; J3475; P9040

== ENCOUNTER 2017-03-03 11:54 | Observation (INO) | payer MEDICARE, MEDICAID ==
[2017-03-03] MEDS ORDERED: Ondansetron INJ* 2 MG/ML VIAL IV ONE (13:09)
[2017-03-03] MEDS ORDERED: NS 0.9% 1000 ML* 1,000 ML IV ONE (13:09)
[2017-03-03 13:21] LABS: Hematocrit 27 % (35-47); Hemoglobin 9.1 g/dl (12.0-16.0); Mean Corpuscular HGB Conc 34 g/dl (31-36); Mean Corpuscular Hemoglobin 28 pg (27-31); Mean Corpuscular Volume 83 fL (80-97); Mean Platelet Volume 8 um3 (7.4-10.4); Red Cell Distribution Width 17 % (10.5-15)
[2017-03-03 13:29] LABS: Add Diff/Slide Review? Slide Review Added; Albumin 3.3 g/dL (3.2-5.2); BUN/Creatinine Ratio 21.4 (8-20); C Reactive Protein 104.59 mg/L (< 5.00); Calcium 8.9 mg/dL (8.6-10.3); Comments Flag Yes; EGFR African American 109.4 (>60); EGFR Non-African American 85.1 (>60); Globulin 3.2 g/dL (2-4); Magnesium 1.3 mg/dL (1.9-2.7); Potassium 3.8 mmol/L (3.5-5.0); Total Bilirubin 0.6 mg/dL (0.2-1.0); Total Protein 6.5 g/dL (6.4-8.9)
[2017-03-03 13:30] LABS: Troponin I 0.01 ng/mL (<0.04)
--- NOTE | 2017-03-03 13:58 | RAD ---
HISTORY: Nausea and vomiting COMPARISONS: January 29, 2017 VIEWS: Frontal and left lateral decubitus views of the abdomen. FINDINGS: BOWEL: There is a nonspecific bowel gas pattern, with nondilated small bowel gas noted. There is a large amount of stool within the colon. CALCULI: There are no abnormal calculi. BONES AND SOFT TISSUES: There are no osseous abnormalities. OTHER FINDINGS: The lung bases are clear. There is no subphrenic gas. IMPRESSION: NONSPECIFIC BOWEL GAS PATTERN. LARGE AMOUNT OF STOOL THROUGHOUT THE COLON.
[2017-03-03 14:45] LABS: Eosinophils % 2 % (0-6); Immature Granulocytes 21 % (0-9); Metamyelocytes % 2 % (0-2); Myelocytes % 2 % (0-1); Neutrophil % 50 % (38-83); Polychromasia 1+; Reactive Lymph % 1 % (0-6); Tear Drop Cells 1+
[2017-03-03] MEDS ORDERED: Sucralfate TAB* 1 GM PO PRN (19:07)
[2017-03-03] MEDS ORDERED: Acetaminophen TAB* 325 MG PO PRN (19:07)
[2017-03-03] MEDS ORDERED: Ondansetron TAB* 4 MG PO PRN (19:07)
[2017-03-03] MEDS ORDERED: Magnesium Sulfate 2 GM IV* 2 GM/50 ML BAG IVPB ONE (19:11)
[2017-03-03] MEDS ORDERED: NS 0.9% 1000 ML* 1,000 ML IV SCH ×2 (19:15→19:30)
--- NOTE | 2017-03-03 19:51 | RAD ---
INDICATION: Cough and fever COMPARISON: Chest x-ray February 09, 2017 TECHNIQUE: PA and lateral dual-energy views were obtained. FINDINGS: Bones/Soft Tissues: There are no acute bony findings. There is a right-sided central venous catheter. Cardiomediastinal: The cardiomediastinal silhouette is normal. Lungs: There are patchy bibasilar alveolar infiltrates right greater than left. Pleura: There are no significant effusions.. Other: None IMPRESSION: BIBASILAR INFILTRATES.
[2017-03-03] MEDS ORDERED: Scopolamine 1.5 mg* PATCH TRANSDERM SCH (20:00)
[2017-03-03] MEDS ORDERED: Levofloxacin 750 MG IVPREMIX(* 750 MG/150 ML BAG IVPB SCH (20:30)
[2017-03-03] MEDS ORDERED: oxyCODONE TAB* 5 MG TAB PO PRN (22:00)
[2017-03-03] MEDS: Gabapentin CAP(*) 300 MG PO SCH (22:20)
[2017-03-03] MEDS: oxyCODONE SR TAB(*) 40 MG TAB.SR PO SCH (22:21)
[2017-03-03] MEDS: Insulin GLARGINE(*) 1 UNITS UNIT SUBCUT SCH (22:24)
--- NOTE | 2017-03-03 23:01 | HP ---
HISTORY AND PHYSICAL: DATE OF ADMISSION: 03/03/17 REASON FOR ADMISSION: Myelofibrosis with pancytopenia and development of significant fevers. HISTORY: Joyce Allen is a 61-year-old female who was diagnosed in early 2016 with myelofibrosis. She has approximately 5% cellular bone marrow with severe myelofibrosis. She has been seen in consultation both by Dr. Gaston at our hospital and also by Dr. Audrey Valdivia from [facility] as part of Hematology Division at [facility] in [place], [place]. She has had severe pain related to her myelofibrosis. She has remained with pancytopenia since the time of the original bone marrow biopsy on 11/13/16. Despite the pancytopenia, she has not had any major infections or any major bleeding episodes. She has required transfusions on multiple occasions and has received a total of 60 units of packed red blood cells since the first of the year, most recently treated on February 22 and . She was recently hospitalized at [facility] on 02/22/17 and just discharged home 2 days ago on 03/01/17. During that hospitalization, she had presented with severe abdominal pain along with blood sugars out of control, nausea, and electrolyte abnormalities. By the time of discharge to home, she had a consultation with Endocrinology and her diabetic medications have been switched considerably. Her electrolytes were under better control. Her pain control seems reasonably adequate back on oxycodone and OxyContin as opposed to the previous fentanyl. It was arranged for her to get Lantus 20 units q.12 hours along with lispro for calorie counting and sliding scale. This had controlled her diabetes while in the hospital; however, she reports in the emergency room today that she still is taking her prior insulin as she never had the Lantus filled. She took her usual dosing last evening. She reports that last evening, she had a fever to 101.9 and again had a similar fever later on overnight. Associated with this, she did have episodes of nausea and vomiting and reports have been able to take down a little if anything all day today. Associated with the fevers, she has had some abdominal pain and has had a cough, which has been productive only of mild amounts of fairly light colored sputum, complains of bilateral temporal and sinus pain and maxillary sinus pain. She denies any significant urinary symptoms or any significant diarrhea. When she was first seen in the emergency room, laboratory studies included a white count of 2000, which is around her norm with an ANC of 1400, which is better than she typically has run over the past month or more. Hemoglobin and hematocrit of 27/9.1 and again improved from her norm and platelets of 41, higher than her typical range in the 20s to 30s recently. Electrolytes included sodium 129, slightly down from her recent baseline, potassium 3.8, chloride 94, bicarb 27, BUN 15, creatinine 0.7, glucose 100, and lactic acid 0.7. LFTs within normal limits. Magnesium 1.3. CRP elevated at 104. Abdominal x-ray was obtained in the emergency room and revealed significant amounts of stool, but an otherwise a nonspecific bowel gas pattern. Following the hydration and knowing the blood sugars were okay, there was initial thought to try to send her home from the emergency room, but both she and her family felt that living alone that she was too weak to go home, was unable to stay in due to severe weakness and fatigue, complains of severe pain in her lower extremities, which is a norm for the myelofibrosis, but also looked fairly toxic and was very sweaty and was very diaphoretic and having some rigors. Decision was made to admit her to the hospital due to the above findings. PAST MEDICAL HISTORY: Significant for diabetes mellitus, which has not been under good control recently, although better following consultation during this last hospitalization; history of neck surgery for herniated disk; surgery for prolapsed bladder and rectum; status post total abdominal hysterectomy; status post tubal ligation. GERD, hiatal hernia, and neuropathy. No hypertension, NV , or CVA. MEDICATIONS: At the time of discharge 2 days ago included: 1. OxyContin 40 mg b.i.d. 2. Oxycodone 5 to 10 mg q.4 hours p.r.n. pain. 3. Scopolamine patch. 4. Zofran 4 mg q.6 hours p.r.n. 5. Vitamin B12 1000 mcg daily. 6. Tylenol 650 mg q.6 hours p.r.n. 7. MiraLAX 17 g p.r.n. 8. Nexium 20 mg daily. 9. Gabapentin 600 mg t.i.d. 10. Colace 100 mg daily. 11. Insulin included Lantus insulin 20 units q.12 hours, but she was not taking this as she reports she has not yet picked it up from the pharmacy, it was on her old regimen of insulin. Lispro for calorie counting. Reports this was difficult for her to do at home. Metformin was discontinued along with iron and magnesium at the time of her last hospitalization 2 days ago. ALLERGIES: Reported allergies to multiple antibiotics including AZITHROMYCIN, CEPHALOSPORIN, PENICILLIN, SULFA, "all MYCINS." She reports having taken quinolones and this is documented in the hospital record and has tolerated these reasonably well. FAMILY HISTORY: Noncontributory. SOCIAL HISTORY: The patient lives alone. History of tobacco use, but quit in 2008. She currently is disabled by her current condition. REVIEW OF SYSTEMS: As discussed above, otherwise negative. PHYSICAL EXAMINATION General: A 61-year-old female, who was lying on her side, appears very uncomfortable and drowsy on stretcher in the emergency room. She is quite diaphoretic and having some shaking chills. Vital Signs: Reports temperature at home was 101.9, T-max in the emergency room is 99.8, blood pressure 131/56, pulse 80. HEENT: PERRL. EOMI. No erythema or exudates. She has tenderness of her bilateral maxillary and frontal sinuses. No palpable cervical, supraclavicular, or axillary adenopathy. Lungs: Clear. Heart: Regular rate and rhythm without murmurs, rubs, or gallops. Abdomen: Normoactive bowel sounds. She has significant tenderness in the right lower quadrant without guarding or rebound. No masses or organomegaly. Back: No CVA or spinal tenderness. Extremities: Trace pitting edema, reports significant pain on palpation of her tibia bilaterally. DIAGNOSTIC STUDIES/LAB DATA: As discussed in above history. IMPRESSION: 1. A 61-year-old female with underlying myelofibrosis, she is due to see Dr. Valdivia at the [facility] in [place] in 2 days' time. Her family reports that there are 3 potential 10/10 matches. She had already had a catheter placed for potential bone marrow transplant. She has had multiple hospitalizations this year and approximately 8 to 10 since her first year and has remained pancytopenic over the entire period of time. She has never shown signs of severe sepsis. She has required multiple transfusions. She has never had significant major bleeding. She now presents looking somewhat toxic with fevers of 101.9 at home along with diaphoresis and some rigors. Glucoses x2 have been obtained. Urine culture has been ordered. She is ALLERGIC to multiple different ANTIBIOTICS. Because of this, Levaquin as a single agent will be used to start, 750 mg IV daily. She will continue to receive IV hydration. 2. Pain from myelofibrosis. She will be maintained on OxyContin 40 mg b.i.d. with oxycodone p.r.n. 3. Diabetes mellitus: She is taking a very little p.o. We will not give her full dosing of her insulin. She recently was scheduled to be on Lantus 20 mg b.i.d. We will give half this dose and watch her blood sugars with 4 times a day fingersticks. If her blood sugars are less than 80 or greater than 300, we will adjust this. Hopefully, when she starts eating, we will put her back on her sliding scale and her counting calories. She will be maintained on a consistent carbohydrate diet in the meantime. 4. Right lower quadrant tenderness: It is hard to know how much of this is pelvic pain on palpation as the patient reports it is just above the pelvic brim anteriorly. If her abdominal pain worsens, it maybe necessary to obtain CT scan of the abdomen to further look for source of her fever. 5. DVT prophylaxis. She will have pneumatic compression devices on her legs and we will hold off on any medications given her platelet count. CC: * Peyman Ko MD; Guillermina Gaston MD; Dr. Audrey Valdivia, [facility], [place], [place] [id number]/[facility] #: [id number] [facility]
[2017-03-04] MEDS ORDERED: Omeprazole CAP* 20 MG PO SCH (07:30)
[2017-03-04] MEDS: Insulin GLARGINE(*) 1 UNITS UNIT SUBCUT SCH (07:55)
[2017-03-04] MEDS ORDERED: Prochlorperazine SUPP* 25 MG SUPP PR PRN (08:22)
[2017-03-04] MEDS ORDERED: Cyanocobalamin TAB* 500 MCG PO SCH (09:00)
[2017-03-04 09:40] VITALS: BP 110/42
[2017-03-04] MEDS: Gabapentin CAP(*) 300 MG PO SCH (09:51)
[2017-03-04] MEDS: oxyCODONE SR TAB(*) 40 MG TAB.SR PO SCH (09:52)
--- NOTE | 2017-03-04 12:17 | ED ---
Altaf Mujica Billy, scribed for Jacky Sosa MD on 03/03/17 at 1227 . Complex/Multi-Sys Presentation - HPI Summary HPI Summary: This patient is a 61 year-old female coming to [facility] for evaluation of numerous complaints since last night, including nausea, vomiting, fever, generalized weakness, and loss of appetite. Patient denies any diarrhea or constipation. Patient was recently discharged from [facility] after she was seen by Dr. Ayala for evaluation of hypomagnesemia. Family and patient report that last night, they recorded a temperature of 101.9F. Her fever improved with Tylenol. They report that she was supposed to be prescribed Lantin but the prescription had not gone through, and so she took 46 units Levimir instead last night. - History Of Current Complaint Chief Complaint: EDNauseaVomitDiarrh Time Seen by Provider: 03/03/17 12:20 Hx Obtained From: Patient Onset/Duration: Gradual Onset, Lasting Hours Timing: Constant Severity Currently: Moderate Severity Initially: Moderate Aggravating Factor(s): none Alleviating Factor(s): fever improved w/ tylenol Associated Signs And Symptoms: Positive: Weakness, Nausea, Vomiting, Decreased Oral Intake, Fever. Negative: Diarrhea - Allergies/Home Medications Allergies/Adverse Reactions: Allergies Allergy/AdvReac Type Severity Reaction Status Date / Time Azithromycin Allergy See Comment Verified 02/25/17 09:50 Cephalexin [From Keflex] Allergy VOMITING, Verified 02/09/17 11:48 DIARRHEA, HIVES, LIGHTHEADEDNESS Diazepam [From Valium] Allergy Difficulty Verified 02/09/17 11:48 Breathing Hydromorphone [From Dilaudid] Allergy Altered Verified 02/09/17 11:48 Mental Status Latex Allergy Rash Verified 02/09/17 11:48 Penicillins [PCN] Allergy CHEST Verified 02/09/17 11:48 HEAVINESS, SLIGHT DIFF BREATHING, LIGHTHEADEDNESS, Sulfa Antibiotics Allergy See Comment Verified 02/25/17 09:50 Benzonatate [From Tessalon] AdvReac Headache Verified 02/09/17 11:48 Codeine AdvReac See Comment Verified 02/09/17 11:48 Morphine AdvReac VOMITING, Verified 02/09/17 11:48 LIGHTHEADEDNESS ALL "MYCINS" Allergy CHEST Uncoded 02/09/17 11:48 HEAVINESS, SL. DIFF. BREATHING, LIGHTHEADEDNESS ALL CILLINS Allergy CHEST Uncoded 02/09/17 11:48 HEAVINESS, SL. DIFF. BREATHING, LIGHTHEADNESS MULTIPLE ANTIBIOPTIC Allergy CHEST Uncoded 02/09/17 11:48 REACTIONS HEAVINESS, SL. DIFF. BREATHING, LIGHTHEADEDNESS SULFA DRUGS Allergy VOMITING, Uncoded 02/09/17 11:48 DIARRHEA, HIVES, LIGHTHEADEDNESS PMH/Surg Hx/FS Hx/Imm Hx Endocrine/Hematology History: Reports: Hx Diabetes Cardiovascular History: Reports: Hx Angina Denies: Hx Coronary Artery Disease, Hx Hypercholesterolemia, Hx Hypertension , Hx Myocardial Infarction, Hx Pacemaker/ICD, Hx Valvular Heart Disease Respiratory History: Denies: Hx Asthma, Hx Chronic Obstructive Pulmonary Disease (COPD) GI History: Reports: Hx Gastroesophageal Reflux Disease, Hx Gastrointestinal Bleed, Hx Hiatal Hernia, Hx Ulcer - reflux History: Reports: Hx Kidney Stones - teenager Denies: Hx Renal Disease Musculoskeletal History: Reports: Other Musculoskeletal History - meylofibrosis Sensory History: Reports: Hx Cataracts - BEGINNING STAGES Denies: Hx Contacts or Glasses, Hx Hearing Aid Opthamlomology History: Reports: Hx Cataracts - BEGINNING STAGES Denies: Hx Contacts or Glasses Psychiatric History: Reports: Hx Anxiety, Hx Depression, Hx Panic Disorder, Other Psychiatric Issues/Disorders - claustrophobia - Cancer History Cancer Type, Location and Year: meylofibrosis Hx Chemotherapy: No - Surgical History Surgery Procedure, Year, and Place: NECK SURGERY- FOR HENIATED DISC[facility]. SURGERY FOR PROLASPED BLADDER AND RECTUM, TOTAL ABDOMINAL HYSTERECTOMY- LAPAROSCOPIC-[facility]. TUBAL LIGATION. LEFT HAND LUMPS REMOVED 2014. dental work Hx Anesthesia Reactions: Yes - NAUSEA - Immunization History Date of Tetanus Vaccine: none Date of Influenza Vaccine: none Infectious Disease History: No Infectious Disease History: Reports: Hx of Known/Suspected MRSA Denies: History Other Infectious Disease, Traveled Outside the [place] in Last 30 Days - Family History Known Family History: Positive: Cardiac Disease Family History: cancer - Social History Alcohol Use: Rare Alcohol Amount: quit 2008 Substance Use Type: Reports: None Hx Tobacco Use: Yes Smoking Status (MU): Former Smoker Type: Cigarettes Amount Used/How Often: 1 PPD X 25 +YEARS Have You Smoked in the Last Year: No Review of Systems Positive: Fever Gastrointestinal: Other - loss appetite Positive: Vomiting, Nausea. Negative: Diarrhea Positive: Weakness All Other Systems Reviewed And Are Negative: Yes Physical Exam - Summary Physical Exam Summary: VITAL SIGNS: Reviewed. GENERAL: Patient is a thin female who is lying comfortable in the stretcher. She appears dehydrated. Patient is not in any acute respiratory distress. HEAD AND FACE: No signs of trauma. No ecchymosis, hematomas or skull depressions. No sinus tenderness. EYES: PERRLA, EOMI x 2, No injected conjunctiva, no nystagmus. EARS: Hearing grossly intact. Ear canals and tympanic membranes are within normal limits. MOUTH: Oropharynx within normal limits. NECK: Supple, trachea is midline, no adenopathy, no JVD, no carotid bruit, no c- spine tenderness, neck with full ROM. CHEST: Symmetric, no tenderness at palpation LUNGS: Clear to auscultation bilaterally. No wheezing or crackles. CVS: Regular rate and rhythm, S1 and S2 present, no murmurs or gallops appreciated. ABDOMEN: Soft, non-tender. No signs of distention. No rebound no guarding, and no masses palpated. Bowel sounds are normal. EXTREMITIES: FROM in all major joints, no edema, no cyanosis or clubbing. NEURO: Alert and oriented x 3. No acute neurological deficits. Speech is normal and follows commands. SKIN: Dry and warm Triage Information Reviewed: Yes Vital Signs On Initial Exam: Initial Vitals Temp Pulse Resp BP Pulse Ox 99.5 F 94 16 144/51 95 03/03/17 12:00 03/03/17 12:00 03/03/17 12:00 03/03/17 12:00 03/03/17 12:00 Vital Signs Reviewed: Yes - [place] Coma Scale Coma Scale Total: 15 Diagnostics - Vital Signs Vital Signs Temp Pulse Resp BP Pulse Ox 03/03/17 12:03 95 20 90 03/03/17 12:01 99.5 F 94 16 144/51 94 03/03/17 12:00 99.5 F 94 16 144/51 95 - Laboratory Result Diagrams: 03/03/17 12:33 03/03/17 12:33 Lab Statement: Any lab studies that have been ordered have been reviewed, and results considered in the medical decision making process. - Radiology Abdominal x-ray Radiology Interpretation Completed By: Radiologist - NONSPECIFIC BOWEL GAS PATTERN. LARGE AMOUNT OF STOOL THROUGHOUT THE COLON. - EKG 1556 EKG Interpretation: NSR 86 bpm, no STEMI Complex Multi-Symp Course/Dx Course Of Treatment: This patient is a 61 year-old female coming to [facility] for evaluation of numerous complaints since last night, including nausea, vomiting, fever, generalized weakness, and loss of appetite. Patient denies any diarrhea or constipation. Patient was recently discharged from [facility] after she was seen by Dr. Ayala for evaluation of hypomagnesemia. Family and patient report that last night, they recorded a temperature of 101.9F. Her fever improved with Tylenol. They report that she was supposed to be prescribed Lantin but the prescription had not gone through, and so she took 46 units Levimir instead last night. Test results shows a WBC of 2, chronic anemia, chronic thrombocytopenia, hyponatremia , glucose is 115, and CRP is 104. In the ED course, the patient was initially given IV fluids and Zofran for the nausea. The patient had approximately 2L of IV fluids and 1 dose of Zofran which subsided the N/V. I tried to ambulate the patient and she reports that she is so weak that she is unable to ambulate. Also , the son is very concerned about taking the patient home, since the patient looks very weak and unwell. Therefore he does not want to take the patient home. At this point, I discussed my findings with Dr. Delgado who will come to the ED and talk to the patient and her son, and he will determine further disposition. At this point the patient is hemodynamically stable, A&Ox3. Patient will be signed out to Dr. Aguilar for further disposition by Dr. Delgado. - Diagnoses Provider Diagnoses: Nausea and vomiting Discharge - Discharge Plan Condition: Stable Disposition: OTHER Discharge Disposition Comment: Signed out to Dr. Aguilar at shift change pending further dispo. Prescriptions: Ondansetron ODT TAB* [Zofran 4 MG Odt TAB*] 4 mg PO Q6H PRN #10 tab.odt PRN Reason: Vomiting Referrals: Peyman Ko MD [Primary Care Provider] - The documentation as recorded by the Altaf de la o Billy accurately reflects the service I personally performed and the decisions made by me, Jacky Sosa MD.
[2017-03-05] MEDS ORDERED: Levofloxacin TAB* 500 MG PO SCH (00:30)
--- NOTE | 2017-03-05 02:17 | DS ---
DISCHARGE SUMMARY: DATE OF ADMISSION: 03/03/17 DATE OF DISCHARGE: 03/04/17 ATTENDING PROVIDER: Dr. Ayala (DICTATED BY CHRISTINE TATE) PRINCIPAL DIAGNOSES: 1. Fever with neutropenia. 2. Abdominal pain. 3. History of gastrointestinal bleed. 4. Hypomagnesemia. 5. Hyponatremia. 6. Myelofibrosis. 7. Thrombocytopenia. 8. Type 2 diabetes, uncontrolled. 9. Weakness. 10. Gastroesophageal reflux disease. 11. Insulin-dependent diabetes. DISCHARGE MEDICATIONS: Include: 1. Tylenol 650 mg as needed for fever or pain. 2. Cyanocobalamin (B12) 1000 mcg p.o. daily. 3. Gabapentin 600 mg p.o. 3 times daily. 4. Lantus with a dose change of 10 units subcutaneous every 12 hours. 5. Levaquin 500 mg p.o. every 24 hours. 6. Prilosec or Nexium 20 mg daily. 7. Zofran 4 mg every 6 hours as need for nausea. 8. OxyContin 40 mg p.o. twice daily. 9. Oxycodone 5 mg ever 4 hours as needed for breakthrough pain. 10. Scopolamine patch 1.5 mg transdermally every 72 hours. HOSPITAL COURSE: Briefly, Dr. Delgado admitted the patient last evening via the emergency room as she came through the emergency room with abdominal pain and fever. Briefly, she is a 61-year-old white female with severe myelofibrosis that we have been trying to get a transplant with Dr. Valdivia in [place] and she has an appointment to see her regarding her transplant completion tomorrow. She came in with abdominal pain and nausea, which have improved with Zofran, scopolamine, and a Compazine suppository. The abdominal pain previously dictated on Dr. Delgado's history and physical has since improved. The abdomen is soft and nontender with distraction. Her vital signs are stable today and she agrees that she needs to get to Dr. Valdivia's appointment tomorrow. She will be sent home on the aforementioned medications. She is to follow up with Dr. Mcgill regarding her non- controlled insulin diabetes and perhaps see the nurse practitioner as well for compliance and re-teaching. Of note, she did have 2 x-rays in the emergency room yesterday. The chest x-ray which revealed any bibasilar infiltrates; patchy alveolar infiltrates, right greater than left ; no effusions and an abdomen x-ray, which revealed a nonspecific bowel gas pattern, a large amount of stool throughout the colon. The patient feels better now that she has had a bowel movement this morning. She will be sent home because of the infiltrates, on Levaquin 500 mg daily and she is afebrile with following vital signs. Temperature 98.3, pulse rate 78, respiratory rate 16, O2 sat 96, and blood pressure 110/42. Lactic acid was 0.7 at the time of her admission. CHRISTINE TATE [id number]/[facility] #: [id number] AURELIA
== END 2017-03-04 13:15 | disposition home or self-care (01) ==
LOC: ED 11:54 → MED 19:02
PROVIDERS: ADMIT Internal Medicine Hematology & Oncology; ATTEND Internal Medicine Hematology & Oncology
DX: R50.9 Fever, unspecified (principal); D70.9 Neutropenia, unspecified; D61.818 Other pancytopenia; R10.9 Unspecified abdominal pain; E83.42 Hypomagnesemia; E87.1 Hypo-osmolality and hyponatremia; D75.81 Myelofibrosis; D69.6 Thrombocytopenia, unspecified; E11.9 Type 2 diabetes mellitus without complications; K21.9 Gastro-esophageal reflux disease without esophagitis; Z79.4 Long term (current) use of insulin; Z79.899 Other long term (current) drug therapy; Z88.0 Allergy status to penicillin; Z88.2 Allergy status to sulfonamides; Z88.5 Allergy status to narcotic agent; Z88.8 Allergy status to other drugs, medicaments and biological substances; Z87.891 Personal history of nicotine dependence
CPT/HCPCS: 36415; 71020; 74020; 80053; 82150; 83605; 83690; 83735; 83880; 84484; 85025; 86140; 87040; 93005; 96365; 96366; 96367; 96375; 99239; 99283; A9270-GY; G0378; J2405

== ENCOUNTER 2017-03-12 09:31 | Inpatient (IN) | payer MEDICARE, MEDICAID ==
[2017-03-12] MEDS ORDERED: NS 0.9% 1000 ML* 1,000 ML IV ONE (09:48)
[2017-03-12] MEDS ORDERED: Acetaminophen TAB* 325 MG PO ONE ×2 (09:48→17:00)
[2017-03-12 10:15] LABS: Hematocrit 21 % (35-47); Mean Corpuscular HGB Conc 33 g/dl (31-36); Mean Corpuscular Hemoglobin 27 pg (27-31); Mean Corpuscular Volume 83 fL (80-97); Mean Platelet Volume 8 um3 (7.4-10.4); Red Blood Count 2.58 10^6/ul (4.0-5.4); Red Cell Distribution Width 16 % (10.5-15); White Blood Count 1.7 10^3/ul (3.5-10.8)
[2017-03-12 10:16] LABS: Add Diff/Slide Review? Slide Review Added; Comments Flag Yes
[2017-03-12 10:32] LABS: Albumin 3.2 g/dL (3.2-5.2); BUN/Creatinine Ratio 22.2 (8-20); C Reactive Protein 97.03 mg/L (< 5.00); EGFR African American 105.9 (>60); EGFR Non-African American 82.3 (>60); Globulin 3.2 g/dL (2-4); Potassium 4.5 mmol/L (3.5-5.0); Total Bilirubin 0.5 mg/dL (0.2-1.0); Total Protein 6.4 g/dL (6.4-8.9)
[2017-03-12 10:43] LABS: Eosinophils % 3 % (0-6); Immature Granulocytes 12 % (0-9); Metamyelocytes % 4 % (0-2); Microcytosis 1+; Myelocytes % 3 % (0-1); Neutrophil % 51 % (38-83); Reactive Lymph % 2 % (0-6); Tear Drop Cells 1+
--- NOTE | 2017-03-12 11:03 | RAD ---
INDICATION: Fever COMPARISON: Chest x-ray dated March 03, 2017 TECHNIQUE: PA and lateral views of the chest were obtained. FINDINGS: There is a dual-lumen right internal jugular vein [id number] with the tip terminating at the mid-level SVC unchanged from the previous chest x-ray. The heart and mediastinum are normal in size and contour. There has been interval resolution of the patchy infiltrate seen at the right lung base on the March 03, 2017 chest x-ray. There is no evidence of large pleural effusion. Visualized bones are normal for the patient's age. There is no radiographic evidence of free air beneath the diaphragm IMPRESSION: INTERVAL RESOLUTION OF THE RIGHT LOWER LUNG PATCHY INFILTRATES DESCRIBED ON THE PREVIOUS CHEST X-RAY IN THIS OTHERWISE NONACUTE CHEST RADIOGRAPH.
[2017-03-12] MEDS ORDERED: Levofloxacin 750 MG IVPREMIX(* 750 MG/150 ML BAG IVPB ONE (11:16)
[2017-03-12 11:26] LABS: Erythrocyte Sed Rate 120 mm/Hr (0-30)
[2017-03-12 11:37] LABS: Urine Bacteria Absent (Absent); Urine Bilirubin Negative (Negative); Urine Glucose Negative (Negative); Urine Nitrite Negative (Negative)
[2017-03-12] MEDS ORDERED: Sucralfate TAB* 1 GM PO PRN (12:02)
[2017-03-12] MEDS ORDERED: diPHENhydraMINE PO* 25 MG PO PRN (12:08)
[2017-03-12] MEDS ORDERED: oxyCODONE TAB* 5 MG TAB ONE (12:10)
[2017-03-12] MEDS ORDERED: oxyCODONE TAB* 5 MG TAB PO PRN (12:32)
[2017-03-12] MEDS: Ondansetron ODT TAB* 4 MG PO PRN (12:33)
--- NOTE | 2017-03-12 12:35 | RAD ---
HISTORY: Fall, head trauma COMPARISONS: February 24, 2017 TECHNIQUE: Multiple contiguous axial CT scans were obtained of the head without intravenous contrast. FINDINGS: HEMORRHAGE/INFARCT: There is no hemorrhage or acute infarct. MASSES/SHIFT: There is no mass or shift. EXTRA-AXIAL SPACES: There are no extra-axial fluid collections. SULCI AND VENTRICLES: The sulci and ventricles are normal in size and position for the patient's stated age. CEREBRUM: There are no focal parenchymal abnormalities. BRAINSTEM: There are no focal parenchymal abnormalities. CEREBELLUM: There are no focal parenchymal abnormalities. VESSELS: The vessels are grossly normal. PARANASAL SINUSES: The paranasal sinuses are clear. ORBITS: The orbits are unremarkable. BONES AND SOFT TISSUE: No bone or soft tissue abnormalities are noted. OTHER: None IMPRESSION: NO ACUTE INTRACRANIAL PATHOLOGY.
[2017-03-12] MEDS: oxyCODONE TAB* 5 MG TAB PO PRN (13:12)
[2017-03-12] MEDS ORDERED: oxyCODONE TAB* 5 MG TAB PO SCH (14:00)
--- NOTE | 2017-03-12 14:09 | HP ---
CC: Dr. Peyman Ko; Dr. Guillermina Gaston; Dr. Dr. Audrey Valdivia in the [facility] at Bone Marrow Transplant Unit. * HISTORY AND PHYSICAL: DATE OF ADMISSION: 03/12/17 REASON FOR ADMISSION: Severe myelofibrosis with pancytopenia, development of significant fevers and status post fall. HISTORY OF PRESENT ILLNESS: Lui Allen is a 61-year-old white female who has had several admissions over the past 4 months, diagnosed in early 2016 with myelofibrosis. She has approximately 5% cellular bone marrow with myelofibrosis , has seen Dr. Valdivia in [place], [place] at [place] and is a candidate for bone marrow transplantation. They do have a bone marrow donor and that process is ongoing. Since Wednesday, she has felt somewhat under the weather and fell last night, does not note whether she had the loss of consciousness or not and hit her forehead. She has found to have fevers in the past and had been pancytopenic with thankfully no major infections or major bleeding episodes. She has required transfusions in the past and is significantly anemic upon presentation at the emergency room at [facility]. She denies any specific nausea or vomiting. She has had significant issues with blood sugars and see Dr. Mcgill for the management of her insulin dependence and diabetic medications. She has been on a consistent carbohydrate count and adjusts her insulin accordingly. Today, she is pancytopenic and will require a transfusion today and also require CT scan of the brain as she is unclear whether she did lose consciousness or not. She did have a chest x-ray upon arrival, which reveals that she has improvement of bilateral pneumonia that was recently treated with doxycycline 100 mg b.i.d. PAST MEDICAL HISTORY: Significant past history is: 1. Diabetes mellitus, insulin dependent. 2. Severe myelofibrosis. 3. History of neck surgery with herniated disk. 4. History of prolapsed bladder and rectum. 5. Status post total abdominal hysterectomy and status post tubal ligation. 6. Gastroesophageal reflux disease. 7. Hiatal hernia. 8. Neuropathy. She denies hypertension, myocardial infarct or CVA in the past. MEDICATIONS: At the time of her last discharge: 1. OxyContin 40 mg b.i.d. 2. Oxycodone 5 to 10 mg every 4 hours as needed for breakthrough pain. 3. Scopolamine patch 1.5 mg topically. 4. Zofran 4 mg every 6 hours as needed. 5. Vitamin B12 1000 mcg daily. 6. Tylenol as needed. 7. MiraLax 17 g as needed. 8. Nexium 40 mg daily. 9. Gabapentin 600 mg 3 times daily. 10. Colace 100 mg daily. 11. Insulin Lantus 10 units every 12 hours. 12. Lispro sliding scale as adjusted by Dr. Mcgill. 13. She has had magnesium repletion in the past and does not tolerate either oral iron or magnesium as well. ALLERGIES: Multiple, which include AZITHROMYCIN, CEPHALOSPORINS, PENICILLINS, SULFA, ALL THE MYCINS. She has been able to take QUINOLONES in the past and had not tolerated those fairly well. FAMILY HISTORY: Noncontributory to this admission. SOCIAL HISTORY: She lives alone and has a very supportive family, history of tobacco abuse and quit in 2008. Currently, is disabled by her myelofibrosis and awaits transplant. REVIEW OF SYSTEMS: As above and 15-point otherwise negative. PHYSICAL EXAMINATION GENERAL: This is a 61-year-old white female lying in bed in the emergency room appears very comfortable, and alert and oriented at this time. VITAL SIGNS: Recorded in the emergency room record. HEENT: Without exudates. Pupils are equal, round and reactive. Extraocular movements are intact. She has tenderness with an excoriation in her left frontal area. NECK: There are no palpable lymphadenopathy, cervical, supraclavicular or axillary. LUNGS: Clear to auscultation. HEART: Regular rate and rhythm without murmur, rub, click or gallop. ABDOMEN: Normoactive bowel sounds in all 4 quadrants. The abdomen is soft and nontender. No masses or organomegaly appreciated. BACK: No CVA tenderness or spinal tenderness. EXTREMITIES: No edema, however, generalized tenderness to palpation from her hip distally bilaterally. IMPRESSION: 1. This 61-year-old white female with an underlying severe myelofibrosis or awaiting bone marrow transplantation with Dr. Dr. Valdivia in [place] presenting with fever and fall. We will place her on antibiotic coverage and as she has been pancultured in the emergency room. Chest x-ray was unremarkable and also reveals recovery from her previous pneumonia on her previous admission. 2. Pain from myelofibrosis. We will continue her on OxyContin and oxycodone. 3. Diabetes mellitus. She will be on Lantus and sliding scale insulin. 4. Status post fall. We will get a CT scan of the brain as she has had significant low counts in the past to assess for any bleed or abnormality. 5. DVT prophylaxis will be SCDs in place and add any anticoagulant medications if her platelet count is greater than 50,000. 6. The patient wishes to be a full code and we will continue that. The above has been discussed with Dr. Nicko Ayala and he is aware. CHRISTINE TATE [id number]/[facility] #: [id number] AURELIA
[2017-03-12] MEDS: Insulin GLARGINE(*) 1 UNITS UNIT SUBCUT SCH ×2 (15:55→21:41)
[2017-03-12] MEDS: Gabapentin CAP(*) 300 MG PO SCH ×2 (16:38→21:40)
[2017-03-12] MEDS ORDERED: diPHENhydraMINE PO* 25 MG PO ONE (17:00)
[2017-03-12] MEDS: Insulin LISPRO* 1 UNITS UNIT SUBCUT SCH (17:40)
--- NOTE | 2017-03-12 18:52 | ED ---
Filippo Mujica Auryana, scribed for Jacky Sosa MD on 03/12/17 at 0957 . Syncope/Near Syncope - HPI Summary HPI Summary: 61 year old female s/p syncopal episode last night. Patient reports that she was in bed prior to syncopal episode and states that her walker fell on her. Patient also has a fever (101.6), low back pain, nausea, and vomiting. She denies any abdominal pain, diarrhea, dysuria/burning with urination, or dizziness. She denies any pain on arrival. PMHx is significant for leukemia with blood transfusions - currently awaiting bone marrow transplant. - History Of Current Complaint Chief Complaint: EDFever Time Seen by Provider: 03/12/17 09:41 Hx Obtained From: Patient Onset/Duration: Sudden Onset Timing: Frequency Of Episodes - 1 Context: Unwitnessed Activity At Onset: At Rest - In bed Associated Head Trauma: No Associated Signs And Symptoms: Pain - low back, Vomiting, Other - nausea, fever ; No CP, SOB, cough, diarrhea, dysuria, abd pain, dizziness - Allergies/Home Medications Allergies/Adverse Reactions: Allergies Allergy/AdvReac Type Severity Reaction Status Date / Time Azithromycin Allergy See Comment Verified 03/12/17 09:46 Cephalexin [From Keflex] Allergy VOMITING, Verified 03/12/17 09:46 DIARRHEA, HIVES, LIGHTHEADEDNESS Diazepam [From Valium] Allergy Difficulty Verified 03/12/17 09:46 Breathing Hydromorphone [From Dilaudid] Allergy Altered Verified 03/12/17 09:46 Mental Status Latex Allergy Rash Verified 03/12/17 09:46 Penicillins [PCN] Allergy CHEST Verified 03/12/17 09:46 HEAVINESS, SLIGHT DIFF BREATHING, LIGHTHEADEDNESS, Sulfa Antibiotics Allergy See Comment Verified 03/12/17 09:46 Benzonatate [From Tessalon] AdvReac Headache Verified 03/12/17 09:46 Codeine AdvReac See Comment Verified 03/12/17 09:46 Morphine AdvReac VOMITING, Verified 03/12/17 09:46 LIGHTHEADEDNESS ALL "MYCINS" Allergy CHEST Uncoded 03/12/17 09:46 HEAVINESS, SL. DIFF. BREATHING, LIGHTHEADEDNESS ALL CILLINS Allergy CHEST Uncoded 03/12/17 09:46 HEAVINESS, SL. DIFF. BREATHING, LIGHTHEADNESS MULTIPLE ANTIBIOPTIC Allergy CHEST Uncoded 03/12/17 09:46 REACTIONS HEAVINESS, SL. DIFF. BREATHING, LIGHTHEADEDNESS SULFA DRUGS Allergy VOMITING, Uncoded 03/12/17 09:46 DIARRHEA, HIVES, LIGHTHEADEDNESS Home Medications: Home Medications Lactobacillus (NF) [Culturelle (NF)] 1 tab PO DAILY 03/12/17 [History Confirmed 03/12/17] Multiple Vitamins W/ Minerals [Multivitamin Gummies Wome] 2 chw PO DAILY [History Confirmed 03/12/17] PMH/Surg Hx/FS Hx/Imm Hx Endocrine/Hematology History: Reports: Hx Diabetes Cardiovascular History: Reports: Hx Angina Denies: Hx Coronary Artery Disease, Hx Hypercholesterolemia, Hx Hypertension , Hx Myocardial Infarction, Hx Pacemaker/ICD, Hx Valvular Heart Disease Respiratory History: Denies: Hx Asthma, Hx Chronic Obstructive Pulmonary Disease (COPD) GI History: Reports: Hx Gastroesophageal Reflux Disease, Hx Gastrointestinal Bleed, Hx Hiatal Hernia, Hx Ulcer - reflux History: Reports: Hx Kidney Stones - teenager Denies: Hx Renal Disease Musculoskeletal History: Reports: Other Musculoskeletal History - meylofibrosis Sensory History: Reports: Hx Cataracts - BEGINNING STAGES Denies: Hx Contacts or Glasses, Hx Hearing Aid Opthamlomology History: Reports: Hx Cataracts - BEGINNING STAGES Denies: Hx Contacts or Glasses Psychiatric History: Reports: Hx Anxiety, Hx Depression, Hx Panic Disorder, Other Psychiatric Issues/Disorders - claustrophobia - Cancer History Cancer Type, 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 SURGERY FOR PROLASPED BLADDER AND RECTUM, TOTAL ABDOMINAL HYSTERECTOMY- LAPAROSCOPIC-JESSICA. TUBAL LIGATION. LEFT HAND LUMPS REMOVED 2014. dental work Hx Anesthesia Reactions: Yes - NAUSEA - Immunization History Date of Tetanus Vaccine: none Date of Influenza Vaccine: none Infectious Disease History: Reports: Hx of Known/Suspected MRSA Denies: History Other Infectious Disease - Family History Known Family History: Positive: Cardiac Disease Family History: cancer - Social History Occupation: Disabled Lives: Alone Alcohol Use: Rare Alcohol Amount: quit 2008 Substance Use Type: Reports: None Hx Tobacco Use: Yes Smoking Status (MU): Former Smoker Type: Cigarettes Amount Used/How Often: 1 PPD X 25 +YEARS Have You Smoked in the Last Year: No Review of Systems Positive: Fever Eyes: Negative ENT: Negative Cardiovascular: Negative Negative: Chest Pain Respiratory: Negative Negative: Shortness Of Breath, Cough Positive: Vomiting, Nausea. Negative: Abdominal Pain, Diarrhea Genitourinary: Negative Negative: burning, dysuria Musculoskeletal: Negative Skin: Negative Neurological: Negative - No dizziness Psychological: Normal All Other Systems Reviewed And Are Negative: Yes Physical Exam - Summary Physical Exam Summary: VITAL SIGNS: Reviewed. GENERAL: Patient is a well-developed and nourished female who is lying comfortable in the stretcher. Patient is not in any acute respiratory distress. HEAD AND FACE: No signs of trauma. No ecchymosis, hematomas or skull depressions. No sinus tenderness. EYES: PERRLA, EOMI x 2, No injected conjunctiva, no nystagmus. EARS: Hearing grossly intact. Ear canals and tympanic membranes are within normal limits. MOUTH: Oropharynx within normal limits. NECK: Supple, trachea is midline, no adenopathy, no JVD, no carotid bruit, no c- spine tenderness, neck with full ROM. CHEST: Symmetric, no tenderness at palpation LUNGS: Clear to auscultation bilaterally. No wheezing or crackles. CVS: Regular rate and rhythm, S1 and S2 present, no murmurs or gallops appreciated. ABDOMEN: Soft, non-tender. No signs of distention. No rebound no guarding, and no masses palpated. Bowel sounds are normal. EXTREMITIES: FROM in all major joints, no edema, no cyanosis or clubbing. NEURO: Alert and oriented x 3. No acute neurological deficits. Speech is normal and follows commands. SKIN: Dry and warm Triage Information Reviewed: Yes Vital Signs On Initial Exam: Initial Vitals Pulse Pulse Ox 98 88 03/12/17 09:37 03/12/17 09:37 Vital Signs Reviewed: Yes Diagnostics - Vital Signs Vital Signs Temp Pulse Resp BP Pulse Ox 03/12/17 11:30 86 18 129/52 97 03/12/17 11:27 86 19 99/57 99 03/12/17 11:17 94 03/12/17 11:02 88 23 82 03/12/17 10:00 91 19 98 03/12/17 09:49 100.9 F 94 19 137/60 90 03/12/17 09:42 137/60 03/12/17 09:37 98 88 - Laboratory Lab Results: Lab Results 03/12/17 03/12/17 03/12/17 Range/Units 10:00 10:00 10:00 WBC 1.7 L (3.5-10.8) 10^3/ul RBC 2.58 L (4.0-5.4) 10^6/ul Hgb 7.0 L (12.0-16.0) g/dl Hct 21 L (35-47) % MCV 83 (80-97) fL MCH 27 (27-31) pg MCHC 33 (31-36) g/dl RDW 16 H (10.5-15) % Plt Count 43 L (150-450) 10^3/ul MPV 8 (7.4-10.4) um3 Immature Gran % (Auto) 12 H (0-9) % Neut % (Auto) 64.5 (38-83) % Lymph % (Auto) 21.9 L (25-47) % Caswell % (Auto) 11.7 H (1-9) % Eos % (Auto) 0.9 (0-6) % Baso % (Auto) 1.0 (0-2) % Absolute Neuts (auto) 1.1 L (1.5-7.7) 10^3/ul Absolute Lymphs (auto) 0.4 L (1.0-4.8) 10^3/ul Absolute Monos (auto) 0.2 (0-0.8) 10^3/ul Absolute Eos (auto) 0 (0-0.6) 10^3/ul Absolute Basos (auto) 0 (0-0.2) 10^3/ul Absolute Nucleated RBC 0.08 10^3/ul Neutrophils % 51 (38-83) % Band Neutrophils % 5 (0-8) % Lymphocytes % 20 L (25-47) % Reactive Lymphs % 2 (0-6) % Monocytes % 12 (0-13) % Eosinophils % 3 (0-6) % Metamyelocytes % 4 H (0-2) % Myelocytes % 3 H (0-1) % Nucleated RBC % 5.1 Nucleated RBCs/100 WBC 6 H (0-0) Normal RBC Morphology Not Reportable Microcytosis 1+ Tear Drop Cells 1+ Elliptocytes 1+ ESR 120 H (0-30) mm/Hr INR (Anticoag Therapy) 0.99 (0.89-1.11) APTT 29.6 (26.0-36.3) seconds Fibrinogen 576 H (110.8-404.3) mg/dL Sodium 130 L (133-145) mmol/L Potassium 4.5 (3.5-5.0) mmol/L Chloride 94 L (101-111) mmol/L Carbon Dioxide 26 (22-32) mmol/L Anion Gap 10 (2-11) mmol/L BUN 16 (6-24) mg/dL Creatinine 0.72 (0.51-0.95) mg/dL Est GFR ( Amer) 105.9 (>60) Est GFR (Non-Af Amer) 82.3 (>60) BUN/Creatinine Ratio 22.2 H (8-20) Glucose 239 H (70-100) mg/dL Lactic Acid (0.5-2.0) mmol/L Calcium 9.0 (8.6-10.3) mg/dL Total Bilirubin 0.50 (0.2-1.0) mg/dL AST 8 L (13-39) U/L ALT 4 L (7-52) U/L Alkaline Phosphatase 74 (34-104) U/L Total Creatine Kinase 10 (10-223) U/L Troponin I 0.00 (<0.04) ng/mL C-Reactive Protein 97.03 H (< 5.00) mg/L B-Natriuretic Peptide ( - 100) pg/mL Total Protein 6.4 (6.4-8.9) g/dL Albumin 3.2 (3.2-5.2) g/dL Globulin 3.2 (2-4) g/dL Albumin/Globulin Ratio 1.0 (1-3) Procalcitonin (<0.6) ng/mL Urine Color Urine Appearance Urine pH (5-9) Ur Specific Flushing (1.010-1.030) Urine Protein (Negative) Urine Ketones (Negative) Urine Blood (Negative) Urine Nitrate (Negative) Urine Bilirubin (Negative) Urine Urobilinogen (Negative) Ur Leukocyte Esterase (Negative) Urine WBC (Auto) (Absent) Urine RBC (Auto) (Absent) Ur Squamous Epith Cells (Absent) Urine Bacteria (Absent) Urine Glucose (Negative) Blood Type Antibody Screen Crossmatch 03/12/17 03/12/17 03/12/17 Range/Units 10:00 10:00 10:00 WBC (3.5-10.8) 10^3/ul RBC (4.0-5.4) 10^6/ul Hgb (12.0-16.0) g/dl Hct (35-47) % MCV (80-97) fL MCH (27-31) pg MCHC (31-36) g/dl RDW (10.5-15) % Plt Count (150-450) 10^3/ul MPV (7.4-10.4) um3 Immature Gran % (Auto) (0-9) % Neut % (Auto) (38-83) % Lymph % (Auto) (25-47) % Caswell % (Auto) (1-9) % Eos % (Auto) (0-6) % Baso % (Auto) (0-2) % Absolute Neuts (auto) (1.5-7.7) 10^3/ul Absolute Lymphs (auto) (1.0-4.8) 10^3/ul Absolute Monos (auto) (0-0.8) 10^3/ul Absolute Eos (auto) (0-0.6) 10^3/ul Absolute Basos (auto) (0-0.2) 10^3/ul Absolute Nucleated RBC 10^3/ul Neutrophils % (38-83) % Band Neutrophils % (0-8) % Lymphocytes % (25-47) % Reactive Lymphs % (0-6) % Monocytes % (0-13) % Eosinophils % (0-6) % Metamyelocytes % (0-2) % Myelocytes % (0-1) % Nucleated RBC % Nucleated RBCs/100 WBC (0-0) Normal RBC Morphology Microcytosis Tear Drop Cells Elliptocytes ESR (0-30) mm/Hr INR (Anticoag Therapy) (0.89-1.11) APTT (26.0-36.3) seconds Fibrinogen (110.8-404.3) mg/dL Sodium (133-145) mmol/L Potassium (3.5-5.0) mmol/L Chloride (101-111) mmol/L Carbon Dioxide (22-32) mmol/L Anion Gap (2-11) mmol/L BUN (6-24) mg/dL Creatinine (0.51-0.95) mg/dL Est GFR ( Amer) (>60) Est GFR (Non-Af Amer) (>60) BUN/Creatinine Ratio (8-20) Glucose (70-100) mg/dL Lactic Acid 0.7 (0.5-2.0) mmol/L Calcium (8.6-10.3) mg/dL Total Bilirubin (0.2-1.0) mg/dL AST (13-39) U/L ALT (7-52) U/L Alkaline Phosphatase (34-104) U/L Total Creatine Kinase (10-223) U/L Troponin I (<0.04) ng/mL C-Reactive Protein (< 5.00) mg/L B-Natriuretic Peptide 257 H ( - 100) pg/mL Total Protein (6.4-8.9) g/dL Albumin (3.2-5.2) g/dL Globulin (2-4) g/dL Albumin/Globulin Ratio (1-3) Procalcitonin 0.2 (<0.6) ng/mL Urine Color Urine Appearance Urine pH (5-9) Ur Specific Flushing (1.010-1.030) Urine Protein (Negative) Urine Ketones (Negative) Urine Blood (Negative) Urine Nitrate (Negative) Urine Bilirubin (Negative) Urine Urobilinogen (Negative) Ur Leukocyte Esterase (Negative) Urine WBC (Auto) (Absent) Urine RBC (Auto) (Absent) Ur Squamous Epith Cells (Absent) Urine Bacteria (Absent) Urine Glucose (Negative) Blood Type Antibody Screen Crossmatch 03/12/17 03/12/17 Range/Units 10:00 10:06 WBC (3.5-10.8) 10^3/ul RBC (4.0-5.4) 10^6/ul Hgb (12.0-16.0) g/dl Hct (35-47) % MCV (80-97) fL MCH (27-31) pg MCHC (31-36) g/dl RDW (10.5-15) % Plt Count (150-450) 10^3/ul MPV (7.4-10.4) um3 Immature Gran % (Auto) (0-9) % Neut % (Auto) (38-83) % Lymph % (Auto) (25-47) % Caswell % (Auto) (1-9) % Eos % (Auto) (0-6) % Baso % (Auto) (0-2) % Absolute Neuts (auto) (1.5-7.7) 10^3/ul Absolute Lymphs (auto) (1.0-4.8) 10^3/ul Absolute Monos (auto) (0-0.8) 10^3/ul Absolute Eos (auto) (0-0.6) 10^3/ul Absolute Basos (auto) (0-0.2) 10^3/ul Absolute Nucleated RBC 10^3/ul Neutrophils % (38-83) % Band Neutrophils % (0-8) % Lymphocytes % (25-47) % Reactive Lymphs % (0-6) % Monocytes % (0-13) % Eosinophils % (0-6) % Metamyelocytes % (0-2) % Myelocytes % (0-1) % Nucleated RBC % Nucleated RBCs/100 WBC (0-0) Normal RBC Morphology Microcytosis Tear Drop Cells Elliptocytes ESR (0-30) mm/Hr INR (Anticoag Therapy) (0.89-1.11) APTT (26.0-36.3) seconds Fibrinogen (110.8-404.3) mg/dL Sodium (133-145) mmol/L Potassium (3.5-5.0) mmol/L Chloride (101-111) mmol/L Carbon Dioxide (22-32) mmol/L Anion Gap (2-11) mmol/L BUN (6-24) mg/dL Creatinine (0.51-0.95) mg/dL Est GFR ( Amer) (>60) Est GFR (Non-Af Amer) (>60) BUN/Creatinine Ratio (8-20) Glucose (70-100) mg/dL Lactic Acid (0.5-2.0) mmol/L Calcium (8.6-10.3) mg/dL Total Bilirubin (0.2-1.0) mg/dL AST (13-39) U/L ALT (7-52) U/L Alkaline Phosphatase (34-104) U/L Total Creatine Kinase (10-223) U/L Troponin I (<0.04) ng/mL C-Reactive Protein (< 5.00) mg/L B-Natriuretic Peptide ( - 100) pg/mL Total Protein (6.4-8.9) g/dL Albumin (3.2-5.2) g/dL Globulin (2-4) g/dL Albumin/Globulin Ratio (1-3) Procalcitonin (<0.6) ng/mL Urine Color Yellow Urine Appearance Cloudy Urine pH 5.0 (5-9) Ur Specific Flushing 1.017 (1.010-1.030) Urine Protein 1+(30 mg/dl) H (Negative) Urine Ketones Trace H (Negative) Urine Blood Negative (Negative) Urine Nitrate Negative (Negative) Urine Bilirubin Negative (Negative) Urine Urobilinogen Negative (Negative) Ur Leukocyte Esterase Trace H (Negative) Urine WBC (Auto) Trace(0-5/hpf) (Absent) Urine RBC (Auto) Absent (Absent) Ur Squamous Epith Cells Present H (Absent) Urine Bacteria Absent (Absent) Urine Glucose Negative (Negative) Blood Type O Positive Antibody Screen Negative Crossmatch See Detail Result Diagrams: 03/12/17 10:00 03/12/17 10:00 Lab Statement: Any lab studies that have been ordered have been reviewed, and results considered in the medical decision making process. - Radiology cxr Xray Interpretation: Positive (See Comments) - IMPRESSION: INTERVAL RESOLUTION OF THE RIGHT LOWER LUNG PATCHY INFILTRATES DESCRIBED ON THE PREVIOUS CHEST X- RAY IN THIS OTHERWISE NONACUTE CHEST RADIOGRAPH. Radiology Interpretation Completed By: Radiologist - CT Brain CT CT Interpretation: No Acute Changes - No acute intracranial pathology. CT Interpretation Completed By: Radiologist Course/Dx Assessment/Plan: 61 year old female s/p syncopal episode last night. Patient reports that she was in bed prior to syncopal episode and states that her walker fell on her. Patient also has a fever (101.6), low back pain, nausea, and vomiting. She denies any abdominal pain, diarrhea, dysuria/burning with urination, or dizziness. She denies any pain on arrival. PMHx is significant for leukemia with blood transfusions - currently awaiting bone marrow transplant. Test results WNL except WBC 1.7,Hg 7 Hct 21, plat 43 consistent with pancytopenia, Fibrinogen 576 Sodium 130, Glucose 239, CRP 97 BNP 257. UA - trace ketones. CXR - right lower lung patchy infiltrates previously seen in past CXR. Brain CT- NAD. In ED course, IV fluids were given since patient has multiple antibiotic allergies. I discussed my physical exam and findings with Dr. Ayala from oncology who agreed to admit the patient to [facility] [place]. Patient is hemodynamically stable and A&O x3. - Diagnoses Differential Diagnosis/HQI/PQRI: Positive: Other - Pneumonia, UTI, Sepsis Provider Diagnoses: Fever, Pancytopenia - Physician Notifications Discussed Care of Patient With: Yaa Moran - agrees to admit Time Discussed With Above Provider: 10:45 Discharge - Discharge Plan Condition: Stable Disposition: ADMITTED TO [facility] The documentation as recorded by the Filippo de la o Auryana accurately reflects the service I personally performed and the decisions made by me, Jacky Sosa MD.
[2017-03-12] MEDS: Polyethylene Glycol 3350* 17 GM PACKET PO PRN (19:56)
[2017-03-12] MEDS: oxyCODONE SR TAB(*) 40 MG TAB.SR PO SCH (21:41)
[2017-03-13 05:58] LABS: Hematocrit 26 % (35-47); Hemoglobin 8.5 g/dl (12.0-16.0); Mean Corpuscular HGB Conc 33 g/dl (31-36); Mean Corpuscular Hemoglobin 27 pg (27-31); Mean Corpuscular Volume 83 fL (80-97); Mean Platelet Volume 7 um3 (7.4-10.4); Red Blood Count 3.12 10^6/ul (4.0-5.4); Red Cell Distribution Width 16 % (10.5-15); White Blood Count 1.8 10^3/ul (3.5-10.8)
[2017-03-13 06:01] LABS: Add Diff/Slide Review? Slide Review Added; Comments Flag Yes
[2017-03-13 06:18] LABS: Albumin 2.9 g/dL (3.2-5.2); BUN/Creatinine Ratio 19.3 (8-20); Calcium 8.9 mg/dL (8.6-10.3); EGFR African American 138.7 (>60); EGFR Non-African American 107.8 (>60); Globulin 2.9 g/dL (2-4); Potassium 4.5 mmol/L (3.5-5.0); Total Bilirubin 0.5 mg/dL (0.2-1.0); Total Protein 5.8 g/dL (6.4-8.9)
[2017-03-13] MEDS: Lactobacillus Acidophilu (GG)* 1 CAP CAP PO SCH (08:32)
[2017-03-13] MEDS: Cyanocobalamin TAB* 500 MCG PO SCH (08:33)
[2017-03-13] MEDS: Gabapentin CAP(*) 300 MG PO SCH ×3 (08:33→23:37)
[2017-03-13] MEDS: Insulin GLARGINE(*) 1 UNITS UNIT SUBCUT SCH ×2 (08:33→21:41)
[2017-03-13] MEDS: oxyCODONE SR TAB(*) 40 MG TAB.SR PO SCH ×2 (08:33→21:40)
[2017-03-13] MEDS: Insulin LISPRO* 1 UNITS UNIT SUBCUT SCH ×3 (08:34→17:00)
[2017-03-13] MEDS ORDERED: diPHENhydraMINE PO* 25 MG PO ONE (10:32)
[2017-03-13] MEDS ORDERED: Magnesium Hydroxide LIQ* 30 ML UDC PO ONE (10:33)
[2017-03-13] MEDS ORDERED: Levofloxacin 750 MG IVPREMIX(* 750 MG/150 ML BAG IVPB ONE (11:16)
[2017-03-13] MEDS: oxyCODONE TAB* 5 MG TAB PO PRN ×2 (12:54→23:38)
[2017-03-13] MEDS: Polyethylene Glycol 3350* 17 GM PACKET PO PRN (14:09)
[2017-03-13] MEDS: Acetaminophen TAB* 325 MG PO PRN (15:45)
[2017-03-13] MEDS: Ondansetron ODT TAB* 4 MG PO PRN (17:06)
[2017-03-14] MEDS: oxyCODONE TAB* 5 MG TAB PO PRN ×2 (03:40→10:29)
[2017-03-14] MEDS: Acetaminophen TAB* 325 MG PO PRN (06:08)
[2017-03-14] MEDS: Ondansetron ODT TAB* 4 MG PO PRN ×2 (06:09→12:18)
[2017-03-14 08:27] VITALS: BP 135/52
[2017-03-14] MEDS: Lactobacillus Acidophilu (GG)* 1 CAP CAP PO SCH (08:34)
[2017-03-14] MEDS: Cyanocobalamin TAB* 500 MCG PO SCH (08:34)
[2017-03-14] MEDS: Insulin LISPRO* 1 UNITS UNIT SUBCUT SCH ×2 (08:34→12:25)
[2017-03-14] MEDS: Gabapentin CAP(*) 300 MG PO SCH ×2 (08:34→12:25)
[2017-03-14] MEDS: oxyCODONE SR TAB(*) 40 MG TAB.SR PO SCH (08:35)
[2017-03-14] MEDS: Insulin GLARGINE(*) 1 UNITS UNIT SUBCUT SCH (08:35)
== END 2017-03-14 12:45 | disposition home or self-care (01) | DRG 809 ==
LOC: ED 09:31 → MED 11:56
PROVIDERS: ADMIT Internal Medicine Hematology & Oncology; ATTEND Internal Medicine Hematology & Oncology
PROC: 30233N1 Transfusion of Nonautologous Red Blood Cells into Peripheral Vein, Percutaneous Approach (ICD-10-PCS; principal; 2017-03-12)
DX: D61.818 Other pancytopenia (principal); C95.90 Leukemia, unspecified not having achieved remission; Z76.82 Awaiting organ transplant status; E11.40 Type 2 diabetes mellitus with diabetic neuropathy, unspecified; D75.81 Myelofibrosis; K21.9 Gastro-esophageal reflux disease without esophagitis; K59.00 Constipation, unspecified; F32.9 Major depressive disorder, single episode, unspecified; F41.0 Panic disorder [episodic paroxysmal anxiety]; R50.9 Fever, unspecified; H26.9 Unspecified cataract; Z88.5 Allergy status to narcotic agent; Z87.442 Personal history of urinary calculi; Z86.14 Personal history of Methicillin resistant Staphylococcus aureus infection; Z82.49 Family history of ischemic heart disease and other diseases of the circulatory system; Z91.81 History of falling; Z79.4 Long term (current) use of insulin; Z87.891 Personal history of nicotine dependence; Z88.1 Allergy status to other antibiotic agents; Z88.2 Allergy status to sulfonamides; Z88.0 Allergy status to penicillin; Z88.8 Allergy status to other drugs, medicaments and biological substances; Z98.51 Tubal ligation status
CPT/HCPCS: 36415; 70450; 71020; 80053; 81003; 81015; 82550; 83605; 83735; 83880; 84145; 84484; 85025; 85060; 85384; 85610; 85652; 85730; 86140; 86850; 86900; 86901; 86922; 87040; 87077; 87086; 87150; 87205; 93005; 96365; 99212; 99214; A9270-GY; G0463; J1642; P9040

== ENCOUNTER 2017-03-16 21:55 | Emergency (ER) | payer MEDICARE, MEDICAID ==
[2017-03-16] MEDS ORDERED: NS 0.9% 1000 ML* 1,000 ML IV ONE (22:00)
[2017-03-16] MEDS ORDERED: Acetaminophen TAB* 325 MG PO ONE (22:00)
--- NOTE | 2017-03-16 22:36 | RAD ---
HISTORY: Fever COMPARISONS: March 12, 2017 VIEWS: 2: Frontal and lateral views of the chest. FINDINGS: CARDIOMEDIASTINAL SILHOUETTE: The cardiomediastinal silhouette is normal. NOLBERTO: The nolberto are normal. PLEURA: The costophrenic angles are sharp. No pleural abnormalities are noted. LUNG PARENCHYMA: The lungs are clear. ABDOMEN: The upper abdomen is clear. There is no subphrenic gas. BONES AND SOFT TISSUES: No bone or soft tissue abnormalities are noted. OTHER: A right-sided chest port is noted with the tip overlying the superior vena cava. IMPRESSION: NO ACTIVE CARDIOPULMONARY DISEASE.
[2017-03-16 22:54] LABS: Add Diff/Slide Review? Manual Diff Added; Comments Flag Yes; Hematocrit 29 % (35-47); Hemoglobin 9.6 g/dl (12.0-16.0); Mean Corpuscular HGB Conc 33 g/dl (31-36); Mean Corpuscular Hemoglobin 27 pg (27-31); Mean Corpuscular Volume 82 fL (80-97); Mean Platelet Volume 8 um3 (7.4-10.4); Red Blood Count 3.54 10^6/ul (4.0-5.4); Red Cell Distribution Width 16 % (10.5-15); White Blood Count 1.8 10^3/ul (3.5-10.8)
[2017-03-16 23:04] LABS: Albumin 3.3 g/dL (3.2-5.2); BUN/Creatinine Ratio 21.3 (8-20); Calcium 9.2 mg/dL (8.6-10.3); EGFR Non-African American 78.6 (>60); Globulin 3.1 g/dL (2-4); Magnesium 1.4 mg/dL (1.9-2.7); Potassium 4.3 mmol/L (3.5-5.0); Total Bilirubin 0.6 mg/dL (0.2-1.0); Total Protein 6.4 g/dL (6.4-8.9)
[2017-03-16 23:13] LABS: Immature Granulocytes 40 % (0-9); Metamyelocytes % 7 % (0-2); Myelocytes % 2 % (0-1); Neutrophil % 18 % (38-83)
--- NOTE | 2017-03-16 23:25 | ED ---
Gary Mujica Benjamin, scribed for Liu Aguilar MD on 03/16/17 at 2249 . Complex/Multi-Sys Presentation - HPI Summary HPI Summary: 61yo female c/o N/V and fever this afternoon. 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 Pt was recently discharged on 03/14/17 after admission for similar symptoms. - History Of Current Complaint Chief Complaint: EDNauseaVomitDiarrh Time Seen by Provider: 03/16/17 21:59 Hx Obtained From: Patient Onset/Duration: Sudden Onset, Lasting Hours, Still Present Timing: Constant Severity Currently: Mild Severity Initially: Mild Location: Negative Associated Signs And Symptoms: Positive: Nausea, Vomiting, Fever - Allergies/Home Medications Allergies/Adverse Reactions: Allergies Allergy/AdvReac Type Severity Reaction Status Date / Time Azithromycin Allergy See Comment Verified 03/16/17 22:23 Cephalexin [From Keflex] Allergy VOMITING, Verified 03/16/17 22:23 DIARRHEA, HIVES, LIGHTHEADEDNESS Diazepam [From Valium] Allergy Difficulty Verified 03/16/17 22:23 Breathing Hydromorphone [From Dilaudid] Allergy Altered Verified 03/16/17 22:23 Mental Status Latex Allergy Rash Verified 03/16/17 22:23 Penicillins [PCN] Allergy CHEST Verified 03/16/17 22:23 HEAVINESS, SLIGHT DIFF BREATHING, LIGHTHEADEDNESS, Sulfa Antibiotics Allergy See Comment Verified 03/16/17 22:23 Benzonatate [From Tessalon] AdvReac Headache Verified 03/16/17 22:23 Codeine AdvReac See Comment Verified 03/16/17 22:23 Morphine AdvReac VOMITING, Verified 03/16/17 22:23 LIGHTHEADEDNESS ALL "MYCINS" Allergy CHEST Uncoded 03/16/17 22:23 HEAVINESS, SL. DIFF. BREATHING, LIGHTHEADEDNESS ALL CILLINS Allergy CHEST Uncoded 03/16/17 22:23 HEAVINESS, SL. DIFF. BREATHING, LIGHTHEADNESS MULTIPLE ANTIBIOPTIC Allergy CHEST Uncoded 03/16/17 22:23 REACTIONS HEAVINESS, SL. DIFF. BREATHING, LIGHTHEADEDNESS SULFA DRUGS Allergy VOMITING, Uncoded 03/16/17 22:23 DIARRHEA, HIVES, LIGHTHEADEDNESS PMH/Surg Hx/FS Hx/Imm Hx Endocrine/Hematology History: Reports: Hx Diabetes Cardiovascular History: Reports: Hx Angina Denies: Hx Coronary Artery Disease, Hx Hypercholesterolemia, Hx Hypertension , Hx Myocardial Infarction, Hx Pacemaker/ICD, Hx Valvular Heart Disease Respiratory History: Denies: Hx Asthma, Hx Chronic Obstructive Pulmonary Disease (COPD) GI History: Reports: Hx Gastroesophageal Reflux Disease, Hx Gastrointestinal Bleed, Hx Hiatal Hernia, Hx Ulcer - reflux History: Reports: Hx Kidney Stones - teenager Denies: Hx Renal Disease Musculoskeletal History: Reports: Other Musculoskeletal History - meylofibrosis Sensory History: Reports: Hx Cataracts - BEGINNING STAGES Denies: Hx Contacts or Glasses, Hx Hearing Aid Opthamlomology History: Reports: Hx Cataracts - BEGINNING STAGES Denies: Hx Contacts or Glasses Psychiatric History: Reports: Hx Anxiety, Hx Depression, Hx Panic Disorder, Other Psychiatric Issues/Disorders - claustrophobia - Cancer History Cancer Type, 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 SURGERY FOR PROLASPED BLADDER AND RECTUM, TOTAL ABDOMINAL HYSTERECTOMY- LAPAROSCOPIC-JESSICA. TUBAL LIGATION. LEFT HAND LUMPS REMOVED 2014. dental work Hx Anesthesia Reactions: Yes - NAUSEA - Immunization History Date of Tetanus Vaccine: none Date of Influenza Vaccine: none Infectious Disease History: Yes Infectious Disease History: Reports: Hx of Known/Suspected MRSA Denies: History Other Infectious Disease, Traveled Outside the [place] in Last 30 Days - Family History Known Family History: Positive: None, Cardiac Disease Family History: cancer - Social History Occupation: Disabled Lives: Alone Alcohol Use: Rare Alcohol Amount: quit 2008 Substance Use Type: Reports: Prescribed Hx Tobacco Use: Yes Smoking Status (MU): Former Smoker Type: Cigarettes Amount Used/How Often: 1 PPD X 25 +YEARS Have You Smoked in the Last Year: No Review of Systems Positive: Fever Eyes: Negative ENT: Negative Cardiovascular: Negative Respiratory: Negative Positive: Vomiting, Nausea Genitourinary: Negative Musculoskeletal: Negative Skin: Negative Neurological: Negative Psychological: Normal All Other Systems Reviewed And Are Negative: Yes Physical Exam Triage Information Reviewed: Yes Vital Signs On Initial Exam: Initial Vitals Temp Pulse Resp BP Pulse Ox 99.2 F 95 16 128/44 94 03/16/17 21:55 03/16/17 21:55 03/16/17 21:55 03/16/17 21:55 03/16/17 21:55 Vital Signs Reviewed: Yes Appearance: Positive: No Pain Distress, Thin Skin: Positive: Warm Head/Face: Positive: Normal Head/Face Inspection Eyes: Positive: JACKELYN ENT: Positive: Pharynx normal Neck: Positive: Supple, Nontender Respiratory/Lung Sounds: Positive: Clear to Auscultation, Breath Sounds Present Cardiovascular: Positive: RRR Abdomen Description: Positive: Nontender, Soft Bowel Sounds: Positive: Present Musculoskeletal: Positive: Strength/ROM Intact Neurological: Positive: Sensory/Motor Intact, Alert, Oriented to Person Place, Time Psychiatric: Positive: Affect/Mood Appropriate Diagnostics - Vital Signs Vital Signs Temp Pulse Resp BP Pulse Ox 03/16/17 21:55 99.2 F 95 16 128/44 94 - Laboratory Lab Results: Lab Results 03/16/17 03/16/17 03/16/17 Range/Units 22:40 22:40 22:40 WBC 1.8 L (3.5-10.8) 10^3/ul RBC 3.54 L (4.0-5.4) 10^6/ul Hgb 9.6 L (12.0-16.0) g/dl Hct 29 L (35-47) % MCV 82 (80-97) fL MCH 27 (27-31) pg MCHC 33 (31-36) g/dl RDW 16 H (10.5-15) % Plt Count 35 L (150-450) 10^3/ul MPV 8 (7.4-10.4) um3 Immature Gran % (Auto) Pending Absolute Neuts (auto) Pending Absolute Lymphs (auto) Pending Absolute Monos (auto) Pending Absolute Eos (auto) Pending Absolute Basos (auto) Pending Absolute Nucleated RBC Pending Neutrophils % Pending Band Neutrophils % Pending Lymphocytes % Pending Monocytes % Pending Basophils % Pending Metamyelocytes % Pending Myelocytes % Pending Blast Cells % Pending Nucleated RBCs/100 WBC Pending Normal RBC Morphology Pending Sodium 129 L (133-145) mmol/L Potassium 4.3 (3.5-5.0) mmol/L Chloride 92 L (101-111) mmol/L Carbon Dioxide 27 (22-32) mmol/L Anion Gap 10 (2-11) mmol/L BUN 16 (6-24) mg/dL Creatinine 0.75 (0.51-0.95) mg/dL Est GFR ( Amer) 101.0 (>60) Est GFR (Non-Af Amer) 78.6 (>60) BUN/Creatinine Ratio 21.3 H (8-20) Glucose 236 H (70-100) mg/dL Lactic Acid 0.7 (0.5-2.0) mmol/L Calcium 9.2 (8.6-10.3) mg/dL Magnesium 1.4 L (1.9-2.7) mg/dL Total Bilirubin 0.60 (0.2-1.0) mg/dL AST 8 L (13-39) U/L ALT 3 L (7-52) U/L Alkaline Phosphatase 72 (34-104) U/L Total Protein 6.4 (6.4-8.9) g/dL Albumin 3.3 (3.2-5.2) g/dL Globulin 3.1 (2-4) g/dL Albumin/Globulin Ratio 1.1 (1-3) Result Diagrams: 03/16/17 22:40 03/16/17 22:40 Lab Statement: Any lab studies that have been ordered have been reviewed, and results considered in the medical decision making process. - EKG 2247. Cardiac Rate: NL - 97bpm EKG Rhythm: Sinus Rhythm Re-Evaluation - Re-Evaluation First Eval Change: Improved - pt feels better, labs at [facility] , no obvious source of infection, bc drawn, will d/c f/u pcp Complex Multi-Symp Course/Dx - Diagnoses Provider Diagnoses: Febrile illness Discharge - Discharge Plan Condition: Fair Disposition: HOME Patient Education Materials: Fever in Adults (ED) Referrals: Peyman Ko MD [Primary Care Provider] - The documentation as recorded by the Gary de la o Benjamin accurately reflects the service I personally performed and the decisions made by me, Liu Aguilar MD.
[2017-03-16 23:26] LABS: RBC Morphology Normal (Normal)
[2017-03-16 23:28] LABS: Add Path Review? YES
[2017-03-17] MEDS ORDERED: NS 0.9% 1000 ML* 1,000 ML IV ONE (01:15)
[2017-03-17] MEDS ORDERED: Ondansetron INJ* 2 MG/ML VIAL IV ONE (01:23)
[2017-03-17 04:58] LABS: Urine Bacteria 1+ (Absent); Urine Bilirubin Negative (Negative); Urine Glucose Negative (Negative); Urine Nitrite Negative (Negative)
[2017-03-17 06:40] VITALS: BP 124/42
== END 2017-03-17 06:05 | disposition home or self-care (01) ==
LOC: ED 21:55
DX: R50.9 Fever, unspecified (principal); R11.2 Nausea with vomiting, unspecified; D75.81 Myelofibrosis; E11.9 Type 2 diabetes mellitus without complications; I20.9 Angina pectoris, unspecified; K21.9 Gastro-esophageal reflux disease without esophagitis; Z87.442 Personal history of urinary calculi; Z88.5 Allergy status to narcotic agent; Z88.0 Allergy status to penicillin; Z88.2 Allergy status to sulfonamides; Z88.1 Allergy status to other antibiotic agents; Z91.040 Latex allergy status; Z87.891 Personal history of nicotine dependence
CPT/HCPCS: 36415; 71020; 80053; 81003; 81015; 83605; 83735; 85025; 85060; 87040; 87077; 87086; 87184; 96361; 96374; 99285; A9270-GY; J1642; J2405

== ENCOUNTER 2017-05-17 09:54 | Inpatient (IN) | payer MEDICARE, MEDICAID ==
[2017-05-17] MEDS ORDERED: NS 0.9% 1000 ML* 1,000 ML IV ONE (10:21)
[2017-05-17] MEDS ORDERED: Ondansetron INJ* 2 MG/ML VIAL IV ONE (10:21)
[2017-05-17 10:51] LABS: Hematocrit 22 % (35-47); Hemoglobin 7.5 g/dl (12.0-16.0); Mean Corpuscular HGB Conc 34 g/dl (31-36); Mean Corpuscular Hemoglobin 29 pg (27-31); Mean Corpuscular Volume 85 fL (80-97); Red Blood Count 2.64 10^6/ul (4.0-5.4); Red Cell Distribution Width 16 % (10.5-15); White Blood Count 2.2 10^3/ul (3.5-10.8)
[2017-05-17 10:59] LABS: Add Diff/Slide Review? Slide Review Added; Comments Flag Yes
[2017-05-17 11:07] LABS: Calcium 8.2 mg/dL (8.6-10.3); EGFR African American 105.6 (>60); EGFR Non-African American 82.1 (>60); Globulin 2.7 g/dL (2-4); Potassium 5.1 mmol/L (3.5-5.0); Total Bilirubin 0.6 mg/dL (0.2-1.0); Total Protein 5.7 g/dL (6.4-8.9)
--- NOTE | 2017-05-17 11:34 | RAD ---
HISTORY: Cough COMPARISONS: March 16, 2017 VIEWS:1: Single frontal portable view of the chest at 11:10 AM FINDINGS: LINES AND TUBES: Right-sided chest port is noted from an internal jugular vein approach with the tip overlying the cavoatrial junction CARDIOMEDIASTINAL SILHOUETTE: The cardiomediastinal silhouette is normal for portable technique. PLEURA: The costophrenic angles are sharp. No pleural abnormalities are noted. LUNG PARENCHYMA: There is patchy alveolar opacification overlying the right upper lung ABDOMEN: The upper abdomen is clear. There is no subphrenic gas. BONES AND SOFT TISSUES: No bone or soft tissue abnormalities are noted. IMPRESSION: PATCHY AIRSPACE DISEASE OF THE RIGHT UPPER LUNG. RECOMMEND FOLLOW-UP UNTIL RESOLUTION TO EXCLUDE UNDERLYING PULMONARY PARENCHYMAL PATHOLOGY.
[2017-05-17 11:55] LABS: Metamyelocytes % 2 % (0-2); Myelocytes % 2 % (0-1); Neutrophil % 41 % (38-83)
[2017-05-17 11:56] LABS: Basophilic Stippling 1+; Immature Granulocytes 7 % (0-9); Polychromasia 2+
[2017-05-17 14:11] LABS: Mean Platelet Volume 11 um3 (7.4-10.4)
[2017-05-17] MEDS: NS 0.9% 1000 ML* 1,000 ML IV SCH ×2 (14:12→14:44)
[2017-05-17] MEDS: Acetaminophen TAB* 325 MG PO PRN ×2 (15:00→21:19)
[2017-05-17] MEDS ORDERED: Polyethylene Glycol 3350* 17 GM PACKET PO PRN (15:12)
[2017-05-17] MEDS ORDERED: Sucralfate TAB* 1 GM PO PRN (15:12)
[2017-05-17] MEDS ORDERED: Insulin GLARGINE(*) 1 UNITS UNIT SUBCUT SCH (16:00)
[2017-05-17] MEDS ORDERED: Scopolamine 1.5 mg* PATCH TRANSDERM SCH (16:00)
[2017-05-17 16:13] LABS: Magnesium 2.2 mg/dL (1.9-2.7)
[2017-05-17] MEDS ORDERED: Insulin LISPRO* 1 UNITS UNIT SUBCUT SCH ×2 (16:30→17:49)
[2017-05-17] MEDS: Cefepime(*) 2 GM in NS 0.9% 50 ML* 50 ML IVPB SCH (16:58)
[2017-05-17] MEDS ORDERED: oxyCODONE TAB* 5 MG TAB PO PRN (17:44)
[2017-05-17] MEDS ORDERED: LORazepam INJ* 2 MG/ML 1 ML VIAL IV PUSH PRN (17:49)
[2017-05-17] MEDS: Insulin GLARGINE(*) 1 UNITS UNIT SUBCUT SCH (17:55)
--- NOTE | 2017-05-17 20:31 | HP ---
HISTORY AND PHYSICAL: DATE OF ADMISSION: 05/17/17 ATTENDING PHYSICIAN: Nicko Ayala MD * (DICTATED BY CHRISTINE TATE) REASON FOR ADMISSION: Fevers, status post allogeneic bone marrow transplant by Dr. Valdivia in [place] on 04/14/17. HISTORY OF PRESENT ILLNESS: Briefly, she presents to the emergency room with a temp of 100.5 and significant severe weakness, status post fall last night with cough and lower abdominal pain. Ms. 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 Valdivia on 04/14/17. At that time, she did have PFTs, which the DLCO was 51%. The echo with ejection fraction, which was normal. She received fludarabine, melphalan for chemotherapy for conditioning and then stem cell infusion from an allogeneic matched unrelated donor. She engrafted and was seen by Dr. Valdivia on 05/11/17 as a followup office visit. She reported some nausea and vomiting every morning and then later on, which was controlled with Zofran and Phenergan. She is currently on ciprofloxacin 500 mg twice daily, Diflucan 200 mg daily, acyclovir 400 mg twice daily, and tacrolimus 1.5 mg daily with a tacrolimus level last known to be 9.1. Her target zone is between 8 and 11. She was known to have had a urinary tract infection. Dr. Valdivia believed it was an uncomplicated E. coli infection, which cured easily. Her current emergency room lab values include an ANC of 1000 with a total white blood cell count of 2.2, hemoglobin 7.5, hematocrit 22, and a platelet count of 7000 for which she will be transfused accordingly with 2 units of packed red blood cells and a donor pack of platelets , both of which will be irradiated product. Historically, her caregivers at home stated that she had fell the night before and as they entered the house the morning after, the patient was unclear how long she had actually been lying on the floor, thus sent to the emergency room for evaluation. She denies any shortness of breath, chest pain, or chills. She does have continued nausea with bilateral lower abdominal pain, which according to Dr. Valdivia has been there and was worked up significantly in [place] and not felt to be anything significant. She has had a wet cough over the past couple of days and has had some nausea with vomiting of green bilious emesis of small amounts, which according to the patient has not been unusual for her. She has had significant severe weakness over the past couple of days through the weekend and has not been able to eat nor drink significantly for the past 48 hours. PAST MEDICAL HISTORY: Consists of: 1. Anemia. 2. Type 2 diabetes. 3. Gastroesophageal reflux disease. 4. Hyperlipidemia. 5. Hypertension. MEDICATIONS: Include the aforementioned antibiotic regimen and antivirals, antifungals. In addition, she has been receivin. Mag sulfate 4 g on a daily basis at home. 2. Nexium 40 mg daily. 3. Gabapentin 600 mg 3 times daily. 4. Zofran 4 mg as needed for nausea and vomiting. 5. Phenergan 25 mg as needed 4 times daily for nausea. 6. Glargine insulin 5 units in the skin nightly along with Humalog U-100 KwikPen on a sliding scale 3 times daily. 7. Trazodone 50 mg at bedtime. 8. OxyContin 10 mg at bedtime. 9. Oxycodone 5 mg every 6 hours as needed for pain breakthrough. 10. Carafate 1 g 4 times daily. 11. Colace 100 mg twice daily. 12. Chlorhexidine Biopatch dressings to her port. 13. Saline as needed for hydration. ALLERGIES: Too numerous to count; all the CILLINS, all the MYCINS, BENZONATATE , KEFLEX, CODEINE, LATEX, MORPHINE, PENICILLIN, SULFA and VALIUM. FAMILY HISTORY: Noncontirbutary. SOCIAL HISTORY: She lives alone with a supportive family and friends structure ; however, the friends that were with her in the emergency room felt that they were being overwhelmed as of late. REVIEW OF SYSTEMS: Constitutional: Fevers, allergies. Immunology: No reactions. HEENT: Denies any significant visual difficulties or diplopia. ENT : Normal, no mouth sores, sore throat, or sinus drainage. Hematologic: Status post transplant. Breasts: No abnormalities, masses, or nipple discharge. Respiratory: Cough. Denies chest pain or hemoptysis. Cardiovascular: No anginal pain, palpitations, or orthopnea. Gastrointestinal : Continued nausea with some vomiting. Denies diarrhea, GI bleeding, or constipation. History of GERD. Genitourinary: Normal. Musculoskeletal: Some pains in the legs. Skin: Significant sunburn changes in the face. Neurological: Denies headaches, blurred vision, focal weakness except for significant leg weakness secondary to deconditioning. Psych: She denies any insomnia, depression, or rosales at this time. PHYSICAL EXAMINATION CONSTITUTIONAL: The patient is pale except for severe red face. She is completely alopecic secondary to chemotherapy. VITAL SIGNS: Recorded in the emergency room record. The patient's temperature was 100.5 and later checked to be 100.3. HEENT: Eyes; conjunctivae and sclerae are normal, clear without icterus. Pupils were equal and reactive. Sinuses are nontender. There are no exudates in the mouth. NECK: Supple without masses. HEMATOLOGIC: Status post transplant on 04/14/17, allogeneic with a MUD donor. RESPIRATORY: Some rales at the bases. CHEST: Symmetric without chest wall deformities. There is a double lumen port in the right upper chest wall. CARDIOVASCULAR: Normal, regular rate and rhythm without murmur, rub, click, or gallop. BREASTS: No exam. ABDOMEN: Bowel sounds are heard, slightly diminished. There is tenderness to deep palpation in the lower quadrant. There was no guarding, rebound tenderness and there is no pulsatile masses. GENITALIA: No exam. EXTREMITIES: Tender legs bilaterally in the calves. MUSCULOSKELETAL: Gait was not checked as the patient was lying in a stretcher in the emergency room. SKIN: Pale. No rashes. NEUROLOGICAL: The patient is oriented x3. PSYCHIATRIC: Normal coherent speech. The patient verbalizes understanding of all discussions. ASSESSMENT AND PLAN: This is a 62-year-old female with myelofibrosis and bone marrow failure status post bone marrow transplant of a matched unrelated donor, allogeneic, on 04/14/17 who presents to the emergency room with fever of unknown origin. After discussion with Dr. Valdivia, we will add cefepime 2 g prophylactically after her cultures were obtained as her ANC is 1000. We will ask for infectious disease consult with Dr. Reyes Blevins. She will be admitted overnight for observation and culture report. We will continue her home medications as described above. The patient wishes to remain a full code at this time. The above was discussed with Dr. Gaston and she is aware. CHRISTINE TATE [id number]/[facility] #: [id number] AURELIA
[2017-05-17] MEDS: oxyCODONE SR TAB(*) 10 MG TAB.SR PO SCH (20:41)
[2017-05-17] MEDS: Gabapentin CAP(*) 300 MG PO SCH (20:48)
[2017-05-17] MEDS: Ciprofloxacin TAB* 500 MG PO SCH (20:51)
[2017-05-17] MEDS: traZODone TAB* 50 MG TAB PO SCH (20:51)
[2017-05-17] MEDS: Acyclovir* 400 MG TAB PO SCH (20:51)
[2017-05-17] MEDS ORDERED: oxyCODONE SR TAB(*) 40 MG TAB.SR PO SCH (21:00)
[2017-05-17] MEDS ORDERED: Tacrolimus CAP(*) 0.5 MG PO ONE (21:00)
[2017-05-17] MEDS ORDERED: Tacrolimus CAP(*) 1 MG PO ONE (21:00)
[2017-05-17] MEDS: Tacrolimus CAP(*) 0.5 MG PO SCH (21:10)
[2017-05-17 21:21] LABS: Urine Bacteria Absent (Absent); Urine Bilirubin Negative (Negative); Urine Glucose 1+(50 mg/dL) (Negative); Urine Nitrite Negative (Negative)
[2017-05-18 03:39] LABS: Mean Platelet Volume 8 um3 (7.4-10.4)
[2017-05-18 03:40] LABS: Comments Flag Yes
[2017-05-18] MEDS: Acetaminophen TAB* 325 MG PO PRN ×3 (04:07→23:41)
[2017-05-18] MEDS: Insulin GLARGINE(*) 1 UNITS UNIT SUBCUT SCH ×3 (06:34→21:57)
[2017-05-18] MEDS: Cefepime(*) 2 GM in NS 0.9% 50 ML* 50 ML IVPB SCH ×2 (06:41→15:41)
[2017-05-18] MEDS: Promethazine TAB* 25 MG PO PRN ×2 (06:48→13:03)
[2017-05-18] MEDS: Gabapentin CAP(*) 300 MG PO SCH ×3 (09:15→23:42)
[2017-05-18] MEDS: Ciprofloxacin TAB* 500 MG PO SCH ×2 (09:17→21:58)
[2017-05-18] MEDS: Cyanocobalamin TAB* 500 MCG PO SCH (09:17)
[2017-05-18] MEDS: Lactobacillus Acidophilu (GG)* 1 CAP CAP PO SCH (09:18)
[2017-05-18] MEDS: Docusate CAP* 100 MG PO PRN (09:18)
[2017-05-18] MEDS: Acyclovir* 400 MG TAB PO SCH ×2 (09:19→21:58)
[2017-05-18] MEDS: Fluconazole 100 MG TAB* TAB PO SCH (09:20)
[2017-05-18] MEDS: Omeprazole CAP* 20 MG PO SCH (09:21)
[2017-05-18] MEDS: Tacrolimus CAP(*) 0.5 MG PO SCH ×2 (09:29→21:59)
[2017-05-18] MEDS: oxyCODONE SR TAB(*) 10 MG TAB.SR PO SCH ×2 (09:34→22:00)
[2017-05-18] MEDS: Ondansetron ODT TAB* 4 MG PO PRN (09:39)
[2017-05-18] MEDS ORDERED: Dextrose 50% Syringe 50 ML* 25 GM/50 ML SYRINGE IV PUSH PRN (09:50)
[2017-05-18] MEDS: Multivitamins/Minerals TAB PO SCH (09:55)
[2017-05-18 11:10] LABS: Hematocrit 28 % (35-47); Hemoglobin 9.6 g/dl (12.0-16.0); Mean Corpuscular HGB Conc 34 g/dl (31-36); Mean Corpuscular Hemoglobin 29 pg (27-31); Mean Corpuscular Volume 86 fL (80-97); Mean Platelet Volume 10 um3 (7.4-10.4); Red Blood Count 3.31 10^6/ul (4.0-5.4); Red Cell Distribution Width 17 % (10.5-15); White Blood Count 2.9 10^3/ul (3.5-10.8)
[2017-05-18 11:14] LABS: Add Diff/Slide Review? Manual Diff Added; Comments Flag Yes
[2017-05-18 11:28] LABS: Albumin 3.1 g/dL (3.2-5.2); BUN/Creatinine Ratio 21.2 (8-20); Calcium 8.6 mg/dL (8.6-10.3); EGFR African American 116.7 (>60); EGFR Non-African American 90.7 (>60); Globulin 2.9 g/dL (2-4); Potassium 4.4 mmol/L (3.5-5.0); Total Bilirubin 0.9 mg/dL (0.2-1.0)
[2017-05-18 12:14] LABS: Eosinophils % 3 % (0-6); Immature Granulocytes 15 % (0-9); Metamyelocytes % 2 % (0-2); Myelocytes % 8 % (0-1); Neutrophil % 48 % (38-83)
[2017-05-18 12:15] LABS: Basophilic Stippling 1+; Polychromasia 2+
[2017-05-18] MEDS: Insulin LISPRO* 1 UNITS UNIT SUBCUT SCH ×3 (13:05→21:47)
[2017-05-18] MEDS: NS 0.9% 1000 ML* 1,000 ML IV SCH (15:36)
--- NOTE | 2017-05-18 21:07 | ED ---
Ira Mujica Edward, scribed for Lobito Zepeda MD on 05/17/17 at 1019 . Complex/Multi-Sys Presentation - HPI Summary HPI Summary: 62 y/o female presents to ED c/o sudden onset nausea and vomiting starting 04: 00 this morning. The patient is still nauseous in the ED. Associated sx: weakness, pain in legs, sinus congestion, productive cough (white phlegm), shakiness. Denies urinary symptoms. Pt had a stem cell transplant on 04/14/14 and just left the hospital 2 days ago. - History Of Current Complaint Hx Obtained From: Patient Onset/Duration: Sudden Onset, Lasting Hours - 04:00, Still Present Associated Signs And Symptoms: Positive: Weakness, Cough - White phlegm, Nausea , Vomiting, Other - Shakiness, sinus congestion, pain in legs, denies urinary symptoms - Allergies/Home Medications Allergies/Adverse Reactions: Allergies Allergy/AdvReac Type Severity Reaction Status Date / Time Azithromycin Allergy See Comment Verified 05/17/17 10:18 Cephalexin [From Keflex] Allergy VOMITING, Verified 05/17/17 10:18 DIARRHEA, HIVES, LIGHTHEADEDNESS Diazepam [From Valium] Allergy Difficulty Verified 05/17/17 10:18 Breathing Hydromorphone [From Dilaudid] Allergy Altered Verified 05/17/17 10:18 Mental Status Latex Allergy Rash Verified 05/17/17 10:18 Penicillins [PCN] Allergy CHEST Verified 05/17/17 10:18 HEAVINESS, SLIGHT DIFF BREATHING, LIGHTHEADEDNESS, Sulfa Antibiotics Allergy See Comment Verified 05/17/17 10:18 Benzonatate [From Tessalon] AdvReac Headache Verified 05/17/17 10:18 Codeine AdvReac See Comment Verified 05/17/17 10:18 Morphine AdvReac VOMITING, Verified 05/17/17 10:18 LIGHTHEADEDNESS ALL "MYCINS" Allergy CHEST Uncoded 05/17/17 10:18 HEAVINESS, SL. DIFF. BREATHING, LIGHTHEADEDNESS ALL CILLINS Allergy CHEST Uncoded 05/17/17 10:18 HEAVINESS, SL. DIFF. BREATHING, LIGHTHEADNESS MULTIPLE ANTIBIOPTIC Allergy CHEST Uncoded 05/17/17 10:18 REACTIONS HEAVINESS, SL. DIFF. BREATHING, LIGHTHEADEDNESS SULFA DRUGS Allergy VOMITING, Uncoded 05/17/17 10:18 DIARRHEA, HIVES, LIGHTHEADEDNESS PMH/Surg Hx/FS Hx/Imm Hx Previously Healthy: No Endocrine/Hematology History: Reports: Hx Diabetes Cardiovascular History: Reports: Hx Angina Denies: Hx Coronary Artery Disease, Hx Hypercholesterolemia, Hx Hypertension , Hx Myocardial Infarction, Hx Pacemaker/ICD, Hx Valvular Heart Disease Respiratory History: Denies: Hx Asthma, Hx Chronic Obstructive Pulmonary Disease (COPD) GI History: Reports: Hx Gastroesophageal Reflux Disease, Hx Gastrointestinal Bleed, Hx Hiatal Hernia, Hx Ulcer - reflux History: Reports: Hx Kidney Stones - teenager Denies: Hx Renal Disease Musculoskeletal History: Reports: Other Musculoskeletal History - meylofibrosis Sensory History: Reports: Hx Cataracts - BEGINNING STAGES Denies: Hx Contacts or Glasses, Hx Hearing Aid Opthamlomology History: Reports: Hx Cataracts - BEGINNING STAGES Denies: Hx Contacts or Glasses Psychiatric History: Reports: Hx Anxiety, Hx Depression, Hx Panic Disorder, Other Psychiatric Issues/Disorders - claustrophobia - Cancer History Cancer Type, Location and Year: meylofibrosis Hx Chemotherapy: No - Surgical History Surgery Procedure, Year, and Place: NECK SURGERY- FOR HENIATED DISC-[facility] [place]. SURGERY FOR PROLASPED BLADDER AND RECTUM, TOTAL ABDOMINAL HYSTERECTOMY- LAPAROSCOPIC-[facility]. TUBAL LIGATION. LEFT HAND LUMPS REMOVED 2014. dental work Hx Anesthesia Reactions: Yes - NAUSEA - Immunization History Date of Tetanus Vaccine: none Date of Influenza Vaccine: none Infectious Disease History: Reports: Hx of Known/Suspected MRSA Denies: History Other Infectious Disease - Family History Known Family History: Positive: Cardiac Disease Family History: cancer - Social History Alcohol Use: Rare Alcohol Amount: quit 2008 Hx Substance Use: No Substance Use Type: Reports: Prescribed Hx Tobacco Use: Yes Smoking Status (MU): Former Smoker Type: Cigarettes Amount Used/How Often: 1 PPD X 25 +YEARS Have You Smoked in the Last Year: No Review of Systems Constitutional: Negative Eyes: Negative Positive: Other - Sinus congestion Cardiovascular: Negative Positive: Cough Positive: Vomiting, Nausea Genitourinary: Negative Musculoskeletal: Other - Pain in legs Skin: Negative Neurological: Other - Shakiness Positive: Weakness Psychological: Normal All Other Systems Reviewed And Are Negative: Yes Physical Exam Triage Information Reviewed: Yes Vital Signs On Initial Exam: Initial Vitals BP 134/101 05/17/17 10:04 Vital Signs Reviewed: Yes Appearance: Positive: Well-Appearing, No Pain Distress Skin: Positive: Warm, Skin Color Reflects Adequate Perfusion, Dry Head/Face: Positive: Normal Head/Face Inspection Eyes: Positive: Normal ENT: Positive: Normal ENT inspection Neck: Positive: Supple, Nontender Respiratory/Lung Sounds: Positive: Clear to Auscultation, Breath Sounds Present Cardiovascular: Positive: RRR Abdomen Description: Positive: Nontender, Soft Bowel Sounds: Positive: Present Musculoskeletal: Positive: Normal Neurological: Positive: Normal Psychiatric: Positive: Normal, Affect/Mood Appropriate Diagnostics - Vital Signs Vital Signs Temp Pulse Resp BP Pulse Ox 05/17/17 12:30 25 139/60 05/17/17 12:00 94 3 141/101 91 05/17/17 11:30 95 13 151/62 94 05/17/17 11:00 96 21 140/59 96 05/17/17 10:09 100.5 F 92 16 131/101 98 05/17/17 10:05 94 95 05/17/17 10:04 134/101 - Laboratory Lab Results: Lab Results 05/17/17 05/17/17 05/17/17 Range/Units 03:33 10:42 10:42 WBC 2.2 L (3.5-10.8) 10^3/ul RBC 2.64 L (4.0-5.4) 10^6/ul Hgb 7.5 L (12.0-16.0) g/dl Hct 22 L (35-47) % MCV 85 (80-97) fL MCH 29 (27-31) pg MCHC 34 (31-36) g/dl RDW 16 H (10.5-15) % Plt Count 16 L 7 L* (150-450) 10^3/ul MPV 8 11 H (7.4-10.4) um3 Immature Gran % (Auto) 7 (0-9) % Neut % (Auto) 46.3 (38-83) % Lymph % (Auto) 25.1 (25-47) % [place] % (Auto) 27.0 H (1-9) % Eos % (Auto) 0.9 (0-6) % Baso % (Auto) 0.7 (0-2) % Absolute Neuts (auto) 1.0 L (1.5-7.7) 10^3/ul Absolute Lymphs (auto) 0.5 L (1.0-4.8) 10^3/ul Absolute Monos (auto) 0.6 (0-0.8) 10^3/ul Absolute Eos (auto) 0 (0-0.6) 10^3/ul Absolute Basos (auto) 0 (0-0.2) 10^3/ul Absolute Nucleated RBC 0.04 10^3/ul Neutrophils % 41 (38-83) % Band Neutrophils % 3 (0-8) % Lymphocytes % 25 (25-47) % Monocytes % 24 H (0-13) % Basophils % 1 (0-2) % Metamyelocytes % 2 (0-2) % Myelocytes % 2 H (0-1) % Blast Cells % 2 H* % Nucleated RBC % 1.8 Nucleated RBCs/100 WBC 3 H (0-0) Normal RBC Morphology Not Reportable Polychromasia 2+ Basophilic Stippling 1+ Hem Pathologist Commnt Sodium 131 L (133-145) mmol/L Potassium 5.1 H (3.5-5.0) mmol/L Chloride 98 L (101-111) mmol/L Carbon Dioxide 27 (22-32) mmol/L Anion Gap 6 (2-11) mmol/L BUN 18 (6-24) mg/dL Creatinine 0.72 (0.51-0.95) mg/dL Est GFR ( Amer) 105.6 (>60) Est GFR (Non-Af Amer) 82.1 (>60) BUN/Creatinine Ratio 25.0 H (8-20) Glucose 273 H (70-100) mg/dL Calcium 8.2 L (8.6-10.3) mg/dL Magnesium 2.2 (1.9-2.7) mg/dL Total Bilirubin 0.60 (0.2-1.0) mg/dL AST 13 (13-39) U/L ALT 5 L (7-52) U/L Alkaline Phosphatase 86 (34-104) U/L Lactate Dehydrogenase 230 (140-271) U/L Total Protein 5.7 L (6.4-8.9) g/dL Albumin 3.0 L (3.2-5.2) g/dL Globulin 2.7 (2-4) g/dL Albumin/Globulin Ratio 1.1 (1-3) Blood Type Antibody Screen Crossmatch 05/17/17 Range/Units 10:42 WBC (3.5-10.8) 10^3/ul RBC (4.0-5.4) 10^6/ul Hgb (12.0-16.0) g/dl Hct (35-47) % MCV (80-97) fL MCH (27-31) pg MCHC (31-36) g/dl RDW (10.5-15) % Plt Count (150-450) 10^3/ul MPV (7.4-10.4) um3 Immature Gran % (Auto) (0-9) % Neut % (Auto) (38-83) % Lymph % (Auto) (25-47) % [place] % (Auto) (1-9) % Eos % (Auto) (0-6) % Baso % (Auto) (0-2) % Absolute Neuts (auto) (1.5-7.7) 10^3/ul Absolute Lymphs (auto) (1.0-4.8) 10^3/ul Absolute Monos (auto) (0-0.8) 10^3/ul Absolute Eos (auto) (0-0.6) 10^3/ul Absolute Basos (auto) (0-0.2) 10^3/ul Absolute Nucleated RBC 10^3/ul Neutrophils % (38-83) % Band Neutrophils % (0-8) % Lymphocytes % (25-47) % Monocytes % (0-13) % Basophils % (0-2) % Metamyelocytes % (0-2) % Myelocytes % (0-1) % Blast Cells % % Nucleated RBC % Nucleated RBCs/100 WBC (0-0) Normal RBC Morphology Polychromasia Basophilic Stippling Hem Pathologist Commnt Sodium (133-145) mmol/L Potassium (3.5-5.0) mmol/L Chloride (101-111) mmol/L Carbon Dioxide (22-32) mmol/L Anion Gap (2-11) mmol/L BUN (6-24) mg/dL Creatinine (0.51-0.95) mg/dL Est GFR ( Amer) (>60) Est GFR (Non-Af Amer) (>60) BUN/Creatinine Ratio (8-20) Glucose (70-100) mg/dL Calcium (8.6-10.3) mg/dL Magnesium (1.9-2.7) mg/dL Total Bilirubin (0.2-1.0) mg/dL AST (13-39) U/L ALT (7-52) U/L Alkaline Phosphatase (34-104) U/L Lactate Dehydrogenase (140-271) U/L Total Protein (6.4-8.9) g/dL Albumin (3.2-5.2) g/dL Globulin (2-4) g/dL Albumin/Globulin Ratio (1-3) Blood Type O Positive Antibody Screen Negative Crossmatch See Detail Result Diagrams: 05/18/17 10:05 05/18/17 10:05 Lab Statement: Any lab studies that have been ordered have been reviewed, and results considered in the medical decision making process. - Radiology CXR Xray Interpretation: Positive (See Comments) - PATCHY AIRSPACE DISEASE OF THE RIGHT UPPER LUNG. RECOMMEND FOLLOW-UP UNTIL RESOLUTION TO EXCLUDE UNDERLYING PULMONARY PARENCHYMAL PATHOLOGY. Radiology Interpretation Completed By: Radiologist Complex Multi-Symp Course/Dx Course Of Treatment: Ms. Allen was found to still be pancytopenic with a particularily worrisome platelet count of 7K. She was admitted to the oncology service for platelet transfusion. - Diagnoses Provider Diagnoses: Thrombocytopenia, Pancytopenia - Physician Notifications Discussed Care Of Patient With: Nicko Ayala Time Discussed With Above Provider: 12:30 Discharge - Discharge Plan Condition: Stable Disposition: ADMITTED TO [facility] documentation as recorded by the Ira de la o Edward accurately reflects the service I personally performed and the decisions made by , Lobito Zepeda MD.
[2017-05-18] MEDS: traZODone TAB* 50 MG TAB PO SCH (21:58)
[2017-05-19] MEDS: NS 0.9% 1000 ML* 1,000 ML IV SCH ×2 (02:49→14:11)
[2017-05-19] MEDS: Cefepime(*) 2 GM in NS 0.9% 50 ML* 50 ML IVPB SCH ×2 (03:54→18:19)
[2017-05-19] MEDS: Promethazine TAB* 25 MG PO PRN ×2 (04:19→14:09)
[2017-05-19] MEDS: Docusate CAP* 100 MG PO PRN (07:24)
[2017-05-19] MEDS: Acetaminophen TAB* 325 MG PO PRN (07:25)
[2017-05-19] MEDS: Fluconazole 100 MG TAB* TAB PO SCH (07:25)
[2017-05-19] MEDS: Ciprofloxacin TAB* 500 MG PO SCH ×2 (07:26→21:39)
[2017-05-19] MEDS: Multivitamins/Minerals TAB PO SCH (07:26)
[2017-05-19] MEDS: Cyanocobalamin TAB* 500 MCG PO SCH (07:27)
[2017-05-19] MEDS: Tacrolimus CAP(*) 0.5 MG PO SCH (07:29)
[2017-05-19] MEDS: Gabapentin CAP(*) 300 MG PO SCH ×3 (07:30→21:40)
[2017-05-19] MEDS: Acyclovir* 400 MG TAB PO SCH ×2 (07:31→21:37)
[2017-05-19] MEDS: Ondansetron ODT TAB* 4 MG PO PRN (07:32)
[2017-05-19] MEDS: Lactobacillus Acidophilu (GG)* 1 CAP CAP PO SCH (07:39)
[2017-05-19] MEDS: Omeprazole CAP* 20 MG PO SCH (07:39)
[2017-05-19] MEDS: oxyCODONE SR TAB(*) 10 MG TAB.SR PO SCH ×2 (07:40→21:38)
[2017-05-19] MEDS: Insulin GLARGINE(*) 1 UNITS UNIT SUBCUT SCH ×2 (07:41→21:39)
[2017-05-19] MEDS: Insulin LISPRO* 1 UNITS UNIT SUBCUT SCH ×4 (07:56→21:40)
[2017-05-19 11:01] LABS: BUN/Creatinine Ratio 19.4 (8-20); Calcium 8.2 mg/dL (8.6-10.3); EGFR African American 125.4 (>60); EGFR Non-African American 97.5 (>60); Hematocrit 25 % (35-47); Hemoglobin 8.6 g/dl (12.0-16.0); Mean Corpuscular HGB Conc 34 g/dl (31-36); Mean Corpuscular Hemoglobin 29 pg (27-31); Mean Corpuscular Volume 86 fL (80-97); Mean Platelet Volume 9 um3 (7.4-10.4); Potassium 3.9 mmol/L (3.5-5.0); Red Blood Count 2.96 10^6/ul (4.0-5.4); Red Cell Distribution Width 17 % (10.5-15); White Blood Count 2.6 10^3/ul (3.5-10.8)
[2017-05-19 11:03] LABS: Comments Flag Yes
[2017-05-19 11:05] LABS: Add Diff/Slide Review? Slide Review Added
[2017-05-19] MEDS ORDERED: Tacrolimus CAP(*) 0.5 MG PO ONE (11:32)
--- NOTE | 2017-05-19 11:42 | PN ---
Progress Note - Progress Note Date of Service: 05/19/17 SOAP: Subjective: []Feels a lot better, "Oh a 100%" Coughing some and brining up thick sputum. Gets winded easily with minimal exertion and can find it hard to breath. No GI upset. No rash. No pain with urination. No headache/sore throat/mouth sores/ear ache. Worried about getting to planned appt. in [place] tomorrow. Chart reviewed and temp. 100.8 @ approx. 2200 - no call to . 10/07 bottles Gram + cocci resembling staph with neg. PCR for MRSA and MSSA - pharmacy called and covering hospitalist notified with no additional meds ordered. Medications: Acetaminophen (Tylenol Tab*) 650 mg PO Q6H PRN PRN Reason: PAIN/FEVER Last Admin: 05/19/17 07:25 Dose: 650 mg Acyclovir (Zovirax Tab*) 400 mg PO Q12HR [facility] Last Admin: 05/19/17 07:31 Dose: 400 mg Ciprofloxacin (Cipro Tab*) 500 mg PO Q12HR [facility] Last Admin: 05/19/17 07:26 Dose: 500 mg Cyanocobalamin (Vitamin B12 Tab*) 1,000 mcg PO DAILY [facility] Last Admin: 05/19/17 07:27 Dose: 1,000 mcg Dextrose (D50w Syringe 50 Ml*) 12.5 gm IV PUSH .FOR FS < 60 - SS PRN PRN Reason: FS < 60 Docusate Sodium (Colace Cap*) 100 mg PO BID PRN PRN Reason: CONSTIPATION Last Admin: 05/19/17 07:24 Dose: 100 mg Fluconazole (Diflucan 100 Mg Tab*) 200 mg PO DAILY [facility] Last Admin: 05/19/17 07:25 Dose: 200 mg Gabapentin (Neurontin Cap(*)) 600 mg PO TID [facility] Last Admin: 05/19/17 07:30 Dose: 600 mg Sodium Chloride (Ns 0.9% 1000 Ml*) 1,000 mls @ 100 mls/hr IV PER RATE [facility] Last Admin: 05/19/17 02:49 Dose: 100 mls/hr Cefepime HCl 2 gm/ Sodium (Chloride) 50 mls @ 100 mls/hr IVPB Q12H [facility] Last Admin: 05/19/17 03:54 Dose: 100 mls/hr Insulin Glargine (Lantus(*)) 25 units SUBCUT 0800,2000 [facility] Last Admin: 05/19/17 07:41 Dose: 25 units Insulin Human Lispro (Humalog*) 0 units SUBCUT ACHS [facility] PRN Reason: Protocol Last Admin: 05/19/17 07:56 Dose: Not Given Lactobacillus Rhamnosus (Culturelle*) 1 cap PO DAILY [facility] Last Admin: 05/19/17 07:39 Dose: 1 cap Lorazepam (Ativan Inj*) 0.5 mg IV PUSH Q6H PRN PRN Reason: NAUSEA Last Admin: 05/17/17 18:09 Dose: 0.5 mg Multivitamins/Minerals (Theragran/Minerals Tab*) 1 tab PO DAILY [facility] Last Admin: 05/19/17 07:26 Dose: 1 tab Omeprazole (Prilosec Cap*) 20 mg PO DAILY [facility] PRN Reason: Protocol Last Admin: 05/19/17 07:39 Dose: 20 mg Ondansetron HCl (Zofran Odt Tab*) 4 mg PO Q6H PRN PRN Reason: VOMITING Last Admin: 05/19/17 07:32 Dose: 4 mg Oxycodone HCl (Roxycodone Tab*) 5 mg PO Q6H PRN PRN Reason: PAIN - ABDOMINAL Last Admin: 05/17/17 18:07 Dose: 5 mg Oxycodone HCl (Oxycontin(*)) 10 mg PO BID [facility] Last Admin: 05/19/17 07:40 Dose: 10 mg Pharmacy Profile Note (Scopolomine Patch Remove*) 1 note PATCH OFF Q72H [facility] Polyethylene Glycol/Electrolytes (Miralax*) 17 gm PO DAILY PRN PRN Reason: CONSTIPATION Last Admin: 05/18/17 09:30 Dose: 17 gm Promethazine HCl (Phenergan Tab*) 25 mg PO Q6H PRN PRN Reason: NAUSEA Last Admin: 05/19/17 04:19 Dose: 25 mg Scopolamine (Transderm-Scop 1.5 Mg Patch*) 1 patch TRANSDERM Q72H [facility] Last Admin: 05/17/17 17:28 Dose: 1 patch Sucralfate (Carafate*) 1 gm PO 0600,1100,2100 PRN PRN Reason: HEARTBURN Tacrolimus (Prograf Cap(*)) 1.5 mg PO BID Last Admin: 05/19/17 0900 Trazodone HCl (Desyrel Tab*) 50 mg PO BEDTIME [facility] Last Admin: 05/18/17 21:58 Dose: 50 mg Objective: [] Vital Signs Temp Pulse Resp BP Pulse Ox 98.6 F 70 20 110/42 93 05/19/17 07:23 05/19/17 11:09 05/19/17 11:09 05/19/17 11:09 05/19/17 11:09 A&Ox3, EOMI, ANGUIANO, strength = bilat. HRR, S1S2 noted LS dim. bases without rhonchi or wheze -- dark yellow/greenish sputum noted in basin +BS, abd. soft and slightly tender +PP=bilat., no edema noted Laboratory Results - last 24 hr 05/17/17 05/18/17 05/18/17 22:40 10:05 12:28 WBC RBC Hgb Hct MCV MCH MCHC RDW MPV Immature Gran % (Auto) 15 H Neut % (Auto) Lymph % (Auto) Armstrong % (Auto) Eos % (Auto) Baso % (Auto) Absolute Neuts (auto) Absolute Lymphs (auto) Absolute Monos (auto) Absolute Eos (auto) Absolute Basos (auto) Absolute Nucleated RBC Neutrophils % 48 Band Neutrophils % 5 Lymphocytes % 17 L Monocytes % 17 H Eosinophils % 3 Metamyelocytes % 2 Myelocytes % 8 H Nucleated RBC % Nucleated RBCs/100 WBC 3 H Normal RBC Morphology Not Reportable Polychromasia 2+ Basophilic Stippling 1+ Hem Pathologist Commnt Cancelled Sodium Potassium Chloride Carbon Dioxide Anion Gap BUN Creatinine Est GFR ( Amer) Est GFR (Non-Af Amer) BUN/Creatinine Ratio Glucose POC Glucose (mg/dL) 229 H Calcium Transfusion React Rpt Reaction Interpretation 05/18/17 05/18/17 05/19/17 16:37 21:32 07:09 WBC RBC Hgb Hct MCV MCH MCHC RDW MPV Immature Gran % (Auto) Neut % (Auto) Lymph % (Auto) Armstrong % (Auto) Eos % (Auto) Baso % (Auto) Absolute Neuts (auto) Absolute Lymphs (auto) Absolute Monos (auto) Absolute Eos (auto) Absolute Basos (auto) Absolute Nucleated RBC Neutrophils % Band Neutrophils % Lymphocytes % Monocytes % Eosinophils % Metamyelocytes % Myelocytes % Nucleated RBC % Nucleated RBCs/100 WBC Normal RBC Morphology Polychromasia Basophilic Stippling Hem Pathologist Commnt Sodium Potassium Chloride Carbon Dioxide Anion Gap BUN Creatinine Est GFR ( Amer) Est GFR (Non-Af Amer) BUN/Creatinine Ratio Glucose POC Glucose (mg/dL) 134 H 137 H 101 H Calcium Transfusion React Rpt Reaction Interpretation 05/19/17 05/19/17 10:30 10:30 WBC 2.6 L RBC 2.96 L Hgb 8.6 L Hct 25 L MCV 86 MCH 29 MCHC 34 RDW 17 H MPV 9 Immature Gran % (Auto) Neut % (Auto) 47.3 Lymph % (Auto) 24.0 L Armstrong % (Auto) 26.5 H Eos % (Auto) 1.5 Baso % (Auto) 0.7 Absolute Neuts (auto) 1.2 L Absolute Lymphs (auto) 0.6 L Absolute Monos (auto) 0.7 Absolute Eos (auto) 0 Absolute Basos (auto) 0 Absolute Nucleated RBC Neutrophils % Band Neutrophils % Lymphocytes % Monocytes % Eosinophils % Metamyelocytes % Myelocytes % Nucleated RBC % Nucleated RBCs/100 WBC Normal RBC Morphology Polychromasia Basophilic Stippling Hem Pathologist Commnt Sodium 131 L Potassium 3.9 Chloride 101 Carbon Dioxide 28 Anion Gap 2 BUN 12 Creatinine 0.62 Est GFR ( Amer) 125.4 Est GFR (Non-Af Amer) 97.5 BUN/Creatinine Ratio 19.4 Glucose 107 H POC Glucose (mg/dL) Calcium 8.2 L Transfusion React Rpt Reaction Interpretation Labs today pending @ time of note Assessment: []62 yo female with myelofibrosis now s/p transplant D35 admitted 2 days ago with neutropenic fever and now very slowly improving though with fever last night and now 1 of 4 positive blood culture bottles (pending). As she is so close to transplant and has cont.'s pancytopenia we are being very cautious and working closely with her transplant MD, Dr. Tsang. Plan: []Plan of care discussed with Dr. Tsang @ [facility] in [place], [place] ( tranplant center) and will add Vancomycin today. Dose of Tacrolimus clarified and was actually up to 3.5 mg PO BID however will start 3 mg BID today and recheck Tacrolimus level tomorrow AM. With cont. fevers and now D35 post allo- transplant will work on transfer up to transplant center [facility]. Per transfer center no beds available today, goal of transfer tomorrow. Try to get sputum today for culture, goal of defining source. Cont. fluids d/t hyponatremia, dehydration resolving, hypotension intermittent Cont. neutropenic precautions, cont. bleeding precautions, and follow counts closely
[2017-05-19 12:29] LABS: Eosinophils % 1 % (0-6); Immature Granulocytes 19 % (0-9); Metamyelocytes % 5 % (0-2); Myelocytes % 7 % (0-1); Neutrophil % 40 % (38-83)
[2017-05-19 12:30] LABS: Add Path Review? YES
[2017-05-19] MEDS ORDERED: Vancomycin(*) 1,000 MG in NS 0.9% 250 ML* 250 ML IVPB ONE (12:30)
[2017-05-19 12:31] LABS: RBC Morphology Normal (Normal)
[2017-05-19] MEDS ORDERED: Vancomycin per Pharmacy* NOTE FOLLOW UP PRN (15:34)
[2017-05-19] MEDS: Tacrolimus CAP(*) 1 MG PO SCH (21:38)
[2017-05-19] MEDS: traZODone TAB* 50 MG TAB PO SCH (21:39)
[2017-05-20] MEDS: Vancomycin(*) 1,000 MG in NS 0.9% 250 ML* 250 ML IVPB SCH ×2 (01:34→14:00)
[2017-05-20] MEDS: Cefepime(*) 2 GM in NS 0.9% 50 ML* 50 ML IVPB SCH (04:26)
[2017-05-20] MEDS: NS 0.9% 1000 ML* 1,000 ML IV SCH (04:27)
--- NOTE | 2017-05-20 08:25 | PN ---
Progress Note - Progress Note Date of Service: 05/20/17 SOAP: Subjective: []Developed SOB approx. 0730 this AM. Came on suddenly with associated chest pressure. RN called MD and orders obtained for work-up. Pt. states it is hard to breath and that she noticed it after being up for a little while. At the same time had chest pressure in sternum moving to her back , approx. 6/10 pain and seemed to self resolve within approx. 1 hour without intervention beyond work-up. Also c/o blurry vision and MATOS across forehead, about 5/10. Very thirsty. Given juice and crackers for FS BG 67. Denies difficulty with BMs and urination. Has noted noticed any bleeding or bruising. Chilled. Medications: Acetaminophen (Tylenol Tab*) 650 mg PO Q6H PRN PRN Reason: PAIN/FEVER Last Admin: 05/19/17 07:25 Dose: 650 mg Acyclovir (Zovirax Tab*) 400 mg PO Q12HR [facility] Last Admin: 05/19/17 21:37 Dose: 400 mg Ciprofloxacin (Cipro Tab*) 500 mg PO Q12HR [facility] Last Admin: 05/19/17 21:39 Dose: 500 mg Cyanocobalamin (Vitamin B12 Tab*) 1,000 mcg PO DAILY [facility] Last Admin: 05/19/17 07:27 Dose: 1,000 mcg Dextrose (D50w Syringe 50 Ml*) 12.5 gm IV PUSH .FOR FS < 60 - SS PRN PRN Reason: FS < 60 Docusate Sodium (Colace Cap*) 100 mg PO BID PRN PRN Reason: CONSTIPATION Last Admin: 05/19/17 07:24 Dose: 100 mg Fluconazole (Diflucan 100 Mg Tab*) 200 mg PO DAILY [facility] Last Admin: 05/19/17 07:25 Dose: 200 mg Gabapentin (Neurontin Cap(*)) 600 mg PO TID [facility] Last Admin: 05/19/17 21:40 Dose: Not Given Sodium Chloride (Ns 0.9% 1000 Ml*) 1,000 mls @ 100 mls/hr IV PER RATE [facility] Last Admin: 05/20/17 04:27 Dose: 100 mls/hr Cefepime HCl 2 gm/ Sodium (Chloride) 50 mls @ 100 mls/hr IVPB Q12H [facility] Last Admin: 05/20/17 04:26 Dose: 100 mls/hr Vancomycin HCl 1,000 mg/ (Sodium Chloride) 250 mls @ 166.667 mls/hr IVPB Q12H [facility] Last Admin: 05/20/17 01:34 Dose: 166.667 mls/hr Insulin Glargine (Lantus(*)) 25 units SUBCUT 0800,2000 [facility] Last Admin: 05/19/17 21:39 Dose: 25 units Insulin Human Lispro (Humalog*) 0 units SUBCUT ACHS [facility] PRN Reason: Protocol Last Admin: 05/19/17 21:40 Dose: Not Given Lactobacillus Rhamnosus (Culturelle*) 1 cap PO DAILY [facility] Last Admin: 05/19/17 07:39 Dose: 1 cap Lorazepam (Ativan Inj*) 0.5 mg IV PUSH Q6H PRN PRN Reason: NAUSEA Last Admin: 05/17/17 18:09 Dose: 0.5 mg Multivitamins/Minerals (Theragran/Minerals Tab*) 1 tab PO DAILY [facility] Last Admin: 05/19/17 07:26 Dose: 1 tab Omeprazole (Prilosec Cap*) 20 mg PO DAILY [facility] PRN Reason: Protocol Last Admin: 05/19/17 07:39 Dose: 20 mg Ondansetron HCl (Zofran Odt Tab*) 4 mg PO Q6H PRN PRN Reason: VOMITING Last Admin: 05/19/17 07:32 Dose: 4 mg Oxycodone HCl (Roxycodone Tab*) 5 mg PO Q6H PRN PRN Reason: PAIN - ABDOMINAL Last Admin: 05/17/17 18:07 Dose: 5 mg Oxycodone HCl (Oxycontin(*)) 10 mg PO BID [facility] Last Admin: 05/19/17 21:38 Dose: Not Given Pharmacy Consult (Vancomycin Per Pharmacy*) 1 note FOLLOW UP . PRN PRN Reason: PER PROTOCOL Pharmacy Profile Note (Scopolomine Patch Remove*) 1 note PATCH OFF Q72H [facility] Pharmacy Profile Note (Vancomycin Trough Check) 1 note FOLLOW UP 0200 ONE Stop: 05/21/17 01:31 Polyethylene Glycol/Electrolytes (Miralax*) 17 gm PO DAILY PRN PRN Reason: CONSTIPATION Last Admin: 05/18/17 09:30 Dose: 17 gm Promethazine HCl (Phenergan Tab*) 25 mg PO Q6H PRN PRN Reason: NAUSEA Last Admin: 05/19/17 14:09 Dose: 25 mg Scopolamine (Transderm-Scop 1.5 Mg Patch*) 1 patch TRANSDERM Q72H [facility] Last Admin: 05/17/17 17:28 Dose: 1 patch Sucralfate (Carafate*) 1 gm PO 0600,1100,2100 PRN PRN Reason: HEARTBURN Tacrolimus (Prograf Cap(*)) 3 mg PO BID [facility] Last Admin: 05/19/17 21:38 Dose: 3 mg Trazodone HCl (Desyrel Tab*) 50 mg PO BEDTIME [facility] Last Admin: 05/19/17 21:39 Dose: 50 mg Objective: [] Vital Signs Temp Pulse Resp BP Pulse Ox 98.1 F 73 20 149/60 100 05/20/17 11:07 05/20/17 11:07 05/20/17 11:07 05/20/17 11:07 05/20/17 11:07 Examed this AM, Pt. resting in bed in no acute distress, although looks somewhat uncomfortable A&Ox3, EOMI, PERRLA, CN II-XII intact, able to read some writing on her white board (approx. 10 yrds away) HRR, SR on tele, no murmur noted LS with rhonchi bilat., very slight tachypnea with even and mildly labored respirations (accessory muscle use when talking especially) -- sputum sent down this AM, dark yellow +BS, abd. soft and non-tender +PP=bilat., no edema noted [place] to arms and legs Laboratory Results - last 24 hr 05/19/17 05/19/17 05/19/17 10:30 11:52 16:15 WBC RBC Hgb Hct MCV MCH MCHC RDW Plt Count 12 L MPV Immature Gran % (Auto) 19 H Absolute Neuts (auto) Absolute Lymphs (auto) Absolute Monos (auto) Absolute Eos (auto) Absolute Basos (auto) Absolute Nucleated RBC 0.06 Neutrophils % 40 Band Neutrophils % 7 Lymphocytes % 20 L Reactive Lymphs % Monocytes % 18 H Eosinophils % 1 Basophils % 1 Metamyelocytes % 5 H Myelocytes % 7 H Blast Cells % Nucleated RBC % 2.3 Nucleated RBCs/100 WBC 3 H Normal RBC Morphology Normal Polychromasia INR (Anticoag Therapy) APTT D-Dimer, Quantitative Sodium Potassium Chloride Carbon Dioxide Anion Gap BUN Creatinine Est GFR ( Amer) Est GFR (Non-Af Amer) BUN/Creatinine Ratio Glucose POC Glucose (mg/dL) 108 H 99 Calcium Troponin I B-Natriuretic Peptide 05/19/17 05/20/17 05/20/17 21:19 07:40 07:40 WBC 3.5 RBC 3.20 L Hgb 9.2 L Hct 28 L MCV 86 MCH 29 MCHC 33 RDW 17 H Plt Count 9 L* MPV 9 Immature Gran % (Auto) 23 H Absolute Neuts (auto) 2.0 Absolute Lymphs (auto) 0.7 L Absolute Monos (auto) 0.7 Absolute Eos (auto) 0 Absolute Basos (auto) 0 Absolute Nucleated RBC 0.06 Neutrophils % 43 Band Neutrophils % 10 H Lymphocytes % 20 L Reactive Lymphs % 3 Monocytes % 9 Eosinophils % Basophils % Metamyelocytes % 2 Myelocytes % 11 H Blast Cells % 2 H* Nucleated RBC % Nucleated RBCs/100 WBC Normal RBC Morphology Not Reportable Polychromasia 1+ INR (Anticoag Therapy) APTT D-Dimer, Quantitative Sodium 138 Potassium 4.0 Chloride 106 Carbon Dioxide 25 Anion Gap 7 BUN 8 Creatinine 0.49 L Est GFR ( Amer) 164.6 Est GFR (Non-Af Amer) 128.0 BUN/Creatinine Ratio 16.3 Glucose 55 L POC Glucose (mg/dL) 80 Calcium 8.5 L Troponin I 0.01 B-Natriuretic Peptide 05/20/17 05/20/17 05/20/17 07:40 07:40 08:04 WBC RBC Hgb Hct MCV MCH MCHC RDW Plt Count MPV Immature Gran % (Auto) Absolute Neuts (auto) Absolute Lymphs (auto) Absolute Monos (auto) Absolute Eos (auto) Absolute Basos (auto) Absolute Nucleated RBC Neutrophils % Band Neutrophils % Lymphocytes % Reactive Lymphs % Monocytes % Eosinophils % Basophils % Metamyelocytes % Myelocytes % Blast Cells % Nucleated RBC % Nucleated RBCs/100 WBC Normal RBC Morphology Polychromasia INR (Anticoag Therapy) 0.94 APTT 30.8 D-Dimer, Quantitative 326 H Sodium Potassium Chloride Carbon Dioxide Anion Gap BUN Creatinine Est GFR ( Amer) Est GFR (Non-Af Amer) BUN/Creatinine Ratio Glucose POC Glucose (mg/dL) 67 L Calcium Troponin I B-Natriuretic Peptide 256 H Assessment: []62 yo female s/p allo transplant (D36) for Myelofibrosis admitted to the hospital with neutropenic fever of unknown source. Increased symptoms this AM with work-up unrevealing, however most of symptoms resolved without intervention. Plan: []-Continue Cefepime and Vanco -Follow labs daily -1 unit platelets today (LR and irradiated) -Goal of transfer to [place], awaiting bed (allotransplant pt.)
[2017-05-20 08:51] LABS: Hematocrit 28 % (35-47); Hemoglobin 9.2 g/dl (12.0-16.0); Mean Corpuscular HGB Conc 33 g/dl (31-36); Mean Corpuscular Hemoglobin 29 pg (27-31); Mean Corpuscular Volume 86 fL (80-97); Mean Platelet Volume 9 um3 (7.4-10.4); Red Cell Distribution Width 17 % (10.5-15); White Blood Count 3.5 10^3/ul (3.5-10.8)
--- NOTE | 2017-05-20 08:52 | RAD ---
HISTORY: Shortness of breath, chest pressure COMPARISONS: May 17, 2017 VIEWS:1: Single frontal portable view of the chest at 8:35 AM. The patient is obliqued to the right FINDINGS: LINES AND TUBES: A right-sided chest port is noted with the tip overlying the cavoatrial junction CARDIOMEDIASTINAL SILHOUETTE: The cardiomediastinal silhouette is normal for portable technique. PLEURA: The costophrenic angles are sharp. No pleural abnormalities are noted. LUNG PARENCHYMA: There is persistent patchy alveolar opacification of the right upper lung ABDOMEN: The upper abdomen is clear. There is no subphrenic gas. BONES AND SOFT TISSUES: No bone or soft tissue abnormalities are noted. IMPRESSION: PERSISTENT PATCHY AIRSPACE DISEASE OF THE RIGHT UPPER LUNG. RECOMMEND FOLLOW-UP UNTIL RESOLUTION.
[2017-05-20 08:53] LABS: Comments Flag Yes
[2017-05-20] MEDS: Insulin LISPRO* 1 UNITS UNIT SUBCUT SCH ×2 (08:53→12:51)
[2017-05-20 08:54] LABS: Add Diff/Slide Review? Manual Diff Added
[2017-05-20 08:59] LABS: BUN/Creatinine Ratio 16.3 (8-20); Calcium 8.5 mg/dL (8.6-10.3); EGFR African American 164.6 (>60); Troponin I 0.01 ng/mL (<0.04)
[2017-05-20] MEDS: Docusate CAP* 100 MG PO PRN (09:03)
[2017-05-20] MEDS: Tacrolimus CAP(*) 1 MG PO SCH (09:04)
[2017-05-20] MEDS: Acetaminophen TAB* 325 MG PO PRN (09:05)
[2017-05-20] MEDS: Omeprazole CAP* 20 MG PO SCH (09:05)
[2017-05-20] MEDS: Fluconazole 100 MG TAB* TAB PO SCH (09:06)
[2017-05-20] MEDS: Cyanocobalamin TAB* 500 MCG PO SCH (09:06)
[2017-05-20] MEDS: Lactobacillus Acidophilu (GG)* 1 CAP CAP PO SCH (09:07)
[2017-05-20] MEDS: Acyclovir* 400 MG TAB PO SCH (09:07)
[2017-05-20] MEDS: Multivitamins/Minerals TAB PO SCH (09:07)
[2017-05-20] MEDS: Gabapentin CAP(*) 300 MG PO SCH ×2 (09:08→13:47)
[2017-05-20] MEDS: Ciprofloxacin TAB* 500 MG PO SCH (09:10)
[2017-05-20] MEDS: oxyCODONE SR TAB(*) 10 MG TAB.SR PO SCH (09:10)
[2017-05-20] MEDS: Ondansetron ODT TAB* 4 MG PO PRN (09:11)
[2017-05-20 09:21] LABS: Immature Granulocytes 23 % (0-9); Metamyelocytes % 2 % (0-2); Myelocytes % 11 % (0-1); Neutrophil % 43 % (38-83); Reactive Lymph % 3 % (0-6)
[2017-05-20 09:25] LABS: Polychromasia 1+
[2017-05-20 09:26] LABS: Add Path Review? YES
[2017-05-20] MEDS: Insulin GLARGINE(*) 1 UNITS UNIT SUBCUT SCH (10:34)
--- NOTE | 2017-05-20 11:03 | RAD ---
HISTORY: Headache, thrombocytopenia COMPARISONS: March 12, 2017 TECHNIQUE: Multiple contiguous axial CT scans were obtained of the head without intravenous contrast. FINDINGS: HEMORRHAGE/INFARCT: There is no hemorrhage or acute infarct. MASSES/SHIFT: There is no mass or shift. EXTRA-AXIAL SPACES: There are no extra-axial fluid collections. SULCI AND VENTRICLES: The sulci and ventricles are normal in size and position for the patient's stated age. CEREBRUM: There are no focal parenchymal abnormalities. BRAINSTEM: There are no focal parenchymal abnormalities. CEREBELLUM: There are no focal parenchymal abnormalities. VESSELS: The vessels are grossly normal. PARANASAL SINUSES: The paranasal sinuses are clear. ORBITS: The orbits are unremarkable. BONES AND SOFT TISSUE: No bone or soft tissue abnormalities are noted. OTHER: None IMPRESSION: NO ACUTE INTRACRANIAL PATHOLOGY.
[2017-05-20] MEDS ORDERED: NS 0.9% 1000 ML* 1,000 ML IV SCH (12:29)
[2017-05-20] MEDS: Promethazine TAB* 25 MG PO PRN (12:52)
[2017-05-20] MEDS ORDERED: Acetaminophen TAB* 325 MG PO ONE (13:00)
--- NOTE | 2017-05-20 13:37 | TRS ---
AMENDED REPORT NOW INCLUDES COSIGNER DESIGNATION - ESIGNED BEFORE ADJUSTMENT CC: Dr. Valdivia; Dr. Ko * DATE OF ADMISSION: 05/17/2017. DATE OF TRANSFER: 05/20/2017. PROVIDER: Dr. Guillermina Gaston * (dictated by Anabella Kramer NP). TRANSFER DIAGNOSES: 1. Febrile neutropenia: Status post allotransplant, admitted on day 34. 2. Pancytopenia: Secondary to allotransplant, just out of 30 day period. 3. Dehydration with electrolyte abnormality: Secondary to fever, resolved. 4. Shortness of breath: Thought to be related to an underlying pneumonia. 5. Diabetes type 2: Monitored and currently stable. 6. Hypertension: Stable. TRANSFER MEDICATIONS: 1. Acetaminophen 650 mg p.o. q.6 hours prn pain/fever, last dose given just prior to transfer 2. Acyclovir 400 mg p.o. q.12 hours, last dose May 20 at 0900. 3. Cefepime 2 gm IV q.12 hours, last dose May 20 at 0420. 4. Ciprofloxacin 500 mg p.o. q.12 hours, last dose May 20 at 0900. 5. Cyanocobalamin 1000 mcg p.o. daily, last dose May 20 at 0900. 6. D5W 50 ml prn hypoglycemia, no prior dose given. 7. Docusate Sodium 100 mg p.o. b.i.d. prn constipation, last dose May 20 at 0900. 8. Fluconazole 200 mg p.o. daily, last dose May 20 at 0900. 9. Gabapentin 600 mg p.o. t.i.d., last dose May 20 at 0900. 10. Lantus 25 units subcu b.i.d., last dose May 19 at 2130, a.m. dose held on May 20 due to blood glucose of 67 and symptomatic. 11. Lispro sliding scale insulin for BMI less than 25 q.a.c./at bedtime, last dose given on May 18 with subsequent doses held due to lack of need. 12. Culturelle one cap p.o. daily, last done May 20 at 0900. 13. Lorazepam 0.5 mg IV q.6 hours prn nausea, last dose May 17 at 1800. 14. Multivitamin one tab p.o. daily, last dose May 20 at 0900. 15. Omeprazole 20 mg p.o. q.a.m., last dose May 20 at 0900. 16. Ondansetron 4 mg p.o. q.6 hours prn nausea/vomiting, last dose May 20 at 0900. 17. Oxycodone 5 mg p.o. q.6 hours prn pain, last dose May 17 at 1800. 18. OxyContin 10 mg p.o. b.i.d., last dose May 20 at 0900. 19. MiraLax 17 gm p.o. daily prn constipation, last dose May 18 at 0900. 20. Phenergan 25 mg p.o. q.6 hours prn nausea, last dose May 19 at 1400. 21. Scopolamine patch one patch transdermally q.72 hours, last patch placed May 17 at 1720. 22. Sodium Chloride 0.9% at 50 ml/hour continuous. 23. Carafate 1 gm p.o. t.i.d. prn heartburn. 24. Tacrolimus 3 mg p.o. b.i.d., last dose May 20 at 0900. 25. Trazodone 50 mg p.o. at bedtime, last dose May 19 2130. 26. Vancomycin 1 gm q.12 hours per pharmacy protocol, last dose May 20 at 1345 HOSPITAL COURSE: Please see admission note for full history and physical. However, briefly, Ms. Allen is well-known to our service due to her unfortunate diagnosis of myelofibrosis requiring transplant almost immediately upon diagnosis. She presented to her local emergency room on 05/17/2017 with a temperature with 100.5 F, severe weakness, recent fall, cough, and lower abdominal pain. She had an allotransplant (bone marrow, unrelated matched donor ) at [facility] in [place], [place] with Dr. Audrey Valdivia on 04/14/2017. In the ER, her ANC was 1000 with total white blood cell count of 2.2 , hemoglobin 7.5, hematocrit 22, and a platelet count of 7000. She was admitted to the hospital with a transfusion of two units packed red blood cells and a single donor pack of platelets (leukocyte reduced and irradiated). On admission, the physician personal banking assistant discussed with Dr. Valdivia and plan was made to initiate Cefepime 2 gm IV q.12 hours, as well as continuous fluids. Plan of care was made for consultation with infectious disease specialist, however he was out of town. On admission she was pancultured; however, she was unable to produce a sputum sample. Thus far, all cultures have been negative. Over the first 24 hours of her admission, she remained febrile and unfortunately developed a second fever on 05/18/2017 at 2300 up to 100.8 degree Fahrenheit. Plan of care was discussed with Dr. Valdivia again on 05/19/2017 and the addition of Vancomycin was made. At that time, one of four blood cultures had grown staph which ultimately turned out to be staph epidermidis and now thought to be a contaminate. This a.m., Ms. Allen had an episode of shortness of breath and chest pressure with headache and some slight blurred vision. Work-up including chest x-ray, EKG, labs, and brain CT without contrast were all negative. A sputum sample was obtained and sent to the lab for both bacteria and fungal culture. Ultimately her symptoms resolved without intervention. This a.m., Ms. Allen' ANC is 2.0, however her platelets are 9 and she has received one unit of pheresis platelets (irradiated with leukocyte reduced). In discussion with Dr. Valdivia yesterday, 05/19/2017, decision was made that due to her recent allotransplant and just over the 30 day [place] with pancytopenia, that she should be transferred to a higher level of care and would move to [facility] where her transplant took place. Yesterday there was not a bed available; however, this a.m., around 11:45, we were notified of an available bed and Dr. Valdivia will be the accepting doctor. Plan of care was discussed with Ms. Allen, who states good understanding and is in agreement with the plan. ANABELLA KRAMER, RAEANN [id number]/[facility] #: [id number] [facility]ITALBill
[2017-05-20] MEDS ORDERED: Scopolomine PATCH Remove* 1 NOTE MISC PATCH OFF SCH (16:00)
[2017-05-20 16:30] VITALS: BP 158/67
--- NOTE | 2017-05-20 16:54 | ECHO ---
Patient: DAVID LITTLE [facility] Rec#: [id number] : 1955 Date: 05/20/2017 Age: 62y Height: 160.02 cm / 63.0 in Weight: 56.7 kg / 125.0 lbs Sex: F BSA: 1.58 Room#: 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 Technical Comments: The study quality is good. Completed at 1220. Left Ventricle: The left ventricular chamber size is normal. There is no left ventricular hypertrophy. Global left ventricular wall motion and contractility are within normal limits. There is normal left ventricular systolic function. The estimated ejection fraction is 55-60%. Closer to 55%. Abnormal left ventricular diastolic function is observed. Abnormal left ventricular diastolic filling is observed, consistent with impaired relaxation. Left Atrium: The left atrium is moderately dilated. Right Ventricle: Moderator Band present. The right ventricular cavity size is normal. The right ventricular global systolic function is normal. Right Atrium: The right atrial cavity size is normal. Aortic Valve: The aortic valve is trileaflet. The aortic valve leaflets are mildly thickened. There is a trace of aortic regurgitation. There is no evidence of aortic stenosis. Mitral Valve: The mitral valve leaflets are mildly thickened. There is trace to mild mitral regurgitation. There is no evidence of mitral stenosis. Tricuspid Valve: The tricuspid valve leaflets are normal. There is mild tricuspid regurgitation. The right ventricular systolic pressure is estimated at 31 mmHg. No pulmonary hypertension is noted. There is no tricuspid stenosis. Pulmonic Valve: There is no evidence of pulmonic valve thickening. There is a trace pulmonic regurgitation. There is no pulmonic stenosis. Pericardium: There is no significant pericardial effusion. Aorta: There is no dilatation of the ascending aorta. There is no dilatation of the aortic arch. There is no dilation of the aortic root. Pulmonary Artery: The main pulmonary artery appears normal. Venous: The inferior vena cava appears normal in size. There is a greater than 50% respiratory change in the inferior vena cava dimension. Summary: There was not any prior study for comparison. Conclusions The left ventricular chamber size is normal. The estimated ejection fraction is 55-60%. Closer to 55%. Abnormal left ventricular diastolic function is observed. Abnormal left ventricular diastolic filling is observed, consistent with impaired relaxation. The left atrium is moderately dilated. There is a trace of aortic regurgitation. There is trace to mild mitral regurgitation. There is mild tricuspid regurgitation. There is a trace pulmonic regurgitation. Measurements Name Value Normal Range RVIDd (AP) 2D 2.7 cm (0.9 - 2.6) RVDdMajor (2D) 3.6 cm (2.2 - 4.4) RAd ISD 4CH 4.6 cm (3.4 - 4.9) RA (A4C)W 3.9 cm (2.9 - 4.6) IVSd (2D) 1 cm (0.6 - 1) LVPWd (2D) 0.9 cm (0.6 - 1) LVIDd (2D) 5.3 cm (3.6 - 5.4) LVIDs (2D) 3.7 cm - LV FS (2D) 30 % (25 - 45) Aortic Annulus 1.9 cm (1.4 - 2.6) Ao root diameter (2D) 3.1 cm (2.1 - 3.5) Ascending Ao 2.6 cm (2.1 - 3.4) Aortic arch 2.8 cm (1.8 - 3.4) LA dimension (AP) 2D 4.8 cm (2.3 - 3.8) LAd ISD 4CH 4.8 cm (2.9 - 5.3) LA ISD 4CH W 3.9 cm (2.5 - 4.5) Name Value Normal Range LA ESV SP 4CH (A/L) 67 ml - LA ESV SP 2CH (A/L) 79 ml - LA ESV BP (A/L) 77 ml - LA ESV BP (A/L) index 48.34 ml/m2 - LA ESV SP 4CH (MOD) 60 ml - LA ESV SP 2CH (MOD) 71 ml - Name Value Normal Range MV E-wave Vmax 0.61 m/sec - MV deceleration time 217.9 msec - MV A-wave Vmax 0.85 m/sec - MV E:A ratio 0.72 ratio - LV septal e' Vmax 0.04 m/sec - LV lateral e' Vmax 0.06 m/sec - LV E:e' septal ratio 15.25 ratio - LV E:e' lateral ratio 10.17 ratio - Name Value Normal Range AV Vmax 1.12 m/sec - AV VTI 24.7 cm - AV peak gradient 5.02 mmHg - AV mean gradient 2.09 mmHg - LVOT Vmax 1.09 m/sec - LVOT VTI 22.63 cm - LVOT peak gradient 4.72 mmHg - LVOT mean gradient 2.08 mmHg - ASHLEY Vmax 0.53 m/sec - Name Value Normal Range TR Vmax 2.65 m/sec - TR peak gradient 28 mmHg - RAP 3 mmHg - RVSP 31 mmHg - IVC diameter 1.9 cm - Name Value Normal Range PV Vmax 0.95 m/sec - PV peak gradient 3.63 mmHg -
[2017-05-21] MEDS ORDERED: Vancomycin Trough Check NOTE FOLLOW UP ONE (01:30)
== END 2017-05-20 15:45 | disposition short-term general hospital (02) | DRG 809 ==
LOC: ED 09:54 → MEDTELE 12:59
PROVIDERS: ADMIT Internal Medicine Hematology & Oncology; ATTEND Internal Medicine Hematology & Oncology
PROC: 30233R1 Transfusion of Nonautologous Platelets into Peripheral Vein, Percutaneous Approach (ICD-10-PCS; 2017-05-17)
PROC: 30233N1 Transfusion of Nonautologous Red Blood Cells into Peripheral Vein, Percutaneous Approach (ICD-10-PCS; principal; 2017-05-18)
DX: D70.9 Neutropenia, unspecified (principal); Z94.81 Bone marrow transplant status; I95.9 Hypotension, unspecified; D75.81 Myelofibrosis; E87.1 Hypo-osmolality and hyponatremia; E11.36 Type 2 diabetes mellitus with diabetic cataract; D61.818 Other pancytopenia; E86.0 Dehydration; R50.81 Fever presenting with conditions classified elsewhere; Z88.1 Allergy status to other antibiotic agents; Z88.0 Allergy status to penicillin; Z88.5 Allergy status to narcotic agent; Z91.040 Latex allergy status; Z88.2 Allergy status to sulfonamides; Z88.8 Allergy status to other drugs, medicaments and biological substances; K21.9 Gastro-esophageal reflux disease without esophagitis; K44.9 Diaphragmatic hernia without obstruction or gangrene; Z87.442 Personal history of urinary calculi; F32.9 Major depressive disorder, single episode, unspecified; F41.0 Panic disorder [episodic paroxysmal anxiety]; Z90.710 Acquired absence of both cervix and uterus; Z86.14 Personal history of Methicillin resistant Staphylococcus aureus infection; Z82.49 Family history of ischemic heart disease and other diseases of the circulatory system; Z87.891 Personal history of nicotine dependence; E78.5 Hyperlipidemia, unspecified; I10 Essential (primary) hypertension; L65.8 Other specified nonscarring hair loss; T45.1X5A Adverse effect of antineoplastic and immunosuppressive drugs, initial encounter; Z79.4 Long term (current) use of insulin; K59.00 Constipation, unspecified
CPT/HCPCS: 36415; 70450; 71010; 80048; 80053; 80197; 81003; 81015; 83615; 83735; 83880; 84484; 85025; 85049; 85060; 85379; 85610; 85730; 86078; 86850; 86900; 86901; 86922; 87040; 87070; 87077; 87086; 87102; 87150; 87186; 87205; 93005; 93306; 99223; 99233; 99239; A9270-GY; J0692; J2060; J2405; J3370; J7507; P9035; P9040

== ENCOUNTER 2017-06-26 10:32 | Emergency (ER) | payer MEDICARE, MEDICAID ==
[2017-06-26] MEDS ORDERED: Ondansetron INJ* 2 MG/ML VIAL IV ONE (10:45)
[2017-06-26] MEDS ORDERED: Famotidine IV* 10 MG/ML 2 ML (20 mg) IV ONE (10:45)
[2017-06-26] MEDS ORDERED: NS 0.9% 1000 ML* 1,000 ML IV ONE (10:45)
[2017-06-26] MEDS ORDERED: Morphine INJ* 4 MG/ML 1 ML CARPUJECT IV ONE ×2 (11:18→14:01)
[2017-06-26 11:26] LABS: Hematocrit 29 % (35-47); Hemoglobin 9.9 g/dl (12.0-16.0); Mean Corpuscular HGB Conc 34 g/dl (31-36); Mean Corpuscular Hemoglobin 31 pg (27-31); Mean Corpuscular Volume 89 fL (80-97); Mean Platelet Volume 8 um3 (7.4-10.4); Red Blood Count 3.26 10^6/ul (4.0-5.4); Red Cell Distribution Width 18 % (10.5-15); White Blood Count 4.2 10^3/ul (3.5-10.8)
[2017-06-26 11:27] LABS: Add Diff/Slide Review? Slide Review Added; Comments Flag Yes
[2017-06-26 11:39] LABS: Albumin 3.7 g/dL (3.2-5.2); BUN/Creatinine Ratio 27.6 (8-20); C Reactive Protein 6.45 mg/L (< 5.00); EGFR African American 99.2 (>60); EGFR Non-African American 77.1 (>60); Globulin 2.6 g/dL (2-4); Magnesium 1.4 mg/dL (1.9-2.7); Potassium 4.6 mmol/L (3.5-5.0); Total Bilirubin 0.6 mg/dL (0.2-1.0); Total Protein 6.3 g/dL (6.4-8.9)
[2017-06-26 12:15] LABS: Hypochromasia 1+; Immature Granulocytes 16 % (0-9); Metamyelocytes % 4 % (0-2); Myelocytes % 4 % (0-1); Neutrophil % 56 % (38-83)
[2017-06-26] MEDS ORDERED: Magnesium Sulfate 1 GM IV* 1 GM/100 ML BAG IV ONE (12:15)
[2017-06-26 12:16] LABS: Polychromasia 1+; Tear Drop Cells 1+
[2017-06-26 12:31] LABS: Urine Bilirubin Negative (Negative); Urine Glucose Negative (Negative); Urine Nitrite Negative (Negative)
[2017-06-26] MEDS ORDERED: Iodixanol* (CONTRAST) 320 MG/ML 100 ML SDV IV ONE (13:08)
--- NOTE | 2017-06-26 13:54 | RAD ---
INDICATION: Nausea and vomiting. Abdominal pain. History of leukemia. Post hysterectomy and prolapsed bladder and rectal repair. COMPARISON: January 30, 2017 CT TECHNIQUE: Multidetector CT images were obtained from the lung bases to the ischial tuberosities with 65 mL Visipaque 320 IV and oral contrast. Multiplanar reformation. REPORT: Unremarkable visualized inferior thorax. Unremarkable liver and gallbladder. Atrophic pancreas without suspicious finding. Peripheral wedge-shaped hypodensity at the posterior margin of the spleen measuring up to 1.5 cm new compared with the prior exam. The spleen measures 14 cm cephalocaudal without significant change. Negative for CT abnormality of the upper GI, or small bowel. While the appendix is not discretely visualized, there is no inflammatory change in the right lower quadrant or region of the tip of the cecum to suggest presence of an acute inflammatory process. Moderate stool in the colon with moderately severe rectal distention with formed stool. Few colonic diverticula without visualized acute diverticulitis. Negative for ascites, free air, hernias. Normal adrenal glands. Unremarkable kidneys with symmetric nephrograms and pyelograms. No suspicious finding along the course of the nondilated ureters. Moderately distended urinary bladder with upper normal wall thickness. Post hysterectomy. Unremarkable adnexal regions. Negative for lymphadenopathy. Mild atherosclerotic plaque of normal diameter abdominal aorta and iliac arteries. Physiologic distention of the IVC. Negative for suspicious osseous lesions. IMPRESSION: 1. Peripheral wedge-shaped hypodensity at the spleen new compared with the January 30, 2017 exam is concerning for a potential acute or subacute splenic infarct. Negative for reported history of trauma or subcapsular or perisplenic hematoma to suggest a splenic laceration. Unchanged mild splenomegaly. 2. While the appendix is not discretely visualized, there is no inflammatory change in the right lower quadrant or region of the tip of the cecum to suggest presence of an acute inflammatory process. 3. Moderate stool in the colon with moderately severe rectal distention with formed stool. Few colonic diverticula without visualized acute diverticulitis. 4. Negative for lymphadenopathy.
[2017-06-26 15:23] VITALS: BP 148/70
[2017-06-26] MEDS ORDERED: Magnesium Oxide TAB* 400 MG PO ONE (15:25)
--- NOTE | 2017-06-27 16:18 | ED ---
Ira Mujica Edward, scribed for Jacky Sosa MD on 06/26/17 at 1034 . Complex/Multi-Sys Presentation - HPI Summary HPI Summary: 62 y/o female BIBA c/o N/V and sudden onset, acute on chronic ABD pain starting at around 02:00 this morning. Pt has been vomiting intermittently since 02:00 this morning. The pain is described as a sharp pain rated 7/10 in severity located in the upper ABD. The pain radiates to the back. The pt states the ABD pain has been dull since April of 2017. Associated sx: fever/chills, weakness, lightheadedness, Pt had a stem cell transplant in April 2017 ([place]) for leukemia. - History Of Current Complaint Hx Obtained From: Patient Onset/Duration: Sudden Onset, Lasting Hours, Still Present Timing: Intermittent, Lasting: - N/V Associated Signs And Symptoms: Positive: Weakness, Nausea, Vomiting, Abdominal Pain - Upper ABD radiating to the back, Fever - chils, Other - Lightheadedness - Allergies/Home Medications Allergies/Adverse Reactions: Allergies Allergy/AdvReac Type Severity Reaction Status Date / Time Azithromycin Allergy See Comment Verified 05/17/17 10:18 Cephalexin [From Keflex] Allergy VOMITING, Verified 05/17/17 10:18 DIARRHEA, HIVES, LIGHTHEADEDNESS Diazepam [From Valium] Allergy Difficulty Verified 05/17/17 10:18 Breathing Hydromorphone [From Dilaudid] Allergy Altered Verified 05/17/17 10:18 Mental Status Latex Allergy Rash Verified 05/17/17 10:18 Penicillins [PCN] Allergy CHEST Verified 05/17/17 10:18 HEAVINESS, SLIGHT DIFF BREATHING, LIGHTHEADEDNESS, Sulfa Antibiotics Allergy See Comment Verified 05/17/17 10:18 Benzonatate [From Tessalon] AdvReac Headache Verified 05/17/17 10:18 Codeine AdvReac See Comment Verified 05/17/17 10:18 Morphine AdvReac VOMITING, Verified 05/17/17 10:18 LIGHTHEADEDNESS ALL "MYCINS" Allergy CHEST Uncoded 05/17/17 10:18 HEAVINESS, SL. DIFF. BREATHING, LIGHTHEADEDNESS ALL CILLINS Allergy CHEST Uncoded 05/17/17 10:18 HEAVINESS, SL. DIFF. BREATHING, LIGHTHEADNESS MULTIPLE ANTIBIOPTIC Allergy CHEST Uncoded 05/17/17 10:18 REACTIONS HEAVINESS, SL. DIFF. BREATHING, LIGHTHEADEDNESS SULFA DRUGS Allergy VOMITING, Uncoded 05/17/17 10:18 DIARRHEA, HIVES, LIGHTHEADEDNESS PMH/Surg Hx/FS Hx/Imm Hx Previously Healthy: No Endocrine/Hematology History: Reports: Hx Diabetes Cardiovascular History: Reports: Hx Angina Denies: Hx Coronary Artery Disease, Hx Hypercholesterolemia, Hx Hypertension , Hx Myocardial Infarction, Hx Pacemaker/ICD, Hx Valvular Heart Disease Respiratory History: Denies: Hx Asthma, Hx Chronic Obstructive Pulmonary Disease (COPD) GI History: Reports: Hx Gastroesophageal Reflux Disease, Hx Gastrointestinal Bleed, Hx Hiatal Hernia, Hx Ulcer - reflux History: Reports: Hx Kidney Stones - teenager Denies: Hx Renal Disease Musculoskeletal History: Reports: Other Musculoskeletal History - meylofibrosis Sensory History: Reports: Hx Cataracts - BEGINNING STAGES Denies: Hx Contacts or Glasses, Hx Hearing Aid Opthamlomology History: Reports: Hx Cataracts - BEGINNING STAGES Denies: Hx Contacts or Glasses Psychiatric History: Reports: Hx Anxiety, Hx Depression, Hx Panic Disorder, Other Psychiatric Issues/Disorders - claustrophobia - Cancer History Cancer Type, Location and Year: myelofibrosis Hx Chemotherapy: No - Surgical History Surgery Procedure, Year, and Place: NECK SURGERY- FOR HENIATED DISC-[facility]. SURGERY FOR PROLASPED BLADDER AND RECTUM, TOTAL ABDOMINAL HYSTERECTOMY- LAPAROSCOPIC-[facility]. TUBAL LIGATION. LEFT HAND LUMPS REMOVED 2014. dental work Hx Anesthesia Reactions: Yes - NAUSEA - Immunization History Date of Tetanus Vaccine: none Date of Influenza Vaccine: none Infectious Disease History: Reports: Hx of Known/Suspected MRSA Denies: History Other Infectious Disease - Family History Known Family History: Positive: Cardiac Disease Family History: cancer - Social History Alcohol Use: Rare Alcohol Amount: quit 2008 Hx Substance Use: No Substance Use Type: Reports: Prescribed Hx Tobacco Use: Yes Smoking Status (MU): Former Smoker Type: Cigarettes Amount Used/How Often: 1 PPD X 25 +YEARS Have You Smoked in the Last Year: No Review of Systems Positive: Fever, Chills Eyes: Negative ENT: Negative Cardiovascular: Negative Respiratory: Negative Positive: Abdominal Pain, Vomiting, Nausea Genitourinary: Negative Musculoskeletal: Negative Skin: Negative Neurological: Other - Lightheadedness Positive: Weakness Psychological: Normal All Other Systems Reviewed And Are Negative: Yes Physical Exam - Summary Physical Exam Summary: VITAL SIGNS: Reviewed. GENERAL: ~Patient is a well-developed and thin female who is lying comfortable in the stretcher. ~Patient is not in any acute respiratory distress. HEAD AND FACE: No signs of trauma. ~No ecchymosis, hematomas or skull depressions. No sinus tenderness. EYES: PERRLA, EOMI x 2, No injected conjunctiva, no nystagmus. EARS: Hearing grossly intact. Ear canals and tympanic membranes are within normal limits. MOUTH: Oropharynx within normal limits. NECK: Supple, trachea is midline, no adenopathy, no JVD, no carotid bruit, no c- spine tenderness, neck with full ROM. CHEST: Symmetric, no tenderness at palpation LUNGS: Clear to auscultation bilaterally. No wheezing or crackles. CVS: Regular rate and rhythm, S1 and S2 present, no murmurs or gallops appreciated. ABDOMEN: Soft, positive epigastric tenderness. No signs of distention. No rebound no guarding, and no masses palpated. Bowel sounds are normal. EXTREMITIES: FROM in all major joints, no edema, no cyanosis or clubbing. NEURO: Alert and oriented x 3. No acute neurological deficits. Speech is normal and follows commands. SKIN: Dry and warm Triage Information Reviewed: Yes Vital Signs Reviewed: Yes Diagnostics - Laboratory Result Diagrams: 06/26/17 11:05 06/26/17 11:05 Lab Statement: Any lab studies that have been ordered have been reviewed, and results considered in the medical decision making process. - CT ABD PEL CT CT Interpretation: Positive (See Comments) - 1. Peripheral wedge-shaped hypodensity at the spleen new compared with the January 30, 2017 exam is concerning for a potential acute or subacute splenic infarct. Negative for reported history of trauma or subcapsular or perisplenic hematoma to suggest a splenic laceration. Unchanged mild splenomegaly. 2. While the appendix is not discretely visualized, there is no inflammatory change in the right lower quadrant or region of the tip of the cecum to suggest presence of an acute inflammatory process. 3. Moderate stool in the colon with moderately severe rectal distention with formed stool. Few colonic diverticula without visualized acute diverticulitis. 4. Negative for lymphadenopathy. ED PHYSICIAN AGREES CT Interpretation Completed By: Radiologist - EKG 1 EKG Interpretation: 11:05 - NSR @ 79 BPM, no ST elevations. EKG Comparison: No Significant Change - 05/20/17 Re-Evaluation - Re-Evaluation 1 Re-Evaluation Time: 15:08 Complex Multi-Symp Course/Dx Assessment/Plan: 62 y/o female BIBA c/o N/V and sudden onset, acute on chronic ABD pain starting at around 02:00 this morning. Pt has been vomiting intermittently since 02:00 this morning. The pain is described as a sharp pain rated 7/10 in severity located in the upper ABD. The pain radiates to the back. The pt states the ABD pain has been dull since April of 2017. Associated sx: fever/chills, weakness, lightheadedness, Pt had a stem cell transplant in April 2017 ([place]) for leukemia. EKG 11:05 - NSR @ 79 BPM, no ST elevations. No significant change from 05/20/17. ABD PEL CT SHOWS 1. Peripheral wedge-shaped hypodensity at the spleen new compared with the January 30, 2017 exam is concerning for a potential acute or subacute splenic infarct. Negative for reported history of trauma or subcapsular or perisplenic hematoma to suggest a splenic laceration. Unchanged mild splenomegaly. 2. While the appendix is not discretely visualized, there is no inflammatory change in the right lower quadrant or region of the tip of the cecum to suggest presence of an acute inflammatory process. 3. Moderate stool in the colon with moderately severe rectal distention with formed stool. Few colonic diverticula without visualized acute diverticulitis. 4. Negative for lymphadenopathy. ED PHYSICIAN AGREES. Test results show chronic anemia, chronic thrombocytopenia, glucose 189, Mg 1.4 , CRP 6.45. UA (-) UTI. In the ED course the pt was given iv fluids, Zofran for nausea, and morphine for pain. Pt was given Mg for hypomagnesia. Abd/pel ct shows pt has hypodensity in spleen concerning for potential acute or subacute splenic infarct. I discussed with Dr. Ayala, the pts oncologist, who recommends d/c home and that the pt continued taking medication for pain. Dr. Ayala will be seeing the pt on Wednesday for further workup and management. He understands there is a potential splenic infarct; however he doesnt want the pt on blood thinners and just wants f/u. At this point the pain is resolved 0/10. The pt is hemodynamically stable. The pt is able to tolerate PO w/o N/V. The pt will be d/c home with f/u with Dr. Ayala. - Diagnoses Provider Diagnoses: Nausea & vomiting, Abdominal pain - Physician Notifications Discussed Care Of Patient With: Nicko Ayala Time Discussed With Above Provider: 15:03 Discharge - Discharge Plan Condition: Stable Disposition: HOME Patient Education Materials: Acute Nausea and Vomiting (ED), Abdominal Pain (ED ) Referrals: Nicko Ayala MD [Medical Doctor] - 3 Days (PLEASE F/U IN 2-3 DAYS) The documentation as recorded by the Ira de la o Edward accurately reflects the service I personally performed and the decisions made by Ian perkins Walter, MD.
== END 2017-06-26 15:22 | disposition home or self-care (01) ==
LOC: ED 10:32
DX: R11.2 Nausea with vomiting, unspecified (principal); R10.10 Upper abdominal pain, unspecified; R53.1 Weakness; R50.9 Fever, unspecified; R42 Dizziness and giddiness; E11.9 Type 2 diabetes mellitus without complications; I20.9 Angina pectoris, unspecified; K21.9 Gastro-esophageal reflux disease without esophagitis; F41.9 Anxiety disorder, unspecified; F32.9 Major depressive disorder, single episode, unspecified; Z90.710 Acquired absence of both cervix and uterus; Z88.5 Allergy status to narcotic agent; Z88.0 Allergy status to penicillin; Z88.2 Allergy status to sulfonamides; Z88.8 Allergy status to other drugs, medicaments and biological substances; Z88.1 Allergy status to other antibiotic agents; Z91.040 Latex allergy status; Z87.891 Personal history of nicotine dependence
CPT/HCPCS: 36415; 74177; 80053; 81003; 82140; 82150; 82550; 83690; 83735; 84484; 85025; 86140; 93005; 96374; 96375; 96376; 99284; J2270; J2405; J3475; Q9967

== ENCOUNTER 2018-01-21 10:51 | Inpatient (IN) | payer MEDICARE, MEDICAID ==
[2018-01-21 12:39] LABS: Hematocrit 31 % (35-47); Hemoglobin 10.4 g/dl (12.0-16.0); Mean Corpuscular HGB Conc 34 g/dl (31-36); Mean Corpuscular Hemoglobin 31 pg (27-31); Mean Corpuscular Volume 93 fL (80-97); Mean Platelet Volume 7.5 um3 (7.4-10.4); Platelet Count 113 10^3/ul (150-450); Red Blood Count 3.33 10^6/ul (4.0-5.4); Red Cell Distribution Width 14 % (10.5-15); White Blood Count 6.8 10^3/ul (3.5-10.8)
[2018-01-21] MEDS ORDERED: fentaNYL* 50 MCG/ML 2 ML VIAL (100 MCG VIAL) IV SLOW PU ONE (12:42)
[2018-01-21 12:49] LABS: INR 0.99 (0.77-1.02)
--- NOTE | 2018-01-21 12:58 | RAD ---
HISTORY: Headache COMPARISONS: May 20, 2017 TECHNIQUE: Multiple contiguous axial CT scans were obtained of the head without intravenous contrast. FINDINGS: HEMORRHAGE/INFARCT: There is no hemorrhage or acute infarct. MASSES/SHIFT: There is no mass or shift. EXTRA-AXIAL SPACES: There are no extra-axial fluid collections. SULCI AND VENTRICLES: The sulci and ventricles are normal in size and position for the patient's stated age. CEREBRUM: There are no focal parenchymal abnormalities. BRAINSTEM: There are no focal parenchymal abnormalities. CEREBELLUM: There are no focal parenchymal abnormalities. VESSELS: The vessels are grossly normal. PARANASAL SINUSES: The paranasal sinuses are clear. ORBITS: The orbits are unremarkable. BONES AND SOFT TISSUE: No bone or soft tissue abnormalities are noted. OTHER: None IMPRESSION: NO ACUTE INTRACRANIAL PATHOLOGY.
[2018-01-21 12:59] LABS: EGFR Non-African American 71.6 (>60)
[2018-01-21] MEDS ORDERED: Ondansetron INJ* 2 MG/ML VIAL ONE (13:25)
[2018-01-21] MEDS ORDERED: Ondansetron INJ* 2 MG/ML VIAL IV ONE (13:27)
[2018-01-21 14:14] LABS: Monocytes % 6 % (0-7)
[2018-01-21] MEDS ORDERED: NS 0.9% 1000 ML* 1,000 ML IV ONE (15:04)
[2018-01-21] MEDS ORDERED: Dextrose 50% Syringe 50 ML* 25 GM/50 ML SYRINGE IV PUSH PRN (15:41)
[2018-01-21] MEDS ORDERED: Acetaminophen TAB* 325 MG PO PRN (16:21)
[2018-01-21] MEDS ORDERED: Insulin LISPRO* 1 UNITS UNIT SUBCUT SCH (16:30)
[2018-01-21] MEDS: oxyCODONE TAB* 5 MG TAB PO SCH ×2 (16:46→22:45)
[2018-01-21] MEDS ORDERED: NS 0.9% 1000 ML* 1,000 ML IV SCH (17:15)
[2018-01-21] MEDS ORDERED: Insulin GLARGINE(*) 1 UNITS UNIT SUBCUT SCH ×2 (18:00→21:00)
[2018-01-21] MEDS: Fluconazole 100 MG TAB* TAB PO SCH (19:19)
[2018-01-21] MEDS: Insulin LISPRO* 1 UNITS UNIT SUBCUT SCH ×2 (19:20→22:50)
--- NOTE | 2018-01-21 19:51 | HP ---
Amended report to enter cosigning physician. CC: Dr. Ko* HISTORY AND PHYSICAL: DATE OF ADMISSION: 01/21/18 PROVIDER: Esau Jamison NP ATTENDING PHYSICIAN: Dr. Kulkarni* (report dictated by Esau Jamison NP) PRIMARY CARE PROVIDER: Dr. Ko. ONCOLOGISTS: 1. [place] oncologist, Dr. Guillermina Gaston. 2. [place] oncologist, Dr. Valdivia at [facility]. CHIEF COMPLAINT: Bilateral leg pain, weakness, nausea, vomiting, diarrhea, and headache. HISTORY OF PRESENT ILLNESS: Ms. 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 She reports last night she woke up in the middle of the night and had to use the bathroom; however, she noted lower extremity weakness and pain, unable to get up in the night and use the room, reporting she was able to fall back asleep. Then this morning, she awoke, was able to get herself out of bed with use of her walker, but reports that she was very "wobbly " and continued to notice bilateral lower extremity weakness with pain. She reports no further diarrhea this morning, but she did vomit twice this morning. She also reports accompanied headache, which started yesterday. She denies any fevers or chills, but does report a temp of 99 last evening. Denies any urinary symptoms such as increased frequency, dysuria, hematuria. No further diarrhea noted today. Last time, she vomited was approximately 6 to 7 hours ago and reports she is feeling better, but has some underlying continued nausea. She denies any recent upper respiratory illness, no cough. Denies shortness of breath or chest pain. Denies difficulty swallowing. In regards to her myelofibrosis, she reports she is followed closely by her oncologist, Dr. Valdivia and last time she was seen was approximately a week ago. She was told that she was doing very well. Currently, in the emergency department, she continues to have lower extremity weakness, reporting that her legs feels very "heavy." She does report that she has been able to get out of bed with use of a walker and help of a nurse to use a commode, but continues to feel weak. She reports numbness and tingling in her feet at her baseline with no new development. She was seen by Dr. Ellsworth, neurologist, in the emergency department who has concern for Guillain-Hamilton and the plan is to admit the patient for EMG nerve studies as well as MRI of the spine. The patient did have a brain CT in the emergency department, which showed no acute intracranial pathology. Her labs appear to be around her baseline. It is noted that she has bands neutrophils of 9, which looking back at her history is not uncommon for her to amount bands. She does have a noted CRP of 39 and has a history of elevated CRP previously, however, her last CRP on 08/04/17 was normal at 2.32. PAST MEDICAL HISTORY: 1. Myelofibrosis, status post allogenic bone marrow transplant by Dr. Valdivia in [place] on 04/14/17. 2. History of a bone marrow failure in MED-2 mutation with no splenomegaly. 3. Anemia. 4. Insulin-dependent type 2 diabetes. 5. GERD. 6. Hyperlipidemia. 7. Hypertension. CURRENT MEDICATIONS: 1. Acetaminophen 650 mg p.o. q.6 hours p.r.n. 2. Acyclovir 400 mg p.o. b.i.d. 3. Vitamin C 1000 mg p.o. daily. 4. Vitamin B12 1000 mcg p.o. daily. 5. Pepcid 20 mg p.o. daily. 6. Diflucan 200 mg p.o. q.p.m. 7. Florinef 0.1 mg p.o. daily. 8. Neurontin 600 mg p.o. t.i.d. 9. Nexium 40 mg p.o. daily. 10. Lantus 20 units subcu q.p.m. 11. Multivitamin with minerals 1 tab p.o. daily. 12. MiraLAX 17 g p.o. daily. 13. Carafate 1 g p.o. t.i.d. p.r.n. 14. Oxycodone 5 to 10 mg p.o. q.4 hours scheduled. 15. NovoLog 0-8 units subcu a.c. per sliding scale. 16. Zofran 4 mg p.o. q.6 hours p.r.n. 17. Trazodone 50 mg p.o. at bedtime. 18. Budesonide 3 mg p.o. t.i.d. 19. Prograf 2 mg p.o. b.i.d. ALLERGIES: AZITHROMYCIN, TESSALON PERLES, KEFLEX, DIAZEPAM, HYDROMORPHONE, LATEX, MORPHINE, PENICILLIN, MULTIPLE ANTIBIOTIC REACTIONS, SULFA DRUGS. FAMILY HISTORY: Reviewed and noncontributory. SOCIAL HISTORY: The patient currently lives alone. She has 2 sons who she reports as her healthcare proxies, Junior and Mack Ramirez. REVIEW OF SYSTEMS: A 14-point review of systems was performed. All the pertinent positives and negatives are mentioned in the history of present illness. Otherwise, negative. PHYSICAL EXAMINATION GENERAL APPEARANCE: Chronically ill appearing 62-year-old female, sitting up on the emergency department stretcher, alert and oriented x3, in no acute distress, very friendly. VITAL SIGNS: Temperature 100.3, heart rate 79, respirations 20, O2 sat 98% on room air, blood pressure 130/64. HEENT: Head is normocephalic, atraumatic. Pupils are equal and reactive to light. Oropharynx is clear. Moist mucous membranes. NECK: Supple. LUNGS: Clear to auscultation bilaterally. Good aeration throughout. CARDIAC: S1, S2. Regular rate and rhythm. No murmur, rub, or gallop appreciated. No lower extremity edema noted. 2+ DP pulses bilaterally. ABDOMEN: Soft, nontender, nondistended. Normal bowel sounds throughout. EXTREMITIES: No clubbing, cyanosis, or edema. NEURO: Alert and oriented x3. Sensation to lower extremities is intact. The patient is able to move lower extremities; however, she is guarded moving her lower extremities, reporting pain with movement. No noted focal deficits. ASSESSMENT AND PLAN: Ms. Allen is a 62-year-old female with a past medical history of myelofibrosis and is status post allogenic bone marrow transplant in April 2017, anemia, insulin-dependent type 2 diabetes, GERD, hyperlipidemia, hypertension who presented to the emergency department today with report of nausea, vomiting, diarrhea, headache starting yesterday developing lower extremity pain and weakness overnight with difficulty ambulating. 1. Weakness. The patient was seen by Dr. Ellsworth, neurologist, who has concern for possibly early stages of Guillain-Hamilton. The patient will be admitted to the hospitalist service. Neuro checks q.2 hours. Currently, the patient reports she is feeling better, but still has weak extremities, mild at this point. The plan will be for Neurology to perform EMG and nerve conduction studies as well as the patient will have an MRI of her cervical, lumbar, and thoracic spine. The patient is stable. Her airway is well protected. She has no respiratory symptoms or swallowing difficulties. If she develops worsening symptoms IVIG will be initiated. Dispo per Neurology. I see that the patient did not have blood cultures in the emergency department. We will order blood cultures now. 2. Nausea, vomiting, diarrhea. No further diarrhea since yesterday. Last time she vomited was this morning. Currently, has mild nausea, but she feels that she is improving. It is possible that some of her weakness could be secondary to viral gastroenteritis and has an infectious process with her mildly elevated CRP. She did receive 1 liter of normal saline in the emergency department. Will continue normal saline at 100 mL an hour x1 liter. Clear liquid diet. Per Dr. Gaston, nausea and vomiting has been a chronic problem for the patient and she believes she has had GI work-up but this will have to be confirmed. 3. History of myelofibrosis status post bone marrow transplant. I spoke with Dr. Gaston, Oncology, unless the patients has noted blasts she will stay on the medicine service. No noted blast on initial labs. Continue home meds. 4. Type 2 diabetes, insulin dependent. We will cut Lantus in to half, give her 10 units of subcu at bedtime this evening. Continue Humalog, lispro sliding scale. Please note that the patient does take NovoLog at home and has an allergy to latex. I discussed this with the Pharmacy as there is a very small chance of cross reaction with the Humalog. I discussed this with the patient as well. She denies having a reaction to Humalog in the past. Continue to monitor closely. FSBGs q.a.c. and h.s. 5. Gastroesophageal reflux disease. I will continue PPI, Carafate, and Pepcid. 6. DVT. Heparin subcu. 7. Full code. HOSPITAL STATUS: Inpatient to medical unit. TIME SPENT: Approximately 60 minutes were spent on this admission. This patient was discussed with the attending physician, Dr. Kulkarni who agrees with plan of care. ESAU JAMISON, TECHNICAL ADVISOR [id number]/[facility] #: [id number] AURELIA
[2018-01-21] MEDS ORDERED: ALPRAZolam TAB* 0.25 MG PO ONE (20:03)
[2018-01-21] MEDS ORDERED: Gadoteridol* (CONTRAST) 279.3 MG/ML 10 ML IV ONE (21:03)
--- NOTE | 2018-01-21 22:02 | ED ---
Armand Mujica Jennifer, scribed for Lobito Zepeda MD on 01/21/18 at 1116 . Lower Extremity - HPI Summary HPI Summary: The patient is a 62 year old female who presents with severe bilateral leg pain and leg jerking that began this morning. The patient reports that she is unable to get up and walk. She falls if she attempts to walk, and movement worsens her leg pain. She additionally complains of bilateral arm weakness, headaches, nausea, and vomiting. Her headache is described as a throbbing that is across the front of her head. She denies head injury or trauma. The patient additionally adds that she usually takes Oxycodone but not today because she didnt want to vomit. - History of Current Complaint Chief Complaint: EDNauseaVomitDiarrh Stated Complaint: GENERAL ILLNESS Time Seen by Provider: 01/21/18 11:00 Hx Obtained From: Patient Mechanism Of Injury: Unknown Onset of Pain: Immediate Onset/Duration: Hours Severity Initially: Severe Severity Currently: Severe Pain Intensity: 7 Pain Scale Used: 0-10 Numeric Timing: Constant Location: Is Diffuse - Bilateral legs Character Of Pain: Spasmodic Associated Signs And Symptoms: Positive: Other - weakness, headache, nausea Aggravating Factor(s): Ambulation, Movement, Weight Bearing Alleviating Factor(s): Rest Able to Bear Weight: No - Allergies/Home Medications Allergies/Adverse Reactions: Allergies Allergy/AdvReac Type Severity Reaction Status Date / Time azithromycin Allergy Difficulty Verified 01/21/18 11:05 Breathing benzonatate Allergy Headache Verified 01/21/18 11:05 [From Tessalon Perles] cephalexin [From Keflex] Allergy Vomiting Verified 01/21/18 11:05 diazepam Allergy Difficulty Verified 01/21/18 11:05 Breathing hydromorphone [From Dilaudid] Allergy Altered Verified 01/21/18 11:05 Mental Status latex Allergy Rash Verified 01/21/18 11:05 morphine Allergy Vomiting Verified 01/21/18 11:05 Penicillins Allergy Difficulty Verified 01/21/18 11:05 Breathing Sulfa (Sulfonamide Allergy Vomiting Verified 01/21/18 11:06 Antibiotics) ALL "MYCINS" Allergy CHEST Uncoded 05/17/17 10:18 HEAVINESS, SL. DIFF. BREATHING, LIGHTHEADEDNESS ALL CILLINS Allergy CHEST Uncoded 05/17/17 10:18 HEAVINESS, SL. DIFF. BREATHING, LIGHTHEADNESS MULTIPLE ANTIBIOPTIC Allergy CHEST Uncoded 05/17/17 10:18 REACTIONS HEAVINESS, SL. DIFF. BREATHING, LIGHTHEADEDNESS SULFA DRUGS Allergy VOMITING, Uncoded 05/17/17 10:18 DIARRHEA, HIVES, LIGHTHEADEDNESS Home Medications: Home Medications Acyclovir* [Zovirax 400 MG TAB*] 400 mg PO BID 01/21/18 [History Confirmed 01/21] Ascorbic Acid TAB* [Vitamin C TAB*] 1,000 mg PO DAILY 01/21/18 [History Confirmed 01/21/18] Budesonide CAP(NF) 3 mg PO TID 01/21/18 [History Confirmed 01/21/18] Famotidine TAB* [Pepcid 20 MG TAB*] 20 mg PO DAILY 01/21/18 [History Confirmed 01/21/18] Fluconazole 100 MG TAB* [Diflucan 100 MG TAB*] 200 mg PO QPM 01/21/18 [History Confirmed 01/21/18] Fludrocortisone Acetate TAB* [Florinef TAB*] 0.1 mg PO DAILY 01/21/18 [History Confirmed 01/21/18] Insulin ASPART (NF) [Novolog (NF)] 0 - 8 units SUBCUT AC 01/21/18 [History Confirmed 01/21/18] Insulin GLARGINE(*) [Lantus(*)] 20 units SUBCUT QPM 01/21/18 [History Confirmed 01/21/18] Ondansetron TAB* [Zofran 4 MG Tab*] 4 mg PO Q6H PRN 01/21/18 [History Confirmed 01/21/18] Tacrolimus CAP(*) [Prograf CAP(*)] 2 mg PO BID 01/21/18 [History Confirmed 01/21] traZODone TAB* [Desyrel TAB*] 50 mg PO BEDTIME 01/21/18 [History Confirmed 01/21] PMH/Surg Hx/FS Hx/Imm Hx Endocrine/Hematology History: Reports: Hx Diabetes, Other Endocrine/ Hematological Disorders - Graft vs. Host disease Cardiovascular History: Reports: Hx Angina Denies: Hx Coronary Artery Disease, Hx Hypercholesterolemia, Hx Hypertension , Hx Myocardial Infarction, Hx Pacemaker/ICD, Hx Valvular Heart Disease Respiratory History: Denies: Hx Asthma, Hx Chronic Obstructive Pulmonary Disease (COPD) GI History: Reports: Hx Gastroesophageal Reflux Disease, Hx Gastrointestinal Bleed, Hx Hiatal Hernia, Hx Ulcer - reflux History: Reports: Hx Kidney Stones - teenager Denies: Hx Renal Disease Musculoskeletal History: Reports: Other Musculoskeletal History - meylofibrosis Sensory History: Reports: Hx Cataracts - BEGINNING STAGES Denies: Hx Contacts or Glasses, Hx Hearing Aid Opthamlomology History: Reports: Hx Cataracts - BEGINNING STAGES Denies: Hx Contacts or Glasses Neurological History: Denies: Hx Headaches Psychiatric History: Reports: Hx Anxiety, Hx Depression, Hx Panic Disorder, Other Psychiatric Issues/Disorders - claustrophobia - Cancer History Cancer Type, Location and Year: LEUKEMIA, myelofibrosis Hx Chemotherapy: No - Surgical History Surgery Procedure, Year, and Place: NECK SURGERY- FOR HENIATED DISC-[facility]. SURGERY FOR PROLASPED BLADDER AND RECTUM, TOTAL ABDOMINAL HYSTERECTOMY- LAPAROSCOPIC-[facility]. APPENDECTOMY. TUBAL LIGATION. LEFT HAND LUMPS REMOVED 2014. dental work Hx Anesthesia Reactions: Yes - NAUSEA - Immunization History Date of Tetanus Vaccine: none Date of Influenza Vaccine: none Infectious Disease History: No Infectious Disease History: Reports: Hx of Known/Suspected MRSA Denies: History Other Infectious Disease, Traveled Outside the [place] in Last 30 Days - Family History Known Family History: Positive: Cardiac Disease Family History: cancer - Social History Alcohol Use: Rare Alcohol Amount: quit 2008 Hx Substance Use: No Substance Use Type: Reports: Prescribed Hx Tobacco Use: Yes Smoking Status (MU): Former Smoker Type: Cigarettes Amount Used/How Often: 1 PPD X 25 +YEARS Have You Smoked in the Last Year: No Review of Systems Positive: Vomiting, Nausea Positive: Other - Leg pain, jerking legs Positive: Headache, Weakness All Other Systems Reviewed And Are Negative: Yes Physical Exam - Summary Physical Exam Summary: Appearance: The patient is well-nourished in no acute distress and in no acute pain. Skin: The skin is warm and dry and skin color reflects adequate perfusion. HEENT: The head is normocephalic and atraumatic. The pupils are equal and reactive. The conjunctivae are clear and without drainage. Nares are patent and without drainage. Mouth reveals moist mucous membranes and the throat is without erythema and exudate. The external ears are intact. The ear canals are patent and without drainage. The tympanic membranes are intact. Neck: the neck is supple with full range of motion and non-tender. There are no meningeal signs. There are no carotid bruits. There is no neck vein distension. Respiratory: Chest is non-tender. Lungs are clear to auscultation and breath sounds are symmetrical and equal. Cardiovascular: Heart is regular rate and rhythm. There is no murmur or rub auscultated. There is no peripheral edema and pulses are symmetrical and equal. Abdomen: The abdomen is soft and non-tender. There are normal bowel sounds heard in all four quadrants and there is no organomegaly palpated. Musculoskeletal: THE PHYSICAL EXAM IS LIMITED BY PAIN. There is no back tenderness noted. Extremities are strong and non-tender with full range of motion. There is good capillary refill. There is no peripheral edema or calf tenderness elicited. Neurological: Patient is alert and oriented to person, place and time. The patient has symmetrical motor strength in all four extremities. Cranial nerves are grossly intact. Deep tendon reflexes are symmetrical and equal in all four extremities. Psychiatric: The patient has an appropriate affect and does not exhibit any anxiety or depression. Triage Information Reviewed: Yes Vital Signs On Initial Exam: Initial Vitals Temp Pulse Resp BP Pulse Ox 100.3 F 80 17 147/71 97 01/21/18 10:58 01/21/18 10:58 01/21/18 10:58 01/21/18 10:58 01/21/18 10:58 Vital Signs Reviewed: Yes Diagnostics - Vital Signs Vital Signs Temp Pulse Resp BP Pulse Ox 01/21/18 10:58 100.3 F 80 17 147/71 97 - Laboratory Lab Results: Lab Results 01/21/18 01/21/18 01/21/18 Range/Units 12:25 12:25 12:25 WBC 6.8 (3.5-10.8) 10^3/ul RBC 3.33 L (4.0-5.4) 10^6/ul Hgb 10.4 L (12.0-16.0) g/dl Hct 31 L (35-47) % MCV 93 (80-97) fL MCH 31 (27-31) pg MCHC 34 (31-36) g/dl RDW 14 (10.5-15) % Plt Count 113 L (150-450) 10^3/ul MPV 7.5 (7.4-10.4) um3 Neut % (Auto) Not Reportable Lymph % (Auto) Not Reportable [place] % (Auto) Not Reportable Eos % (Auto) Not Reportable Baso % (Auto) Not Reportable Absolute Neuts (auto) Not Reportable Absolute Lymphs (auto) Not Reportable Absolute Monos (auto) Not Reportable Absolute Eos (auto) Not Reportable Absolute Basos (auto) Not Reportable Absolute Nucleated RBC Not Reportable Immature Gran % 9 (0-9) % Neutrophils % 77 (38-83) % Band Neutrophils % 9 H (0-8) % Lymphocytes % 7 L (25-47) % Monocytes % 6 (0-7) % Eosinophils % 1 (0-6) % Basophils % 0 (0-2) % Nucleated RBC % Not Reportable Abs Neuts (Manual) 5.2 (1.5-7.7) 10^3/ul Abs Lymphs (Manual) 0.5 L (1.0-4.8) 10^3/ul Abs Monocytes (Manual) 0.4 (0-0.8) 10^3/ul Absolute Eos (Manual) 0.1 (0-0.6) 10^3/ul Abs Basophils (Manual) 0 (0-0.2) 10^3/ul Normal RBC Morphology Normal (Normal) INR (Anticoag Therapy) 0.99 (0.77-1.02) Sodium 139 (139-145) mmol/L Potassium 4.4 (3.5-5.0) mmol/L Chloride 101 (101-111) mmol/L Carbon Dioxide 32 (22-32) mmol/L Anion Gap 6 (2-11) mmol/L BUN 17 (6-24) mg/dL Creatinine 0.81 (0.51-0.95) mg/dL Est GFR ( Amer) 92.1 (>60) Est GFR (Non-Af Amer) 71.6 (>60) BUN/Creatinine Ratio 21.0 H (8-20) Glucose 169 H (70-100) mg/dL Calcium 8.9 (8.6-10.3) mg/dL Total Bilirubin 0.40 (0.2-1.0) mg/dL AST 10 L (13-39) U/L ALT 9 (7-52) U/L Alkaline Phosphatase 115 H (34-104) U/L C-Reactive Protein 39.84 H (< 5.00) mg/L Total Protein 5.9 L (6.4-8.9) g/dL Albumin 3.4 (3.2-5.2) g/dL Globulin 2.5 (2-4) g/dL Albumin/Globulin Ratio 1.4 (1-3) Result Diagrams: 01/21/18 12:25 01/21/18 12:25 Lab Statement: Any lab studies that have been ordered have been reviewed, and results considered in the medical decision making process. - CT Brain CT CT Interpretation: No Acute Changes - NO ACUTE INTRACRANIAL PATHOLOGY. Dr. Zepeda has reviewed this report. CT Interpretation Completed By: Radiologist Lower Extremity Course/Dx - Course Course Of Treatment: Ms. Allen was able to ambulate after some pain medication but clearly had a halting gait. Her initial W/U was unremarkable and I consulted Dr. Seng monterroso recommended admission, EMG studies and MRI. The hospitalist service is admitting her. - Diagnoses Provider Diagnoses: Ataxia, Headache - Critical Care Time Critical Care Time: 30-74 min Discharge - Sign-Out/Discharge Documenting (check all that apply): Discharge - Discharge Plan Condition: Stable Disposition: ADMITTED TO [facility] - Billing Disposition and Condition Condition: STABLE [place] [place] The documentation as recorded by the Armand de la o Jennifer accurately reflects the service I personally performed and the decisions made by , Lobito Zepeda MD.
--- NOTE | 2018-01-21 22:15 | RAD ---
INDICATION: Ataxia. COMPARISON: Comparison is made with a prior CT of the abdomen and pelvis from September 13, 2017. TECHNIQUE: Axial and sagittal T1 and T2 and coronal T2-weighted images of the lower dorsal and lumbar spine were obtained. In addition axial and sagittal T1-weighted images were obtained following intravenous injection of 14 ml of ProHance nonionic contrast. FINDINGS: The vertebra are in normal alignment. No fracture is seen. The vertebra and visualized portion of the iliac bones are heterogeneous in signal intensity and also demonstrate heterogeneous enhancement. At the L2-L3 level there is a mild broad-based disc bulge and mild hypertrophic changes within the facet joints. There is mild spinal canal narrowing. Neural foramen appear patent on both sides. At the L3-L4 level there is a minimal broad-based disc bulge and mild hypertrophic changes within the facet joints. No spinal canal or neural foraminal narrowing is seen. At the L4-L5 level there is a mild broad-based disc bulge and mild hypertrophic changes within the facet joint. No spinal canal or neural foraminal narrowing is seen. At the L5-S1 level there is a mild broad-based disc bulge which causes lateral recess narrowing. There is also mild posterior displacement of the left S1 nerve root in the lateral recess. There is mild bilateral neural foraminal narrowing. The liver and spleen are moderately enlarged and decreased in signal intensity most consistent hemachromatosis or hemosiderosis. IMPRESSION: 1. MILD TO MODERATE LUMBAR SPONDYLOSIS. 2. HEPATOSPLENOMEGALY WITH DECREASED SIGNAL INTENSITY SUGGESTIVE OF HEMACHROMATOSIS OR HEMOSIDEROSIS. RECOMMEND CLINICAL CORRELATION. 3. HETEROGENEOUS MARROW SIGNAL AND ENHANCEMENT POSSIBLY RELATED TO IRON DEPOSITION ALTHOUGH METASTATIC DISEASE CANNOT BE EXCLUDED. RECOMMEND A BONE SCAN FOR FURTHER EVALUATION. INTENSITY
--- NOTE | 2018-01-21 22:16 | RAD ---
INDICATION: Ataxia. COMPARISON: Comparison is made with a prior MRI of the cervical spine from March 26, 2009. TECHNIQUE: Axial T2 and sagittal T1 and T2 and coronal T2-weighted images of the cervical and upper and mid dorsal spine were obtained. In addition, axial and sagittal T1 weighted images were obtained following intravenous injection of 14 ml of ProHance nonionic contrast. The exam was performed as a limited large field of view studied due to the patient's claustrophobia. FINDINGS: The vertebra are somewhat heterogeneous in signal intensity and in normal alignment. No fracture is seen. There is a focal area of decreased signal intensity within the left T8 pedicle on both T1 and T2-weighted images. There is slightly heterogeneous enhancement of the vertebra. The craniocervical junction is within normal limits. The spinal cord is normal in shape and signal intensity. At the C4-C5 level there is a mild broad-based disc bulge associated with posterior uncinate process spurring which causes mild spinal canal narrowing. There is mild neural foraminal narrowing on the right side. At the C5-C6 level there is a mild left posterior lateral disc protrusion associated with uncinate process spurring. There is mild spinal canal narrowing. There are moderate hypertrophic changes within the facet joints. There appears to be moderate bilateral neural foraminal narrowing. At the T6-T7 level there is mild posterior uncinate process spurring associated with a mild broad-based disc bulge. There is mild spinal canal narrowing. Neural foramen appear patent bilaterally. No significant areas of spinal canal narrowing are appreciated within the visualized portion of the dorsal spine. There is a large solid enhancing lesion which likely arises from the left thyroid lobe measuring 4.0 x 4.1 cm in size. This has increased in size from the prior study and previously measured 3.3 x 3.1 cm in size. This is also slightly CT of the chest from February 2017. This causes deviation of the trachea toward the right side. There appears to be a moderate size hiatal hernia. IMPRESSION: 1. LIMITED LARGE FIELD OF VIEW STUDY. 2. MILD TO MODERATE CERVICAL SPONDYLOSIS. 3. HETEROGENEOUS ENHANCEMENT OF THE VERTEBRA AND FOCAL LESION IN THE LEFT T8 PEDICLE. RECOMMEND A BONE SCAN FOR FURTHER EVALUATION. 4. LARGE LEFT THYROID LOBE SOLID LESION. RECOMMEND A THYROID ULTRASOUND FOR FURTHER EVALUATION.
[2018-01-21] MEDS: Gabapentin CAP(*) 300 MG PO SCH (22:44)
[2018-01-21] MEDS: traZODone TAB* 50 MG TAB PO SCH (22:45)
[2018-01-21] MEDS: Acyclovir* 400 MG TAB PO SCH (22:46)
[2018-01-21] MEDS: Heparin VIAL(*) 5000 UNITS/ML VIAL (FIVE THOUSAND) SUBCUT SCH (22:47)
--- NOTE | 2018-01-21 23:02 | CONS ---
CONSULTATION REPORT: DATE OF CONSULTATION: 01/21/2018. PATIENT OF: Kayla Wilkinson, RAEANN, Dr. Ko, Dr. Guillermina Gaston and Dr. Valdivia at [facility]. REASON FOR CONSULT: Chief complaint is bilateral leg weakness, pain, instability. HISTORY OF PRESENT ILLNESS: Ms. Allen is a 62-year-old woman who noted this morning that she had bilateral pain from her groin into her legs as well as unsteady gait. She had aching of her arms. She noted no specific weakness to me, but it is more of an unsteadiness and that her legs had a heavy feeling. She noted that she had diarrhea, vomiting in the past day with some watery stools and that the difficulty walking may have begun over the course of the night. She noted that she is no worse currently this early evening than she was first thing in the morning. She initially had told me that there was no prior weakness or unsteadiness and after about a prior episode in December 2016 when she was hospitalized for weakness and unsteadiness, she did not remember that; but then on a second visit with her, she remembered that. 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 She has anemia, type 2 diabetes that she has had for more than 15 years, GERD, hyperlipidemia, hypertension. She has had low grade fever of 99 yesterday. She has anemia. PAST SURGICAL HISTORY: She had a cervical spine fusion and she has had history of tubal ligation. MEDICATIONS: At home include: 1. Prograf 2 mg b.i.d. 2. Budesonide 3 mg p.o. t.i.d. 3. Trazodone 50 mg at bedtime. 4. Zofran 4 mg q.6 hours p.r.n. 5. NovoLog 0 to 8 units subcu with meals that is a sliding scale. 6. Oxycodone 5 to 10 mg q.4 hours. 7. Carafate 1 g t.i.d. p.r.n. 8. MiraLAX 17 g daily. 9. Lantus 20 units subcu q.p.m. 10. Nexium 40 mg daily. 11. Neurontin 600 t.i.d. 12. Florinef 0.4 mg daily. 13. Diflucan 200 mg q.p.m. 14. Pepcid 20 mg daily. 15. Acyclovir 400 mg b.i.d. 16. Acetaminophen 650 mg p.r.n. ALLERGIES: She is allergic to AZITHROMYCIN, TESSALON PERLES, KEFLEX, DIAZEPAM, HYDROMORPHONE, LATEX, MORPHINE, MULTIPLE ANTIBIOTIC REACTIONS, SULFA DRUGS. FAMILY HISTORY: There is no family history for neuropathy or gait disturbance. SOCIAL HISTORY: She lives alone and has 2 sons, who are her healthcare proxy. REVIEW OF SYSTEMS: Negative in all 14 spheres other than in HPI. She does complain of minor headache. PHYSICAL EXAM: Vital Signs: Temperature 99.8, pulse 79, respiratory rate 18, blood pressure 128/73. When I had actually seen her earlier, her blood pressure was 130/64. She is alert and oriented with normal speech and comprehension. Cranial nerves II through XII are intact. Disks were sharp. Motor exam revealed normal tone and strength. Finger to nose was intact. She had a wide-based unsteady gait which she said was new since yesterday and had been stable since morning. Srbkni-vy-ddac was intact in the arms. There was no pronator drift. Strength was 5/5 in the arms including legs, any weakness in dorsiflexion or plantar flexion. Reflexes were trace with ongoing toes. Sensation was intact to light touch. She had an unsteady Romberg. She had a high-arched feet. Chest: Clear. Cardiovascular: Regular rate and rhythm. Abdomen: Soft with positive bowel sounds. DIAGNOSTIC STUDIES/LAB DATA: Her head CT scan was reviewed and was normal. She had one extremity nerve conduction study, it showed axonal sensorimotor neuropathy. Labs include white count 6.8, hematocrit 31, platelets of 113, INR of 0.99. Chemistries had a C-reactive protein of 39 Joyce will be getting an MRI scan of her spine. She has had a past history of cervical fusion plus she is at risk for tumor in her cord. And her main symptom is change of gait from today; however, it is not progressing. She has evidence on exam of a neuropathy, but this may be chronic, it is unclear whether a recent illness is causing this in a patient with neuropathy or whether she has process such as Guillain-[place]. She is going to have frequent neuro checks and if there is a deterioration, then it has to be decided whether she will need to be treated for Guillain-[place]. She is a complicated patient. I will be contacting Dr. Wilkinson again about her low blood pressure now and whether she needs to be on stress steroids, I will defer to the Hospitalist and whether this also means that she could be having sepsis. Depending on how the course goes, she may need a spinal tap, this would be premature at this point given her set of symptoms. Dr. Timmons is aware of the patient and has witnessed the patient walking. [id number]/[facility] #: [id number] [facility]
[2018-01-21] MEDS: Tacrolimus CAP(*) 1 MG PO SCH (23:06)
[2018-01-22] MEDS: oxyCODONE TAB* 5 MG TAB PO SCH ×6 (04:30→20:43)
[2018-01-22] MEDS: Omeprazole CAP* 20 MG PO SCH (05:52)
[2018-01-22 06:27] LABS: ABS Basophils 0 10^3/ul (0-0.2); ABS Eosinophils 0.2 10^3/ul (0-0.6); ABS Lymphocytes 0.8 10^3/ul (1.0-4.8); ABS Monocytes 0.4 10^3/ul (0-0.8); ABS Neutrophils 3.8 10^3/ul (1.5-7.7); ABS Nucleated RBC 0 10^3/ul; Eosinophil % 2.9 % (0-6); Hematocrit 28 % (35-47); Hemoglobin 9.4 g/dl (12.0-16.0); Lymphocyte % 16.3 % (25-47); Mean Corpuscular HGB Conc 34 g/dl (31-36); Mean Corpuscular Hemoglobin 32 pg (27-31); Mean Corpuscular Volume 93 fL (80-97); Mean Platelet Volume 7.4 um3 (7.4-10.4); Nucleated Red Blood Cells % 0; Platelet Count 101 10^3/ul (150-450); Red Blood Count 2.99 10^6/ul (4.0-5.4); Red Cell Distribution Width 14 % (10.5-15); White Blood Count 5.2 10^3/ul (3.5-10.8)
[2018-01-22 06:43] LABS: EGFR Non-African American 74.8 (>60)
[2018-01-22] MEDS ORDERED: Multivitamins/Minerals TAB PO SCH (09:00)
[2018-01-22] MEDS: Gabapentin CAP(*) 300 MG PO SCH ×3 (09:10→20:41)
[2018-01-22] MEDS: Cyanocobalamin TAB* 500 MCG PO SCH (09:11)
[2018-01-22] MEDS: Ascorbic Acid TAB* 500 MG PO SCH (09:11)
[2018-01-22] MEDS: Famotidine TAB* 20 MG PO SCH (09:12)
[2018-01-22] MEDS: Acyclovir* 400 MG TAB PO SCH ×2 (09:12→20:44)
[2018-01-22] MEDS: Tacrolimus CAP(*) 1 MG PO SCH ×2 (09:12→20:42)
[2018-01-22] MEDS: Fludrocortisone Acetate TAB* 0.1 MG PO SCH (09:13)
[2018-01-22] MEDS: Insulin LISPRO* 1 UNITS UNIT SUBCUT SCH ×4 (09:13→20:46)
[2018-01-22] MEDS: Heparin VIAL(*) 5000 UNITS/ML VIAL (FIVE THOUSAND) SUBCUT SCH ×2 (09:13→20:45)
[2018-01-22] MEDS: Polyethylene Glycol 3350* 17 GM PACKET PO PRN (13:32)
--- NOTE | 2018-01-22 15:58 | PN ---
Subjective Date of Service: 01/22/18 Interval History: Improved nausea, and diarrhea without having any episodes since the day before yesterday. Patient complains of persistent neuropathic pain in legs which is at baseline. Feels like legs continue to be heavy and somewhat painful but is able to ambulate. Patient denies F/C, abdominal pain, CP, SOB, Dysuria, or other pain. Patient denies a family history of premature cirrhosis, diabetes, or known history of hemochromatosis. Patient states she has had numerous transfusions recently related to her myelofibrosis. Family History: Unchanged from Admission Social History: Unchanged from Admission Past Medical History: Unchanged from Admission Objective Active Medications: Acetaminophen (Tylenol Tab*) 650 mg PO Q6H PRN PRN Reason: PAIN/FEVER Acyclovir (Zovirax Tab*) 400 mg PO BID [facility] Last Admin: 01/22/18 09:12 Dose: 400 mg Ascorbic Acid (Vitamin C Tab*) 1,000 mg PO DAILY [facility] Last Admin: 01/22/18 09:11 Dose: 1,000 mg Cyanocobalamin (Vitamin B12 Tab*) 1,000 mcg PO DAILY [facility] Last Admin: 01/22/18 09:11 Dose: 1,000 mcg Dextrose (D50w Syringe 50 Ml*) 12.5 gm IV PUSH .FOR FS < 60 - SS PRN PRN Reason: FS < 60 Docusate Sodium (Colace Cap*) 200 mg PO QPM [facility] Famotidine (Pepcid Tab*) 20 mg PO DAILY [facility] Last Admin: 01/22/18 09:12 Dose: 20 mg Fluconazole (Diflucan 100 Mg Tab*) 200 mg PO QPM [facility] Last Admin: 01/21/18 19:19 Dose: 200 mg Fludrocortisone Acetate (Florinef Tab*) 0.1 mg PO DAILY [facility] Last Admin: 01/22/18 09:13 Dose: 0.1 mg Gabapentin (Neurontin Cap(*)) 600 mg PO TID [facility] Last Admin: 01/22/18 13:32 Dose: 600 mg Heparin Sodium (Porcine) (Heparin Vial(*)) 5,000 units SUBCUT Q12HR [facility] Last Admin: 01/22/18 09:13 Dose: 5,000 units Insulin Glargine (Lantus(*)) 10 units SUBCUT QPM [facility] Last Admin: 04/20/18 22:51 Dose: 10 units Insulin Human Lispro (Humalog*) 0 units SUBCUT ACHS [facility] PRN Reason: Protocol Last Admin: 01/22/18 12:28 Dose: 4 units Omeprazole (Prilosec Cap*) 20 mg PO DAILY@0600 [facility] Last Admin: 01/22/18 05:52 Dose: 20 mg Ondansetron HCl (Zofran Tab*) 4 mg PO Q6H PRN PRN Reason: NAUSEA Oxycodone HCl (Roxycodone Tab*) 5 mg PO Q4HR [facility] Last Admin: 01/22/18 13:32 Dose: 5 mg Polyethylene Glycol/Electrolytes (Miralax*) 17 gm PO DAILY PRN PRN Reason: CONSTIPATION Last Admin: 01/22/18 13:32 Dose: 17 gm Sucralfate (Carafate*) 1 gm PO 0600,1100,2100 PRN PRN Reason: HEARTBURN Tacrolimus (Prograf Cap(*)) 2 mg PO BID [facility] Last Admin: 01/22/18 09:12 Dose: 2 mg Trazodone HCl (Desyrel Tab*) 50 mg PO BEDTIME [facility] Last Admin: 01/21/18 22:45 Dose: 50 mg Vital Signs - 8 hr 01/22/18 01/22/18 01/22/18 08:00 09:10 09:11 Temperature Pulse Rate Respiratory 16 16 14 Rate Blood Pressure (mmHg) O2 Sat by Pulse Oximetry 01/22/18 01/22/18 01/22/18 10:12 11:22 12:09 Temperature 98.7 F Pulse Rate 74 Respiratory 12 18 14 Rate Blood Pressure 120/44 (mmHg) O2 Sat by Pulse 92 Oximetry 01/22/18 01/22/18 13:32 15:12 Temperature 99.6 F Pulse Rate 71 Respiratory 12 12 Rate Blood Pressure 137/59 (mmHg) O2 Sat by Pulse 98 Oximetry Oxygen Devices in Use Now: None Appearance: Patient is a 62yo female who appears stated age and is sitting in the bed in [facility]. Eyes: No Scleral Icterus, PERRLA Ears/Nose/Mouth/Throat: NL Teeth, Lips, Gums, Clear Oropharnyx, Mucous Membranes Moist Neck: NL Appearance and Movements; NL JVP, Trachea Midline Respiratory: Symmetrical Chest Expansion and Respiratory Effort, Clear to Auscultation Cardiovascular: NL Sounds; No Murmurs; No JVD, RRR, No Edema Abdominal: NL Sounds; No Tenderness; No Distention, No Hepatosplenomegaly Lymphatic: No Cervical Adenopathy Extremities: No Edema, No Clubbing, Cyanosis Skin: No Rash or Ulcers, No Nodules or Sclerosis Neurological: Alert and Oriented x 3, - - Strength 4/5 in B/L LE. Reflexes 1+ in B/L Biceps, Patellar and achilles areas. Gait with small steps, no instability. Negative Romberg. Decreased sensation in stocking pattern in B/L LE which patient states is baseline. Result Diagrams: 01/22/18 06:08 01/22/18 06:08 Additional Lab and Data: Lab Results 01/21/18 01/21/18 01/21/18 Range/Units 12:25 12:25 12:25 WBC 6.8 (3.5-10.8) 10^3/ul RBC 3.33 L (4.0-5.4) 10^6/ul Hgb 10.4 L (12.0-16.0) g/dl Hct 31 L (35-47) % MCV 93 (80-97) fL MCH 31 (27-31) pg MCHC 34 (31-36) g/dl RDW 14 (10.5-15) % Plt Count 113 L (150-450) 10^3/ul MPV 7.5 (7.4-10.4) um3 Neut % (Auto) Not Reportable Lymph % (Auto) Not Reportable Wilkin % (Auto) Not Reportable Eos % (Auto) Not Reportable Baso % (Auto) Not Reportable Absolute Neuts (auto) Not Reportable Absolute Lymphs (auto) Not Reportable Absolute Monos (auto) Not Reportable Absolute Eos (auto) Not Reportable Absolute Basos (auto) Not Reportable Absolute Nucleated RBC Not Reportable Immature Gran % 9 (0-9) % Neutrophils % 77 (38-83) % Band Neutrophils % 9 H (0-8) % Lymphocytes % 7 L (25-47) % Monocytes % 6 (0-7) % Eosinophils % 1 (0-6) % Basophils % 0 (0-2) % Nucleated RBC % Not Reportable Abs Neuts (Manual) 5.2 (1.5-7.7) 10^3/ul Abs Lymphs (Manual) 0.5 L (1.0-4.8) 10^3/ul Abs Monocytes (Manual) 0.4 (0-0.8) 10^3/ul Absolute Eos (Manual) 0.1 (0-0.6) 10^3/ul Abs Basophils (Manual) 0 (0-0.2) 10^3/ul Normal RBC Morphology Normal (Normal) INR (Anticoag Therapy) 0.99 (0.77-1.02) Sodium 139 (139-145) mmol/L Potassium 4.4 (3.5-5.0) mmol/L Chloride 101 (101-111) mmol/L Carbon Dioxide 32 (22-32) mmol/L Anion Gap 6 (2-11) mmol/L BUN 17 (6-24) mg/dL Creatinine 0.81 (0.51-0.95) mg/dL Est GFR ( Amer) 92.1 (>60) Est GFR (Non-Af Amer) 71.6 (>60) BUN/Creatinine Ratio 21.0 H (8-20) Glucose 169 H (70-100) mg/dL Calcium 8.9 (8.6-10.3) mg/dL Total Bilirubin 0.40 (0.2-1.0) mg/dL AST 10 L (13-39) U/L ALT 9 (7-52) U/L Alkaline Phosphatase 115 H (34-104) U/L C-Reactive Protein 39.84 H (< 5.00) mg/L Total Protein 5.9 L (6.4-8.9) g/dL Albumin 3.4 (3.2-5.2) g/dL Globulin 2.5 (2-4) g/dL Albumin/Globulin Ratio 1.4 (1-3) Assess/Plan/Problems-Billing Assessment: Patient is a 62yo female with a PMH significant for Myelofibrosis s/p allogenic bone marrow transplant, diabetes, GERD, HTN, HLD who presents with weakness in her B/L LE which is improved but has new findings consistent with new bone lesion and hemochromatosis on MRI. - Patient Problems (1) MF (myelofibrosis) Current Visit: No Status: Acute Code(s): D75.81 - MYELOFIBROSIS SNOMED Code(s): 72615100 Comment: S/P Allogenic Bone Marrow Transplant. Doing well per patient's recent appointment with cut off saw grader/oncologist. Continue Immunosupression, question of graft vs host disease but this cannot be elaborated upon at this time. No fevers. (2) Weakness Current Visit: No Status: Acute Code(s): R53.1 - WEAKNESS SNOMED Code(s): 47726943 Comment: Increased from baseline per patient with leg pain and "Heaviness." Improving, appreciate Neuro input, S/P nerve conduction studies and MRI of spine. New mass in Vertebra, Bone scan pending. Reflexes present in B/L LE and gait normal. (3) Nausea vomiting and diarrhea Current Visit: Yes Status: Acute Code(s): R11.2 - NAUSEA WITH VOMITING, UNSPECIFIED; R19.7 - DIARRHEA, UNSPECIFIED SNOMED Code(s): 9893734 Comment: Resolved, Diarrhea unusual for patient, most recent episode on 01/20. Patient has chronic nausea and intermittent vomiting. Diarrhea may be due to viral gastroenteritis or overmedication. (4) GERD (gastroesophageal reflux disease) Current Visit: No Status: Chronic Code(s): K21.9 - GASTRO-ESOPHAGEAL REFLUX DISEASE WITHOUT ESOPHAGITIS SNOMED Code(s): 629099054 Comment: Continue omeprazole, Carafate, and Famotidine. (5) IDDM (insulin dependent diabetes mellitus) Current Visit: No Status: Chronic Code(s): E11.9 - TYPE 2 DIABETES MELLITUS WITHOUT COMPLICATIONS; Z79.4 - [facility] (CURRENT) USE OF INSULIN SNOMED Code( s): 69702821 Comment: Lantus at 20u which is home dose Continue SSI. Moderate control. (6) Peripheral neuropathy Current Visit: No Status: Chronic Code(s): G62.9 - POLYNEUROPATHY, UNSPECIFIED SNOMED Code(s): 827568169 Comment: Continue gabapentin. Likely due to DM. (7) DVT prophylaxis Current Visit: No Status: Acute Code(s): PLJ8358 - SNOMED Code(s): 235223602 Comment: Heparin SubQ
[2018-01-22] MEDS: Docusate CAP* 100 MG PO SCH (17:17)
[2018-01-22] MEDS: Fluconazole 100 MG TAB* TAB PO SCH (17:18)
[2018-01-22] MEDS: Insulin GLARGINE(*) 1 UNITS UNIT SUBCUT SCH (17:19)
[2018-01-22] MEDS: traZODone TAB* 50 MG TAB PO SCH (20:43)
--- NOTE | 2018-01-22 21:43 | PN ---
PROGRESS NOTE: DATE OF FOLLOWUP: 01/22/18 OVERNIGHT EVENTS: No acute overnight events. Ms. Allen states that she feels that her walking is improved somewhat today. When asked to quantify this, she thinks that she is about 70% back to her baseline. She does walk sometimes with a walker at home, but other times is able to ambulate independently. Her pain in her legs is not as intense as it was yesterday, though she still describes some pain in her thighs, which actually does radiate all the way down into her feet. She does recall that she had some falls before coming in to the emergency room yesterday, but states that she also has had some falls in the past, though this had gotten better. I note that she had some nausea, vomiting and diarrhea the day prior to her admission, but has not had anymore of that and apparently has a history of some GI problems as well. She had a brief nerve conduction study done by Dr. Ellsworth yesterday in the emergency room and he felt that this was consistent with axonal sensorimotor neuropathy. She reports that she did receive some chemotherapy in preparation for her stem cell transplant, which was done in April, but is unsure what she received and whether that could have worsened her neuropathy. IN HOSPITAL MEDICATIONS: Include: 1. Tylenol 650 mg q.6 p.r.n. 2. Acyclovir 400 mg twice daily. 3. Vitamin C 1000 mg daily. 4. Vitamin B12 1000 mg daily. 5. Pepcid 20 mg daily. 6. Diflucan 200 mg daily. 7. Florinef 0.1 mg daily. 8. Gabapentin 600 mg t.i.d. 9. Heparin 5000 units q.12. 10. Lantus 20 units q.p.m. 11. Lispro sliding scale. 12. Prilosec 20 mg daily. 13. Zofran 4 mg p.r.n. 14. Oxycodone 5 mg q.4 hours. 15. MiraLax p.r.n. 16. Sucralfate 3 times daily. 17. Tacrolimus 2 mg twice daily. 18. Trazodone 50 mg at bedtime. PHYSICAL EXAMINATION: Vital Signs: Temperature 99.6, blood pressure 137/59, heart rate 71, oxygen saturation 98% on room air. On general exam, she is pleasant and in no acute distress. Her heart is in a regular rate and rhythm with no obvious murmurs. The lungs are clear to auscultation bilaterally. She has no lower extremity edema. She has some Dupuytren's contractures bilaterally and has had surgery in the past. On neurologic exam, she is fully awake, alert and oriented. Speech is fluent without dysarthria or aphasia. On cranial nerves exam, the pupils are equal, round and reactive from 3 to 2 mm bilaterally. Versions are full without nystagmus. Flores are full to confrontation. Facial sensation and musculature is full and symmetric. Hearing is intact to finger rub. Palate elevates symmetrically and the tongue is midline. On motor examination, she has normal tone in the upper and lower extremities. She has diminished bulk in the left FDI, which might be related to an old cervical radiculopathy for which she has had surgery. Her strength is full proximally and distally in the upper and lower extremities, though she required some encouragement in testing of hip flexion in the lower extremities secondary to pain. Her sensory exam is notable for diminished vibration in the lower extremities to 2 seconds at the great toes and 5 seconds at the ankles and knees. She is able to sense the tuning fork for about 19 seconds in the fingers. Proprioception is intact. Pinprick is diminished in the stocking distribution to the mid nava bilaterally. Her reflexes are 2+ in the upper extremities, trace at the knees and absent ankle jerks with downgoing toes. Finger to nose is intact without ataxia. Heel to nava appeared mostly intact, but was a little clumsier than [id number] and a little slower, though no rachel ataxia was noted. Her Romberg is positive when she falls backwards. Her gait is wide based and appears unstable and she holds on to things in the room and to the wall when ambulating. DIAGNOSTIC STUDIES/LAB DATA: Her laboratory data was reviewed and is notable for an elevated CRP yesterday of 39.84, elevated alkaline phosphatase of 115, AST of 10 which is low. Her sugars have been elevated between 130s and 230s. She has anemia, which appears stable. Her thyroid function was tested and TSH was 1.35, T4 8.07 and total T3 slightly low at 0.69. She had iron studies done as well with ferritin of 677, transferrin of 142, serum iron 43, TIBC 199. She had cervical, lumbar and thoracic screening MRIs done which I reviewed and which did not show any intrinsic cord disease. There was heterogeneous signal in the vertebrae in both the thoracic and lumbar spine with some enhancement. There was also a focal lesion noted at the T8 pedicles and the recommendation from the radiologist was to follow up with a bone scan. She has mild-to- moderate degenerative changes and spondylosis throughout her spine. In addition , she has got hepatosplenomegaly and the radiologist raised concern for hemochromatosis versus hemosiderosis. Finally, a thyroid lesion was noted which is enlarged compared to previous imaging and causes some deviation of the trachea towards the right. IMPRESSION AND PLAN: Joyce Allen is a 62-year-old woman, with a history of myelofibrosis status post allogeneic stem cell transplant in April 2017 as well as diabetes complicated by diabetic neuropathy who presented with worsening gait imbalance issues. There was concern yesterday about the possibility of Guillain- [place] given her wide-based gait as well as diminished reflexes. Today , she appears stable. I do not detect any rachel weakness on her exam, though I do note a wide base to her gait as well as a positive Romberg. This can be seen in patients with neuropathy, but she indicates that her walking problems have developed acutely to subacutely which would not be expected in the setting of a diabetic neuropathy whether or not it was complicated by exposure to chemotherapy. There did seem to be some contribution of pain yesterday to her gait, but again today her pain appears to be better controlled, though her gait is still not at her baseline. She will undergo a bone scan to further evaluate the findings in the MRI of her spine. At this point, I am not highly suspicious of Guillain-[place] and so therefore, we will hold off on any empiric treatment and I do not think that she needs a lumbar puncture at this point. I discussed with her that a cerebellar process is another possibility for walking difficulties and we may consider MRI scan of the brain if things do not improve tomorrow. This will not be done until Wednesday, however. Separately, she has noted a thyroid lesion on her MRI scan, but she reports that this is being worked up by her oncologist in [place] and therefore, no further workup for this will be done during this hospitalization. I asked the patient to monitor for any progressive weakness and to notify the nurses if this were to occur at which point she should be reevaluated. I will see the patient in followup tomorrow as well. [id number]/[facility] #: [id number] [facility]
[2018-01-23] MEDS: oxyCODONE TAB* 5 MG TAB PO SCH ×6 (04:24→22:13)
[2018-01-23] MEDS: Omeprazole CAP* 20 MG PO SCH (05:23)
[2018-01-23 06:29] LABS: ABS Basophils 0 10^3/ul (0-0.2); ABS Eosinophils 0.1 10^3/ul (0-0.6); ABS Lymphocytes 0.8 10^3/ul (1.0-4.8); ABS Monocytes 0.3 10^3/ul (0-0.8); ABS Neutrophils 2.4 10^3/ul (1.5-7.7); ABS Nucleated RBC 0 10^3/ul; Hematocrit 27 % (35-47); Hemoglobin 9.2 g/dl (12.0-16.0); Lymphocyte % 21.3 % (25-47); Mean Corpuscular HGB Conc 34 g/dl (31-36); Mean Corpuscular Hemoglobin 31 pg (27-31); Mean Corpuscular Volume 92 fL (80-97); Mean Platelet Volume 7.7 um3 (7.4-10.4); Nucleated Red Blood Cells % 0; Platelet Count 92 10^3/ul (150-450); Red Blood Count 2.97 10^6/ul (4.0-5.4); Red Cell Distribution Width 14 % (10.5-15); White Blood Count 3.7 10^3/ul (3.5-10.8)
[2018-01-23 06:33] LABS: EGFR Non-African American 74.8 (>60)
[2018-01-23] MEDS ORDERED: Magnesium Sulfate IV* 3 GM in NS 0.9% 100 ML* 100 ML IVPB ONE (07:00)
[2018-01-23] MEDS: Gabapentin CAP(*) 300 MG PO SCH ×3 (08:04→21:11)
[2018-01-23] MEDS: Tacrolimus CAP(*) 1 MG PO SCH ×2 (08:06→21:11)
[2018-01-23] MEDS: Fludrocortisone Acetate TAB* 0.1 MG PO SCH (08:06)
[2018-01-23] MEDS: Famotidine TAB* 20 MG PO SCH (08:06)
[2018-01-23] MEDS: Cyanocobalamin TAB* 500 MCG PO SCH (08:06)
[2018-01-23] MEDS: Ascorbic Acid TAB* 500 MG PO SCH (08:07)
[2018-01-23] MEDS: Acyclovir* 400 MG TAB PO SCH ×2 (08:08→21:12)
[2018-01-23] MEDS: Insulin LISPRO* 1 UNITS UNIT SUBCUT SCH ×4 (08:08→21:07)
[2018-01-23] MEDS: Polyethylene Glycol 3350* 17 GM PACKET PO PRN ×2 (08:25→21:19)
[2018-01-23] MEDS: Heparin VIAL(*) 5000 UNITS/ML VIAL (FIVE THOUSAND) SUBCUT SCH ×2 (08:25→21:09)
[2018-01-23] MEDS: Ondansetron TAB* 4 MG PO PRN (08:25)
--- NOTE | 2018-01-23 09:24 | PN ---
Subjective Date of Service: 01/23/18 Interval History: Patient this morning has decreased pain in lower extremities with 4/10 pain shooting down both legs worse with movement, no other palliating or provoking factors. Patient had minor fevers overnight which resolved with tylenol administration, no N/V, abdominal pain, diarrhea, CP, SOB, or other pain. Patient feels constipated. Patient states that she recently decreased her magnesium supplementation. Patient state she still feels very unsteady when she walks and that it has not improved from yesterday. Family History: Unchanged from Admission Social History: Unchanged from Admission Past Medical History: Unchanged from Admission Objective Active Medications: Acyclovir (Zovirax Tab*) 400 mg PO BID [facility] Last Admin: 01/23/18 08:08 Dose: 400 mg Ascorbic Acid (Vitamin C Tab*) 1,000 mg PO DAILY [facility] Last Admin: 01/23/18 08:07 Dose: 1,000 mg Cyanocobalamin (Vitamin B12 Tab*) 1,000 mcg PO DAILY [facility] Last Admin: 01/23/18 08:06 Dose: 1,000 mcg Dextrose (D50w Syringe 50 Ml*) 12.5 gm IV PUSH .FOR FS < 60 - SS PRN PRN Reason: FS < 60 Docusate Sodium (Colace Cap*) 200 mg PO QPM [facility] Last Admin: 01/22/18 17:17 Dose: 200 mg Famotidine (Pepcid Tab*) 20 mg PO DAILY [facility] Last Admin: 01/23/18 08:06 Dose: 20 mg Fluconazole (Diflucan 100 Mg Tab*) 200 mg PO QPM [facility] Last Admin: 01/22/18 17:18 Dose: 200 mg Fludrocortisone Acetate (Florinef Tab*) 0.1 mg PO DAILY [facility] Last Admin: 01/23/18 08:06 Dose: 0.1 mg Gabapentin (Neurontin Cap(*)) 600 mg PO TID [facility] Last Admin: 01/23/18 08:04 Dose: 600 mg Heparin Sodium (Porcine) (Heparin Vial(*)) 5,000 units SUBCUT Q12HR [facility] Last Admin: 01/23/18 08:25 Dose: 5,000 units Insulin Glargine (Lantus(*)) 20 units SUBCUT QPM [facility] Last Admin: 01/22/18 17:19 Dose: 20 units Insulin Human Lispro (Humalog*) 0 units SUBCUT ACHS [facility] PRN Reason: Protocol Last Admin: 01/23/18 08:08 Dose: 2 units Magnesium Oxide (Magox 400 Tab*) 800 mg PO DAILY [facility] Omeprazole (Prilosec Cap*) 20 mg PO DAILY@0600 [facility] Last Admin: 01/23/18 05:23 Dose: 20 mg Ondansetron HCl (Zofran Tab*) 4 mg PO Q6H PRN PRN Reason: NAUSEA Last Admin: 01/23/18 08:25 Dose: 4 mg Oxycodone HCl (Roxycodone Tab*) 5 mg PO Q4HR [facility] Last Admin: 01/23/18 05:24 Dose: Not Given Polyethylene Glycol/Electrolytes (Miralax*) 17 gm PO DAILY PRN PRN Reason: CONSTIPATION Last Admin: 01/23/18 08:25 Dose: 17 gm Sucralfate (Carafate*) 1 gm PO 0600,1100,2100 PRN PRN Reason: HEARTBURN Tacrolimus (Prograf Cap(*)) 2 mg PO BID [facility] Last Admin: 01/23/18 08:06 Dose: 2 mg Trazodone HCl (Desyrel Tab*) 50 mg PO BEDTIME [facility] Last Admin: 01/22/18 20:43 Dose: 50 mg Vital Signs - 8 hr 01/23/18 01/23/18 01/23/18 03:56 07:52 08:04 Temperature 98.0 F 98.5 F Pulse Rate 68 69 Respiratory 16 20 16 Rate Blood Pressure 115/53 144/56 (mmHg) O2 Sat by Pulse 97 96 Oximetry Oxygen Devices in Use Now: None Appearance: Patient is a 62yo female who appears stated age and is sitting in the bed in [facility]. Eyes: No Scleral Icterus, PERRLA Ears/Nose/Mouth/Throat: NL Teeth, Lips, Gums, Clear Oropharnyx, Mucous Membranes Moist Neck: NL Appearance and Movements; NL JVP, Trachea Midline Respiratory: Symmetrical Chest Expansion and Respiratory Effort, Clear to Auscultation Cardiovascular: NL Sounds; No Murmurs; No JVD, RRR, No Edema Abdominal: NL Sounds; No Tenderness; No Distention, No Hepatosplenomegaly Lymphatic: No Cervical Adenopathy Extremities: No Edema, No Clubbing, Cyanosis Skin: No Rash or Ulcers, No Nodules or Sclerosis Neurological: Alert and Oriented x 3, - - Decreased sensation in LE B/L consistent with previous exam. Strength 4-/5 in B/L LE distally and proximally. Decreased from yesterday. Slow and deliberate gait. No pronator drift, no difficulty with cerebellar testing, romberg negative. Result Diagrams: 01/23/18 05:37 01/23/18 05:37 Additional Lab and Data: Lab Results 01/21/18 01/21/18 01/21/18 Range/Units 12:25 12:25 12:25 WBC 6.8 (3.5-10.8) 10^3/ul RBC 3.33 L (4.0-5.4) 10^6/ul Hgb 10.4 L (12.0-16.0) g/dl Hct 31 L (35-47) % MCV 93 (80-97) fL MCH 31 (27-31) pg MCHC 34 (31-36) g/dl RDW 14 (10.5-15) % Plt Count 113 L (150-450) 10^3/ul MPV 7.5 (7.4-10.4) um3 Neut % (Auto) Not Reportable Lymph % (Auto) Not Reportable Wirt % (Auto) Not Reportable Eos % (Auto) Not Reportable Baso % (Auto) Not Reportable Absolute Neuts (auto) Not Reportable Absolute Lymphs (auto) Not Reportable Absolute Monos (auto) Not Reportable Absolute Eos (auto) Not Reportable Absolute Basos (auto) Not Reportable Absolute Nucleated RBC Not Reportable Immature Gran % 9 (0-9) % Neutrophils % 77 (38-83) % Band Neutrophils % 9 H (0-8) % Lymphocytes % 7 L (25-47) % Monocytes % 6 (0-7) % Eosinophils % 1 (0-6) % Basophils % 0 (0-2) % Nucleated RBC % Not Reportable Abs Neuts (Manual) 5.2 (1.5-7.7) 10^3/ul Abs Lymphs (Manual) 0.5 L (1.0-4.8) 10^3/ul Abs Monocytes (Manual) 0.4 (0-0.8) 10^3/ul Absolute Eos (Manual) 0.1 (0-0.6) 10^3/ul Abs Basophils (Manual) 0 (0-0.2) 10^3/ul Normal RBC Morphology Normal (Normal) INR (Anticoag Therapy) 0.99 (0.77-1.02) Sodium 139 (139-145) mmol/L Potassium 4.4 (3.5-5.0) mmol/L Chloride 101 (101-111) mmol/L Carbon Dioxide 32 (22-32) mmol/L Anion Gap 6 (2-11) mmol/L BUN 17 (6-24) mg/dL Creatinine 0.81 (0.51-0.95) mg/dL Est GFR ( Amer) 92.1 (>60) Est GFR (Non-Af Amer) 71.6 (>60) BUN/Creatinine Ratio 21.0 H (8-20) Glucose 169 H (70-100) mg/dL Calcium 8.9 (8.6-10.3) mg/dL Total Bilirubin 0.40 (0.2-1.0) mg/dL AST 10 L (13-39) U/L ALT 9 (7-52) U/L Alkaline Phosphatase 115 H (34-104) U/L C-Reactive Protein 39.84 H (< 5.00) mg/L Total Protein 5.9 L (6.4-8.9) g/dL Albumin 3.4 (3.2-5.2) g/dL Globulin 2.5 (2-4) g/dL Albumin/Globulin Ratio 1.4 (1-3) Microbiology and Other Data: Microbiology 01/21/18 19:36 Aerobic Blood Culture - Preliminary Blood Venous No Growth Day 1 Anaerobic Blood Culture - Preliminary No Growth Day 1 01/21/18 19:36 Aerobic Blood Culture - Preliminary Blood Venous No Growth Day 1 Anaerobic Blood Culture - Preliminary No Growth Day 1 Assess/Plan/Problems-Billing Assessment: Patient is a 62yo female with a PMH significant for Myelofibrosis s/p allogenic bone marrow transplant, diabetes, GERD, HTN, HLD who presents with weakness in her B/L LE which is improved but has new findings consistent with new bone lesion and hemochromatosis on MRI. - Patient Problems (1) MF (myelofibrosis) Current Visit: No Status: Acute Code(s): D75.81 - MYELOFIBROSIS SNOMED Code(s): 98740481 Comment: S/P Allogenic Bone Marrow Transplant. Doing well per patient's recent appointment with supervisor broadloom/oncologist. Continue Immunosupression, question of graft vs host disease but this cannot be elaborated upon at this time. Minor fevers overnight for which she was given tylenol. No other signs of infection, may be due to presumed viral infection. Will discontinue tylenol and monitor. No indication for antibiotics at this time. WBCs, H/H and platelets decreased today, will monitor. (2) Weakness Current Visit: No Status: Acute Code(s): R53.1 - WEAKNESS SNOMED Code(s): 23810457 Comment: Increased from baseline per patient with leg pain and "Heaviness." Appreciate Neuro input, S/P nerve conduction studies and MRI of spine. New mass in Vertebra, Bone scan pending. Reflexes present in B/L LE. Patient has underlying neuropathy from diabetes, which may have also been exacerbated by chemotherapy. No obvious cause for this possible acute exacerbation. (3) Nausea vomiting and diarrhea Current Visit: Yes Status: Acute Code(s): R11.2 - NAUSEA WITH VOMITING, UNSPECIFIED; R19.7 - DIARRHEA, UNSPECIFIED SNOMED Code(s): 9248935 Comment: Resolved, Diarrhea unusual for patient, most recent episode on 01/20. Patient has chronic nausea and intermittent vomiting. Diarrhea may be due to viral gastroenteritis or overmedication. (4) GERD (gastroesophageal reflux disease) Current Visit: No Status: Chronic Code(s): K21.9 - GASTRO-ESOPHAGEAL REFLUX DISEASE WITHOUT ESOPHAGITIS SNOMED Code(s): 534071906 Comment: Continue omeprazole, Carafate, and Famotidine. (5) IDDM (insulin dependent diabetes mellitus) Current Visit: No Status: Chronic Code(s): E11.9 - TYPE 2 DIABETES MELLITUS WITHOUT COMPLICATIONS; Z79.4 - JAIL (CURRENT) USE OF INSULIN SNOMED Code( s): 03692580 Comment: Lantus at 20u which is home dose Continue SSI. Moderate control. (6) Peripheral neuropathy Current Visit: No Status: Chronic Code(s): G62.9 - POLYNEUROPATHY, UNSPECIFIED SNOMED Code(s): 411359726 Comment: Continue gabapentin. Likely due to DM and possible chemotherapy. May be underlying cause or exacerbating factor to weakness and unsteadiness in legs, no obvious cause of acute exacerbation. (7) Thyroid nodule Current Visit: Yes Status: Acute Code(s): E04.1 - NONTOXIC SINGLE THYROID NODULE SNOMED Code(s): 702107743 Comment: Known, Plan for Biopsy in February in [place]. (8) DVT prophylaxis Current Visit: No Status: Acute Code(s): VJP1469 - SNOMED Code(s): 925531878 Comment: Heparin SubQ (9) Full code status Current Visit: Yes Status: Acute Code(s): Z78.9 - OTHER SPECIFIED HEALTH STATUS SNOMED Code(s): 905935592 Status and Disposition: Inpatient.
[2018-01-23] MEDS: Trimethobenzamide CAP* 300 MG PO PRN ×2 (12:39→21:15)
[2018-01-23] MEDS ORDERED: oxyCODONE TAB* 5 MG TAB PO ONE (14:07)
[2018-01-23] MEDS: Fluconazole 100 MG TAB* TAB PO SCH (17:26)
[2018-01-23] MEDS: Docusate CAP* 100 MG PO SCH (17:26)
[2018-01-23] MEDS: Insulin GLARGINE(*) 1 UNITS UNIT SUBCUT SCH (17:27)
--- NOTE | 2018-01-23 19:52 | PN ---
PROGRESS NOTE: DATE OF FOLLOWUP: 01/23/18 HISTORY: No acute overnight events. The patient today reports that she feels that her walking is a little bit better and her pain is a little bit better controlled. However, she describes tingling in her hands, left worse than right , which has occurred in the past to her as well. She had some nausea this morning, which was not completely resolved by Zofran. Otherwise, she is overall feeling better than she did on admission. MEDICATIONS: Were reviewed and include: 1. Acyclovir 400 mg twice daily. 2. Vitamin B12 1000 mcg daily. 3. Pepcid 20 mg daily. 4. Diflucan 200 mg daily. 5. Florinef 0.1 mg daily. 6. Gabapentin 600 mg t.i.d. 7. Heparin 5000 units q.12. 8. Lantus 20 units q.p.m. 9. Sliding scale insulin. 10. Magnesium oxide 800 mg daily, to start tomorrow. 11. Prilosec 20 mg daily. 12. Zofran 4 mg q.6 p.r.n. 13. Oxycodone 5 mg q.4 hours, which she has sometimes been declining because her pain has been reasonable. 14. Tacrolimus 2 mg b.i.d. 15. Trazodone 50 mg at bedtime. PHYSICAL EXAM: Vital Signs: Temperature 98.5, blood pressure 144/56, heart rate 69, oxygen saturation 96% on room air. On general examination, she is a pleasant woman, in no acute distress. Heart is in regular rate and rhythm with no murmurs, rubs, or gallops. Lungs are clear to auscultation bilaterally. On neurologic exam, her speech is clear. Pupils are equal, round, and reactive from 2 to 1 mm bilaterally. Versions are full without nystagmus. Flores are full to confrontation. Facial sensation and musculature is full and symmetric. Hearing is intact to voice. Palate elevates symmetrically and the tongue is midline. On motor examination, she has normal strength in her upper and lower extremities with the exception of mild intrinsic hand weakness on the left with the previously noted atrophy of the left FDI. DTRs are 2+ upper, trace knees (not able to clearly elicit on the right but present on L) and absent AJs. Sensation was not retested today. [id number] is without ataxia. Her gait is still wide based, but much steadier than yesterday and I ambulated her down the ca and back to her room. She was able to ambulate without holding on to anything. She was able to stand on her heels and her toes. LABORATORY DATA: Reviewed including a CBC, which is overall unchanged and a BMP , which shows a low magnesium of 1.6 and otherwise, it is largely unchanged. Her CK is 18. IMPRESSION: Joyce Allen is a 62-year-old woman with a history of myelofibrosis status post allogeneic stem cell transplant in April 2017 as well as diabetes with diabetic neuropathy who presented with worsened gait problems and continues to have some superimposed pain in her lower extremities, which could be contributing here. Her pain has been better controlled with oxycodone and her gait appears improved today. I do not detect that she is developing any weakness over the past couple of days. Her reflexes are stable and overall , I think, her neurologic exam is slightly improved to stable. She is scheduled to undergo bone scan to again further evaluate the findings and the MRI of her spine, but otherwise I am not currently suspicious of any separate underlying neurologic process going on here. I think Physical Therapy should see her and her most recent gait issues may be more secondary to pain. [id number]/[facility] #: [id number] [facility]ID HOSPITALBill
[2018-01-23] MEDS: traZODone TAB* 50 MG TAB PO SCH (21:12)
[2018-01-23] MEDS: Sucralfate TAB* 1 GM PO PRN (21:19)
[2018-01-24] MEDS: oxyCODONE TAB* 5 MG TAB PO SCH ×5 (03:39→17:11)
[2018-01-24] MEDS: Omeprazole CAP* 20 MG PO SCH (05:01)
[2018-01-24 06:19] LABS: ABS Basophils 0 10^3/ul (0-0.2); ABS Eosinophils 0.1 10^3/ul (0-0.6); ABS Lymphocytes 0.8 10^3/ul (1.0-4.8); ABS Monocytes 0.4 10^3/ul (0-0.8); ABS Neutrophils 2.3 10^3/ul (1.5-7.7); ABS Nucleated RBC 0 10^3/ul; Eosinophil % 3.1 % (0-6); Hematocrit 28 % (35-47); Hemoglobin 9.5 g/dl (12.0-16.0); Mean Corpuscular HGB Conc 35 g/dl (31-36); Mean Corpuscular Hemoglobin 32 pg (27-31); Mean Corpuscular Volume 92 fL (80-97); Nucleated Red Blood Cells % 0.1; Platelet Count 98 10^3/ul (150-450); Red Cell Distribution Width 14 % (10.5-15); White Blood Count 3.6 10^3/ul (3.5-10.8)
[2018-01-24 06:27] LABS: EGFR Non-African American 74.8 (>60)
[2018-01-24] MEDS ORDERED: Magnesium Sulfate 2 GM IV* 2 GM/50 ML BAG IVPB ONE (06:54)
[2018-01-24] MEDS: Trimethobenzamide CAP* 300 MG PO PRN ×2 (07:47→14:10)
[2018-01-24] MEDS ORDERED: Magnesium Oxide TAB* 400 MG PO SCH (09:00)
[2018-01-24] MEDS: Insulin LISPRO* 1 UNITS UNIT SUBCUT SCH ×3 (09:31→18:01)
[2018-01-24] MEDS: Heparin VIAL(*) 5000 UNITS/ML VIAL (FIVE THOUSAND) SUBCUT SCH (09:32)
[2018-01-24] MEDS: Famotidine TAB* 20 MG PO SCH (09:32)
[2018-01-24] MEDS: Cyanocobalamin TAB* 500 MCG PO SCH (09:32)
[2018-01-24] MEDS: Ascorbic Acid TAB* 500 MG PO SCH (09:32)
[2018-01-24] MEDS: Gabapentin CAP(*) 300 MG PO SCH ×2 (09:33→14:10)
[2018-01-24] MEDS: Ondansetron TAB* 4 MG PO PRN ×2 (09:33→17:11)
[2018-01-24] MEDS: Fludrocortisone Acetate TAB* 0.1 MG PO SCH (09:34)
[2018-01-24] MEDS: Acyclovir* 400 MG TAB PO SCH (09:34)
[2018-01-24] MEDS: Tacrolimus CAP(*) 1 MG PO SCH (09:34)
--- NOTE | 2018-01-24 10:44 | PN ---
Progress Note - Progress Note Date of Service: 01/24/18 SOAP: Subjective: feels back to baseline today. major complaint for admission was severe bilateral LE pain and knee pain. This has been an ongoing problem with Joyce since prior to her transplant, but it felt "worse than ever" on Wednesday. After admission there was concern for weakness as well (though she thinks now in retrospect it was related to pain limiting ablity to move) and so MRI of her entire spine was done. This showed diffusely heterogeous marrow, a more focal area at T8 for which bone scan was recommended, a large thyroid for which thyroid US was recommended and hepatosplenomegaly with concern for hemochromatosis or hemosiderosis. Her ferritin was 600, though iron saturation is normal. Her chronic nausea and vomiting seem improved today and she is anxious to go home. She feels back to her baseline. She is pending a bone scan this am. 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 In terms of the marrow changes on MRI, these are consistent with her transplant state. It is reasonable to assess this more focal T8 region with a bone scan. In terms of the question of hemosiderosis or hemochromatosis of the liver, I would think this is less likely given the normal iron saturation. It would be reasonable to look at the iron quantification on her most recent bone marrow biopsy and if elevated iron stores to get a liver MRI with quantification of iron stores (done at [facility] as an outpatient). We could also defer this to her GI doctor at [place]. She has had a significant transfusion history and so may have iron overload from this. She should also have a thyroid US as an outpatient. I have recommended that she follow up with the transplant team at [place] on discharge, and she states that she has an appointment. She also has an appointment with ortho regarding her knee pain. these recommendations were verbally conveyed to the primary team.
[2018-01-24] MEDS: Sucralfate TAB* 1 GM PO PRN (11:58)
[2018-01-24] MEDS: Polyethylene Glycol 3350* 17 GM PACKET PO PRN (13:03)
[2018-01-24] MEDS ORDERED: LORazepam INJ* 2 MG/ML 1 ML VIAL IV PUSH ONE (14:00)
--- NOTE | 2018-01-24 15:33 | RAD ---
INDICATION: Heterogeneous marrow signal throughout the axial skeleton and focal lesion at the LEFT T8 pedicle on January 21, 2018 MRI. Bone scan recommended for further assessment. COMPARISON: January 21, 2018 MRI exams. TECHNIQUE: 20.740 mCi of Tc-99m MDP were injected IV. The whole body was scanned in anterior and posterior projections approximately 2 hours after the injection. Spot images of the pelvis and thorax. FINDINGS: No abnormal foci of increased uptake of radiopharmaceutical are identified at the axial or appendicular skeleton. LEFT antecubital fossa injection site noted.. The kidneys are normal in size and position and without evidence for obstructive uropathy. IMPRESSION: Normal whole body bone scan. No lesion evident to correspond with the focal marrow signal abnormality at the LEFT T8 pedicle on MRI to suggest an acute pathologic process. CPT II: CPT II Codes: 3570F
[2018-01-24 16:04] VITALS: BP 138/64
[2018-01-24] MEDS: Docusate CAP* 100 MG PO SCH (17:09)
[2018-01-24] MEDS: Fluconazole 100 MG TAB* TAB PO SCH (17:10)
[2018-01-24] MEDS: Insulin GLARGINE(*) 1 UNITS UNIT SUBCUT SCH (18:02)
--- NOTE | 2018-01-25 20:51 | DS ---
CC: Guillermina Gaston MD; Dr. Valdivia; Dr. Ko* DISCHARGE SUMMARY: DATE OF ADMISSION: 01/21/18 DATE OF DISCHARGE: 01/24/18 ATTENDING PHYSICIAN: Dr. Marnie Garcia* (dictated by CHRISTINE Mcneal). PRIMARY CARE PROVIDER: Dr. Ko. ONCOLOGIST: The patient's primary oncologist in [place] is Dr. Guillermina Gaston. The patient's transplant doctor in [place] is Dr. Valdivia. PRIMARY DISCHARGE DIAGNOSES: 1. Lower leg pain and weakness. 2. Nausea, vomiting, diarrhea likely from viral gastroenteritis. SECONDARY DISCHARGE DIAGNOSES: 1. Myelofibrosis, history of allogenic bone marrow transplant. 2. 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 3. Anemia. 4. Insulin-dependent type 2 diabetes. 5. Gastroesophageal reflux disease. 6. Hyperlipidemia. 7. Hypertension. STUDIES DONE WHILE IN THE HOSPITAL: Brain CT from 01/21/18 read as no acute intracranial pathology. Cervical spine MRI from 01/21/18 read as limited large field of study, [id number] cervical spondylosis, heterogenous enhancement of the vertebra and focal lesion in the left TA pedicle. Recommend a bone scan for further evaluation. Large left thyroid lobe solid lesion. Recommend a thyroid ultrasound for further evaluation. Lumbar spine MRI read as mild-to- moderate lumbar spondylosis. Hepatosplenomegaly with decreased signal intensity suggested a hemochromatosis or hemosiderosis. Recommend clinical correlation. Heterogenous bone marrow signal enhancement possibly due to iron deposition, although metastatic disease cannot be excluded. Recommend a bone scan for further evaluation. Thoracic spine MRI read same as above. Bone scan nuclear medicine read as normal whole body bone scan, no lesion evident, corresponding with focal marrow signal abnormality in the left TA pedicle on MRI , suggests an acute pathologic process. MEDICATIONS AT DISCHARGE: 1. Vitamin B12 1000 mcg p.o. daily. 2. Esomeprazole 40 mg p.o. daily. 3. Gabapentin 600 mg p.o. t.i.d. 4. Tylenol 650 mg p.o. q.6 hours as needed. 5. MiraLAX 17 g p.o. daily as needed. 6. Oxycodone 5 to 10 mg p.o. q.4 hours as needed. 7. Sucralfate 1 g p.o. t.i.d. as needed. 8. Vitamins 1 tab p.o. daily. 9. Prograf 2 mg p.o. daily. 10. Budesonide 3 mg p.o. t.i.d. 11. Ascorbic acid 1000 mg p.o. daily. 12. Acyclovir 400 mg p.o. b.i.d. 13. Fludrocortisone 0.1 mg p.o. daily. 14. Fluconazole 200 mg p.o. q.p.m. 15. Famotidine 20 mg p.o. daily. 16. Trazodone 50 mg p.o. at bedtime. 17. Zofran 4 mg p.o. q.6 hours as needed. 18. NovoLog 0 to 8 units subcutaneous a.c. 19. Insulin glargine 20 units subcu q.p.m. 20. Magnesium oxide 1600 mg p.o. daily. 21. Tigan 300 mg p.o. q.6 hours as needed. NEW MEDICATIONS AT DISCHARGE: 1. Magnesium oxide. 2. Trimethobenzamide. MEDICATIONS DISCONTINUED AT DISCHARGE: None. HOSPITAL COURSE: This is a brief summary of the patient's presentation. For more details, please see history and physical from Kayla Wilkinson NP from . In brief, the patient is a 62-year-old female with past medical history significant for the above who presented with bilateral leg pain, weakness, nausea, vomiting, diarrhea, and headache. The patient stated that this began with 3 episodes of vomiting the day before presentation and 2 large loose watery stools. It was in the middle of the night when she woke up to use the bathroom on 01/20/18 that she noticed lower extremity weakness and pain. The patient has chronic issues with lower extremity weakness and pain, but this was much worse than normal. She also felt somewhat unsteady on her feet. She had a temperature of 99 on the , but no other fevers or chills. At that time, the patient presented to the emergency department. She had no diarrhea since the day before and no vomiting for 6 to 7 hours. She had no other symptoms. The patient was seen in consultation by Dr. Ellsworth of Neurology and there was concern for Guillain-[place] syndrome due to probable gastrointestinal infection and progressive weakness in the lower extremities. The patient had a EMG nerve study which was consistent with neuropathy which the patient was known to have. The patient had a brain CT and MRIs as above. The patient had an elevated CRP which was not uncommon for her based on previous lab work. The patient's hemoglobin was 10.4, platelet count was 113,000, white blood cell count 6.8. Other laboratory abnormalities included glucose of 169. The patient the following day on 01/22/18 had improvement in her weakness, though she was seen to have a wide based gait and persistent weakness in her legs with no Achilles reflex on exam; however, due to her improvement, this was deemed to be unlikely to be related to [place] by Neurology. The patient had continuing issues with nausea and without vomiting during those days. The patient's thyroid nodule was noted. Her thyroid function tests were within normal limits, and it was discussed that she has followup for a biopsy through [place] already scheduled, so no further intervention or testing was done during this hospitalization. It is unlikely related to her presentation. The patient continued to improve from 01/22/18 to 01/23/18 with serial neurological exams showing no deterioration in function and her gait improving greatly. The patient; however, in the evening of 01/23/18, had significant increase in her lower extremity pain, with it being rated 10/10 with no provoking or palliating factors with severe sensitivity to touch. This responded to a slight increase in the dose of her pain medication and she was able to rest. 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 The patient was not on her budesonide while in the hospital. The patient was seen in consultation by Dr. Guillermina Gaston, 01/24/18, due to complexity of this patient. Dr. Gaston did not think that her presentation had to do with hemochromatosis, hemosiderosis, or her stem cell transplant including graft versus host disease. For more detail, please see her progress note on 01/24/18, which recommended iron quantification on her most recent bone marrow biopsy and MRI if believed to be indicated by her GI doctor. The patient had an elevated ferritin while in the hospital, but low iron saturation making hemochromatosis unlikely. The patient was amenable to discharge on 04/23/18 despite nausea. The patient had good response to Zofran and Tigan while in the hospital and was discharged on these medications to follow up with her transplant surgeon, landing gear mechanic and orthopedist for her lower leg pain. PHYSICAL EXAM ON DATE OF DISCHARGE: General: The patient is a 62-year-old female, who appears older than stated age and sitting comfortably in bed in no acute distress. Vital signs at the time of examination: Temperature 98.2, pulse rate 70, respiratory rate 14, oxygen saturation 96% on room air, blood pressure 130/64. HEENT: Head: Normocephalic, atraumatic. Sclerae anicteric. No conjunctival injection. Nasal mucosa moist. Oral mucosa moist. No pharyngeal erythema, discharge, or exudates. Neck: Supple, nontender. No lymphadenopathy. No carotid bruit auscultated. No JVD. Cardiac: Regular rate and rhythm. No clicks, murmurs, gallops, rubs. Pulses 2+ bilaterally in dorsalis pedis, posterior tibialis, and radial areas. No lower extremity edema noted. No tenderness to palpation or palpable cords of the calf. Respiratory: Clear to auscultation bilaterally. No wheezes, rales, or rhonchi. Good air exchange bilaterally. Abdomen: Soft, nontender, nondistended. Bowels sounds present, normoactive in all 4 quadrants. No hepatosplenomegaly, no abdominal bruits auscultated. Skin: Clean, dry and intact. No rash. Neuro: Cranial nerves II through XII intact. Diminished sensation to light touch in the bilateral lower extremities. Reflexes 1+ in the bilateral biceps and the patellar areas, trace in bilateral Achilles areas. Alert and oriented x3. Psychiatric: Pleasant and cooperative. LABORATORY DATA: On day of discharge, white blood cell count 3.6, hemoglobin 9.5, platelet count 98,000. Sodium 138, potassium 4.8, chloride 102, carbon dioxide 31, anion gap 5, BUN 16, glucose 155, calcium 8.8, magnesium 1.8. DISCHARGE PLAN: The patient will be discharged to home. There was no clear cause for the patient's lower leg pain exacerbation found during her hospitalization, improved without significant intervention. The patient also had at the end of her hospitalization an increase in her nausea of unknown cause which was responsive to antiemetics. The patient should follow up with her orthopedist for her lower leg pain and her landing gear mechanic for her nausea. 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 The patient should return to hospital for inability to take an oral intake for a prolonged period of time. The patient should follow up with a transplant surgeon as scheduled. The patient should have the biopsy of her thyroid nodule as scheduled. The patient should return to the hospital for alarming symptoms such as shortness of breath,chest pain, high fevers. TIME SPENT: Approximately 60 minutes were spent on the discharge, 30 of which was spent [id number] with the patient and obtaining history and physical and discussing treatment plan. CHRISTINE MCNEAL [id number]/CPS #: [id number] MTDBill
== END 2018-01-24 19:30 | disposition home or self-care (01) | DRG 392 ==
LOC: ED 10:51 → MED 15:22
PROVIDERS: ADMIT Internal Medicine; ATTEND Internal Medicine
DX: A08.4 Viral intestinal infection, unspecified (principal); D75.81 Myelofibrosis; T86.0 Complications of bone marrow transplant; Z94.81 Bone marrow transplant status; M79.606 Pain in leg, unspecified; E11.40 Type 2 diabetes mellitus with diabetic neuropathy, unspecified; R53.1 Weakness; D64.9 Anemia, unspecified; Z79.4 Long term (current) use of insulin; K21.9 Gastro-esophageal reflux disease without esophagitis; E78.5 Hyperlipidemia, unspecified; I10 Essential (primary) hypertension; M47.892 Other spondylosis, cervical region; M48.9 Spondylopathy, unspecified; E07.89 Other specified disorders of thyroid; M47.896 Other spondylosis, lumbar region; Z79.1 Long term (current) use of non-steroidal anti-inflammatories (NSAID); Z79.891 Long term (current) use of opiate analgesic; Z79.899 Other long term (current) drug therapy; Z88.5 Allergy status to narcotic agent; Z88.0 Allergy status to penicillin; Z88.2 Allergy status to sulfonamides; Z88.8 Allergy status to other drugs, medicaments and biological substances; Z88.1 Allergy status to other antibiotic agents; Z91.040 Latex allergy status; E83.119 Hemochromatosis, unspecified; R51 Headache; R27.0 Ataxia, unspecified
CPT/HCPCS: 36415; 70450; 72156; 72157; 72158; 78306; 80048; 80053; 82550; 82728; 83540; 83550; 83735; 84436; 84443; 84479; 85025; 85060; 85610; 86140; 87040; 95908; 99284; A9270-GY; A9503; A9579; G8978-GP-CH; G8979-GP-CH; G8980-GP-CH; J1644; J2060; J2405; J3010; J3475; J7507

== ENCOUNTER 2018-02-01 10:39 | Emergency (ER) | payer MEDICARE, MEDICAID ==
[2018-02-01] MEDS ORDERED: Ondansetron ODT TAB* 4 MG PO ONE (11:20)
[2018-02-01] MEDS ORDERED: Morphine VIAL* 4 MG/ML VIAL (1 ml vial) IV PRN (11:20)
[2018-02-01] MEDS ORDERED: Ondansetron INJ* 2 MG/ML VIAL IV ONE (11:21)
--- OUTSIDE RECORDS SUMMARY | 2018-02-01 11:29 | XMS REPORT ---
:1955 External Reference #:[id number] Author Organization [employer] Address [address] [address] Phone [phone] Care Team Providers Name Role Phone Peyman Ko MD Primary Care Physician Unavailable Payers Type Date Identification Numbers Payment Provider Subscriber Medicare Primary Policy Number: [id number] Medicare Joyce Little PayID: [id number] [address] [place] [address] [facility] Part B Policy Number: [id number] Medicaid Joyce Little Group Name: 1 1 [address] PayID: [id number] [place] [address] Problems Description No Information Family History Date Family Member(s) Problem(s) Comments General Heart Disease General Diabetes Social History Type Date Description Comments Lives With Alone Occupation Disabled ETOH Use Denies alcohol use Smoking Patient is a former smoker quit 5 years ago Exercise Type/Frequency Does not exercise Allergies, Adverse Reactions, Alerts Date Description Reaction Status Severity Comments 05/17/2014 Keflex active 05/17/2014 Sulfa Antibiotics active 05/17/2014 Many Antibiotics active vomiting, itching, tightness of chest 01/31/2018 Ampicillin Nausea and Vomiting active 01/31/2018 Latex Contact dermatitis active 01/31/2018 Codeine Nausea and Vomiting active 01/31/2018 Morphine Nausea and Vomiting active 01/31/2018 Dilaudid confusion and active delirious Medications Medication Date Status Form Strength Qnty SIG Indications Ordering Provider Fludrocortisone 01/31 Active Tablets 0.1mg 30tab 1 every day selene Ames MD Emla 01/31 Active Cream 2.5-2.5% 5gm apply 45 minutes Hui, before MD appointment Valium 10/19 Active Tablets 5mg 2tabs take 1-2 M79.651 tabs prior Hui, to mri MD imaging test Metformin HCL Active Unknown /0000 Gabapentin Active 600mg one tablet Unknown / three times a day Multi-Vitamin Active Unknown / Vitamin B-12 Active Unknown / Vitamin D3 Active Unknown / Lactulose Active Solution 20GM/30ML 60 Unknown /0000 milliliters every 24 hours for constipation Acetaminophen Active Tablets 325mg 2 tablets by Unknown /0000 mouth every 6 hours as needed for pain/fever Acyclovir Active Tablets 400mg take 1 Unknown 0000 tablet by mouth twice a day Ascorbic Acid Active Tablets 1000mg 1 by mouth Unknown /0000 every day Budesonide Active Caps DR 3mg take 3 caps Unknown / Part by mouth once daily Docusate Sodium Active Capsules 100mg 2 cap at Unknown /0000 bedtime Esomeprazole Active Capsules 40mg 1 by mouth Unknown Magnesium /0000 DR every day Famotidine Active Tablets 20mg 1 by mouth Unknown /0000 every day as needed for heartburn Fondaparinux Active Solution 10mg/0.8M Unknown Sodium /0000 L Lantus Active Solution 100Unit/M 20 units Unknown /0000 L into the skin nightly Humalog Kwikpen Active Solution 100Unit/M 10-30 units Unknown /0000 Pen-Injec L into the t skin three times daily Atrovent HFA Active Aerosol 17mcg/Act 2 puffs 4 x Unknown /0000 daily Lidocaine-Priloc Active Cream 2.5-2.5% apply Unknown gogo /0000 topically daily as needed for pain Multivitamin Active Tablets 1 by mouth Unknown Adults /0000 every day Novolog Flexpen Active Solution 100Unit/M 8 unit sq Unknown /0000 Pen-Injec L before meals t Ondansetron Active Tablets 4mg dissolve one Unknown /0000 Dispers tablet orally every 8 hours as needed for nausea. Promethazine HCL Active Tablets 25mg 1 by mouth Unknown /0000 every 8 hours as needed nausea with headache Saline Flush Active Solution 0.9% Unknown /0000 Sucralfate 00 Active Tablets 1gm one tablet Unknown /0000 by mouth every night Prograf 00 Active Capsules 0.5mg Unknown /0000 Trazodone HCL 00 Active Tablets 50mg 1 tablet at Unknown /0000 bedtime as needed Levemir 01/31 Hx Solution 100Unit/M 30ml 45 units Waqas Crowley Flextouch Pen-Injec L twice daily Keli Ames MD 01/30 [place] 04/04 Hx Tablets 5-325mg 30tab 1-2 by mouth M65.332 Catia /2014 s q4-6 hour as Keli Collado pain M.DYemi 01/31 Robaxin-750 07/09 Hx Tablets 750mg 40tab 1-2 q8h Yemi s Keli Greco M.D. 05/16 Clindamycin HCL 04/23 Hx Capsules 300mg 14cap 1 po bid x 7 s days Keli Greco M.D. 05/16 Medrol Dosepak 03/28 Hx Tablets 4mg 1tabs follow package Keli Greco M.D. 05/16 take with food Levemir 00/ Hx Unknown /0000 - 01/30 Omeprazole / Hx Unknown /0000 - 01/30 Ferrous Sulfate Hx Tablets 300mg 1 by mouth Unknown /0000 every day - 01/30 Oxycodone HCL Hx Tablets 5mg 1-2 tabs by Unknown /0000 mouth every - 4-6 hours as 01/31 Trazodone HCL Hx Tablets 50mg 1 tablet at Unknown /0000 bedtime as - needed 01/30 Medications Administered in Office Medication Date Status Form Strength Qnty SIG Indications Ordering Provider Depomedrol Administered Injection Waqas Crowley 40MG 016 MD Hui Depomedglenn Administered Injection Waqas F 40MG 016 MD Hui Depomedrol Administered Injection Catia 80MG 014 Jonnie Collado Depomedrol 07/18/2 Administered Injection Catia 80MG 013 Collado, M.D. Vital Signs Date Vital Result Comment 01/31/2018 Height 63.5 inches 5'3.50" Weight 145.00 lb Heart Rate 80 /min BP Systolic 120 mmHg BP Diastolic 70 mmHg BMI (Body Mass Index) 25.3 kg/m2 10/19/2016 Height 63 inches 5'3" Weight 166.00 lb Pain Level 5 BMI (Body Mass Index) 29.4 kg/m2 09/07/2016 Height 63 inches 5'3" Weight 166.00 lb Respiratory Rate 7 /min Pain Level 5 BMI (Body Mass Index) 29.4 kg/m2 07/01/2015 Height 63 inches 5'3" Weight 180.00 lb Pain Level 4 BMI (Body Mass Index) 31.9 kg/m2 06/03/2015 Height 63 inches 5'3" Weight 180.00 lb Pain Level 4 BMI (Body Mass Index) 31.9 kg/m2 05/06/2015 Height 63 inches 5'3" Weight 180.00 lb Body Temperature 98.6 F BMI (Body Mass Index) 31.9 kg/m2 04/04/2015 Height 63 inches 5'3" Weight 180.00 lb Pain Level 7 BMI (Body Mass Index) 31.9 kg/m2 05/17/2014 Height 63 inches 5'3" Weight 180.00 lb Heart Rate 65 /min BP Systolic 126 mmHg BP Diastolic 73 mmHg BMI (Body Mass Index) 31.9 kg/m2 Results Test Date Test Result H/L Range Note CBC Auto Diff 11/12/2016 White Blood Count 1.1 10^3/uL Low 3.5-10.8 Red Blood Count 2.40 10^6/uL Low 4.0-5.4 Hemoglobin 5.5 g/dL Low 12.0-16.0 1 Hematocrit 17 % Low 35-47 Mean Corpuscular Volume 70 fL Low 80-97 Mean Corpuscular Hemoglobin 23 pg Low 27-31 Mean Corpuscular HGB Conc 33 g/dL 31-36 Red Cell Distribution Width 27 % High 10.5-15 Platelet Count 32 10^3/uL Low 150-450 Mean Platelet Volume 7 um3 Low 7.4-10.4 Abs Neutrophils 0.5 10^3/uL Low 1.5-7.7 Abs Lymphocytes 0.5 10^3/uL Low 1.0-4.8 Abs Monocytes 0.1 10^3/uL 0-0.8 Abs Eosinophils 0 10^3/uL 0-0.6 Abs Basophils 0 10^3/uL 0-0.2 Abs Nucleated RBC 0.03 10^3/uL Granulocyte % 42.9 % 38-83 Lymphocyte % 46.8 % 25-47 Monocyte % 9.1 % High 1-9 Eosinophil % 0.2 % 0-6 Basophil % 1.0 % 0-2 Nucleated Red Blood Cells % 3.0 Cell Morphology 11/12/2016 Microcytosis 2+ Polychromasia 1+ Comp Metabolic Panel 11/12/2016 Sodium 136 mmol/L 133-145 Potassium 3.9 mmol/L 3.5-5.0 Chloride 100 mmol/L Low 101-111 Co2 Carbon Dioxide 24 mmol/L 22-32 Anion Gap 12 mmol/L High 2-11 Glucose 295 mg/dL High 70-100 Blood Urea Nitrogen 15 mg/dL 6-24 Creatinine 0.86 mg/dL 0.51-0.95 BUN/Creatinine Ratio 17.4 8-20 Calcium 8.5 mg/dL Low 8.6-10.3 Total Protein 6.5 g/dL 6.4-8.9 Albumin 3.5 g/dL 3.2-5.2 Globulin 3.0 g/dL 2-4 Albumin/Globulin Ratio 1.2 1-3 Total Bilirubin 0.30 mg/dL 0.2-1.0 Alkaline Phosphatase 115 U/L High 34-104 Alt 7 U/L 7-52 Ast 11 U/L Low 13-39 Egfr Non- 67.1 >60 Egfr 86.3 >60 2 Iron & Iron Binding Capacity 11/12/2016 Iron 105 g/dL 50-212 Unsaturated Iron Binding 231 g/dL Total Iron Binding Capacity 336 g/dL 250-450 % Iron Saturation 31 % 15-55 Laboratory test finding 11/12/2016 Ferritin 90.5 ng/mL 11-307 Vitamin B12 513 pg/mL 180-914 3 Hepatitis B Surface Ag Nonreactive Nonreactive Hepatitis B Fredo AB Titer 11/12/2016 Hepatitis B Surface AB Reactive Nonreactive Hep B Surf AB Level > 1000.00 mIU/mL <12 4 Laboratory test finding 11/12/2016 Hepatitis B Core AB Nonreactive Nonreactive Igm Hepatitis C Antibody Nonreactive Nonreactive Bowman/Lambda Free Light Chains Ser 11/12/2016 Bowman Free Light Chain 3.29 mg /dL 5 Lambda Free Light Chain 2.73 mg/dL 6 Bowman/Lambda Free Light Chain 1.21 7 Protein Electrophoresis 11/12/2016 Total Protein(Pep) 6.2 g/dL 6.3 - 7.9 Albumin 2.8 g/dL 3.4-4.7 Alpha-1 Globulin 0.5 g/dL 0.1-0.3 Alpha-2 Globulin 1.0 g/dL 0.6-1.0 Beta Globulin 1.0 g/dL 0.7-1.2 Gamma Globulin 1.0 g/dL 0.6-1.6 Albumin/Globulin Ratio 0.80 Impression See Comment 8 Laboratory test finding 11/12/2016 Pathologist Review (SEE NOTE) 9 Type & Screen 11/12/2016 Patient Blood Type O Positive Antibody Screen NEGATIVE Laboratory test 11/12/2016 Packed Cells SEE RESULTS BELO 10 finding <SEE NOTE> Laboratory test 04/23/2015 Surgical Pathology SEE RESULT BELOW 11 finding Laboratory test 04/23/2015 Point of Care 179 mg/dL High 74-106 12 finding Glucose Laboratory test 04/04/2015 Uric Acid 5.2 mg/dL 2.3-6.6 finding CBC Auto Diff 04/04/2015 White Blood Count 4.8 10^3/uL 4.8-10.8 Red Blood Count 3.90 10^6/uL Low 4.0-5.4 Hemoglobin 11.6 g/dL Low 12.0-16.0 Hematocrit 35 % 35-47 Mean Corpuscular Volume 89 fL 80-97 Mean Corpuscular Hemoglobin 30 pg 27-31 Mean Corpuscular HGB Conc 33 g/dL 31-36 Red Cell Distribution Width 15 % 10.5-15 Platelet Count 163 10^3/uL 150-450 Mean Platelet Volume 10 um3 7.4-10.4 Abs Neutrophils 3.0 10^3/uL 1.5-7.7 Abs Lymphocytes 1.2 10^3/uL 1.0-4.8 Abs Monocytes 0.4 10^3/uL 0-0.8 Abs Eosinophils 0.1 10^3/uL 0-0.6 Abs Basophils 0 10^3/uL 0-0.2 Abs Nucleated RBC 0 10^3/uL Granulocyte % 63.9 % 38-83 Lymphocyte % 25.6 % 25-47 Monocyte % 8.1 % 1-9 Eosinophil % 1.4 % 0-6 Basophil % 1.0 % 0-2 Nucleated Red Blood Cells % 0 Laboratory test finding 04/04/2015 Rheumatoid Factor <15 IU/mL <15 13 Erythrocyte Sed Rate 23 mm/Hr 0-30 Nadine (Antinuclear Antibodies) Negative Negative Surgical Pathology 04/03/2009 Surgical Pathology <SEE 14 NOTE> Basic Metabolic 04/01/2009 Sodium 139 mmol/L 135-145 15 Panel Potassium 4.4 mmol/L 3.5-5.0 15 Chloride 100 mmol/L Low 101-111 15 Co2 (Carbon Dioxide) 32.0 mmol/L 22-32 15 Anion Gap 7.0 mmol/L 2-11 15, 16 Glucose 200 mg/dL High 70-100 15, 17 BUN 22 mg/dL 6-24 15 Creatinine 0.80 mg/dL 0.50-1.40 15 One Over Creatinine 1.20 15 BUN/Creatinine Ratio 27.5 High 8-20 15 Calcium 9.8 mg/dL 8.1-9.9 15, 18 CBC With Manual Diff 04/01/2009 White Blood Count 7.9 CUMM 4.8-10.8 15 Red Cell Count 4.51 CUMM 4.2-5.4 15 Hemoglobin 13.0 g/dL 12.0-16.0 15 Hematocrit 39 % 35-47 15 Mean Corpuscular Volume 86 um3 79-97 15 Mean Corpuscular Hemoglob 29 pg 27-31 15 Mean Corpuscular HGB Cone 34 g/dL 32-36 15 Redcell Distribution WDTH 15 % 10.5-15 15 Platelet Count 239 CUMM 150-450 15 Mean Platelet Volume 9.6 um3 7.4-10.4 15 Polysegmented Neutrophil 64 % 38-83 15 Band Neutrophil 1 % 0-8 15 Lymphocyte 31 % 25-47 15 Monocyte 4 % 0-13 15 Absolute Neutrophil Count 5.1 15 RBC Morphology NORMAL 15 Protime 04/01/2009 Inr 1.09 0.86-1.13 15, 19 Protime 13.2 SEC 10.67-13.64 15, 20 Laboratory test finding 04/01/2009 PTT (Aptt) 23.7 20.1-28.2 15, 21 Type And Screen 04/01/2009 Patient Blood Type O POSITIVE 15 Antibody Screen NEGATIVE 15 Specimen Discard Date 04/15/09, 1 Verbal to by [id number] at 1454 on 11/12/16. Results read back accurately. 2 Because ethnic data is not always readily available, this report includes an eGFR for both -Americans and non- Americans. The National Kidney Disease Education Program (NKDEP) does not endorse the use of the MDRD equation for patients that are not between the ages of 18 and 70, are , have extremes of body size, muscle mass, or nutritional status, or are non- or non-. According to the National Kidney Foundation, irrespective of diagnosis, the stage of the disease is based on the level of kidney function: Stage Description GFR(mL/min/1.73 m(2)) 1 Kidney damage with normal or decreased GFR 90 2 Kidney damage with mild decrease in GFR 60-89 3 Moderate decrease in GFR 30-59 4 Severe decrease in GFR 15-29 5 Kidney failure <15 (or dialysis) 3 Normal Range 180 to 914 Indeterminate Range 145 to 180 Deficient Range <145 4 This assay does not differentiate between reactivity due to a vaccine-induced immune response or an immune response induced by infection with HBV. 5 REFERENCE VALUE 0.3300-1.94 6 REFERENCE VALUE 0.5700-2.63 7 REFERENCE VALUE 0.2600-1.65 Test Performed by: [address] [address] Oil Extractor: Xavier Su II, M.D., Ph.D. 8 RESULT: No apparent monoclonal protein on serum electrophoresis. Test Performed by: [facility] - [address] [address] Oil Extractor: Xavier Su II, M.D., Ph.D. 9 Profound pancytopenia. Red cell morphology remarkable for teardrop cells. Occasional nucleated erythrocytes seen. Occasional left-shifted granulocytes. No blasts seen. Reviewed by Karen Cruz MD 10 SEE RESULTS BELOW [id number] OP PC TRANSFUSED 11/12/161704 [id number] OP PC TRANSFUSED 11/12/161955 11 SEE RESULT BELOW Name: JOYCE LITTLE : [address]: Catia Collado MD Acct: [id number] Unit: [id number] AGE: 60 Location: [facility] Re04/23/15 SEX: F Status: REG [facility] SPEC: [id number] LUANA: 04/23/15-[address] [facility] [address]: Catia Collado MD REQ: [id number] RECD: 04/23/151583 STATUS: SOUT _ ORDERED: LEVEL III FINAL DIAGNOSIS Hand, left, excision: -- Benign fibroconnective tissue with fibrosis, compatible with clinical history of Dupuytren's contracture. PRE-OPERATIVE DIAGNOSIS Left trigger finger, contracture left palmar fascia GROSS DESCRIPTION The specimen is received in formalin labeled, Dupuytren's Contracture Left Hand, and consists of a 3.3 x 0.8 x 0.7 cm delarosa-pink irregular rubbery soft tissue fragment with scant adherent yellow fat. Document Review Attorney sections, one cassette. Signed (signature on file) Karen Cruz MD 1146 END OF REPORT * ML=Testing performed at Main Lab DEPARTMENT OF PATHOLOGY, [address] [place] [address] Marin Brock M.D. Director [facility] # [id number] 12 Database Design Analyst: [id number] BENEKATERINA WILLY 13 Test Performed by: [place] [address] Oil Extractor: Xavier Su II, M.D., Ph.D. 14 ---- RUN DATE: 04/04/09 [facility] NMI LIVE PAGE 1 RUN TIME: 663 Specimen Inquiry RUN USER: INTERFACE -- Name: [facility] [id number] Status: [facility] Re04/03/09 Age/Sex: 53/F Unit#: [id number] Location: [facility]. : 55 -- Specimen: [id number] SOUT Spec Date: 04/03/[address]: Camron Lilly MD Spec Type: SURGICAL P Received: 04/03/09-1238 Copies to: SPECIMEN C7-TI DISC HISTORY PRE-OP DIAGNOSIS: Cervical spondylithosis, herniated disc C7-T1 left. GROSS DESCRIPTION Specimen received in formalin labelled Joyce Little, C7 T1 Disc and consists of several fragments of delarosa-rouse, firm tissue measuring in aggregate 1.3 x 1.5 x 0.9 cm. Document Review Attorney sections, one cassette. DIAGNOSIS Disc, C7-T1, discectomy: Fibrohyaline cartilage with marked degenerative changes. Signed Electronically by: MARSHA VARGAS 04/04/09 1731 -- -- DEPARTMENT OF PATHOLOGY, [address] [place] [address], [place] [address] [facility] Permit #[id number] Marin Brock M.D. Director Marsha Vargas M.D. Wig Dresser Dir kevin -- 15 SURGERY DATE 04/03/09 16 Anion gap measurement may be of limited value in the presence of any alkalosis, especially in a combined acid base disorder. . 17 Note change in reference range as of 05/24/08. The change was based on recommendations from the [place] [employer]. 18 Please note change in reference range effective 08 . 19 Recommended INR for Patients on Oral Anticoagulants Prophylaxis 2.0 - 3.0 Treatment of thrombosis 2.0 - 3.0 Prevention of embolism 2.0 - 3.0 Prevention of embolism from prosthetic heart valves 2.5 - 3.5 20 ATTENTION EFFECTIVE 02/13/09, THE IMPLEMENTATION OF NEW COAGULATION ANLAYZERS HAS CAUSED A SIGNIFICANT DIFFERENCE FOR PROTIME RESULTS IN SECONDS. THEREFORE, DIAGNOSIS,TREATMENT,AND THERAPY MUST BE BASED ON THE INR VALUE ONLY. 21 PLEASE NOTE NEW REFERENCE RANGE EFFECTIVE 08. 22 PREADMISSION TESTING SAMPLES FOR BLOOD BANK WILL BE HELD FOR 14 DAYS FROM THE DATE OF COLLECTION *IF* THE FOLLOWING CRITERIA ARE MET: 1) THE PATIENT HAS *NOT* BEEN IN THE LAST 3 MONTHS. 2) THE PATIENT HAS *NOT* BEEN TRANSFUSED IN THE LAST 3 MONTHS. PREADMISSION TESTING SAMPLES WILL *NOT* BE HELD FOR 14 DAYS FROM PATIENTS WHO IN THE LAST 3 MONTHS: 1) HAVE BEEN 2) HAVE BEEN TRANSFUSED THESE PATIENTS *MUST* BE COLLECTED WITHIN 3 DAYS OF THE SURGERY DATE. Procedures Date CPT Code Description Status 05/20/2017 66353 ECHO Transthorasic Realtime 2D W Doppler & Color Completed Flow Hosp 05/20/2017 00293 EKG, Interpretation Only Completed 03/13/2017 62451 EKG, Interpretation Only Completed 09/07/2016 48636 Inject/Drain Joint/Bursa Major Completed 09/07/2016 17007 Inject/Drain Joint/Bursa Major Completed 09/13/2015 26770 Treadmill Interp/Report Only Completed 09/13/2015 83048 Stress Test Supervsn W/Out I/R Completed 09/13/2015 98346 EKG, Interpretation Only Completed 04/23/2015 30348 Dequervains-Tendon Sheath Incision/Extensor Completed Sheath,Wrist 04/23/2015 93699 Trigger Finger Release Incision / Tendon Sheath Completed Incision 04/23/2015 17293 Trigger Finger Release Incision / Tendon Sheath Completed Incision 04/23/2015 29717 Fasciectomy,Partial Palmar W/ Release Of Single Digit Completed Incldg PIP 05/17/2014 97609 Rad Exam; Hand Comp Completed 05/17/2014 15971 Inject Tendon Sheath Or Ligament Aponeurosis Eg Plantar Completed Fascia 05/17/2014 00818 Inject Tendon Sheath Or Ligament Aponeurosis Eg Plantar Completed Fascia 04/20/2013 68976 Rad Exam; Wrist, Comp, Min 3 Views Completed 04/20/2013 19542 Inject Tendon Sheath Or Ligament Aponeurosis Eg Plantar Completed Fascia 07/15/2009 76159 Short Arm Cast Application Completed 04/03/2009 89955 Laminectomy W Decomp Nerve Roots/ One Spinal Completed Interspace, Cervical 10/02/2008 48686 Stress ECHO Interpretation/Report Hospital Completed 10/02/2008 44386 Treadmill Interp/Report Only Completed 10/02/2008 06239 Stress Test Supervsn W/Out I/R Completed 10/02/2008 94921 Stress Test Supervsn W/Out I/R Completed Encounters Type Date Location Provider CPT E/M Dx Office Visit 01/24/2018 [facility] CHRISTINE Alas 13860 R53.1 8:05a Hospitalists R11.2 R19.7 Z87.39 Office Visit 01/23/2018 8:03a [facility], CHRISTINE Alas 88608 R53.1 Hospitalists R11.2 R19.7 Z87.39 Office Visit 01/22/2018 8:03a [facility] CHRISTINE Alas 33943 R53.1 Hospitalists R11.2 R19.7 Z87.39 Office Visit 01/21/2018 7:59a [facility], [place] [address] R53.1 Hospitalists R11.2 R19.7 Office Visit 01/31/2017 9:15a [facility], Yaa Moran, [address] R11.2 Hospitalists M.DYemi E11.9 D75.81 E83.42 Office Visit 01/30/2017 9:15a [facility], Yaa Moran, [address]286 R11.2 Hospitalists Jonnie D75.81 R19.7 E11.9 Office Visit 01/29/2017 9:14a [facility], Tami Barraza, N.P. [address]80 R11.2 Hospitalists R19.7 D75.81 E11.9 Office Visit 01/14/2017 1:37p [facility], Wade Souza, 15921 R73.9 Hospitalists MKwaku E83.42 D75.81 D61.818 Office Visit 01/13/2017 1:37p [facility], Tami Barraza N.P. 10566 R73.9 Hospitalists E83.42 D61.818 D75.81 Office Visit 01/03/2017 10:46a [facility], Tami Barraza N.P. 55384 R52 Hospitalists R11.0 E83.42 D75.81 Office Visit 12/21/2016 9:40a [facility], [place] [address] R53.1 Hospitalists E11.9 D61.818 Office Visit 12/20/2016 9:39a [facility], [place] [address] R53.1 Hospitalists D61.818 E11.9 Z79.4 Office Visit 12/19/2016 9:39a [facility], Tami Barraza, N.P. 82915 R53.1 Hospitalists E11.9 D61.818 Z79.4 Office Visit 10/19/2016 10:45a [facility] Waqas Ames, [address] M79.651 Of Disha DÍAZ M79.652 M17.0 Office Visit 10/12/2016 12:47p [facility], [address] D64.9 Assoc,pc [place] Hospitalists E11.8 K44.9 G62.9 Office Visit 10/11/2016 12:46p [facility], 15103 D64.9 Assoc, [place] Hospitalists E11.8 K44.9 G62.9 Office Visit 10/10/2016 12:45p [facility], [place], [address] D64.9 Hospitalists N.P. E11.8 K44.9 G62.9 Office Visit 09/07/2016 2:00p [facility] Waqas Ames, 47618 M17.0 Disha DÍAZ M25.561 M25.562 M23.221 M23.261 Office Visit 09/13/2015 3:47p [facility], Ran Velez, 22832 R07.9 Hospitalists M.DYemi E13.9 R94.31 Office Visit 09/12/2015 3:47p [facility], Ran Velez, 73108 R07.9 Hospitalists M.DYemi E13.9 R94.31 Office Visit 04/04/2015 11:00a [facility] Catia Collado, 43638 727.03 Of Disha Cristina 728.6 Office Visit 05/17/2014 10:30a [facility] Catia Collado, 17447 727.03 Of Disha Cristina 728.6 Office Visit 04/20/2013 10:30a [facility] Catia Collado, 45460 719.43 Of Disha Cristina 727.04 Office Visit 10/24/2009 11:30a [facility] Camron ZhengYemi Angus, 21374 722.0 Of Gabriel Cristina Office Visit 08/22/2009 9:00a [facility] Camron Schultzaisha, 96947 722.0 Of Gabriel Cristina Office Visit 07/15/2009 10:30a [facility] [place] [address] 727.05 Disha 719.43 Office Visit 03/28/2009 11:00a [facility] Of Camron ZhengYemi Greco, 55598 721.1 Gabriel Cristina Plan of Care Future Appointment(s):02/22/2018 9:30 am - Waqas Ames MD at [facility] Disha01/31/2018 - Waqas Ames, MDM79.604 Pain in right legFollow up:Follow up: 3 lrjxiH51.605 Pain in left leg
[2018-02-01 12:04] LABS: ABS Basophils 0 10^3/ul (0-0.2); ABS Eosinophils 0 10^3/ul (0-0.6); ABS Lymphocytes 0.7 10^3/ul (1.0-4.8); ABS Monocytes 0.4 10^3/ul (0-0.8); ABS Neutrophils 4.1 10^3/ul (1.5-7.7); ABS Nucleated RBC 0 10^3/ul; Eosinophil % 0.7 % (0-6); Hematocrit 27 % (35-47); Hemoglobin 8.8 g/dl (12.0-16.0); Lymphocyte % 12.7 % (25-47); Mean Corpuscular HGB Conc 33 g/dl (31-36); Mean Corpuscular Hemoglobin 31 pg (27-31); Mean Corpuscular Volume 92 fL (80-97); Mean Platelet Volume 7.3 um3 (7.4-10.4); Nucleated Red Blood Cells % 0; Platelet Count 73 10^3/ul (150-450); Red Blood Count 2.89 10^6/ul (4.0-5.4); Red Cell Distribution Width 14 % (10.5-15); White Blood Count 5.2 10^3/ul (3.5-10.8)
[2018-02-01 12:13] LABS: INR 0.96 (0.77-1.02)
[2018-02-01 12:20] LABS: EGFR Non-African American 60.3 (>60)
--- NOTE | 2018-02-01 12:21 | RAD ---
INDICATION: Nausea. Vomiting. COMPARISON: March 03, 2017 TECHNIQUE: A single view of the abdomen is submitted. FINDINGS: Bones: There are no acute bony findings. Soft tissues: The soft tissues appear normal. The psoas margins are sharp. Bowel gas pattern: There is a large amount retained stool Calcifications: There are no abnormal calcifications. Other: There is a surgical clip projected over the left upper quadrant. IMPRESSION: LARGE AMOUNT OF RETAINED STOOL
[2018-02-01] MEDS ORDERED: NS 0.9% 1000 ML* 1,000 ML IV ONE (12:46)
--- NOTE | 2018-02-01 13:11 | RAD ---
INDICATION: Pain and swelling. Bilateral leg pain COMPARISON: None TECHNIQUE: Duplex interrogation of the both lower extremities was performed. FINDINGS: Deep veins: The common femoral, great saphenous, profunda femoris, proximal, mid, and distal deep femoral, popliteal, posterior tibial, and peroneal veins are patent. There is normal compressibility, augmentation, and phasic flow. Superficial veins: There are no findings of superficial thrombophlebitis. Popliteal fossa:There is no evidence of a popliteal cyst. Soft tissues:There are no soft tissue abnormalities. IMPRESSION: NORMAL BILATERAL EXAMINATION. NO EVIDENCE OF DEEP VENOUS THROMBOSIS
[2018-02-01 14:37] LABS: Urine Appearance Clear; Urine Blood Negative (Negative); Urine Color Yellow; Urine Ketones Negative (Negative); Urine Protein Negative (Negative); Urine Specific Gravity 1.013 (1.010-1.030); Urine Urobilinogen Negative (Negative)
[2018-02-01] MEDS ORDERED: Ciprofloxacin TAB* 750 MG PO ONE (14:43)
[2018-02-01 16:10] VITALS: BP 105/74
--- NOTE | 2018-02-08 08:39 | ED ---
Armand Mujica Jennifer, scribed for Champ Lee MD on 02/01/18 at 1116 . Complex/Multi-Sys Presentation - HPI Summary HPI Summary: The patient is a 62 year old female who presents with fever, general weakness, nausea, vomiting, and pain in the legs for a couple weeks. The patient reports she is a stem cell transplant and the doctors at [place] recommended she come to the ED today for her illnesses. The patient rates her bilateral leg pain 8/ 10 and complains she is unable to walk. She reports she vomited about 3-4 times last night and took Zofran this morning. She adds that she took 5mg of Oxycodone about 2 hours ago. The patient denies chest pain, abdominal pain, shortness of breath, diarrhea, and myalgia. - History Of Current Complaint Chief Complaint: EDWeakness Time Seen by Provider: 02/01/18 10:52 Hx Obtained From: Patient Onset/Duration: Gradual Onset, Still Present, Worse Since - couple weeks, began vomiting last night, Other - Sick for 1.5 years Timing: Constant Severity Currently: Moderate Severity Initially: Moderate Location: Pain At: - bialteral legs Associated Signs And Symptoms: Positive: Other - fever, general weakness, nausea , vomiting, leg pain, inability to walk. NEGATIVE: chest pain, abdominal pain, shortness of breath, diarrhea, myalgia - Allergies/Home Medications Allergies/Adverse Reactions: Allergies Allergy/AdvReac Type Severity Reaction Status Date / Time azithromycin Allergy Difficulty Verified 01/21/18 11:05 Breathing benzonatate Allergy Headache Verified 01/21/18 11:05 [From Tessalon Perles] cephalexin [From Keflex] Allergy Vomiting Verified 01/21/18 11:05 diazepam Allergy Difficulty Verified 01/21/18 11:05 Breathing hydromorphone [From Dilaudid] Allergy Altered Verified 01/21/18 11:05 Mental Status latex Allergy Rash Verified 01/21/18 11:05 morphine Allergy Vomiting Verified 01/21/18 11:05 Penicillins Allergy Difficulty Verified 01/21/18 11:05 Breathing Sulfa (Sulfonamide Allergy Vomiting Verified 01/21/18 11:06 Antibiotics) ALL "MYCINS" Allergy CHEST Uncoded 05/17/17 10:18 HEAVINESS, SL. DIFF. BREATHING, LIGHTHEADEDNESS ALL CILLINS Allergy CHEST Uncoded 05/17/17 10:18 HEAVINESS, SL. DIFF. BREATHING, LIGHTHEADNESS MULTIPLE ANTIBIOPTIC Allergy CHEST Uncoded 05/17/17 10:18 REACTIONS HEAVINESS, SL. DIFF. 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 Cardiovascular History: Reports: Hx Angina Denies: Hx Coronary Artery Disease, Hx Hypercholesterolemia, Hx Hypertension , Hx Myocardial Infarction, Hx Pacemaker/ICD, Hx Valvular Heart Disease Respiratory History: Denies: Hx Asthma, Hx Chronic Obstructive Pulmonary Disease (COPD) GI History: Reports: Hx Gastroesophageal Reflux Disease, Hx Gastrointestinal Bleed, Hx Hiatal Hernia, Hx Ulcer - reflux History: Reports: Hx Kidney Stones - teenager Denies: Hx Renal Disease Musculoskeletal History: Reports: Other Musculoskeletal History - meylofibrosis Sensory History: Reports: Hx Cataracts - BEGINNING STAGES Denies: Hx Contacts or Glasses, Hx Hearing Aid Opthamlomology History: Reports: Hx Cataracts - BEGINNING STAGES Denies: Hx Contacts or Glasses Neurological History: Denies: Hx Headaches Psychiatric History: Reports: Hx Anxiety, Hx Depression, Hx Panic Disorder, Other Psychiatric Issues/Disorders - claustrophobia - Cancer History Cancer Type, Location and Year: LEUKEMIA, myelofibrosis Hx Chemotherapy: No - Surgical History Surgery Procedure, Year, and Place: NECK SURGERY- FOR HENIATED DISC-[facility] [place]. SURGERY FOR PROLASPED BLADDER AND RECTUM, TOTAL ABDOMINAL HYSTERECTOMY- LAPAROSCOPIC-[facility]. APPENDECTOMY. TUBAL LIGATION. LEFT HAND LUMPS REMOVED 2014. dental work Hx Anesthesia Reactions: Yes - NAUSEA - Immunization History Date of Tetanus Vaccine: none Date of Influenza Vaccine: none Infectious Disease History: No Infectious Disease History: Reports: Hx of Known/Suspected MRSA Denies: History Other Infectious Disease, Traveled Outside the [place] in Last 30 Days - Family History Known Family History: Positive: Cardiac Disease Family History: cancer - Social History Alcohol Use: Rare Alcohol Amount: quit 2008 Hx Substance Use: No Substance Use Type: Reports: Prescribed Hx Tobacco Use: Yes Smoking Status (MU): Former Smoker Type: Cigarettes Amount Used/How Often: 1 PPD X 25 +YEARS Have You Smoked in the Last Year: No Review of Systems Positive: Fever. Negative: Chills Negative: Erythema Negative: Sore Throat Negative: Chest Pain Negative: Shortness Of Breath, Cough Positive: Vomiting, Nausea. Negative: Abdominal Pain, Diarrhea Negative: dysuria, hematuria Positive: Other - Leg pain. Negative: Myalgia, Edema Negative: Rash Neurological: Negative - Dizziness Positive: Weakness All Other Systems Reviewed And Are Negative: Yes Physical Exam - Summary Physical Exam Summary: Constitutional: Well-developed, Well-nourished, Alert. (-) Distressed Skin: Warm, Dry HENT: Dry mucous membranes. Normocephalic; Atraumatic Eyes: Conjunctiva normal Neck: Musculoskeletal ROM normal neck. (-) JVD, (-) Stridor, (-) Tracheal deviation Cardio: Rhythm regular, rate normal, Heart sounds normal; Intact distal pulses; The pedal pulses are 2+ and symmetric. Radial pulses are 2+ and symmetric. (-) Murmur Pulmonary/Chest wall: Tachypneic appearing. (-) Respiratory distress, (-) Wheezes, (-) Rales Abd: Soft, (-) Tenderness, (-) Distension, (-) Guarding, (-) Rebound Musculoskeletal: Tender to light palpation upper lower extremities. No warmth, erythema, induration, or fluctuance. (-) Edema Lymph: (-) Cervical adenopathy Neuro: Alert, Oriented x3 Psych: Mood and affect Normal Triage Information Reviewed: Yes Vital Signs On Initial Exam: Initial Vitals Temp Pulse Resp BP Pulse Ox 98.5 F 85 18 125/53 96 02/01/18 10:43 02/01/18 10:43 02/01/18 10:43 02/01/18 10:43 02/01/18 10:43 Vital Signs Reviewed: Yes Diagnostics - Vital Signs Vital Signs Temp Pulse Resp BP Pulse Ox 02/01/18 10:46 99.3 F 02/01/18 10:43 98.5 F 85 18 125/53 96 - Laboratory Result Diagrams: 02/01/18 11:55 02/01/18 11:55 Lab Statement: Any lab studies that have been ordered have been reviewed, and results considered in the medical decision making process. - Radiology Abd XR Xray Interpretation: Positive (See Comments) - LARGE AMOUNT OF RETAINED STOOL. Dr. Lee has reviewed this report. Radiology Interpretation Completed By: Radiologist - EKG 10:56 Cardiac Rate: NL EKG Rhythm: Sinus Rhythm - [address] Segment: Normal Ectopy: None EKG Interpretation: no STEMI - Additional Comments Diagnostic Additional Comments: Venous Doppler Study. Interpreted by a radiologist. IMPRESSION: NORMAL BILATERAL EXAMINATION. NO EVIDENCE OF DEEP VENOUS THROMBOSIS. Dr. Lee has reviewed this report. Re-Evaluation - Re-Evaluation First Eval Re-Evaluation Time: 15:32 Change: Improved Comment: I discussed the patient's labs and clinical presentation with CHRISTINE Schroeder at [facility] and the admitting CHRISTINE Park from her previous admission. The patient is eating and drinking and feels much better. Bilateral leg pain unchanged, no DVT. MARQUES negative. No cancer for cauda equina syndrome. Urine is suspicious, cultures pending. Starting Cipro due to multiple medication allergies. Complex Multi-Symp Course/Dx Course Of Treatment: The patient is a 62 year old female who presents with fever , general weakness, nausea, vomiting, and pain in the legs for a couple weeks. In the ED course, the patient was given morphine and Zofran. Bloodwork and urinalysis were obtained. EKG was normal. Abd XR was obtained. I discussed the patient's labs and clinical presentation with CHRISTINE Schroeder at [facility] and the admitting CHRISTINE Park from her previous admission. Bilateral leg pain unchanged, no DVT. MARQUES negative. No cancer for cauda equina syndrome. The patient is diagnosed with vomiting, pyuria, bilateral leg pain, and constipation. I also discussed with Dr. Dick in [place]. She recommended outpatient management. They will follow up with the patient. - Diagnoses Provider Diagnoses: Vomiting, Pyuria, Bilateral leg pain, Constipation Discharge - Sign-Out/Discharge Documenting (check all that apply): Discharge/Admit/Transfer - Discharge Plan Condition: Stable Disposition: HOME Prescriptions: Ciprofloxacin TAB* [Cipro 750 MG Tab*] 750 mg PO BID #10 tab Ondansetron ODT TAB* [Zofran 4 MG Odt TAB*] 4 mg PO Q8H PRN #10 tab.odt PRN Reason: Nausea/Vomiting Polyethylene Glycol 3350* [Miralax*] 17 gm PO DAILY #7 packet Patient Education Materials: Leg Pain (ED), Acute Nausea and Vomiting (ED), Constipation (ED) Referrals: Peyman Ko MD [Primary Care Provider] - Additional Instructions: RETURN TO THE EMERGENCY DEPARTMENT FOR CHANGING OR WORSENING SYMPTOMS. The documentation as recorded by the Armand de la o Jennifer accurately reflects the service I personally performed and the decisions made by , Champ Lee MD.
== END 2018-02-01 16:08 | disposition home or self-care (01) ==
LOC: ED 10:39
DX: R11.2 Nausea with vomiting, unspecified (principal); R50.9 Fever, unspecified; M79.604 Pain in right leg; K59.00 Constipation, unspecified; M79.605 Pain in left leg; N39.0 Urinary tract infection, site not specified; R53.1 Weakness; Z87.891 Personal history of nicotine dependence
CPT/HCPCS: 36415; 74018; 80053; 81003; 81015; 83605; 83735; 84443; 84484; 85025; 85610; 85730; 87040; 87086; 93005; 93970; 96374; 99283; A9270-GY

== ENCOUNTER 2018-02-10 12:07 | Emergency (ER) | payer MEDICARE, MEDICAID ==
[2018-02-10] MEDS ORDERED: Morphine VIAL* 4 MG/ML VIAL (1 ml vial) IV ONE ×2 (12:29→14:49)
[2018-02-10] MEDS ORDERED: Ondansetron ODT TAB* 4 MG PO ONE ×2 (12:58→16:24)
[2018-02-10 13:00] LABS: ABS Basophils 0 10^3/ul (0-0.2); ABS Eosinophils 0 10^3/ul (0-0.6); ABS Lymphocytes 0.5 10^3/ul (1.0-4.8); ABS Monocytes 0.2 10^3/ul (0-0.8); ABS Nucleated RBC 0 10^3/ul; Eosinophil % 0.4 % (0-6); Hematocrit 25 % (35-47); Hemoglobin 8.5 g/dl (12.0-16.0); Lymphocyte % 13.6 % (25-47); Mean Corpuscular HGB Conc 34 g/dl (31-36); Mean Corpuscular Hemoglobin 30 pg (27-31); Mean Corpuscular Volume 90 fL (80-97); Mean Platelet Volume 7.9 um3 (7.4-10.4); Nucleated Red Blood Cells % 0.1; Platelet Count 46 10^3/ul (150-450); Red Blood Count 2.81 10^6/ul (4.0-5.4); Red Cell Distribution Width 13 % (10.5-15); White Blood Count 3.8 10^3/ul (3.5-10.8)
[2018-02-10 13:23] LABS: EGFR Non-African American 74.8 (>60)
--- NOTE | 2018-02-10 13:34 | ED ---
Complex/Multi-Sys Presentation - HPI Summary HPI Summary: Patient is a 62-year-old female who presents emergency department for bilateral lower leg pain. Patient has a history of myelofibrosis. She has received chemotherapy and stem cell transplant currently in remission. Patient was seen here about a week ago and started on Cipro for UTI. Patient states she has chronic nausea and has not been taking antibx because she is worried it will make her sick. She denies fever, chills, CP, SOB, abd. pain, urinary symptoms, back pain, numbness, tingling or weakness. Pt .also notes today she have a frontal headache which is new for her, she states she usually does not get h/a. Symptoms are moderate in severity. Movement makes symptoms worse. Nothing makes symptoms better. Takes oxycodone at home. - History Of Current Complaint Chief Complaint: EDGeneral Time Seen by Provider: 02/10/18 12:17 Hx Obtained From: Patient - Allergies/Home Medications Allergies/Adverse Reactions: Allergies Allergy/AdvReac Type Severity Reaction Status Date / Time azithromycin Allergy Difficulty Verified 01/21/18 11:05 Breathing benzonatate Allergy Headache Verified 01/21/18 11:05 [From Tessalon Perles] cephalexin [From Keflex] Allergy Vomiting Verified 01/21/18 11:05 diazepam Allergy Difficulty Verified 01/21/18 11:05 Breathing hydromorphone [From Dilaudid] Allergy Altered Verified 01/21/18 11:05 Mental Status latex Allergy Rash Verified 01/21/18 11:05 morphine Allergy Vomiting Verified 01/21/18 11:05 Penicillins Allergy Difficulty Verified 01/21/18 11:05 Breathing Sulfa (Sulfonamide Allergy Vomiting Verified 01/21/18 11:06 Antibiotics) ALL "MYCINS" Allergy CHEST Uncoded 05/17/17 10:18 HEAVINESS, SL. DIFF. BREATHING, LIGHTHEADEDNESS ALL CILLINS Allergy CHEST Uncoded 05/17/17 10:18 HEAVINESS, SL. DIFF. BREATHING, LIGHTHEADNESS MULTIPLE ANTIBIOPTIC Allergy CHEST Uncoded 05/17/17 10:18 REACTIONS HEAVINESS, SL. DIFF. 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 Cardiovascular History: Reports: Hx Angina Denies: Hx Coronary Artery Disease, Hx Hypercholesterolemia, Hx Hypertension , Hx Myocardial Infarction, Hx Pacemaker/ICD, Hx Valvular Heart Disease Respiratory History: Denies: Hx Asthma, Hx Chronic Obstructive Pulmonary Disease (COPD) GI History: Reports: Hx Gastroesophageal Reflux Disease, Hx Gastrointestinal Bleed, Hx Hiatal Hernia, Hx Ulcer - reflux History: Reports: Hx Kidney Stones - teenager Denies: Hx Renal Disease Musculoskeletal History: Reports: Other Musculoskeletal History - meylofibrosis Sensory History: Reports: Hx Cataracts - BEGINNING STAGES Denies: Hx Contacts or Glasses, Hx Hearing Aid Opthamlomology History: Reports: Hx Cataracts - BEGINNING STAGES Denies: Hx Contacts or Glasses Neurological History: Denies: Hx Headaches Psychiatric History: Reports: Hx Anxiety, Hx Depression, Hx Panic Disorder, Other Psychiatric Issues/Disorders - claustrophobia - Cancer History Cancer Type, Location and Year: LEUKEMIA, myelofibrosis Hx Chemotherapy: No - Surgical History Surgery Procedure, Year, and Place: NECK SURGERY- FOR HENIATED DISC-[facility] [place]. SURGERY FOR PROLASPED BLADDER AND RECTUM, TOTAL ABDOMINAL HYSTERECTOMY- LAPAROSCOPIC-[facility]. APPENDECTOMY. TUBAL LIGATION. LEFT HAND LUMPS REMOVED 2014. dental work Hx Anesthesia Reactions: Yes - NAUSEA - Immunization History Date of Tetanus Vaccine: none Date of Influenza Vaccine: none Infectious Disease History: No Infectious Disease History: Reports: Hx of Known/Suspected MRSA Denies: History Other Infectious Disease, Traveled Outside the [place] in Last 30 Days - Family History Known Family History: Positive: None, Cardiac Disease Family History: cancer - Social History Alcohol Use: None Alcohol Amount: quit 2008 Hx Substance Use: No Substance Use Type: Reports: Prescribed Hx Tobacco Use: Yes Smoking Status (MU): Former Smoker Type: Cigarettes Amount Used/How Often: 1 PPD X 25 +YEARS Have You Smoked in the Last Year: No Review of Systems Constitutional: Negative Negative: Fever, Chills Eyes: Negative ENT: Negative Cardiovascular: Negative Respiratory: Negative Positive: Vomiting, Nausea. Negative: Abdominal Pain Genitourinary: Negative Positive: Other - bilateral leg pain. Skin: Negative Positive: Headache. Negative: Weakness, Paresthesia, Numbness, Syncope All Other Systems Reviewed And Are Negative: Yes Physical Exam Triage Information Reviewed: Yes Vital Signs On Initial Exam: Initial Vitals Temp Pulse Resp BP Pulse Ox 99 F 87 16 138/55 96 02/10/18 12:26 02/10/18 12:26 02/10/18 12:26 02/10/18 12:26 02/10/18 12:26 Vital Signs Reviewed: Yes Completion Of Physical Exam Limited Due To: Dementia - Patient lying on bed in no acute distress. Skin: Positive: Warm, Dry Head/Face: Positive: Normal Head/Face Inspection Eyes: Positive: Normal, JACKELYN ENT: Positive: Other - [place] is very dry. Neck: Positive: Supple Respiratory/Lung Sounds: Positive: Clear to Auscultation, Breath Sounds Present Cardiovascular: Positive: Normal, RRR Abdomen Description: Positive: Nontender, Soft Musculoskeletal: Positive: Other - Lower extremities are neurovascularly intact. No erythema or wounds. No edema. No signs of trauma. Neurological: Positive: Normal, Alert, Oriented to Person Place, Time, CN Intact II-III, Facial Symmetry Psychiatric: Positive: Normal Diagnostics - Vital Signs Vital Signs Temp Pulse Resp BP Pulse Ox 02/10/18 13:16 16 02/10/18 12:26 99 F 87 16 138/55 96 - Laboratory Lab Results: Lab Results 02/10/18 02/10/18 Range/Units 12:42 12:42 WBC 3.8 (3.5-10.8) 10^3/ul RBC 2.81 L (4.0-5.4) 10^6/ul Hgb 8.5 L (12.0-16.0) g/dl Hct 25 L (35-47) % MCV 90 (80-97) fL MCH 30 (27-31) pg MCHC 34 (31-36) g/dl RDW 13 (10.5-15) % Plt Count 46 L (150-450) 10^3/ul MPV 7.9 (7.4-10.4) um3 Neut % (Auto) 79.5 (38-83) % Lymph % (Auto) 13.6 L (25-47) % Dupage % (Auto) 5.9 (0-7) % Eos % (Auto) 0.4 (0-6) % Baso % (Auto) 0.6 (0-2) % Absolute Neuts (auto) 3.0 (1.5-7.7) 10^3/ul Absolute Lymphs (auto) 0.5 L (1.0-4.8) 10^3/ul Absolute Monos (auto) 0.2 (0-0.8) 10^3/ul Absolute Eos (auto) 0 (0-0.6) 10^3/ul Absolute Basos (auto) 0 (0-0.2) 10^3/ul Absolute Nucleated RBC 0 10^3/ul Nucleated RBC % 0.1 Sodium 137 L (139-145) mmol/L Potassium 3.8 (3.5-5.0) mmol/L Chloride 99 L (101-111) mmol/L Carbon Dioxide 32 (22-32) mmol/L Anion Gap 6 (2-11) mmol/L BUN 18 (6-24) mg/dL Creatinine 0.78 (0.51-0.95) mg/dL Est GFR ( Amer) 96.2 (>60) Est GFR (Non-Af Amer) 74.8 (>60) BUN/Creatinine Ratio 23.1 H (8-20) Glucose 228 H (70-100) mg/dL Calcium 9.0 (8.6-10.3) mg/dL Total Bilirubin 0.40 (0.2-1.0) mg/dL AST 9 L (13-39) U/L ALT 5 L (7-52) U/L Alkaline Phosphatase 121 H (34-104) U/L Total Protein 6.0 L (6.4-8.9) g/dL Albumin 3.4 (3.2-5.2) g/dL Globulin 2.6 (2-4) g/dL Albumin/Globulin Ratio 1.3 (1-3) Result Diagrams: 02/10/18 12:42 02/10/18 12:42 Lab Statement: Any lab studies that have been ordered have been reviewed, and results considered in the medical decision making process. Complex Multi-Symp Course/Dx Course Of Treatment: Patient presenting to the emergency department for reevaluation of chronic leg pain. She is afebrile with stable vital signs. She also notes a new headache today which is new for her. She no neurological deficits on exam. We'll recheck basic labs, urine and obtain head CT. Patient started IV fluids given IV morphine for pain. Blood work is unremarkable today other than mild increase in thrombocytopenia from 76-46. Urinalysis is negative for infection. Urine culture from last week was negative. Head CT is negative for acute findings, reading per radiology. I did speak with patient's oncologist at [facility], Dr. Harry. Results were discussed with. She notes that are aware of pt.'s leg pain and recently did a biopsy. She does not see the need for any further workup today. She notes pt. has an apt. with tomorrow actually. Results discussed with pt. She is d/c home stable with friend. - Diagnoses Provider Diagnoses: Chronic pain Discharge - Sign-Out/Discharge Documenting (check all that apply): Discharge/Admit/Transfer - Discharge Plan Condition: Stable Disposition: HOME Patient Education Materials: Chronic Pain (ED) Referrals: Peyman Ko MD [Primary Care Provider] - Additional Instructions: Follow up with your oncologist just as scheduled Continue home medications as directed Return to the ER symptoms change or worsen - Billing Disposition and Condition Condition: STABLE Disposition: HOME
[2018-02-10 13:47] LABS: Urine Appearance Clear; Urine Blood 1+ (Negative); Urine Color Yellow; Urine Ketones 1+ (Negative); Urine Protein Negative (Negative); Urine Red Blood Cell Trace(0-2/hpf) (Absent); Urine Specific Gravity 1.011 (1.010-1.030); Urine Urobilinogen Negative (Negative); Urine White Blood Cell 2+(11-20/hpf) (Absent)
--- NOTE | 2018-02-10 13:55 | RAD ---
Indication: Headache. CT of the brain was performed without IV contrast. Ventricular structures are midline. No midline shift is noted. The extra-axial spaces are unremarkable. There is no evidence of intracranial mass or hemorrhage. No other high or low density lesions are identified. Mastoid air cells and paranasal sinuses are otherwise unremarkable. IMPRESSION: No intracranial mass or hemorrhage is noted.
[2018-02-10 18:25] VITALS: BP 163/89
--- NOTE | 2018-02-12 14:11 | ED ---
Progress - Progress Note Progress Note: Patient's preliminary urine culture reveals 25-50,000 Staphylococcus aureus and 10-25,000 normal iris. Patient had presented with bilateral chronic lower extremity pain. No urinary symptoms are documented and labs along with vitals do not indicate acute infection. Final results pending. No change in treatment at this time. Course/Dx - Course Course Of Treatment: Patient presenting to the emergency department for reevaluation of chronic leg pain. She is afebrile with stable vital signs. She also notes a new headache today which is new for her. She no neurological deficits on exam. We'll recheck basic labs, urine and obtain head CT. Patient started IV fluids given IV morphine for pain. Blood work is unremarkable today other than mild increase in thrombocytopenia from 76-46. Urinalysis is negative for infection. Urine culture from last week was negative. Head CT is negative for acute findings, reading per radiology. I did speak with patient's oncologist at [facility], Dr. Harry. Results were discussed with. She notes that are aware of pt.'s leg pain and recently did a biopsy. She does not see the need for any further workup today. She notes pt. has an apt. with tomorrow actually. Results discussed with pt. She is d/c home stable with friend. - Diagnoses Provider Diagnoses: Chronic pain Discharge - Sign-Out/Discharge Documenting (check all that apply): Post-Discharge Follow Up - Discharge Plan Condition: Stable Disposition: HOME Patient Education Materials: Chronic Pain (ED) Referrals: Peyman Ko MD [Primary Care Provider] - Additional Instructions: Follow up with your oncologist just as scheduled Continue home medications as directed Return to the ER symptoms change or worsen - Billing Disposition and Condition Condition: STABLE Disposition: HOME
--- NOTE | 2018-02-14 09:28 | PN ---
Progress Note - Progress Note Date of Service: 02/12/18 Note: Patient was seen in the ER 02/12 for evaluation of chronic leg pain as well as chronic nausea and vomiting. Urine culture was obtained at that time. Urine culture today is growing 25-50K of MRSA. I called and spoke with patient today at 0924. She notes she is not having any urinary symptoms but she states she is feeling worse today and has had increased nausea and vomiting and states she has not been able to keep any pills down. Advised patient to return to the ER for reevaluation. Patient states her home health nurse is coming at 10:30 AM today and she would like to wait to be evaluated by her before coming to the ER. Strongly advised patient to return to ER for reevaluation. Patient states she will return if needed.
== END 2018-02-10 18:22 | disposition home or self-care (01) ==
LOC: ED 12:07
DX: M79.606 Pain in leg, unspecified (principal); G89.29 Other chronic pain; Z87.891 Personal history of nicotine dependence; R51 Headache; R11.2 Nausea with vomiting, unspecified
CPT/HCPCS: 36415; 70450; 80053; 81003; 81015; 85025; 87077; 87086; 87186; 96374; 96375; 99283; A9270-GY; J2270

== ENCOUNTER 2018-02-14 12:42 | Emergency (ER) | payer MEDICARE, MEDICAID ==
[2018-02-14] MEDS ORDERED: PROCHLORPERAZINE INJ 5 MG/ML 2 ML VIAL IV PRN (13:51)
[2018-02-14] MEDS ORDERED: fentaNYL* 50 MCG/ML 2 ML VIAL (100 MCG VIAL) IV SLOW PU ONE ×2 (13:51→16:02)
[2018-02-14] MEDS ORDERED: PROCHLORPERAZINE INJ 5 MG/ML 2 ML VIAL ONE (14:00)
[2018-02-14 14:15] LABS: ABS Basophils 0 10^3/ul (0-0.2); ABS Eosinophils 0 10^3/ul (0-0.6); ABS Lymphocytes 0.6 10^3/ul (1.0-4.8); ABS Monocytes 0.3 10^3/ul (0-0.8); ABS Neutrophils 3.8 10^3/ul (1.5-7.7); ABS Nucleated RBC 0 10^3/ul; Eosinophil % 0.2 % (0-6); Hematocrit 26 % (35-47); Hemoglobin 9.1 g/dl (12.0-16.0); Lymphocyte % 11.9 % (25-47); Mean Corpuscular HGB Conc 35 g/dl (31-36); Mean Corpuscular Hemoglobin 31 pg (27-31); Mean Corpuscular Volume 87 fL (80-97); Mean Platelet Volume 7.6 um3 (7.4-10.4); Nucleated Red Blood Cells % 0; Platelet Count 44 10^3/ul (150-450); Red Blood Count 2.99 10^6/ul (4.0-5.4); Red Cell Distribution Width 13 % (10.5-15); White Blood Count 4.7 10^3/ul (3.5-10.8)
[2018-02-14 14:27] LABS: Urine Appearance Clear; Urine Blood 1+ (Negative); Urine Color Yellow; Urine Ketones 2+ (Negative); Urine Protein 2+(100 mg/dL) (Negative); Urine Specific Gravity 1.018 (1.010-1.030); Urine Urobilinogen Negative (Negative)
[2018-02-14 14:28] LABS: EGFR Non-African American 82.1 (>60)
[2018-02-14] MEDS ORDERED: Metoclopramide IV* 5 MG/ML 2 ML VIAL IV ONE (16:02)
[2018-02-14] MEDS ORDERED: oxyCODONE SR TAB(*) 10 MG TAB.SR PO ONE (17:28)
[2018-02-14 18:49] VITALS: BP 148/78
--- NOTE | 2018-02-14 18:58 | ED ---
Armand Mujica Jennifer, scribed for Lobito Zepeda MD on 02/14/18 at 1339 . Lower Extremity - HPI Summary HPI Summary: The patient is a 62 y/o F who presents with lower extremity pain since one week ago. Patient has a history of myelofibrosis in her bilateral lower extremities for 1.5 years that worsened in the last week. She additionally complains of vomiting since last night. She denies chemotherapy. The patient adds that she recently changed from a prescription of oxycodone to oxycontin. - History of Current Complaint Chief Complaint: EDGeneral Stated Complaint: GENERAL ILLNESS Time Seen by Provider: 02/14/18 13:27 Hx Obtained From: Patient Mechanism Of Injury: Other - Hx myelofibrosis Onset of Pain: Immediate Onset/Duration: Still Present - Hx myelofibrosis 1.5 years ago that worsened in last week Severity Initially: Severe Severity Currently: Severe Pain Intensity: 10 Pain Scale Used: 0-10 Numeric Timing: Constant Location: Is Discrete @ - bilateral lower extremities Associated Signs And Symptoms: Positive: Other - Vomiting Aggravating Factor(s): Standing, Ambulation, Movement, Weight Bearing Alleviating Factor(s): Rest Able to Bear Weight: No - Allergies/Home Medications Allergies/Adverse Reactions: Allergies Allergy/AdvReac Type Severity Reaction Status Date / Time azithromycin Allergy Difficulty Verified 01/21/18 11:05 Breathing benzonatate Allergy Headache Verified 01/21/18 11:05 [From Tessalon Perles] cephalexin [From Keflex] Allergy Vomiting Verified 01/21/18 11:05 diazepam Allergy Difficulty Verified 01/21/18 11:05 Breathing hydromorphone [From Dilaudid] Allergy Altered Verified 01/21/18 11:05 Mental Status latex Allergy Rash Verified 01/21/18 11:05 morphine Allergy Vomiting Verified 01/21/18 11:05 Penicillins Allergy Difficulty Verified 01/21/18 11:05 Breathing Sulfa (Sulfonamide Allergy Vomiting Verified 01/21/18 11:06 Antibiotics) ALL "MYCINS" Allergy CHEST Uncoded 05/17/17 10:18 HEAVINESS, SL. DIFF. BREATHING, LIGHTHEADEDNESS ALL CILLINS Allergy CHEST Uncoded 05/17/17 10:18 HEAVINESS, SL. DIFF. BREATHING, LIGHTHEADNESS MULTIPLE ANTIBIOPTIC Allergy CHEST Uncoded 05/17/17 10:18 REACTIONS HEAVINESS, SL. DIFF. 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 Cardiovascular History: Reports: Hx Angina Denies: Hx Coronary Artery Disease, Hx Hypercholesterolemia, Hx Hypertension , Hx Myocardial Infarction, Hx Pacemaker/ICD, Hx Valvular Heart Disease Respiratory History: Denies: Hx Asthma, Hx Chronic Obstructive Pulmonary Disease (COPD) GI History: Reports: Hx Gastroesophageal Reflux Disease, Hx Gastrointestinal Bleed, Hx Hiatal Hernia, Hx Ulcer - reflux History: Reports: Hx Kidney Stones - teenager Denies: Hx Renal Disease Musculoskeletal History: Reports: Other Musculoskeletal History - meylofibrosis Sensory History: Reports: Hx Cataracts - BEGINNING STAGES Denies: Hx Contacts or Glasses, Hx Hearing Aid Opthamlomology History: Reports: Hx Cataracts - BEGINNING STAGES Denies: Hx Contacts or Glasses Neurological History: Denies: Hx Headaches Psychiatric History: Reports: Hx Anxiety, Hx Depression, Hx Panic Disorder, Other Psychiatric Issues/Disorders - claustrophobia - Cancer History Cancer Type, Location and Year: LEUKEMIA, myelofibrosis Hx Chemotherapy: No - Surgical History Surgery Procedure, Year, and Place: [place] [place] FOR PROLASPED BLADDER AND RECTUM, TOTAL ABDOMINAL HYSTERECTOMY- LAPAROSCOPIC-[facility]. APPENDECTOMY. TUBAL LIGATION. LEFT HAND LUMPS REMOVED 2015. dental work Hx Anesthesia Reactions: Yes - NAUSEA - Immunization History Date of Tetanus Vaccine: none Date of Influenza Vaccine: none Infectious Disease History: No Infectious Disease History: Reports: Hx of Known/Suspected MRSA Denies: History Other Infectious Disease, Traveled Outside the [place] in Last 30 Days - Family History Known Family History: Positive: Cardiac Disease Family History: cancer - Social History Alcohol Use: None Alcohol Amount: quit 2008 Hx Substance Use: No Substance Use Type: Reports: Prescribed Hx Tobacco Use: Yes Smoking Status (MU): Former Smoker Type: Cigarettes Amount Used/How Often: 1 PPD X 25 +YEARS Have You Smoked in the Last Year: No Review of Systems Positive: Vomiting Positive: Myalgia - bilateral lower extremities All Other Systems Reviewed And Are Negative: Yes Physical Exam - Summary Physical Exam Summary: Appearance: The patient is thin in no acute distress and in no acute pain. Skin: The skin is warm and dry and skin color reflects adequate perfusion. HEENT: The head is normocephalic and atraumatic. The pupils are equal and reactive. The conjunctivae are clear and without drainage. Nares are patent and without drainage. Mouth reveals moist mucous membranes and the throat is without erythema and exudate. The external ears are intact. The ear canals are patent and without drainage. The tympanic membranes are intact. Neck: the neck is supple with full range of motion and non-tender. There are no carotid bruits. There is no neck vein distension. Respiratory: Chest is non-tender. Lungs are clear to auscultation and breath sounds are symmetrical and equal. Cardiovascular: Heart is regular rate and rhythm. There is no murmur or rub auscultated. There is no peripheral edema and pulses are symmetrical and equal. Abdomen: The abdomen is soft and non-tender. There are normal bowel sounds heard in all four quadrants and there is no organomegaly palpated. Musculoskeletal: The patient is cachectic. There is tenderness in bilateral legs. There is no back tenderness noted. Extremities with full range of motion. There is good capillary refill. There is no peripheral edema or calf tenderness elicited. Neurological: Patient is alert and oriented to person, place and time. The patient has symmetrical motor strength in all four extremities. Cranial nerves are grossly intact. Deep tendon reflexes are symmetrical and equal in all four extremities. Psychiatric: The patient has an appropriate affect and does not exhibit any anxiety or depression. Triage Information Reviewed: Yes Vital Signs On Initial Exam: Initial Vitals Temp Pulse Resp BP Pulse Ox 99.0 F 92 22 162/87 94 02/14/18 12:53 02/14/18 12:53 02/14/18 12:53 02/14/18 12:53 02/14/18 12:53 Vital Signs Reviewed: Yes Diagnostics - Vital Signs Vital Signs Temp Pulse Resp BP Pulse Ox 02/14/18 13:00 99 25 97 02/14/18 12:57 94 24 97 02/14/18 12:53 99.0 F 92 22 162/87 94 - Laboratory Lab Results: Lab Results 02/14/18 02/14/18 02/14/18 Range/Units 14:02 14:02 14:16 WBC 4.7 (3.5-10.8) 10^3/ul RBC 2.99 L (4.0-5.4) 10^6/ul Hgb 9.1 L (12.0-16.0) g/dl Hct 26 L (35-47) % MCV 87 (80-97) fL MCH 31 (27-31) pg MCHC 35 (31-36) g/dl RDW 13 (10.5-15) % Plt Count 44 L (150-450) 10^3/ul MPV 7.6 (7.4-10.4) um3 Neut % (Auto) 80.0 (38-83) % Lymph % (Auto) 11.9 L (25-47) % [place]hin % (Auto) 7.4 H (0-7) % Eos % (Auto) 0.2 (0-6) % Baso % (Auto) 0.5 (0-2) % Absolute Neuts (auto) 3.8 (1.5-7.7) 10^3/ul Absolute Lymphs (auto) 0.6 L (1.0-4.8) 10^3/ul Absolute Monos (auto) 0.3 (0-0.8) 10^3/ul Absolute Eos (auto) 0 (0-0.6) 10^3/ul Absolute Basos (auto) 0 (0-0.2) 10^3/ul Absolute Nucleated RBC 0 10^3/ul Nucleated RBC % 0 Sodium 133 L (139-145) mmol/L Potassium 4.2 (3.5-5.0) mmol/L Chloride 93 L (101-111) mmol/L Carbon Dioxide 28 (22-32) mmol/L Anion Gap 12 H (2-11) mmol/L BUN 20 (6-24) mg/dL Creatinine 0.72 (0.51-0.95) mg/dL Est GFR ( Amer) 105.6 (>60) Est GFR (Non-Af Amer) 82.1 (>60) BUN/Creatinine Ratio 27.8 H (8-20) Glucose 238 H (70-100) mg/dL Calcium 9.7 (8.6-10.3) mg/dL Total Bilirubin 0.70 (0.2-1.0) mg/dL AST 7 L (13-39) U/L ALT 5 L (7-52) U/L Alkaline Phosphatase 161 H (34-104) U/L C-Reactive Protein 163.52 H (< 5.00) mg/L Total Protein 6.7 (6.4-8.9) g/dL Albumin 3.7 (3.2-5.2) g/dL Globulin 3.0 (2-4) g/dL Albumin/Globulin Ratio 1.2 (1-3) Urine Color Yellow Urine Appearance Clear Urine pH 7.0 (5-9) Ur Specific [place] 1.018 (1.010-1.030) Urine Protein 2+(100 mg/dl) A (Negative) Urine Ketones 2+ A (Negative) Urine Blood 1+ A (Negative) Urine Nitrate Negative (Negative) Urine Bilirubin Negative (Negative) Urine Urobilinogen Negative (Negative) Ur Leukocyte Esterase 1+ A (Negative) Urine WBC (Auto) 2+(11-20/hpf) A (Absent) Urine RBC (Auto) 2+(6-10/hpf) A (Absent) Ur Squamous Epith Cells Present A (Absent) Ur Transition Epith Cell Present A (Absent) Urine Bacteria Absent (Absent) Urine Glucose 3+(>=500 mg/dl) A (Negative) Result Diagrams: 02/14/18 14:02 02/14/18 14:02 Lab Statement: Any lab studies that have been ordered have been reviewed, and results considered in the medical decision making process. Lower Extremity Course/Dx - Course Course Of Treatment: Ms. Allen has chronic leg pain from neuropathy that has been getting worse. She just had her medications changed on Wednesday but she started vomiting today and couldn't keep them down. She improved slowly with medications here and labs were WNL. She kept a dose of her oxycontin down here and it helped. - Diagnoses Provider Diagnoses: Chronic pain Discharge - Sign-Out/Discharge Documenting (check all that apply): Discharge/Admit/Transfer - Discharge Plan Condition: Stable Disposition: HOME Prescriptions: Metoclopramide TAB* [Reglan TAB*] 10 mg PO Q8H #20 tab Patient Education Materials: Chronic Pain (ED) Referrals: Peyman Ko MD [Primary Care Provider] - Additional Instructions: Follow up with your primary care physician in three days. Return to the emergency department for any new or worsening symptoms. - Billing Disposition and Condition Condition: STABLE Disposition: HOME The documentation as recorded by the Armand de la o Jennifer accurately reflects the service I personally performed and the decisions made by me, Lobito Zepeda MD.
== END 2018-02-14 18:58 | disposition home or self-care (01) ==
LOC: ED 12:42
DX: G89.29 Other chronic pain (principal); R11.10 Vomiting, unspecified; Z87.891 Personal history of nicotine dependence; Z94.81 Bone marrow transplant status
CPT/HCPCS: 36415; 80053; 81003; 81015; 83735; 85025; 86140; 87077; 87086; 87186; 96374; 96375; 99283; A9270-GY; J0780; J2765; J3010

== ENCOUNTER 2018-03-29 21:26 | Emergency (ER) | payer MEDICARE, MEDICAID ==
[2018-03-29] MEDS ORDERED: NS 0.9% 1000 ML*IV.FLUID IV ONE (21:45)
[2018-03-29] MEDS ORDERED: Metoclopramide IV* 5 MG/ML 2 ML VIAL IV SLOW PU ONE (21:47)
[2018-03-29] MEDS ORDERED: Lidocaine 2.5%/Prilocain 2.5%* 5 GM TUBE ONE (21:52)
[2018-03-29 22:38] LABS: ABS Neutrophils 0.5 10^3/ul (1.5-7.7); Hematocrit 24 % (35-47); Hemoglobin 8.3 g/dl (12.0-16.0); Mean Corpuscular HGB Conc 35 g/dl (31-36); Mean Corpuscular Hemoglobin 29 pg (27-31); Mean Corpuscular Volume 83 fL (80-97); Mean Platelet Volume 10.2 um3 (7.4-10.4); Platelet Count 10 10^3/ul (150-450); Red Blood Count 2.84 10^6/ul (4.00-5.40); Red Cell Distribution Width 14 % (10.5-15); White Blood Count 0.8 10^3/ul (3.5-10.8)
[2018-03-29 22:40] LABS: INR 1.01 (0.77-1.02)
[2018-03-29 22:52] LABS: EGFR Non-African American 137.6 (>60)
[2018-03-29 23:07] LABS: ABS Basophils 0 10^3/ul (0-0.2); ABS Eosinophils 0 10^3/ul (0-0.6); ABS Lymphocytes 0.2 10^3/ul (1.0-4.8); ABS Monocytes 0.1 10^3/ul (0-0.8); ABS Nucleated RBC 0 10^3/ul; Eosinophil % 0.2 % (0-6); Lymphocyte % 30.1 % (25-47); Nucleated Red Blood Cells % 0.4
[2018-03-30 00:34] LABS: Urine Appearance Cloudy; Urine Blood 1+ (Negative); Urine Color Yellow; Urine Ketones 2+ (Negative); Urine Protein 2+(100 mg/dL) (Negative); Urine Specific Gravity 1.017 (1.010-1.030); Urine Urobilinogen Positive (Negative)
[2018-03-30] MEDS ORDERED: Insulin REGULAR(*) 1 UNITS UNIT IV PUSH ONE (00:48)
[2018-03-30 01:17] VITALS: BP 128/60
--- NOTE | 2018-03-30 05:43 | ED ---
Anastacio Mujica Jacob, scribed for Oral Ward MD on 03/30/18 at 0055 . Complex/Multi-Sys Presentation - HPI Summary HPI Summary: Pt is a 62 y/o female BIBA due to nausea and vomiting. [employer] at pt's residential alf called ambulance. She has been living in her current alf since 03/25/18 (four days ago). Before that, she was previously at [facility] as she, "was not looking well and almost ". She notes that she was anemic, had low blood cell and platelet levels. Pt claims that she was given a blood transfusion there. Pt reports that she was at this hospital for about a week. Emesis described as "coffee ground" per triage and she has been taking Zofran as N/V are not new. Denies fever, SOB per triage. She has a Hx of myelofibrosis, which she states was diagnosed a year ago. - History Of Current Complaint Chief Complaint: EDGeneral Time Seen by Provider: 03/29/18 21:32 Hx Obtained From: Patient Onset/Duration: Lasting Days - vomiting began 3 days ago in the evening Severity Currently: None Location: Negative Aggravating Factor(s): Nothing Alleviating Factor(s): Nothing Associated Signs And Symptoms: Positive: Nausea, Vomiting. Negative: Fever, Other - current bleeding Related History: Recent Hospitalization - hospitalized at [facility] in [place] a week ago - Allergies/Home Medications Allergies/Adverse Reactions: Allergies Allergy/AdvReac Type Severity Reaction Status Date / Time azithromycin Allergy Difficulty Verified 03/29/18 21:33 Breathing diazepam Allergy Difficulty Verified 03/29/18 21:33 Breathing latex Allergy Rash Verified 03/29/18 21:33 Penicillins Allergy Difficulty Verified 03/29/18 21:33 Breathing benzonatate AdvReac Headache Verified 03/30/18 00:41 [From Tessalon Perles] cephalexin [From Keflex] AdvReac Vomiting Verified 03/30/18 00:41 hydromorphone [From Dilaudid] AdvReac Altered Verified 03/30/18 00:41 Mental Status morphine AdvReac Vomiting Verified 03/30/18 00:41 Sulfa (Sulfonamide AdvReac Vomiting Verified 03/30/18 00:41 Antibiotics) ALL "MYCINS" Allergy CHEST Uncoded 03/29/18 21:33 HEAVINESS, SL. DIFF. BREATHING, LIGHTHEADEDNESS ALL CILLINS Allergy CHEST Uncoded 03/29/18 21:33 HEAVINESS, SL. DIFF. BREATHING, LIGHTHEADNESS MULTIPLE ANTIBIOPTIC Allergy CHEST Uncoded 03/29/18 21:33 REACTIONS HEAVINESS, SL. DIFF. BREATHING, LIGHTHEADEDNESS SULFA DRUGS AdvReac VOMITING, Uncoded 03/30/18 00:41 DIARRHEA, HIVES, LIGHTHEADEDNESS Home Medications: Home Medications Albuterol HFA INHALER* [Ventolin HFA Inhaler*] 2 puff INH Q6H PRN 03/29/18 [ History Confirmed 03/29/18] Ascorbic Acid [Vitamin C] 100 mg PO DAILY 03/29/18 [History Confirmed 03/29/18] Bisacodyl SUPP* [Dulcolax Supp*] 10 mg NM DAILY PRN 03/29/18 [History Confirmed 03/29/18] DULoxetine DR CAP* [Cymbalta CAP*] 30 mg PO DAILY 03/29/18 [History Confirmed ] Docusate CAP* [Colace Cap*] 100 mg PO BID PRN 03/29/18 [History Confirmed ] Ipratropium HFA INHALER(NF) [Atrovent Hfa Inhaler(NF)] 2 puff INH Q6H 03/29/18 [ History Confirmed 03/29/18] Lidocaine 2% JELLY* 1 applic TOPICAL Q6HR PRN 03/29/18 [History Confirmed ] Magnesium Oxide TAB* [MagOx 400 TAB*] 400 mg PO DAILY 03/29/18 [History Confirmed 03/29/18] Ondansetron ODT TAB* [Zofran 4 MG Odt TAB*] 4 mg PO TID PRN 03/29/18 [History Confirmed 03/29/18] Oxycodone TAB(NF) [Oxycodone HCl 10 MG] 10 mg PO Q3HR PRN 03/29/18 [History Confirmed 03/29/18] Polyethylene Glycol 3350* [Miralax*] 17 gm PO DAILY 03/29/18 [History Confirmed 03/29/18] Promethazine TAB* [Phenergan TAB*] 25 mg PO Q6H PRN 03/29/18 [History Confirmed 03/29/18] Sennosides [Natural Senna Laxative] 17.2 mg PO BID PRN 03/29/18 [History Confirmed 03/29/18] oxyCODONE SR TAB(*) [Oxycontin 40 mg (*)] 40 mg PO BID MDD 80 mg 03/29/18 [ History Confirmed 03/29/18] predniSONE TAB* [Deltasone 20 MG TAB*] 60 mg PO DAILY 03/29/18 [History Confirmed 03/29/18] PMH/Surg Hx/FS Hx/Imm Hx Endocrine/Hematology History: Reports: 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 Cardiovascular History: Reports: Hx Angina Denies: Hx Coronary Artery Disease, Hx Hypercholesterolemia, Hx Hypertension , Hx Myocardial Infarction, Hx Pacemaker/ICD, Hx Valvular Heart Disease Respiratory History: Denies: Hx Asthma, Hx Chronic Obstructive Pulmonary Disease (COPD) GI History: Reports: Hx Gastroesophageal Reflux Disease, Hx Gastrointestinal Bleed, Hx Hiatal Hernia, Hx Ulcer - reflux History: Reports: Hx Kidney Stones - teenager Denies: Hx Renal Disease Musculoskeletal History: Reports: Other Musculoskeletal History - meylofibrosis Sensory History: Reports: Hx Cataracts - BEGINNING STAGES Denies: Hx Contacts or Glasses, Hx Hearing Aid Opthamlomology History: Reports: Hx Cataracts - BEGINNING STAGES Denies: Hx Contacts or Glasses Neurological History: Denies: Hx Headaches Psychiatric History: Reports: Hx Anxiety, Hx Depression, Hx Panic Disorder, Other Psychiatric Issues/Disorders - claustrophobia - Cancer History Cancer Type, Location and Year: LEUKEMIA, myelofibrosis Hx Chemotherapy: No - Surgical History Surgery Procedure, Year, and Place: NECK SURGERY- FOR HENIATED DISC-[facility] [place]. SURGERY FOR PROLASPED BLADDER AND RECTUM, TOTAL ABDOMINAL HYSTERECTOMY- LAPAROSCOPIC-[facility]. APPENDECTOMY. TUBAL LIGATION. LEFT HAND LUMPS REMOVED 2014. dental work Hx Anesthesia Reactions: Yes - NAUSEA - Immunization History Date of Tetanus Vaccine: none Date of Influenza Vaccine: none Infectious Disease History: Yes Infectious Disease History: Reports: Hx of Known/Suspected MRSA Denies: History Other Infectious Disease, Traveled Outside the [place] in Last 30 Days - Family History Known Family History: Positive: Cardiac Disease Family History: cancer - Social History Alcohol Use: None Alcohol Amount: quit 2008 Hx Substance Use: No Substance Use Type: Reports: Prescribed Hx Tobacco Use: Yes Smoking Status (MU): Former Smoker Type: Cigarettes Amount Used/How Often: 1 PPD X 25 +YEARS Have You Smoked in the Last Year: No Review of Systems Positive: Chills. Negative: Fever, Other - current bleeding Negative: Shortness Of Breath Positive: Vomiting, Nausea All Other Systems Reviewed And Are Negative: Yes Physical Exam - Summary Physical Exam Summary: VITAL SIGNS: Reviewed. GENERAL: Patient is a pale-appearing female who is lying comfortable in the stretcher. Patient is not in any acute respiratory distress. HEAD AND FACE: No signs of trauma. No ecchymosis, hematomas or skull depressions. No sinus tenderness. EYES: PERRLA, EOMI x 2, No injected conjunctiva, no nystagmus. EARS: Hearing grossly intact. Ear canals and tympanic membranes are within normal limits. MOUTH: Oropharynx within normal limits. Dried blood on lower lip. NECK: Supple, trachea is midline, no adenopathy, no JVD, no carotid bruit, no c- spine tenderness, neck with full ROM. CHEST: Symmetric, no tenderness at palpation LUNGS: Clear to auscultation bilaterally. No wheezing or crackles. CVS: Regular rate and rhythm, S1 and S2 present, no murmurs or gallops appreciated. ABDOMEN: Soft, non-tender. No signs of distention. No rebound no guarding, and no masses palpated. Bowel sounds are normal. EXTREMITIES: FROM in all major joints, no edema, no cyanosis or clubbing. NEURO: Alert and oriented x 3. No acute neurological deficits. Speech is normal and follows commands. SKIN: Dry and warm Triage Information Reviewed: Yes Vital Signs On Initial Exam: Initial Vitals Temp Pulse Resp BP Pulse Ox 98.1 F 94 18 150/75 96 03/29/18 21:31 03/29/18 21:31 03/29/18 21:31 03/29/18 21:31 03/29/18 21:31 Vital Signs Reviewed: Yes Diagnostics - Vital Signs Vital Signs Temp Pulse Resp BP Pulse Ox 03/29/18 21:31 98.1 F 94 18 150/75 96 - Laboratory Result Diagrams: 03/29/18 22:20 03/29/18 22:20 Lab Statement: Any lab studies that have been ordered have been reviewed, and results considered in the medical decision making process. - Radiology CXR Xray Interpretation: No Acute Changes Radiology Interpretation Completed By: ED Physician - No acute prcoess, pending official report. Re-Evaluation - Re-Evaluation First Eval Re-Evaluation Time: 00:35 Comment: Results of CXR and bloodwork in addition to discharge plans were discussed with patient. Complex Multi-Symp Course/Dx Assessment/Plan: Pt is a 62 y/o female BIBA due to nausea and vomiting. Pt was previously at [facility] in [place] a week ago. She states that she was anemic, had low blood cell and platelet levels and claims that she was given a blood transfusion there. CXR revealed no acute findings. Blood work was done and results include plt count of 10, WBC of 0.8, RBC of 2.84, lactic acid of 0.6 and absolute neutrophils of 0.5. UA was done. Urine culture were sent. In the ED course, pt received Reglan, insulin and fluids. Discussed care of pt with Dr. Delgado who stated there was no need for antibiotics nor transfusions at this time and that she could be D/C to alf. Pt was diagnosed w/ pancitopenia and myelofibrosis and sent back to alf. Allergies noted. - Diagnoses Provider Diagnoses: Pancytopenia, Myelofibrosis - Physician Notifications Discussed Care Of Patient With: Larry Delgado Time Discussed With Above Provider: 00:40 Instructed by Provider To: Other - There is no need for Abx nor a transfusion at this time. She can be sent back to her alf at this time. Discharge - Sign-Out/Discharge Documenting (check all that apply): Discharge/Admit/Transfer - discharge - Discharge Plan Condition: Stable Disposition: HOME Patient Education Materials: Pancytopenia (DC) Referrals: Peyman Ko MD [Primary Care Provider] - 2 Days Additional Instructions: Return to ED for any new or worsening symptoms. The documentation as recorded by the Anastacio de la o Jacob accurately reflects the service I personally performed and the decisions made by me, Oral Ward MD.
--- NOTE | 2018-03-30 07:37 | RAD ---
Indication: Chills. Single frontal view of the chest performed at 2200 hours was reviewed. Comparison is made with previous exam dated August 04, 2017. No mediastinal shift is noted. Central line is in place. Lung pierce are clear. IMPRESSION: NO ACTIVE CARDIOPULMONARY DISEASE IS NOTED.
== END 2018-03-30 02:27 | disposition home or self-care (01) ==
LOC: ED 21:26
DX: D61.818 Other pancytopenia (principal); D75.81 Myelofibrosis; R11.2 Nausea with vomiting, unspecified; Z88.0 Allergy status to penicillin; Z87.891 Personal history of nicotine dependence; Z94.81 Bone marrow transplant status
CPT/HCPCS: 36415; 71045; 80053; 81003; 81015; 83605; 85025; 85610; 85730; 86140; 86850; 86900; 86901; 87040; 87086; 96361; 96374; 99284; A9270-GY; J2765

== ENCOUNTER 2018-05-02 15:58 | Emergency (ER) | payer MEDICARE, MEDICAID ==
--- NOTE | 2018-05-02 16:21 | ED ---
Complex/Multi-Sys Presentation - HPI Summary HPI Summary: This is scribe Bernadette Thomson documenting for attending Lobito Zepeda MD. Pt is a 63 y/o F BIBA who presents to ED from [facility] due to pancytopenia. Pt reports that she had routine blood work done with Dr. Ayala's office, who called to notify her of her lab results and referred her to the ED. Pt reports no symptoms besides vomiting for about 1 week. PMHx leukemia. - History Of Current Complaint Chief Complaint: EDGeneral Time Seen by Provider: 05/02/18 16:08 Hx Obtained From: Patient Onset/Duration: Still Present Severity Currently: None Location: Negative Aggravating Factor(s): Nothing Alleviating Factor(s): Nothing Associated Signs And Symptoms: Positive: Vomiting - Allergies/Home Medications Allergies/Adverse Reactions: Allergies Allergy/AdvReac Type Severity Reaction Status Date / Time azithromycin Allergy Difficulty Verified 03/29/18 21:33 Breathing diazepam Allergy Difficulty Verified 03/29/18 21:33 Breathing latex Allergy Rash Verified 03/29/18 21:33 Penicillins Allergy Difficulty Verified 03/29/18 21:33 Breathing benzonatate AdvReac Headache Verified 03/30/18 00:41 [From Tessalon Perles] cephalexin [From Keflex] AdvReac Vomiting Verified 03/30/18 00:41 hydromorphone [From Dilaudid] AdvReac Altered Verified 03/30/18 00:41 Mental Status morphine AdvReac Vomiting Verified 03/30/18 00:41 Sulfa (Sulfonamide AdvReac Vomiting Verified 03/30/18 00:41 Antibiotics) ALL "MYCINS" Allergy CHEST Uncoded 03/29/18 21:33 HEAVINESS, SL. DIFF. BREATHING, LIGHTHEADEDNESS ALL CILLINS Allergy CHEST Uncoded 03/29/18 21:33 HEAVINESS, SL. DIFF. BREATHING, LIGHTHEADNESS MULTIPLE ANTIBIOPTIC Allergy CHEST Uncoded 03/29/18 21:33 REACTIONS HEAVINESS, SL. DIFF. BREATHING, LIGHTHEADEDNESS SULFA DRUGS AdvReac VOMITING, Uncoded 03/30/18 00:41 DIARRHEA, HIVES, LIGHTHEADEDNESS Home Medications: Home Medications Acetaminophen [Acetaminophen Extra Strength] 500 mg PO DAILY 05/02/18 [History Confirmed 05/02/18] Acetaminophen [Acetaminophen Extra Strength] 500 mg PO Q6HR PRN 05/02/18 [ History Confirmed 05/02/18] DULoxetine DR CAP* [Cymbalta CAP*] 60 mg PO DAILY 05/02/18 [History Confirmed ] Lidocaine 2.5%/Prilocain 2.5%* [Emla 5 GM*] 1 applic TOPICAL .SEE DIRECTIONS PRN 05/02/18 [History Confirmed 05/02/18] Omeprazole CAP* [Prilosec CAP* 20 MG] 40 mg PO BID 05/02/18 [History Confirmed 05/02/18] Oxycodone TAB(NF) [Oxycodone HCl 10 MG] 10 mg PO Q3HR PRN MDD 80 mg 05/02/18 [ History Confirmed 05/02/18] Sodium Phosphate ADULT ENEMA* [Fleet Enema*] 1 enema MD DAILY PRN 05/02/18 [ History Confirmed 05/02/18] oxyCODONE SR TAB(*) [Oxycontin 40 mg (*)] 40 mg PO 0900,2100 05/02/18 [History Confirmed 05/02/18] PMH/Surg Hx/FS Hx/Imm Hx Endocrine/Hematology History: Reports: 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 Cardiovascular History: Reports: Hx Angina Denies: Hx Coronary Artery Disease, Hx Hypercholesterolemia, Hx Hypertension , Hx Myocardial Infarction, Hx Pacemaker/ICD, Hx Valvular Heart Disease Respiratory History: Denies: Hx Asthma, Hx Chronic Obstructive Pulmonary Disease (COPD) GI History: Reports: Hx Gastroesophageal Reflux Disease, Hx Gastrointestinal Bleed, Hx Hiatal Hernia, Hx Ulcer - reflux History: Reports: Hx Kidney Stones - teenager Denies: Hx Renal Disease Musculoskeletal History: Reports: Other Musculoskeletal History - meylofibrosis Sensory History: Reports: Hx Cataracts - BEGINNING STAGES Denies: Hx Contacts or Glasses, Hx Hearing Aid Opthamlomology History: Reports: Hx Cataracts - BEGINNING STAGES Denies: Hx Contacts or Glasses Neurological History: Denies: Hx Headaches Psychiatric History: Reports: Hx Anxiety, Hx Depression, Hx Panic Disorder, Other Psychiatric Issues/Disorders - claustrophobia - Cancer History Cancer Type, Location and Year: LEUKEMIA, myelofibrosis Hx Chemotherapy: No - Surgical History Surgery Procedure, Year, and Place: NECK SURGERY- FOR HENIATED DISC-[facility] [place]. SURGERY FOR PROLASPED BLADDER AND RECTUM, TOTAL ABDOMINAL HYSTERECTOMY- LAPAROSCOPIC-[facility]. APPENDECTOMY. TUBAL LIGATION. LEFT HAND LUMPS REMOVED 2014. dental work Hx Anesthesia Reactions: Yes - NAUSEA - Immunization History Date of Tetanus Vaccine: none Date of Influenza Vaccine: none Infectious Disease History: No Infectious Disease History: Reports: Hx of Known/Suspected MRSA Denies: History Other Infectious Disease, Traveled Outside the [place] in Last 30 Days - Family History Known Family History: Positive: Cardiac Disease Family History: cancer - Social History Alcohol Use: None Alcohol Amount: quit 2008 Hx Substance Use: No Substance Use Type: Reports: Prescribed Hx Tobacco Use: Yes Smoking Status (MU): Former Smoker Type: Cigarettes Amount Used/How Often: 1 PPD X 25 +YEARS Have You Smoked in the Last Year: No Review of Systems Positive: Other - Pancytopenia Positive: Vomiting All Other Systems Reviewed And Are Negative: Yes Physical Exam - Summary Physical Exam Summary: Appearance: The patient is well-nourished in no acute distress and in no acute pain. Skin: The skin is warm and dry and skin color reflects adequate perfusion. HEENT: The head is normocephalic and atraumatic. The pupils are equal and reactive. The conjunctivae are clear and without drainage. Nares are patent and without drainage. Mouth reveals dry mucous membranes and the throat is without erythema and exudate. The external ears are intact. The ear canals are patent and without drainage. The tympanic membranes are intact. Neck: The neck is supple with full range of motion and non-tender. There are no carotid bruits. There is no neck vein distension. Respiratory: Chest is non-tender. Lungs are clear to auscultation and breath sounds are symmetrical and equal. Cardiovascular: Heart is regular rate and rhythm. There is no murmur or rub auscultated. There is no peripheral edema and pulses are symmetrical and equal. Abdomen: The abdomen is soft and non-tender. There are normal bowel sounds heard in all four quadrants and there is no organomegaly palpated. Musculoskeletal: There is no back tenderness noted. Extremities are non-tender with full range of motion. There is good capillary refill. There is no peripheral edema or calf tenderness elicited. Neurological: Patient is alert and oriented to person, place and time. The patient has symmetrical motor strength in all four extremities. Cranial nerves are grossly intact. Deep tendon reflexes are symmetrical and equal in all four extremities. Psychiatric: The patient has an appropriate affect and does not exhibit any anxiety or depression. Triage Information Reviewed: Yes Vital Signs On Initial Exam: Initial Vitals Temp Pulse Resp BP Pulse Ox 98.4 F 97 16 104/58 96 05/02/18 16:05 05/02/18 16:05 05/02/18 16:05 05/02/18 16:05 05/02/18 16:05 Vital Signs Reviewed: Yes Diagnostics - Vital Signs Vital Signs Temp Pulse Resp BP Pulse Ox 05/02/18 16:05 98.4 F 97 16 104/58 96 - Laboratory Lab Statement: Any lab studies that have been ordered have been reviewed, and results considered in the medical decision making process. Re-Evaluation - Re-Evaluation First Eval Re-Evaluation Time: 16:51 Comment: Pt chose to receive blood today in the E.D. instead of in the office tomorrow. Complex Multi-Symp Course/Dx Course Of Treatment: Ms. Allen presented to the emergency department complaining primarily of fatigue. She had routine blood work drawn this morning and was told by Dr. Gaston's office to come to the emergency department. I reviewed her morning labs with Dr. Gaston who recommended offering the patient 1 unit of packed red blood cells here this evening and discharge back to the custodial or have her come to the office tomorrow to get a unit. The patient shows to be transfused here and a unit of irradiated blood has been ordered for her and I expect her to be discharged subsequently. - Diagnoses Provider Diagnoses: Anemia, Myelofibrosis - Physician Notifications Discussed Care Of Patient With: Guillermina Gaston Time Discussed With Above Provider: 16:42 Instructed by Provider To: Other - Gave the choice of getting blood or in the office tomorrow and she chose tonight. Discharge - Sign-Out/Discharge Documenting (check all that apply): Patient Departure - Discharge - Discharge Plan Condition: Stable Disposition: HOME Referrals: Peyman Ko MD [Primary Care Provider] - - Billing Disposition and Condition Condition: STABLE Disposition: Home
--- NOTE | 2018-05-02 19:57 | ED ---
Progress - Progress Note Progress Note: Pt signed out by Dr. Zepeda. Re-Evaluation - Re-Evaluation First Eval Re-Evaluation Time: 16:51 Comment: Pt chose to receive blood today in the E.D. instead of in the office tomorrow. Course/Dx - Course Course Of Treatment: Pt will be d/c home with f/u with PCP. - Diagnoses Provider Diagnoses: Anemia, MDS (myelodysplastic syndrome) - Provider Notifications Time Discussed With Above Provider: 16:42 Instructed by Provider To: Other - Gave the choice of getting blood or in the office tomorrow and she chose tonight. Discharge - Sign-Out/Discharge Documenting (check all that apply): Patient Departure - home - Discharge Plan Condition: Stable Disposition: HOME Patient Education Materials: Myelodysplastic Syndromes (ED), Anemia (ED) Referrals: Peyman Ko MD [Primary Care Provider] - 4 Days (PLEASE F/U IN 3-5 DAYS) Additional Instructions: RETURN TO THE ED FOR CHANGING/WORSENING SYMPTOMS - Billing Disposition and Condition Condition: STABLE Disposition: Home
[2018-05-02 21:08] VITALS: BP 115/55
== END 2018-05-02 21:11 | disposition home or self-care (01) ==
LOC: ED 15:58
DX: D64.9 Anemia, unspecified (principal); D75.81 Myelofibrosis; K21.9 Gastro-esophageal reflux disease without esophagitis; K44.9 Diaphragmatic hernia without obstruction or gangrene; F41.0 Panic disorder [episodic paroxysmal anxiety]; F32.9 Major depressive disorder, single episode, unspecified; Z85.6 Personal history of leukemia; Z88.5 Allergy status to narcotic agent; Z88.0 Allergy status to penicillin; Z88.2 Allergy status to sulfonamides; Z88.8 Allergy status to other drugs, medicaments and biological substances; Z88.1 Allergy status to other antibiotic agents; Z91.040 Latex allergy status; Z82.49 Family history of ischemic heart disease and other diseases of the circulatory system; Z87.891 Personal history of nicotine dependence
CPT/HCPCS: 36415; 36430; 86850; 86900; 86901; 86922; 99284; P9040

== ENCOUNTER 2018-05-04 17:22 | Inpatient (IN) | payer MEDICARE, MEDICAID ==
[2018-05-04] MEDS ORDERED: Ondansetron INJ* 2 MG/ML VIAL IV ONE (17:52)
[2018-05-04] MEDS ORDERED: Pantoprazole IV* 40 MG IV ONE (17:52)
[2018-05-04] MEDS ORDERED: NS 0.9% 1000 ML* 1,000 ML IV ONE (17:52)
--- NOTE | 2018-05-04 18:01 | ED ---
Abdominal Pain/Female - HPI Summary HPI Summary: This is jaylyn Heard documenting for attending Dr. Jeanie Cristina This patient is a 63 year old F presenting to [facility] accompanied by her son with a chief complaint of hematemesis since 1500. PMHx myelofibrosis. She endorses 3x emetic episodes today. She notes that emesis is normal for her, but hematemesis is abnormal. Pt received 1 pt transfusion on 05/02. SHx stem cell transplant failed last 04/2017. Pt refused hospice care. She denies fever and bowel blockages. PMHx anemia, DM. - History of Current Complaint Chief Complaint: EDGIBleed Stated Complaint: VOMITING BLOOD Time Seen by Provider: 05/04/18 17:39 Hx Obtained From: Patient, Family/Stem Cutter - son Onset/Duration: Sudden Onset, Still Present Timing: Intermittent Episode Lasting Severity Initially: Moderate Severity Currently: Moderate Pain Intensity: 7 Location: Diffuse Character: Not Applicable Aggravating Factor(s): Nothing Alleviating Factor(s): Nothing Associated Signs and Symptoms: Positive: Nausea, Vomiting. Negative: Fever Allergies/Adverse Reactions: Allergies Allergy/AdvReac Type Severity Reaction Status Date / Time azithromycin Allergy Difficulty Verified 03/29/18 21:33 Breathing diazepam Allergy Difficulty Verified 03/29/18 21:33 Breathing latex Allergy Rash Verified 03/29/18 21:33 Macrolide Antibiotics Allergy Difficulty Verified 05/04/18 18:16 Breathing/Wheezing Penicillins Allergy Difficulty Verified 03/29/18 21:33 Breathing benzonatate AdvReac Headache Verified 03/30/18 00:41 [From Tessalon Perles] cephalexin [From Keflex] AdvReac Vomiting Verified 03/30/18 00:41 hydromorphone [From Dilaudid] AdvReac Altered Verified 03/30/18 00:41 Mental Status morphine AdvReac Vomiting Verified 03/30/18 00:41 Sulfa (Sulfonamide AdvReac Vomiting Verified 03/30/18 00:41 Antibiotics) MULTIPLE ANTIBIOPTIC Allergy CHEST Uncoded 03/29/18 21:33 REACTIONS HEAVINESS, SL. DIFF. 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 Cardiovascular History: Reports: Hx Angina Denies: Hx Coronary Artery Disease, Hx Hypercholesterolemia, Hx Hypertension , Hx Myocardial Infarction, Hx Pacemaker/ICD, Hx Valvular Heart Disease Respiratory History: Denies: Hx Asthma, Hx Chronic Obstructive Pulmonary Disease (COPD) GI History: Reports: Hx Gastroesophageal Reflux Disease, Hx Gastrointestinal Bleed, Hx Hiatal Hernia, Hx Ulcer - reflux History: Reports: Hx Kidney Stones - teenager Denies: Hx Renal Disease Musculoskeletal History: Reports: Other Musculoskeletal History - meylofibrosis Sensory History: Reports: Hx Cataracts - BEGINNING STAGES Denies: Hx Contacts or Glasses, Hx Hearing Aid Opthamlomology History: Reports: Hx Cataracts - BEGINNING STAGES Denies: Hx Contacts or Glasses Neurological History: Denies: Hx Headaches Psychiatric History: Reports: Hx Anxiety, Hx Depression, Hx Panic Disorder, Other Psychiatric Issues/Disorders - claustrophobia - Cancer History Cancer Type, Location and Year: LEUKEMIA, myelofibrosis Hx Chemotherapy: No - Surgical History Surgery Procedure, Year, and Place: NECK SURGERY- FOR HENIATED DISC-[facility] [place]. SURGERY FOR PROLASPED BLADDER AND RECTUM, TOTAL ABDOMINAL HYSTERECTOMY- LAPAROSCOPIC-[facility]. APPENDECTOMY. TUBAL LIGATION. LEFT HAND LUMPS REMOVED 2014. dental work Hx Anesthesia Reactions: Yes - NAUSEA - Immunization History Date of Tetanus Vaccine: none Date of Influenza Vaccine: none Infectious Disease History: No Infectious Disease History: Reports: Hx of Known/Suspected MRSA Denies: History Other Infectious Disease, Traveled Outside the [place] in Last 30 Days - Family History Known Family History: Positive: Cardiac Disease Family History: cancer - Social History Lives: With Family Alcohol Use: None Alcohol Amount: quit 2008 Hx Substance Use: No Substance Use Type: Reports: Prescribed Hx Tobacco Use: Yes Smoking Status (MU): Former Smoker Type: Cigarettes Amount Used/How Often: 1 PPD X 25 +YEARS Have You Smoked in the Last Year: No Review of Systems Negative: Fever Positive: Abdominal Pain, Vomiting, Nausea, Other - hematemesis Positive: no symptoms reported Positive: Bruising - liateral lower legs Positive: Weakness All Other Systems Reviewed And Are Negative: Yes Physical Exam - Summary Physical Exam Summary: Appearance: chronically-ill appearing, no pain distress, port in right chest Skin: warm, dry, pallor to skin and conjunctiva, ecchymosis bilateral lower legs Head/face: dried blood on lips but no active bleeding, pallor to conjunctiva, dentures Eyes: EOMI, JACKELYN, pallor to conjunctiva ENT: normal Neck: supple, non-tender Respiratory: CTA, breath sounds present but shallow Cardiovascular: tachycardic, weak pulses Abdomen: non-tender, soft Bowel Sounds: present Musculoskeletal: normal, strength/ROM intact Neuro: normal, sensory motor intact, A&Ox3 Triage Information Reviewed: Yes Vital Signs On Initial Exam: Initial Vitals Temp Pulse Resp BP Pulse Ox 98 F 99 16 133/63 97 05/04/18 17:39 05/04/18 17:39 05/04/18 17:39 05/04/18 17:39 05/04/18 17:39 Vital Signs Reviewed: Yes Diagnostics - Vital Signs Vital Signs Temp Pulse Resp BP Pulse Ox 05/04/18 17:39 98 F 99 16 133/63 97 - Laboratory Lab Statement: Any lab studies that have been ordered have been reviewed, and results considered in the medical decision making process. - EKG 1821 Cardiac Rate: NL - 97 EKG Rhythm: Sinus Rhythm ST Segment: Non-Specific Ectopy: None EKG Interpretation: nl axis and interval Abdominal Pain Fem Course/Dx - Course Course Of Treatment: 175 spoke with blood bank, they're ordering platelets. Patient with history of myelofibrosis and pancytopenia with very low hemoglobin and platelets below 10. Today her platelet count is 8 and she has had retching due to likely chronic constipation as evidenced by the x-rays. Retching lead II bright red blood in emesis which has not continued. She was given IV Protonix and Protonix drip. GI was contacted and will see in consult. She'll be transfused platelets, packed red blood cells. I discussed the case with oncology who feels as though continuing to give her platelets may be somewhat futile. However, the family and the patient wished to continue with all medical efforts. GI is concerned that they may not be able to scope her in her current state of health or that they may not be able to stop any bleeding. This was explained to the patient and the son. Hospitalist team was contacted and will admit to the ICU at the request of the oncologist. - Diagnoses Provider Diagnoses: Upper GI bleed, Pancytopenia, Myelofibrosis - Provider Notifications Discussed Care Of Patient With: Guillermina Gaston Time Discussed With Above Provider: 18:02 Instructed by Provider To: Other - She thinks care is futile but pt maintains full code, Dr. Gaston wants hospitalist service and admission. - Critical Care Time Critical Care Time: 30-74 min - CCT is EXCLUSIVE of separately billable procedures. Discharge - Sign-Out/Discharge Documenting (check all that apply): Patient Departure - admitted - Discharge Plan Condition: Critical Disposition: ADMITTED TO [facility] Referrals: Peyman Ko MD [Primary Care Provider] - - Billing Disposition and Condition Condition: CRITICAL Disposition: Admitted to [facility] Consult Consult: [id number] Dr. Herzog: He said he will see her in ED.
[2018-05-04 18:40] LABS: INR 0.98 (0.77-1.02)
[2018-05-04] MEDS ORDERED: Acetaminophen TAB* 325 MG PO PRN (19:13)
[2018-05-04] MEDS ORDERED: Morphine ORAL CONCENTRATE* 5 MG/0.25 ML ORAL.SYRIN SL PRN (19:13)
[2018-05-04] MEDS ORDERED: NS 0.9% 1000 ML* 1,000 ML IV SCH (19:15)
[2018-05-04] MEDS ORDERED: Albuterol HFA INHALER* 8 gm MDI INH PRN (19:17)
[2018-05-04] MEDS ORDERED: oxyCODONE TAB* 5 MG TAB PO PRN (19:17)
[2018-05-04 19:19] LABS: ABS Basophils 0 10^3/ul (0-0.2); ABS Eosinophils 0 10^3/ul (0-0.6); ABS Lymphocytes 0.1 10^3/ul (1.0-4.8); ABS Monocytes 0.1 10^3/ul (0-0.8); ABS Neutrophils 0.6 10^3/ul (1.5-7.7); ABS Nucleated RBC 0 10^3/ul; Eosinophil % 0.5 % (0-6); Hematocrit 23 % (35-47); Hemoglobin 7.9 g/dl (12.0-16.0); Lymphocyte % 15.8 % (25-47); Mean Corpuscular HGB Conc 35 g/dl (31-36); Mean Corpuscular Hemoglobin 28 pg (27-31); Mean Corpuscular Volume 81 fL (80-97); Mean Platelet Volume 12.1 um3 (7.4-10.4); Nucleated Red Blood Cells % 0; Platelet Count 8 10^3/ul (150-450); Red Blood Count 2.82 10^6/ul (4.00-5.40); Red Cell Distribution Width 15 % (10.5-15); White Blood Count 0.9 10^3/ul (3.5-10.8)
[2018-05-04 19:30] LABS: EGFR Non-African American 109.3 (>60)
[2018-05-04] MEDS ORDERED: Dextrose 50% Syringe 50 ML* 25 GM/50 ML SYRINGE IV PUSH PRN (19:31)
--- NOTE | 2018-05-04 19:49 | RAD ---
INDICATION: Abdominal pain and emesis COMPARISON: Most recent comparison radiograph is dated March 03, 2017 TECHNIQUE: Supine and upright views of the abdomen were obtained. FINDINGS: The small bowel and colon appear nondistended. No free intraperitoneal air is seen. Scattered air-fluid levels are seen on the left lateral image. No grossly abnormal or pathologic appearing calcifications are noted. Visualized bones are within normal limits for the patient's age. IMPRESSION: Scattered air-fluid levels are noted on the lateral view image in this otherwise nonacute abdominal radiograph.
[2018-05-04] MEDS ORDERED: Pantoprazole IV* 80 MG in NS 0.9% 250 ML* 250 ML IVPB SCH (20:00)
[2018-05-04] MEDS: Morphine INJ* 2 MG/ML 1 ML SYRINGE (TWO MG - NEW SYRINGE VERSION) IV PRN (20:21)
[2018-05-04] MEDS: Ondansetron INJ* 2 MG/ML VIAL IV PRN (20:22)
[2018-05-04] MEDS ORDERED: traZODone TAB* 50 MG TAB PO SCH (21:00)
[2018-05-04] MEDS: Pantoprazole IV* 80 MG in NS 0.9% 250 ML* 250 ML IVPB SCH (21:10)
[2018-05-04] MEDS: Sucralfate TAB* 1 GM PO SCH (22:59)
[2018-05-04] MEDS ORDERED: Insulin LISPRO* 1 UNITS UNIT SUBCUT ONE (23:26)
[2018-05-04] MEDS: Insulin LISPRO* 1 UNITS UNIT SUBCUT SCH (23:27)
[2018-05-05] MEDS: Acyclovir* 400 MG TAB PO SCH ×2 (00:11→08:30)
[2018-05-05] MEDS: oxyCODONE SR TAB(*) 40 MG TAB.SR PO SCH ×2 (00:12→08:30)
[2018-05-05] MEDS: Sucralfate TAB* 1 GM PO SCH ×3 (00:12→15:17)
[2018-05-05] MEDS: PROCHLORPERAZINE INJ 5 MG/ML 2 ML VIAL IV PRN ×2 (00:22→14:17)
[2018-05-05] MEDS: Morphine INJ* 2 MG/ML 1 ML SYRINGE (TWO MG - NEW SYRINGE VERSION) IV PRN ×2 (00:25→16:34)
[2018-05-05 01:45] LABS: Hematocrit 27 % (35-47); Hemoglobin 9.1 g/dl (12.0-16.0); Mean Platelet Volume 8.9 um3 (7.4-10.4); Platelet Count 16 10^3/ul (150-450)
[2018-05-05 01:56] LABS: EGFR Non-African American 124.6 (>60)
--- NOTE | 2018-05-05 02:11 | HP ---
CC: Dr. Herzog; Dr. Ko; Dr. Gaston * HISTORY AND PHYSICAL: DATE OF ADMISSION: 05/04/18 PRIMARY CARE PROVIDER: Dr. Ko. ATTENDING PHYSICIAN WHILE IN THE HOSPITAL: Yuni Kulkarni DO * (report dictated by Lj Oh NP) CHIEF COMPLAINT: Vomiting red blood. HISTORY OF PRESENT ILLNESS: Mrs. Allen is a 63-year-old female patient. She has a history of myelofibrosis status post bone marrow transplant. She has a history of anemia, diabetes, GERD, hyperlipidemia, and hypertension. She is coming in to the ED today. She has been at [facility], residing there because she has been having issues. She has not been unable to care for herself at home. She has significant amount of weakness and has lost basically the ability to walk due to weakness in her lower extremities. She is coming in because she had a couple of episodes this afternoon of vomiting bright red blood. There were reports that she did drink Gatorade, but according to the son , who is there with the patient states that they stated that the vomit was tested for blood and it tested back positive. She had 2 episodes only. There was concern because of the vomiting of the blood and given her history of thrombocytopenia and the fact that she chronically has low H and H, she was sent to the hospital. She is admitting to having some epigastric discomfort, which started after the vomiting today. She is denying having any fevers or chills. No dysuria or frequency. She states that she does feel weak and tired. She denied having any syncope. No chest pain or shortness of breath. She came in to the ED because she did have an episode of, while in the ambulance , vomiting up this possible red blood and because of the concern for GI bleed, we were asked to evaluate for admission. PAST MEDICAL HISTORY: Significant for: 1. Myelofibrosis. 2. Hyperlipidemia. 3. Hypertension. 4. Diabetes. 5. Anemia. 6. GERD. 7. 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 PAST SURGICAL HISTORY: 1. She has had tubal ligation. 2. Bone marrow transplant. 3. She has also had a cervical spine surgery. MEDICATIONS: Her home medications include: 1. Lidocaine jelly 1 application topically every 6 hours as needed. 2. Fleet Enema 1 enema SD daily as needed. 3. Phenergan 25 mg every 6 hours as needed. 4. Milk of mag 30 cc daily as needed. 5. Dulcolax 10 mg SD daily as needed. 6. Atrovent 2 puffs inhaler every 6 hours as needed. 7. Carafate 1 g p.o. q.i.d. as needed. 8. EMLA 1 application daily as needed as prescribed. 9. Lactulose 30 cc p.o. b.i.d. as needed. 10. Ventolin 2 puffs every 6 hours as needed. 11. Tylenol Extra Strength 500 mg every 6 hours as needed. 12. Oxycodone 10 mg every 3 hours as needed. 13. Colace 100 mg p.o. b.i.d. as needed. 14. Senna 17.2 mg p.o. every 12 hours. 15. Lantus 10 units subcu q.p.m. 16. Prednisone 20 mg p.o. daily. 17. Zofran 4 mg p.o. a.c. and h.s. as needed. 18. Prilosec 40 mg p.o. b.i.d. 19. Budesonide 3 mg p.o. t.i.d. 20. Trazodone 50 mg p.o. daily at bedtime. 21. MiraLAX 17 g p.o. daily. 22. Florinef 0.1 mg p.o. daily. 23. Diflucan 200 mg p.o. daily. 24. Pepcid 20 mg daily. 25. OxyContin 40 mg p.o. b.i.d. 26. Acyclovir 400 mg p.o. b.i.d. 27. Cymbalta 60 mg p.o. daily. ALLERGIES: She does have several allergies to medications. She has several antibiotic allergies. Her allergies include AZITHROMYCIN, DIAZEPAM, LATEX, MACROLIDE ANTIBIOTICS, PENICILLIN, BENZONATATE, KEFLEX, DILAUDID, MORPHINE, which just caused in her own words loopiness, SULFA. FAMILY HISTORY: Her mother had heart disease. Her father's history is unknown. SOCIAL HISTORY: She does not smoke. She resides at [facility]. Surrogate decision maker is her son. She does not drink alcohol. REVIEW OF SYSTEMS: There is no documented fever. She is denying having any weight change. No double vision. No ear discharge. There was no rhinorrhea. There is no sore throat. There was no thyroid enlargement. She is denying having any chest pain. There is no orthopnea. There is no nocturnal dyspnea. She does admit to having epigastric pain and she did admit to having nausea and vomiting. No dysuria, no frequency. No seizure, no loss of consciousness. Review of 14 systems was completed, all others negative. PHYSICAL EXAMINATION GENERAL: At this time, Mrs. Allen is a 63-year-old female patient. She is sitting in the ED stretcher. She appears to be chronically ill appearing. She does not appear to be in any acute distress. VITAL SIGNS: Blood pressure 133/63, pulse of 103, respirations 16, O2 sat 96%, temperature 98. HEENT: Head: Atraumatic, normocephalic. Eyes: EOMs are intact. Sclerae anicteric and not pale. Throat: Oral mucosa appears to be moist. No oropharyngeal erythema. NECK: Supple. LUNGS: Clear to auscultation. HEART: Sounds S1, S2. She had a regular rate and rhythm. No murmurs, rubs, or gallops. ABDOMEN: Soft, flat, nontender. Bowel sounds are present. EXTREMITIES: Pulses were 2+ throughout. She is moving upper extremities with 5 /5 strength. NEUROLOGIC: She is awake, alert. She is oriented x3. SKIN: Intact. She does have a stage II pressure ulcer to the left heel. DIAGNOSTIC STUDIES/LAB DATA: Labs are revealing a WBC 7.9 , RBC of 2.82, hemoglobin of 7.9, hematocrit of 23, platelet count of 8000. The INR was 0.98, PTT of 28.8. The sodium was 127, potassium of 4.5, chloride of 89, bicarb 22, BUN 18, creatinine 0.56, glucose of 428. Calcium 8.4. Total bili 0.8, AST 3, ALT less than 3, alk phos 58. Troponin 0.01. Albumin of 2.7. Lipase negative. She had an abdominal x-ray obtained today. Under my review, again I do not see any obvious free air. She does appear to be constipated. EKG today showing a normal sinus rhythm, rate of 97. She did have a little of depression in V5 and V4, that has been similar in the past. ST elevations appears to be similar. Today's EKG, rate is 97. Old medical records were reviewed. ASSESSMENT AND PLAN: Mrs. Allen is a 63-year-old female patient coming in to the ED today with complaints of vomiting bright red blood. She will be admitted under inpatient status for: 1. GI bleed. Again, she may have Deb-Owen tear. Apparently, she had been having retching on last week with Dr. Gaston. Dr. Herzog was called by Dr. Ware in the ER. I have put a consult to him. Plan at this point , I want to keep her on clears. I am only going to give her 1 unit of blood for that low H and H and 1 unit of platelets only and follow her. She has not had anymore active issues of vomiting down here. If she continues to vomit, then I would give her another unit. My plan would be serial H and H's, 2 peripheral IVs, PPI drip, clear liquid diet and continue to follow. 2. Myelofibrosis. Again, the patient is in the end stage of this disease process. She is not interested in hospice. I will continue with her current medical regimen. 3. History of bone marrow transplant. Continue with her current medical regimen. 4. Diabetes. Lispro sliding scale has been ordered. 5. Anemia. We will follow the H and H. 6. Gastroesophageal reflux disease. She will be on a PPI therapy and Carafate. 7. Hyperlipidemia. Continue meds as prescribed. 8. Hypertension. Blood pressure is stable. We will monitor. 9. Thrombocytopenia. Again, platelet count is 8000. In the setting of concern of active bleeding, I will certainly give her 1 unit. 10. DVT prophylaxis. SCDs have been ordered. 11. Code status. She is a DNR/DNI. There is a MOLST form in the chart. 12. Fluids, electrolytes, and nutrition. She can have a clear liquid diet. TIME SPENT: On admission is 60 minutes, greater than half the time spent face- to- face with the patient obtaining my history and physical, other half time spent going over the plan of care with the patient and implementing plan of care. I did discuss the plan of care with my attending, Dr. Kulkarni, she is in agreement. LJ OH NP [id number]/[facility] #: [id number] AURELIA
[2018-05-05 06:52] LABS: Hematocrit 26 % (35-47); Mean Corpuscular HGB Conc 35 g/dl (31-36); Mean Corpuscular Hemoglobin 29 pg (27-31); Mean Corpuscular Volume 82 fL (80-97); Mean Platelet Volume 7.9 um3 (7.4-10.4); Platelet Count 29 10^3/ul (150-450); Red Blood Count 3.09 10^6/ul (4.00-5.40); Red Cell Distribution Width 16 % (10.5-15); White Blood Count 1.1 10^3/ul (3.5-10.8)
[2018-05-05 07:05] LABS: Hematocrit 26 % (35-47)
[2018-05-05 07:10] LABS: INR 0.97 (0.77-1.02)
[2018-05-05 07:11] LABS: ABS Basophils 0 10^3/ul (0-0.2); ABS Eosinophils 0 10^3/ul (0-0.6); ABS Lymphocytes 0.3 10^3/ul (1.0-4.8); ABS Monocytes 0.1 10^3/ul (0-0.8); ABS Neutrophils 0.8 10^3/ul (1.5-7.7); ABS Nucleated RBC 0 10^3/ul; Eosinophil % 0.5 % (0-6); Lymphocyte % 23.2 % (25-47); Nucleated Red Blood Cells % 0.4
[2018-05-05] MEDS: Pantoprazole IV* 80 MG in NS 0.9% 250 ML* 250 ML IVPB SCH (07:11)
[2018-05-05 07:20] LABS: EGFR Non-African American 152.4 (>60)
[2018-05-05] MEDS ORDERED: Insulin LISPRO* 1 UNITS UNIT SUBCUT SCH (07:30)
[2018-05-05] MEDS: Insulin LISPRO* 1 UNITS UNIT SUBCUT SCH ×2 (08:29→14:14)
[2018-05-05] MEDS: Fludrocortisone Acetate TAB* 0.1 MG PO SCH ×2 (08:30→08:44)
[2018-05-05] MEDS: Ondansetron INJ* 2 MG/ML VIAL IV PRN ×2 (08:31→14:14)
[2018-05-05] MEDS ORDERED: Polyethylene Glycol 3350* 17 GM PACKET PO SCH (09:00)
[2018-05-05] MEDS ORDERED: Tiotropium CAP.INH* CAP.INH/18 MCG (USE ORDER SET !) INH SCH (09:00)
[2018-05-05] MEDS ORDERED: Spiriva Inhaler DEVICE* 1 EACH DEVICE INH ONE (09:00)
[2018-05-05] MEDS ORDERED: DULoxetine DR CAP* 60 MG CAP.DR PO SCH (09:00)
[2018-05-05] MEDS ORDERED: predniSONE TAB* 20 MG PO SCH (09:00)
[2018-05-05] MEDS ORDERED: NS 0.9% 1000 ML* 1,000 ML IV SCH (10:15)
[2018-05-05 15:01] VITALS: BP 142/89
[2018-05-05] MEDS ORDERED: Fluconazole 100 MG TAB* TAB PO SCH (18:00)
[2018-05-05] MEDS ORDERED: Insulin GLARGINE(*) 1 UNITS UNIT SUBCUT SCH (18:00)
[2018-05-05] MEDS ORDERED: Metoprolol Tartrate TAB* 25 MG PO SCH (21:00)
--- NOTE | 2018-05-06 01:13 | DS ---
CC: Dr. Guillermina Gaston; Audrey Valdivia MD, [facility]; Dr. Ko * DISCHARGE SUMMARY: DATE OF ADMISSION: 05/04/18 DATE OF DISCHARGE: 05/05/18 PRIMARY CARE PROVIDER: Dr. Ko. PRIMARY ONCOLOGIST: Dr. Guillermina Gaston. ATTENDING PHYSICIAN: Dr. Nicko Ayala.* (DICTATED BY CHRISTINE SINGLETON) DISCHARGING PROVIDER: CHRISTINE Singleton. PRIMARY DISCHARGE DIAGNOSES: 1. Upper GI bleed - likely Deb-Owen tear which spontaneously resolved. 2. Paroxysmal atrial fibrillation. SECONDARY DISCHARGE DIAGNOSES: 1. Myelofibrosis, status post failed bone marrow transplant with neutropenia and transfusion-dependent anemia and thrombocytopenia. 2. Chronic nausea and vomiting with suspected gastric outlet obstruction. DISCHARGE MEDICATIONS: 1. Acetaminophen 500 mg p.o. q.6 hours as needed for pain and fever. 2. Acyclovir 400 mg p.o. twice daily. 3. Albuterol inhaler 2 puffs inhaled q.6 hours as needed for shortness of breath. 3. Dulcolax Suppository 10 mg per rectum daily. 4. Budesonide 3 mg p.o. 3 times daily. 5. Docusate 100 mg p.o. twice daily. 6. Cymbalta 60 mg p.o. daily. 7. Pepcid 20 mg p.o. daily. 8. Fluconazole 200 mg p.o. daily. 9. Fludrocortisone 0.1 mg p.o. daily. 10. Lantus 10 units subcu daily. 11. Atrovent 2 puffs inhaled q.6 hours as needed for shortness of breath. 12. Lactulose 30 mL p.o. twice daily as needed for constipation. 13. Magnesium hydroxide 30 mL p.o. daily as needed for constipation. 14. Omeprazole 40 mg p.o. twice daily. 15. Ondansetron 4 mg p.o. at mealtimes and bedtime. 16. OxyContin 40 mg p.o. twice daily. 17. Oxycodone 10 mg p.o. q.3 hours as needed for pain. 18. MiraLAX 17 g p.o. daily. 19. Prednisone 20 mg p.o. daily. 20. Senna 2 tablets p.o. q.12 hours as needed for constipation. 21. Sucralfate 1 g p.o. 4 times daily. 22. Trazodone 50 mg p.o. at bedtime. 23. Reglan 5 mg p.o. at mealtimes and before bed. HOSPITAL IMAGIN. Abdominal x-ray shows scattered air-fluid levels, but otherwise no acute findings. 2. EKG at admission shows normal sinus rhythm. EKG, 05/05/18 shows atrial fibrillation with a rate just over 100 beats per minute. HOSPITAL COURSE: This is a very unfortunate 63-year-old female with history of myelofibrosis, status post allo bone marrow transplant which has unfortunately failed with now progressive bone marrow failure, is transfusion dependent, who presented to the hospital with concern for bright red blood in her emesis. The patient has been struggling with frequent nausea and vomiting for quite some time, concern for possible gastric outlet obstruction versus component of graft- versus-host disease. The patient's health has been steadily declining over the last several months; and, unfortunately, there is no curative intervention or palliative treatment options that would significantly improve her quality of life and hospice has been encouraged. On numerous occasions, the patient has been resistant to this idea and currently resides in [facility]. The patient's emesis was reportedly tested for occult blood at [facility] and it was positive and she was subsequently transferred to the emergency department for further evaluation. She was last seen in the emergency department just 2 days prior and received a unit of packed red blood cells and 4 days prior to that had received 1 unit of platelets as well as packed red blood cells as well. The patient did not experience any additional nausea or vomiting in the emergency department or overnight where she was observed in ICU. She was transfused 1 unit of packed red blood cells and her hemoglobin improved from 7.9 to 9.0. Her platelets at the time of admission were 8000 and she received 2 units of platelets and improved to 29,000 at the time of discharge. Of note, her ANC was 600 at admission and 800 at discharge, but no noted fevers or other signs of infection. Case was discussed with frame cleaner, Dr. Crook and her history sounds consistent with what was likely a Deb-Owen tear which spontaneously resolved. Dr. Crook suggested that most Deb-Owen tears do not require specific intervention unless bleeding is obviously continuous. With her thrombocytopenia, he would like to avoid endoscopy if at all possible. She has not shown any additional signs of bleeding since admission and has remained hemodynamically stable. Of note, the patient had a brief vasovagal syncope episode while in ICU and shortly thereafter entered atrial fibrillation with a rate in the low 100s. EKG confirmed atrial fibrillation. This is a new diagnosis for her. She did spontaneously convert after about 2 hours and remained asymptomatic during that period of time. Further workup for her atrial fibrillation or other intervention was not completed due to her overall poor prognosis from her primary disease process. The patient is not eligible for anticoagulation due to her chronic thrombocytopenia. DISPOSITION AND FOLLOWUP PLAN: The patient is being discharged back to [facility]. Reglan has been ordered to start with mealtime and before bed hopefully improve her frequent nausea and vomiting. Next steps including encouragement to proceed with hospice care was discussed during this hospitalization, but the patient remains resisted. She is scheduled to follow up with her primary oncologist, Dr. Guillermina Gaston next week, appointment made for 05/10/18 at 10:30 a.m. CHRISTINE SINGLETON [id number]/[facility] #: [id number] AURELIA
== END 2018-05-05 16:30 | DRG 369 ==
LOC: ED 17:22 → ICU 19:07
PROVIDERS: ADMIT Pediatrics; ATTEND Internal Medicine Hematology & Oncology
PROC: 30233N1 Transfusion of Nonautologous Red Blood Cells into Peripheral Vein, Percutaneous Approach (ICD-10-PCS; principal; 2018-05-04)
DX: K22.6 Gastro-esophageal laceration-hemorrhage syndrome (principal); D75.81 Myelofibrosis; T86.0 Complications of bone marrow transplant; K31.1 Adult hypertrophic pyloric stenosis; D61.818 Other pancytopenia; K21.9 Gastro-esophageal reflux disease without esophagitis; E78.5 Hyperlipidemia, unspecified; I10 Essential (primary) hypertension; Z66 Do not resuscitate; K44.9 Diaphragmatic hernia without obstruction or gangrene; E11.36 Type 2 diabetes mellitus with diabetic cataract; F41.9 Anxiety disorder, unspecified; F32.9 Major depressive disorder, single episode, unspecified; F41.0 Panic disorder [episodic paroxysmal anxiety]; F40.240 Claustrophobia; K59.09 Other constipation; I48.0 Paroxysmal atrial fibrillation; R55 Syncope and collapse; Z88.1 Allergy status to other antibiotic agents; Z88.0 Allergy status to penicillin; Z88.5 Allergy status to narcotic agent; Z88.2 Allergy status to sulfonamides; Z98.51 Tubal ligation status; Z91.040 Latex allergy status; Z87.442 Personal history of urinary calculi; Z79.4 Long term (current) use of insulin; Z79.52 Long term (current) use of systemic steroids; Z82.49 Family history of ischemic heart disease and other diseases of the circulatory system; Z94.81 Bone marrow transplant status; Z90.710 Acquired absence of both cervix and uterus; Z86.14 Personal history of Methicillin resistant Staphylococcus aureus infection; Z87.891 Personal history of nicotine dependence
CPT/HCPCS: 36415; 36430; 74019; 80048; 80053; 83690; 84484; 85014; 85018; 85025; 85049; 85610; 85730; 86850; 86900; 86901; 86922; 93005; 99217; 99238; 99284; A9270-GY; J0780; J2270; J2405; J7512; P9035; P9040